=== PATIENT | female | born 1965 | race Caucasian/White ===

== ENCOUNTER → 2018-07-17 09:07 | Outpatient (CLI) | payer OTHER, MEDICAID, SELFPAY | PROVIDERS: Visit Provider Family Medicine | DX: K21.9 Gastro-esophageal reflux disease without esophagitis (principal) | CPT/HCPCS: 86677 ==

== ENCOUNTER 2018-09-15 13:58 | Emergency (ER) | payer OTHER, MEDICAID, SELFPAY ==
[2018-09-15 14:03] VITALS: BP 122/76; PULSE 95; RESP 22; TEMP 36.1; O2SAT 99; BMI 43.2
--- NOTE | 2018-09-15 16:04 | ED.URI ---
HPI - URI/Sore Throat <PAULA Pulido - Last Filed: 09/15/18 22:16> General Chief Complaint: Upper Respiratory Symptoms Stated Complaint: thinks she has the flu and sore in her mouth Time Seen by Provider: 09/15/18 15:13 Source: patient Mode of arrival: ambulatory History of Present Illness HPI Narrative: 53-year-old female with history of hypertension and is a former smoker here for complaint of having cough fever generalized malaise over the past 3-4 days. She has been tolerating p.o. intake well with no nausea or vomiting in the last 24 hr. She does state that a couple of days ago she had 1 episode of vomiting. She also states she has had a fever she is using Tylenol as needed for the fever and discomfort . She also reports having nasal congestion and sore throat as well. She denies any contacts with similar symptoms. No other concerns or complaints. MD Complaint: fever, cough, sore throat, rhinorrhea and nasal congestion Related Data Home Medications Medication Instructions Recorded Confirmed bupropion HCl 200 mg PO BID 09/15/18 esomeprazole magnesium 20 mg PO DAILY 09/15/18 09/15/18 lisinopril 10 mg PO DAILY 09/15/18 09/15/18 metformin 1,000 mg PO BID 09/15/18 09/15/18 oxycodone-acetaminophen 1 tab PO Q6H PRN MDD 8 tabs 09/15/18 09/15/18 Allergies Allergy/AdvReac Type Severity Reaction Status Date / Time Penicillins Allergy Verified 09/15/18 14:02 TEGADERM Allergy Uncoded 09/15/18 14:02 Review of Systems <PAULA Pulido - Last Filed: 09/15/18 22:16> Constitutional Reports chills, Reports fever(s), Denies lethargy, Reports malaise and Denies weakness Eyes Denies change in vision, Denies eye discharge, Denies irritation and Denies loss of vision ENT Ears, Nose, Mouth, and Throat: Reports nasal discharge and Reports sore throat Cardiovascular Denies chest pain, Denies irregular heart rhythm, Denies lightheadedness, Denies palpitations, Denies dyspnea, Denies dyspnea on exertion and Denies orthopnea Respiratory Reports cough, Denies dyspnea, Denies dyspnea on exertion and Denies wheezing Gastrointestinal Gastrointestinal: Denies abdominal pain, Denies change in bowel habits, Denies diarrhea, Denies nausea and Denies vomiting Musculoskeletal Denies back pain, Denies muscle weakness, Denies numbness and Denies tingling Integumentary/Breasts Denies pruritus, Denies erythema, Denies rash and Denies wounds Neurologic Denies confusion, Denies loss of vision, Denies numbness, Denies tingling and Denies weakness Psychiatric Denies anxiety, Denies confusion, Denies depression, Denies homicidal ideation and Denies suicidal ideation Endocrine Denies palpitations Allergic/Immunologic Denies wheezing PFSH <PAULA Pulido - Last Filed: 09/15/18 22:16> Social History Smoking Status: Former smoker Social History Smoking Status: Former smoker Exam <PAULA Pulido - Last Filed: 09/15/18 22:16> Initial Vital Signs Initial Vital Signs: Vital Signs Temperature 96.9 F L 09/15/18 14:03 Pulse Rate 95 H 09/15/18 14:03 Respiratory Rate 22 09/15/18 14:03 Blood Pressure 122/76 09/15/18 14:03 Pulse Oximetry 99 09/15/18 14:03 Const General: cooperative and well developed Nutritional Appearance: well nourished Orientation: alert, awake, oriented x3 and not confused [facility] Mouth: oral mucosae normal and moist mucous membranes Eyes Conjunctivae: conjunctivae normal Sclera: sclerae normal Pupils: PERRL EOM: EOM intact bilaterally Resp Effort & Inspection: normal respiratory effort, able to speak in complete sentences, no respiratory distress and no use of accessory muscles Auscultation: no rales, no rhonchi and wheezes Cardio Rate: regular rate Rhythm: regular rhythm Heart Sounds: no click, no gallops, no murmurs and no rubs Pulses: normal peripheral pulses GI Inspection: non-distended Palpation: soft, no hepatosplenomegaly, No guarding, No pulsatile mass and No tender Auscultation: normal bowel sounds Neuro General: alert, oriented x3, gait normal and no focal motor deficits Speech: speech normal <Clifford Jovel MD - Last Filed: 09/17/18 02:42> Initial Vital Signs Initial Vital Signs: Vital Signs Temperature 96.9 F L 09/15/18 14:03 Pulse Rate 95 H 09/15/18 14:03 Respiratory Rate 22 09/15/18 14:03 Blood Pressure 122/76 09/15/18 14:03 Pulse Oximetry 99 09/15/18 14:03 Course <PAULA Pulido - Last Filed: 09/15/18 22:16> Orders Ordered: Discontinued Medications Albuterol (Ventolin) 2.5 mg INH NOW PRN PRN Reason: Shortness Of Breath Or Wheezing Last Admin: 09/15/18 17:13 Dose: 2.5 mg Admin: 09/15/18 17:08 Dose: 2.5 mg Admin: 09/15/18 16:35 Dose: 2.5 mg Admin: 09/15/18 16:34 Dose: 2.5 mg Albuterol/Ipratropium (Duoneb) 3 ml INH NOW ONE Stop: 09/15/18 16:14 Last Admin: 09/15/18 16:23 Dose: 3 ml Vital Signs - 8 hr 09/15/18 16:23 09/15/18 16:35 09/15/18 17:15 Pulse Rate 90 90 90 Respiratory Rate 18 18 20 Blood Pressure [Left Arm] 120/62 Pulse Oximetry 97 97 98 09/15/18 17:16 Pulse Rate 84 Respiratory Rate 16 Blood Pressure [Left Arm] Pulse Oximetry 99 <Clifford Jovel MD - Last Filed: 09/17/18 02:42> Orders Ordered: Discontinued Medications Albuterol (Ventolin) 2.5 mg INH NOW PRN PRN Reason: Shortness Of Breath Or Wheezing Last Admin: 09/15/18 17:13 Dose: 2.5 mg Admin: 09/15/18 17:08 Dose: 2.5 mg Admin: 09/15/18 16:35 Dose: 2.5 mg Admin: 09/15/18 16:34 Dose: 2.5 mg Albuterol/Ipratropium (Duoneb) 3 ml INH NOW ONE Stop: 09/15/18 16:14 Last Admin: 09/15/18 16:23 Dose: 3 ml Vital Signs - 8 hr 09/15/18 16:23 09/15/18 16:35 09/15/18 17:15 Pulse Rate 90 90 90 Respiratory Rate 18 18 20 Blood Pressure [Left Arm] 120/62 Pulse Oximetry 97 97 98 09/15/18 17:16 Pulse Rate 84 Respiratory Rate 16 Blood Pressure [Left Arm] Pulse Oximetry 99 [facility] - URI/Sore Throat <PAULA Pulido - Last Filed: 09/15/18 22:16> Lab Data Lab Results 09/15/18 Range/Units 14:07 Influenza A & B (PCR) Positive, type a A (Negative) Imaging Data Chest x-ray: Radiologist's impression: [address] [address] XRay Report Signed Patient: Isabel Gutierrez RMR#: [id number] : 1965Acct:[id number] Age/Sex: 53 / FDate of Service: 09/15/18 Loc: ED Accession Number: [id number] Procedure: XR chest 1V Ordering Provider: Monster Leavitt PROCEDURE: XR CHEST 1V INDICATIONS: Cough and wheeze TECHNIQUE: One view of the chest was acquired. COMPARISON: [facility], , XR CHEST 1 VIEW, 05/15/2018, 15:16. FINDINGS: Surgical changes and devices: Cervical spine fixation hardware Lungs and pleura: Lungs are clear. No pleural effusions or pneumothorax. Mediastinum: Mediastinal contours appear normal. Heart size is normal. Bones and chest wall: No suspicious bony lesions. Overlying soft tissues appear unremarkable. IMPRESSION: No acute cardiopulmonary disease process. Dictated by: Mary Michelle MD, PhD on 09/15/2018 at 16:30 Approved by: Mary Michelle MD, PhD on 09/15/2018 at 16:31 [facility] Narrative Medical decision making narrative: Chest x-ray was obtained was negative for any acute findings. Patient was given DuoNeb treatment and albuterol neb treatment in the emergency room which help with her wheezing. She states she feels better. She was given a spacer and instructed to use a spacer a with her albuterol inhaler. Influenza swab was obtained was a positive. She is instructed to use saline irrigation and hot showers to help with any nasal congestion. Plenty of fluids and rest. [id number] Tylenol or Motrin as needed for discomfort and fever. Follow up with primary care provider next week. For any worsening symptoms return to the emergency room. <Clifford Jovel MD - Last Filed: 09/17/18 02:42> Lab Data Lab Results 09/15/18 Range/Units 14:07 Influenza A & B (PCR) Positive, type a A (Negative) Discharge Plan Departure Patient Disposition: Home Clinical Impression: Influenza Discharge Date/Time: 09/15/18 18:06 Interventions: ED Discharge Assessment Last Done: 09/15/18 18:05 Instructions: DI for Influenza -- Adult Activity Restrictions/Additional Instructions: Influenza swab was obtained was positive for influenza A. Signs and symptoms are secondary to the influenza. Use [id number] Tylenol or Motrin as needed for any discomfort or fever. Plenty of fluids and rest. Saline irrigation and nasal passages and hot showers to help with any nasal congestion. Follow up with your primary care provider. Cover cough and good handwashing to prevent spread for any worsening symptoms return emergency room. Prescriptions: No Action oxycodone-acetaminophen 5-325 mg tablet 1 tab PO Q6H MDD 8 tabs PRN (Reason: Pain, Moderate) RF: 0 metformin 1,000 mg tablet 1,000 mg PO BID RF: 0 lisinopril 10 mg tablet 10 mg PO DAILY RF: 0 esomeprazole magnesium 20 mg capsule,delayed release(DR/EC) 20 mg PO DAILY RF: 0 bupropion HCl 200 mg tablet sustained-release 12 hr 200 mg PO BID RF: 0 Referrals: [facility] [Provider Group]
--- NOTE | 2018-09-15 16:13 | DI.RAD.S_ITS ---
PROCEDURE: XR CHEST 1V INDICATIONS: Cough and wheeze TECHNIQUE: One view of the chest was acquired. COMPARISON: [facility], CR, XR CHEST 1 VIEW, 05/15/2018, 15:16. FINDINGS: Surgical changes and devices: Cervical spine fixation hardware Lungs and pleura: Lungs are clear. No pleural effusions or pneumothorax. Mediastinum: Mediastinal contours appear normal. Heart size is normal. Bones and chest wall: No suspicious bony lesions. Overlying soft tissues appear unremarkable. IMPRESSION: No acute cardiopulmonary disease process. Dictated by: Mary Michelle MD, PhD on 09/15/2018 at 16:30 Approved by: Mary Michelle MD, PhD on 09/15/2018 at 16:31
[2018-09-15 16:23] VITALS: PULSE 90; RESP 18; O2SAT 97
[2018-09-15] MEDS: ALBUTEROL/IPRATROPIUM 3 ML AMPUL INH (16:23)
[2018-09-15] MEDS: ALBUTEROL 2.5 MG/3 ML NEB (ADULT) INH ×4 (16:34→17:13)
[2018-09-15 16:35] VITALS: PULSE 90; RESP 18; O2SAT 97
[2018-09-15 17:15] VITALS: BP 120/62; PULSE 90; RESP 20; O2SAT 98
[2018-09-15 17:16] VITALS: PULSE 84; RESP 16; O2SAT 99
--- NOTE | 2018-09-15 17:53 | ED_ITS ---
HPI - URI/Sore Throat <PAULA Pulido - Last Filed: 09/15/18 22:16> General Chief Complaint: Upper Respiratory Symptoms Stated Complaint: thinks she has the flu and sore in her mouth Time Seen by Provider: 09/15/18 15:13 Source: patient Mode of arrival: ambulatory History of Present Illness HPI Narrative: 53-year-old female with history of hypertension and is a former smoker here for complaint of having cough fever generalized malaise over the past 3-4 days. She has been tolerating p.o. intake well with no nausea or vomiting in the last 24 hr. She does state that a couple of days ago she had 1 episode of vomiting. She also states she has had a fever she is using Tylenol as needed for the fever and discomfort . She also reports having nasal congestion and sore throat as well. She denies any contacts with similar symptoms. No other concerns or complaints. MD Complaint: fever, cough, sore throat, rhinorrhea and nasal congestion Related Data Home Medications Medication Instructions Recorded Confirmed bupropion HCl 200 mg PO BID 09/15/18 esomeprazole magnesium 20 mg PO DAILY 09/15/18 09/15/18 lisinopril 10 mg PO DAILY 09/15/18 09/15/18 metformin 1,000 mg PO BID 09/15/18 09/15/18 oxycodone-acetaminophen 1 tab PO Q6H PRN MDD 8 tabs 09/15/18 09/15/18 Allergies Allergy/AdvReac Type Severity Reaction Status Date / Time Penicillins Allergy Verified 09/15/18 14:02 TEGADERM Allergy Uncoded 09/15/18 14:02 Review of Systems <PAULA Pulido - Last Filed: 09/15/18 22:16> Constitutional Reports chills, Reports fever(s), Denies lethargy, Reports malaise and Denies weakness Eyes Denies change in vision, Denies eye discharge, Denies irritation and Denies loss of vision ENT Ears, Nose, Mouth, and Throat: Reports nasal discharge and Reports sore throat Cardiovascular Denies chest pain, Denies irregular heart rhythm, Denies lightheadedness, Denies palpitations, Denies dyspnea, Denies dyspnea on exertion and Denies orthopnea Respiratory Reports cough, Denies dyspnea, Denies dyspnea on exertion and Denies wheezing Gastrointestinal Gastrointestinal: Denies abdominal pain, Denies change in bowel habits, Denies diarrhea, Denies nausea and Denies vomiting Musculoskeletal Denies back pain, Denies muscle weakness, Denies numbness and Denies tingling Integumentary/Breasts Denies pruritus, Denies erythema, Denies rash and Denies wounds Neurologic Denies confusion, Denies loss of vision, Denies numbness, Denies tingling and Denies weakness Psychiatric Denies anxiety, Denies confusion, Denies depression, Denies homicidal ideation and Denies suicidal ideation Endocrine Denies palpitations Allergic/Immunologic Denies wheezing PFSH <PAULA Pulido - Last Filed: 09/15/18 22:16> Social History Smoking Status: Former smoker Social History Smoking Status: Former smoker Exam <PAULA Pulido - Last Filed: 09/15/18 22:16> Initial Vital Signs Initial Vital Signs: Vital Signs Temperature 96.9 F L 09/15/18 14:03 Pulse Rate 95 H 09/15/18 14:03 Respiratory Rate 22 09/15/18 14:03 Blood Pressure 122/76 09/15/18 14:03 Pulse Oximetry 99 09/15/18 14:03 Const General: cooperative and well developed Nutritional Appearance: well nourished Orientation: alert, awake, oriented x3 and not confused [facility] Mouth: oral mucosae normal and moist mucous membranes Eyes Conjunctivae: conjunctivae normal Sclera: sclerae normal Pupils: PERRL EOM: EOM intact bilaterally Resp Effort & Inspection: normal respiratory effort, able to speak in complete sentences, no respiratory distress and no use of accessory muscles Auscultation: no rales, no rhonchi and wheezes Cardio Rate: regular rate Rhythm: regular rhythm Heart Sounds: no click, no gallops, no murmurs and no rubs Pulses: normal peripheral pulses GI Inspection: non-distended Palpation: soft, no hepatosplenomegaly, No guarding, No pulsatile mass and No tender Auscultation: normal bowel sounds Neuro General: alert, oriented x3, gait normal and no focal motor deficits Speech: speech normal <Clifford Jovel MD - Last Filed: 09/17/18 02:42> Initial Vital Signs Initial Vital Signs: Vital Signs Temperature 96.9 F L 09/15/18 14:03 Pulse Rate 95 H 09/15/18 14:03 Respiratory Rate 22 09/15/18 14:03 Blood Pressure 122/76 09/15/18 14:03 Pulse Oximetry 99 09/15/18 14:03 Course <PAULA Pulido - Last Filed: 09/15/18 22:16> Orders Ordered: Discontinued Medications Albuterol (Ventolin) 2.5 mg INH NOW PRN PRN Reason: Shortness Of Breath Or Wheezing Last Admin: 09/15/18 17:13 Dose: 2.5 mg Admin: 09/15/18 17:08 Dose: 2.5 mg Admin: 09/15/18 16:35 Dose: 2.5 mg Admin: 09/15/18 16:34 Dose: 2.5 mg Albuterol/Ipratropium (Duoneb) 3 ml INH NOW ONE Stop: 09/15/18 16:14 Last Admin: 09/15/18 16:23 Dose: 3 ml Vital Signs - 8 hr 09/15/18 16:23 09/15/18 16:35 09/15/18 17:15 Pulse Rate 90 90 90 Respiratory Rate 18 18 20 Blood Pressure [Left Arm] 120/62 Pulse Oximetry 97 97 98 09/15/18 17:16 Pulse Rate 84 Respiratory Rate 16 Blood Pressure [Left Arm] Pulse Oximetry 99 <Clifford Jovel MD - Last Filed: 09/17/18 02:42> Orders Ordered: Discontinued Medications Albuterol (Ventolin) 2.5 mg INH NOW PRN PRN Reason: Shortness Of Breath Or Wheezing Last Admin: 09/15/18 17:13 Dose: 2.5 mg Admin: 09/15/18 17:08 Dose: 2.5 mg Admin: 09/15/18 16:35 Dose: 2.5 mg Admin: 09/15/18 16:34 Dose: 2.5 mg Albuterol/Ipratropium (Duoneb) 3 ml INH NOW ONE Stop: 09/15/18 16:14 Last Admin: 09/15/18 16:23 Dose: 3 ml Vital Signs - 8 hr 09/15/18 16:23 09/15/18 16:35 09/15/18 17:15 Pulse Rate 90 90 90 Respiratory Rate 18 18 20 Blood Pressure [Left Arm] 120/62 Pulse Oximetry 97 97 98 09/15/18 17:16 Pulse Rate 84 Respiratory Rate 16 Blood Pressure [Left Arm] Pulse Oximetry 99 [facility] - URI/Sore Throat <PAULA Pulido - Last Filed: 09/15/18 22:16> Lab Data Lab Results 09/15/18 Range/Units 14:07 Influenza A & B (PCR) Positive, type a A (Negative) Imaging Data Chest x-ray: Radiologist's impression: [address] [address] XRay Report Signed Patient: Isabel Gutierrez RMR#: [id number] : 1965Acct:[id number] Age/Sex: 53 / FDate of Service: 09/15/18 Loc: ED Accession Number: [id number] Procedure: XR chest 1V Ordering Provider: Monster Leavitt PROCEDURE: XR CHEST 1V INDICATIONS: Cough and wheeze TECHNIQUE: One view of the chest was acquired. COMPARISON: , , XR CHEST 1 VIEW, 05/15/2018, 15:16. FINDINGS: Surgical changes and devices: Cervical spine fixation hardware Lungs and pleura: Lungs are clear. No pleural effusions or pneumothorax. Mediastinum: Mediastinal contours appear normal. Heart size is normal. Bones and chest wall: No suspicious bony lesions. Overlying soft tissues appear unremarkable. IMPRESSION: No acute cardiopulmonary disease process. Dictated by: Mary Michelle MD, PhD on 09/15/2018 at 16:30 Approved by: Mary Michelle MD, PhD on 09/15/2018 at 16:31 [facility] Narrative Medical decision making narrative: Chest x-ray was obtained was negative for any acute findings. Patient was given DuoNeb treatment and albuterol neb treatment in the emergency room which help with her wheezing. She states she feels better. She was given a spacer and instructed to use a spacer a with her albuterol inhaler. Influenza swab was obtained was a positive. She is instructed to use saline irrigation and hot showers to help with any nasal congestion. Plenty of fluids and rest. [id number]-nriibjk Tylenol or Motrin as needed for discomfort and fever. Follow up with primary care provider next week. For any worsening symptoms return to the emergency room. <Clifford Jovel MD - Last Filed: 09/17/18 02:42> Lab Data Lab Results 09/15/18 Range/Units 14:07 Influenza A & B (PCR) Positive, type a A (Negative) Discharge Plan Departure Patient Disposition: Home Clinical Impression: Influenza Discharge Date/Time: 09/15/18 18:06 Interventions: ED Discharge Assessment Last Done: 09/15/18 18:05 Instructions: DI for Influenza -- Adult Activity Restrictions/Additional Instructions: Influenza swab was obtained was positive for influenza A. Signs and symptoms are secondary to the influenza. Use [id number] Tylenol or Motrin as needed for any discomfort or fever. Plenty of fluids and rest. Saline irrigation and nasal passages and hot showers to help with any nasal congestion. Follow up with your primary care provider. Cover cough and good handwashing to prevent spread for any worsening symptoms return emergency room. Prescriptions: No Action oxycodone-acetaminophen 5-325 mg tablet 1 tab PO Q6H MDD 8 tabs PRN (Reason: Pain, Moderate) RF: 0 metformin 1,000 mg tablet 1,000 mg PO BID RF: 0 lisinopril 10 mg tablet 10 mg PO DAILY RF: 0 esomeprazole magnesium 20 mg capsule,delayed release(DR/EC) 20 mg PO DAILY RF: 0 bupropion HCl 200 mg tablet sustained-release 12 hr 200 mg PO BID RF: 0 Referrals: [facility] [Provider Group]
== END 2018-09-15 18:06 | disposition home or self-care (01) ==
PROVIDERS: Emergency Medicine; Emergency Provider Nurse Practitioner Family
DX: J11.1 Influenza due to unidentified influenza virus with other respiratory manifestations (principal)
CPT/HCPCS: 71045; 87400; 94640; 99282; 99284; J7613

== ENCOUNTER → 2018-10-27 08:46 | Outpatient (CLI) | payer OTHER, MEDICAID, SELFPAY ==
[2018-10-27 09:33] LABS: Add Manual Diff / Slide Review NO; Basophils Absolute Auto 0 /uL (0-100); Basophils Percent Auto 0.5 % (0-2); Eosinophils Absolute Auto 100 /uL (0-450); Eosinophils Percent Auto 0.6 % (2-4); Hematocrit 37.7 % (36-46); Hemoglobin 12.3 g/dL (12.0-16.0); Lymphocytes Absolute Auto 2500 /uL (1100-4500); Lymphocytes Percent Auto 25.4 % (25-40); Mean Corpuscular HGB Conc 32.6 % (30-36); Mean Corpuscular Hemoglobin 28.1 PG (26-34); Mean Corpuscular Volume 86.2 fL (80-100); Monocytes Absolute Auto 600 /uL (0-900); Monocytes Percent Auto 5.8 % (3-14); Neutrophils Absolute Auto 6600 /uL (1500-7000); Neutrophils Percent Auto 67.7 % (50-75); Platelet Count 259 X10^3/uL (150-400); Red Blood Cell Count 4.37 X10^6/uL (4.0-5.2); Red Cell Distribution Width 15.2 % (11.6-14.8); White Blood Cell Count 9.8 X10^3/uL (4.5-11.0)
[2018-10-27 09:46] LABS: Alanine Aminotransferase 30 IU/L (9-52); Albumin 4.6 g/dL (3.5-5.0); Albumin Globulin Ratio 1.4 (1.0-2.8); Alkaline Phosphatase 69 U/L (38-126); Aspartate Aminotransferase 24 IU/L (14-36); Bilirubin Total 0.2 mg/dL (0.2-1.3); Blood Urea Nitrogen 23 mg/dL (7-17); Calcium 10.2 mg/dL (8.4-10.2); Carbon Dioxide 32 mmol/L (22-32); Chloride 98 mmol/L (98-107); Cholesterol 224 mg/dL (140-199); Estimated Glomerular Filt Rate 57.8 mL/min (>60); Globulin 3.3 g/dL (1.7-4.1); Glucose 124 mg/dL (70-100); HDL Cholesterol 46 mg/dL (40-60); HEMOLYSIS < 15 (0-50); LDL Cholesterol Calculated 147 mg/dL (<100); Potassium 4.6 mmol/L (3.4-5.1); Sodium 140 mmol/L (137-145); Total Protein 7.9 g/dL (6.3-8.2); Triglycerides 153 mg/dL (35-150)
[2018-10-27 10:09] LABS: Hemoglobin A1C% w Est Avg Glu 6.3 % (4.0-6.0)
[2018-10-27 10:37] LABS: Thyroid Stimulating Hormone 2.75 uIU/mL (0.47-4.68)
== END ==
PROVIDERS: PCP Family Medicine; Visit Provider Family Medicine
DX: E11.9 Type 2 diabetes mellitus without complications (principal); F32.9 Major depressive disorder, single episode, unspecified; F43.10 Post-traumatic stress disorder, unspecified; I10 Essential (primary) hypertension
CPT/HCPCS: 36415; 80053; 80061; 83036; 84443; 85025

== ENCOUNTER 2018-11-12 11:27 | Emergency (ER) | payer OTHER, MEDICAID, SELFPAY ==
[2018-11-12] VITALS (10 sets, daily range): BP systolic 86–155; BP diastolic 47–82; PULSE 74–92; RESP 14–25; TEMP 36.7; O2SAT 92–95
--- NOTE | 2018-11-12 11:38 | PC.NURSE ---
To back. seems that movement causes dizziness and dizziness causes n/v. But pt states nausea and vomiting started first and on saturday
[2018-11-12] MEDS: SODIUM CHLORIDE 0.9% 1,000 ML 1000 ML IV ×2 (12:05→13:22)
[2018-11-12] MEDS: ONDANSETRON 4 MG/2 ML INJ IV ×3 (12:05→17:39)
[2018-11-12 12:17] LABS: Add Manual Diff / Slide Review NO; Basophils Absolute Auto 0 /uL (0-100); Basophils Percent Auto 0.6 % (0-2); Eosinophils Absolute Auto 0 /uL (0-450); Eosinophils Percent Auto 0.5 % (2-4); Hematocrit 34.3 % (36-46); Hemoglobin 11.4 g/dL (12.0-16.0); Lymphocytes Absolute Auto 1700 /uL (1100-4500); Mean Corpuscular HGB Conc 33.1 % (30-36); Mean Corpuscular Hemoglobin 28.4 PG (26-34); Mean Corpuscular Volume 85.8 fL (80-100); Monocytes Absolute Auto 600 /uL (0-900); Monocytes Percent Auto 6.3 % (3-14); Neutrophils Absolute Auto 6400 /uL (1500-7000); Neutrophils Percent Auto 72.6 % (50-75); Platelet Count 250 X10^3/uL (150-400); Red Cell Distribution Width 15.1 % (11.6-14.8); White Blood Cell Count 8.8 X10^3/uL (4.5-11.0)
--- NOTE | 2018-11-12 12:17 | ED.NAVMDI ---
HPI - Nausea/Vomiting/Diarrhea <Beata Forman, ELECTRICAL MECH[employer]IC-BC - Last Filed: 11/12/18 21:37> General Chief complaint: Nausea/Vomiting/Diarrhea Stated complaint: vomiting for 3 days, dizzy Time Seen by Provider: 11/12/18 11:50 Source: patient Mode of arrival: ambulatory Limitations: no limitations History of Present Illness HPI Narrative: The patient is a 53-year-old female former smoker who presents to the ER from her PCPs office she presented with a chief complaint of nausea and vomiting. She has had consistent nausea and vomiting since Saturday. She states at times she cannot keep liquids or water down. She denies any fevers diarrhea constipation or abdominal pain. Last bowel movement was this morning. She has not taken anything for nausea. She denies any chest pain shortness of breath or cough or congestion. She states that after she started vomiting several times a day, she has since been dizzy worsening with movement and getting up. She presents asking for water to drink. Related Data Home Medications Medication Instructions Recorded Confirmed benzonatate 200 mg capsule 200 mg PO BEDTIME PRN cap 09/24/18 11/12/18 omega-3 fatty acids 1,000 mg 1,000 mg PO QPM 09/24/18 11/12/18 capsule albuterol sulfate [ProAir HFA] 1 puff INHALATION PRN PRN 11/12/18 11/12/18 buprenorphine-naloxone [Suboxone] 1 dose SUBLINGUAL TID 11/12/18 11/12/18 Previous Rx's Medication Instructions Recorded bupropion HCl SR 200 mg tablet,12 200 mg PO BID #60 each 09/24/18 hr sustained-release chlorthalidone 25 mg tablet 25 mg PO DAILY #30 tab 09/24/18 lisinopril 10 mg tablet 10 mg PO DAILY #30 tab 09/24/18 metformin 1,000 mg tablet 1,000 mg PO BID #60 tab 09/24/18 tizanidine 4 mg tablet 4 mg PO Q6H PRN #30 tab 10/07/18 esomeprazole magnesium 20 mg 20 mg PO DAILY #90 cap 11/10/18 capsule,delayed release meclizine 12.5 mg PO BID-QID PRN #20 tab 11/12/18 ondansetron HCl 4 mg PO TID PRN 5 Days #20 tab 11/12/18 Allergies Allergy/AdvReac Type Severity Reaction Status Date / Time bee venom protein (honey bee) Allergy Intermediate severe Verified 11/12/18 11:32 edema Penicillins Allergy Verified 11/12/18 11:32 TEGADERM Allergy Uncoded 09/15/18 14:02 Review of Systems <JENNIFER Martinez - Last Filed: 11/12/18 21:37> Review of Systems GENERAL: Denies chills, fatigue, malaise, fever, sweats. HEENT: Denies sinus pain, ear pain, sore throat, difficulty swallowing, dizziness. RESPIRATORY: Denies dyspnea, cough, wheezing, hemoptysis, sputum. CARDIOVASCULAR: Denies chest pain, palpitations, orthopnea, edema, GASTROINTESTINAL: See HPI : Denies dysuria, frequency, incontinence, hematuria, urinary retention. MUSCULOSKELETAL: denies weakness, joint pain, or bony pain SKIN: Denies rash, skin lesions, or other NEUROLOGIC: Denies weakness, headache, numbness, change in speech, confusion, seizures, incoordination. PSYCHIATRIC: No concerning psychosocial issues. 12 point review of systems is negative except for those stated above PFSH <JENNIFER Martinez - Last Filed: 11/12/18 21:37> Medical History Anxiety (Chronic) Asthma (Chronic) Cataracts, bilateral (Chronic) Chronic back pain (Chronic) Deep vein thrombosis (Chronic) Depression (Chronic) Gastroparesis (Chronic) Hypertension (Chronic) Knee pain (Chronic) Post traumatic stress disorder (PTSD) (Chronic) Prediabetes (Chronic) Scoliosis (Chronic) Vision disorder (Chronic) Surgical History Anesthesia (Resolved) History of bladder surgery (Resolved) History of cholecystectomy (Resolved) History of neck surgery (Resolved) Plantar fasciitis (Resolved) Previous back surgery (Resolved) Previous section (Resolved) Family History (Updated 10/26/18 @ 20:53 by Pennie Fischer) Mother Diabetes mellitus Heart disease Hypertension Social History Smoking Status: Former smoker Tobacco: How many years used: 40 alcohol intake: current (rare) Family History Mother Diabetes mellitus Heart disease Hypertension Social History Smoking Status: Former smoker Tobacco: How many years used: 40 alcohol intake: current (rare) Exam <JENNIFER Martinez - Last Filed: 11/12/18 21:37> Narrative Exam Narrative: GENERAL: This is a well-nourished, well-developed patient, actively vomiting HEAD: Atraumatic. Normocephalic. No temporal or scalp tenderness. EYES: Pupils equal round and reactive. Extraocular motions intact. No scleral icterus. No injection or drainage. ENT: Nose without bleeding, purulent drainage or septal hematoma. Throat without erythema, tonsillar hypertrophy or exudate. Uvula midline. Airway patent. NECK: Trachea midline. No JVD or lymphadenopathy. Supple, nontender, no meningeal signs. CARDIOVASCULAR: Regular rate and rhythm without murmurs, gallops, or rubs. RESPIRATORY: Clear to auscultation. Breath sounds equal bilaterally. No wheezes, rales, or rhonchi. No cough. No increased respiratory effort. GASTROINTESTINAL: Abdomen soft, non-tender, nondistended. No hepato-splenomegaly, or palpable masses. No guarding. active bowel sounds. EXTREMITIES: No clubbing, cyanosis, or edema. No joint tenderness, effusion, or edema noted. BACK: Nontender without deformity or crepitance. No flank tenderness. NEURO: AOx3. SKIN: No rash or erythema. Initial Vital Signs Initial Vital Signs: Vital Signs Temperature 98.0 F 11/12/18 11:30 Pulse Rate 77 11/12/18 11:30 Respiratory Rate 14 11/12/18 11:30 Blood Pressure 120/72 11/12/18 11:30 Pulse Oximetry 95 11/12/18 11:30 <Elyse Mauro MD - Last Filed: 11/13/18 12:05> Initial Vital Signs Initial Vital Signs: Vital Signs Temperature 98.0 F 11/12/18 11:30 Pulse Rate 77 11/12/18 11:30 Respiratory Rate 14 11/12/18 11:30 Blood Pressure 120/72 11/12/18 11:30 Pulse Oximetry 95 11/12/18 11:30 Course <Beata Forman, ELECTRICAL MECH[employer]IC-BC - Last Filed: 11/12/18 21:37> Orders Ordered: Discontinued Medications Sodium Chloride (Normal Saline 0.9%) 1,000 mls @ 1,000 mls/hr IV BOLUS ONE Stop: 11/12/18 13:02 Last Infusion: 11/12/18 13:21 Dose: 0 mls/hr Admin: 11/12/18 12:05 Dose: 1,000 mls/hr Sodium Chloride (Normal Saline 0.9%) 1,000 mls @ 1,000 mls/hr IV BOLUS ONE Stop: 11/12/18 13:48 Last Infusion: 11/12/18 14:29 Dose: 0 mls/hr Admin: 11/12/18 13:22 Dose: 1,000 mls/hr Meclizine HCl (Antivert) 50 mg PO NOW ONE Stop: 11/12/18 17:24 Last Admin: 11/12/18 17:39 Dose: 50 mg Ondansetron HCl (Zofran) 4 mg IV NOW ONE Stop: 11/12/18 12:01 Last Admin: 11/12/18 12:05 Dose: 4 mg Ondansetron HCl (Zofran) 4 mg IV NOW ONE Stop: 11/12/18 14:37 Last Admin: 11/12/18 14:37 Dose: 4 mg Ondansetron HCl (Zofran) 4 mg IV NOW ONE Stop: 11/12/18 17:26 Last Admin: 11/12/18 17:39 Dose: 4 mg Potassium Chloride (Potassium Chloride) 40 meq PO NOW ONE Stop: 11/12/18 16:28 Last Admin: 11/12/18 16:44 Dose: 40 meq Vital Signs - 8 hr 11/12/18 14:07 11/12/18 14:53 11/12/18 15:30 Pulse Rate 92 H 87 Pulse Rate [Orthostatic Lying] 86 Pulse Rate [Orthostatic Sitting] 84 Pulse Rate [Orthostatic Standing] 82 Respiratory Rate 18 15 Blood Pressure [Orthostatic Lying] 137/70 Blood Pressure [Orthostatic Sitting] 155/71 H Blood Pressure [Orthostatic Standing] 155/73 H Blood Pressure [Right Arm] 124/74 137/82 Pulse Oximetry 94 11/12/18 16:00 11/12/18 18:00 11/12/18 19:00 Pulse Rate 81 79 Pulse Rate [Orthostatic Lying] Pulse Rate [Orthostatic Sitting] Pulse Rate [Orthostatic Standing] Respiratory Rate 18 18 Blood Pressure [Orthostatic Lying] Blood Pressure [Orthostatic Sitting] Blood Pressure [Orthostatic Standing] Blood Pressure [Right Arm] 127/47 L 105/54 L 114/67 Pulse Oximetry 94 <Elyse Mauro MD - Last Filed: 11/13/18 12:05> Orders Ordered: Discontinued Medications Sodium Chloride (Normal Saline 0.9%) 1,000 mls @ 1,000 mls/hr IV BOLUS ONE Stop: 11/12/18 13:02 Last Infusion: 11/12/18 13:21 Dose: 0 mls/hr Admin: 11/12/18 12:05 Dose: 1,000 mls/hr Sodium Chloride (Normal Saline 0.9%) 1,000 mls @ 1,000 mls/hr IV BOLUS ONE Stop: 11/12/18 13:48 Last Infusion: 11/12/18 14:29 Dose: 0 mls/hr Admin: 11/12/18 13:22 Dose: 1,000 mls/hr Meclizine HCl (Antivert) 50 mg PO NOW ONE Stop: 11/12/18 17:24 Last Admin: 11/12/18 17:39 Dose: 50 mg Ondansetron HCl (Zofran) 4 mg IV NOW ONE Stop: 11/12/18 12:01 Last Admin: 11/12/18 12:05 Dose: 4 mg Ondansetron HCl (Zofran) 4 mg IV NOW ONE Stop: 11/12/18 14:37 Last Admin: 11/12/18 14:37 Dose: 4 mg Ondansetron HCl (Zofran) 4 mg IV NOW ONE Stop: 11/12/18 17:26 Last Admin: 11/12/18 17:39 Dose: 4 mg Potassium Chloride (Potassium Chloride) 40 meq PO NOW ONE Stop: 11/12/18 16:28 Last Admin: 11/12/18 16:44 Dose: 40 meq Vital Signs - 8 hr 11/12/18 14:07 11/12/18 14:53 11/12/18 15:30 Pulse Rate 92 H 87 Pulse Rate [Orthostatic Lying] 86 Pulse Rate [Orthostatic Sitting] 84 Pulse Rate [Orthostatic Standing] 82 Respiratory Rate 18 15 Blood Pressure [Orthostatic Lying] 137/70 Blood Pressure [Orthostatic Sitting] 155/71 H Blood Pressure [Orthostatic Standing] 155/73 H Blood Pressure [Right Arm] 124/74 137/82 Pulse Oximetry 94 11/12/18 16:00 11/12/18 18:00 11/12/18 19:00 Pulse Rate 81 79 Pulse Rate [Orthostatic Lying] Pulse Rate [Orthostatic Sitting] Pulse Rate [Orthostatic Standing] Respiratory Rate 18 18 Blood Pressure [Orthostatic Lying] Blood Pressure [Orthostatic Sitting] Blood Pressure [Orthostatic Standing] Blood Pressure [Right Arm] 127/47 L 105/54 L 114/67 Pulse Oximetry 94 MDM - Nausea/Vomiting/Diarrhea <PRANAV Martinez- - Last Filed: 11/12/18 21:37> Lab Data Result diagrams: 11/12/18 12:00 11/12/18 15:42 Lab Results 11/12/18 11/12/18 11/12/18 Range/Units 12:00 12:00 12:00 WBC 8.8 (4.5-11.0) X10^3/uL RBC 4.00 (4.0-5.2) X10^6/uL Hgb 11.4 L (12.0-16.0) g/dL Hct 34.3 L (36-46) % MCV 85.8 (80-100) fL MCH 28.4 (26-34) PG MCHC 33.1 (30-36) % RDW 15.1 H (11.6-14.8) % Plt Count 250 (150-400) X10^3/uL Neut % (Auto) 72.6 (50-75) % Lymph % (Auto) 20.0 L (25-40) % [place] % (Auto) 6.3 (3-14) % Eos % (Auto) 0.5 L (2-4) % Baso % (Auto) 0.6 (0-2) % Neut # (Auto) 6400 (1328-3024) /uL Lymph # (Auto) 1700 (3085-5674) /uL [place] # (Auto) 600 (0-900) /uL Eos # (Auto) 0 (0-450) /uL Baso # (Auto) 0 (0-100) /uL PT 11.5 (10.1-12.7) SECONDS INR 1.0 (0.9-1.3) APTT 33 (26.4-36.2) SECONDS Sodium 135 L (137-145) mmol/L Potassium 3.4 (3.4-5.1) mmol/L Chloride 88 L (98-107) mmol/L Carbon Dioxide 35 H (22-32) mmol/L BUN 19 H (7-17) mg/dL Creatinine 1.00 (0.52-1.04) mg/dL Estimated GFR 57.8 L (>60) mL/min BUN/Creatinine Ratio 19.0 (6-22) Glucose 108 H (70-100) mg/dL Calcium 9.7 (8.4-10.2) mg/dL Magnesium (1.6-2.3) mg/dL Total Bilirubin 0.4 (0.2-1.3) mg/dL AST 46 H (14-36) IU/L ALT 46 (9-52) IU/L Alkaline Phosphatase 68 (38-126) U/L Total Creatine Kinase (30-135) U/L CK-MB (CK-2) (<2.37) ng/mL CK-MB (CK-2) Rel Index (1.5-5.0) % Troponin I (0.01-0.034) ng/mL Total Protein 7.8 (6.3-8.2) g/dL Albumin 4.5 (3.5-5.0) g/dL Globulin 3.3 (1.7-4.1) g/dL Albumin/Globulin Ratio 1.4 (1.0-2.8) Amylase (30-110) U/L Lipase 212 (23-300) U/L Influenza A & B (PCR) (Negative) 11/12/18 11/12/18 11/12/18 Range/Units 12:16 12:16 12:16 WBC (4.5-11.0) X10^3/uL RBC (4.0-5.2) X10^6/uL Hgb (12.0-16.0) g/dL Hct (36-46) % MCV (80-100) fL MCH (26-34) PG MCHC (30-36) % RDW (11.6-14.8) % Plt Count (150-400) X10^3/uL Neut % (Auto) (50-75) % Lymph % (Auto) (25-40) % [place] % (Auto) (3-14) % Eos % (Auto) (2-4) % Baso % (Auto) (0-2) % Neut # (Auto) (6663-9281) /uL Lymph # (Auto) (5630-1892) /uL [place] # (Auto) (0-900) /uL Eos # (Auto) (0-450) /uL Baso # (Auto) (0-100) /uL PT (10.1-12.7) SECONDS INR (0.9-1.3) APTT (26.4-36.2) SECONDS Sodium (137-145) mmol/L Potassium (3.4-5.1) mmol/L Chloride (98-107) mmol/L Carbon Dioxide (22-32) mmol/L BUN (7-17) mg/dL Creatinine (0.52-1.04) mg/dL Estimated GFR (>60) mL/min BUN/Creatinine Ratio (6-22) Glucose (70-100) mg/dL Calcium (8.4-10.2) mg/dL Magnesium (1.6-2.3) mg/dL Total Bilirubin (0.2-1.3) mg/dL AST (14-36) IU/L ALT (9-52) IU/L Alkaline Phosphatase (38-126) U/L Total Creatine Kinase 711 H (30-135) U/L CK-MB (CK-2) 3.74 H (<2.37) ng/mL CK-MB (CK-2) Rel Index 0.5 L (1.5-5.0) % Troponin I < 0.012 (0.01-0.034) ng/mL Total Protein (6.3-8.2) g/dL Albumin (3.5-5.0) g/dL Globulin (1.7-4.1) g/dL Albumin/Globulin Ratio (1.0-2.8) Amylase 67 (30-110) U/L Lipase (23-300) U/L Influenza A & B (PCR) Negative (Negative) 11/12/18 11/12/18 Range/Units 12:19 15:42 WBC (4.5-11.0) X10^3/uL RBC (4.0-5.2) X10^6/uL Hgb (12.0-16.0) g/dL Hct (36-46) % MCV (80-100) fL MCH (26-34) PG MCHC (30-36) % RDW (11.6-14.8) % Plt Count (150-400) X10^3/uL Neut % (Auto) (50-75) % Lymph % (Auto) (25-40) % [place] % (Auto) (3-14) % Eos % (Auto) (2-4) % Baso % (Auto) (0-2) % Neut # (Auto) (3531-0638) /uL Lymph # (Auto) (9495-7891) /uL [place] # (Auto) (0-900) /uL Eos # (Auto) (0-450) /uL Baso # (Auto) (0-100) /uL PT (10.1-12.7) SECONDS INR (0.9-1.3) APTT (26.4-36.2) SECONDS Sodium 136 L (137-145) mmol/L Potassium 3.2 L (3.4-5.1) mmol/L Chloride 93 L (98-107) mmol/L Carbon Dioxide 34 H (22-32) mmol/L BUN 16 (7-17) mg/dL Creatinine 1.00 (0.52-1.04) mg/dL Estimated GFR 57.8 L (>60) mL/min BUN/Creatinine Ratio 16.0 (6-22) Glucose 76 (70-100) mg/dL Calcium 8.7 (8.4-10.2) mg/dL Magnesium 1.7 (1.6-2.3) mg/dL Total Bilirubin 0.3 (0.2-1.3) mg/dL AST 42 H (14-36) IU/L ALT 42 (9-52) IU/L Alkaline Phosphatase 55 (38-126) U/L Total Creatine Kinase 700 H (30-135) U/L CK-MB (CK-2) 4.06 H (<2.37) ng/mL CK-MB (CK-2) Rel Index 0.6 L (1.5-5.0) % Troponin I < 0.012 (0.01-0.034) ng/mL Total Protein 6.9 (6.3-8.2) g/dL Albumin 4.1 (3.5-5.0) g/dL Globulin 2.8 (1.7-4.1) g/dL Albumin/Globulin Ratio 1.5 (1.0-2.8) Amylase (30-110) U/L Lipase (23-300) U/L Influenza A & B (PCR) (Negative) Urine Dip Bedside Urine Glucose Negative Bedside Urine Bilirubin - Negative Bedside Urine Ketone - Negative Urine Specific [place] 1.020 Bedside Urine Occult Blood - Negative Bedside Urine pH 6 Bedside Urine Protein - Negative Bedside Urine Urobilinogen - Negative Bedside Urine Nitrite - Negative Bedside Urine Leukocytes - Negative Esterase Imaging Data CT scan - head: Radiologist's impression: [place] [address] CT Scan Report Signed Patient: Isabel Gutierrez RMR#: [id number] : 1965Acct:[id number] Age/Sex: 53 / FDate of Service: 11/12/18 Loc: ED Accession Number: [id number] Procedure: CT head/brain wo con Ordering Provider: Beata Forman PROCEDURE: CT HEAD/BRAIN WO CON INDICATIONS: dizzy TECHNIQUE: Noncontrast 4.5 mm thick angled axial sections acquired from the foramen magnum to the vertex, with coronal and sagittal reformats. For radiation dose reduction, the following was used: automated exposure control, adjustment of mA and/or kV according to patient size. COMPARISON: [facility], CT, BRAIN W/O CONTRAST, 02/26/2009, 11:32. FINDINGS: Image quality: Diagnostic. CSF spaces: Basal cisterns are patent. No extra-axial fluid collections. Ventricles are normal in size and shape. Brain: No midline shift. No intracranial masses or hemorrhage. Vidal-white matter interface is normal. Skull and face: Calvarium and visualized facial bones are intact, without suspicious lesions. Sinuses: Mucosal thickening of the inferior right maxillary sinus is present. IMPRESSION: 1. Unremarkable head CT. No acute intracranial hemorrhage. 2. Mild right maxillary sinus disease. Dictated by: Aries Landis M.D. on 11/12/2018 at 13:52 Approved by: Aries Landis M.D. on 11/12/2018 at 13:54 ECG Data Attestation: I personally reviewed and interpreted this ECG as follows: Interpretation: Sinus rhythm. Ventricular rate 80. No ST elevation or depression. No ectopy noted. Viewed by Dr. Mauro MDM Narrative Medical decision making narrative: The patient is a 53-year-old female presents with a chief complaint nausea and vomiting followed by dizziness. She was given IV fluids, several doses of Zofran as well as a dose of meclizine. Given her age, risk factors, and the persistence of dizziness and vomiting in the absence of abdominal pain, I did obtain a head CT to rule out stroke. She had a normal head CT. She felt much improved after the meclizine. She was able to tolerate sandwich, oral potassium as well as multiple fluids. I did discuss at length keeping her as an inpatient for further workup as an inpatient, but the patient declined. She had 2-troponins, but had persistently high CK. I reviewed this at length with Dr Mauro, who stated that the patient would be stable to go home as it is not rising and her index is low. The patient also expresses that she does not want to stay and patient, but agrees to close follow-up. I encouraged her to follow up with primary care provider tomorrow and try to be seen earlier than her appointment next week. However the patient was much improved upon discharge, able to ambulate steadily and keep down food or fluid. Discussed strict return precautions. Patient has no questions or concerns upon discharge <Elyse Mauro MD - Last Filed: 11/13/18 12:05> Lab Data Lab Results 11/12/18 11/12/18 11/12/18 Range/Units 12:00 12:00 12:00 WBC 8.8 (4.5-11.0) X10^3/uL RBC 4.00 (4.0-5.2) X10^6/uL Hgb 11.4 L (12.0-16.0) g/dL Hct 34.3 L (36-46) % MCV 85.8 (80-100) fL MCH 28.4 (26-34) PG MCHC 33.1 (30-36) % RDW 15.1 H (11.6-14.8) % Plt Count 250 (150-400) X10^3/uL Neut % (Auto) 72.6 (50-75) % Lymph % (Auto) 20.0 L (25-40) % [place] % (Auto) 6.3 (3-14) % Eos % (Auto) 0.5 L (2-4) % Baso % (Auto) 0.6 (0-2) % Neut # (Auto) 6400 (9089-2865) /uL Lymph # (Auto) 1700 (7270-6688) /uL [place] # (Auto) 600 (0-900) /uL Eos # (Auto) 0 (0-450) /uL Baso # (Auto) 0 (0-100) /uL PT 11.5 (10.1-12.7) SECONDS INR 1.0 (0.9-1.3) APTT 33 (26.4-36.2) SECONDS Sodium 135 L (137-145) mmol/L Potassium 3.4 (3.4-5.1) mmol/L Chloride 88 L (98-107) mmol/L Carbon Dioxide 35 H (22-32) mmol/L BUN 19 H (7-17) mg/dL Creatinine 1.00 (0.52-1.04) mg/dL Estimated GFR 57.8 L (>60) mL/min BUN/Creatinine Ratio 19.0 (6-22) Glucose 108 H (70-100) mg/dL Calcium 9.7 (8.4-10.2) mg/dL Magnesium (1.6-2.3) mg/dL Total Bilirubin 0.4 (0.2-1.3) mg/dL AST 46 H (14-36) IU/L ALT 46 (9-52) IU/L Alkaline Phosphatase 68 (38-126) U/L Total Creatine Kinase (30-135) U/L CK-MB (CK-2) (<2.37) ng/mL CK-MB (CK-2) Rel Index (1.5-5.0) % Troponin I (0.01-0.034) ng/mL Total Protein 7.8 (6.3-8.2) g/dL Albumin 4.5 (3.5-5.0) g/dL Globulin 3.3 (1.7-4.1) g/dL Albumin/Globulin Ratio 1.4 (1.0-2.8) Amylase (30-110) U/L Lipase 212 (23-300) U/L Influenza A & B (PCR) (Negative) 11/12/18 11/12/18 11/12/18 Range/Units 12:16 12:16 12:16 WBC (4.5-11.0) X10^3/uL RBC (4.0-5.2) X10^6/uL Hgb (12.0-16.0) g/dL Hct (36-46) % MCV (80-100) fL MCH (26-34) PG MCHC (30-36) % RDW (11.6-14.8) % Plt Count (150-400) X10^3/uL Neut % (Auto) (50-75) % Lymph % (Auto) (25-40) % [place] % (Auto) (3-14) % Eos % (Auto) (2-4) % Baso % (Auto) (0-2) % Neut # (Auto) (5658-6388) /uL Lymph # (Auto) (0389-2446) /uL [place] # (Auto) (0-900) /uL Eos # (Auto) (0-450) /uL Baso # (Auto) (0-100) /uL PT (10.1-12.7) SECONDS INR (0.9-1.3) APTT (26.4-36.2) SECONDS Sodium (137-145) mmol/L Potassium (3.4-5.1) mmol/L Chloride (98-107) mmol/L Carbon Dioxide (22-32) mmol/L BUN (7-17) mg/dL Creatinine (0.52-1.04) mg/dL Estimated GFR (>60) mL/min BUN/Creatinine Ratio (6-22) Glucose (70-100) mg/dL Calcium (8.4-10.2) mg/dL Magnesium (1.6-2.3) mg/dL Total Bilirubin (0.2-1.3) mg/dL AST (14-36) IU/L ALT (9-52) IU/L Alkaline Phosphatase (38-126) U/L Total Creatine Kinase 711 H (30-135) U/L CK-MB (CK-2) 3.74 H (<2.37) ng/mL CK-MB (CK-2) Rel Index 0.5 L (1.5-5.0) % Troponin I < 0.012 (0.01-0.034) ng/mL Total Protein (6.3-8.2) g/dL Albumin (3.5-5.0) g/dL Globulin (1.7-4.1) g/dL Albumin/Globulin Ratio (1.0-2.8) Amylase 67 (30-110) U/L Lipase (23-300) U/L Influenza A & B (PCR) Negative (Negative) 11/12/18 11/12/18 Range/Units 12:19 15:42 WBC (4.5-11.0) X10^3/uL RBC (4.0-5.2) X10^6/uL Hgb (12.0-16.0) g/dL Hct (36-46) % MCV (80-100) fL MCH (26-34) PG MCHC (30-36) % RDW (11.6-14.8) % Plt Count (150-400) X10^3/uL Neut % (Auto) (50-75) % Lymph % (Auto) (25-40) % [place] % (Auto) (3-14) % Eos % (Auto) (2-4) % Baso % (Auto) (0-2) % Neut # (Auto) (6235-9153) /uL Lymph # (Auto) (2497-9287) /uL [place] # (Auto) (0-900) /uL Eos # (Auto) (0-450) /uL Baso # (Auto) (0-100) /uL PT (10.1-12.7) SECONDS INR (0.9-1.3) APTT (26.4-36.2) SECONDS Sodium 136 L (137-145) mmol/L Potassium 3.2 L (3.4-5.1) mmol/L Chloride 93 L (98-107) mmol/L Carbon Dioxide 34 H (22-32) mmol/L BUN 16 (7-17) mg/dL Creatinine 1.00 (0.52-1.04) mg/dL Estimated GFR 57.8 L (>60) mL/min BUN/Creatinine Ratio 16.0 (6-22) Glucose 76 (70-100) mg/dL Calcium 8.7 (8.4-10.2) mg/dL Magnesium 1.7 (1.6-2.3) mg/dL Total Bilirubin 0.3 (0.2-1.3) mg/dL AST 42 H (14-36) IU/L ALT 42 (9-52) IU/L Alkaline Phosphatase 55 (38-126) U/L Total Creatine Kinase 700 H (30-135) U/L CK-MB (CK-2) 4.06 H (<2.37) ng/mL CK-MB (CK-2) Rel Index 0.6 L (1.5-5.0) % Troponin I < 0.012 (0.01-0.034) ng/mL Total Protein 6.9 (6.3-8.2) g/dL Albumin 4.1 (3.5-5.0) g/dL Globulin 2.8 (1.7-4.1) g/dL Albumin/Globulin Ratio 1.5 (1.0-2.8) Amylase (30-110) U/L Lipase (23-300) U/L Influenza A & B (PCR) (Negative) Urine Dip Bedside Urine Glucose Negative Bedside Urine Bilirubin - Negative Bedside Urine Ketone - Negative Urine Specific [place] 1.020 Bedside Urine Occult Blood - Negative Bedside Urine pH 6 Bedside Urine Protein - Negative Bedside Urine Urobilinogen - Negative Bedside Urine Nitrite - Negative Bedside Urine Leukocytes - Negative Esterase Discharge Plan Departure Patient Disposition: Home Clinical Impression: Dizziness Discharge Date/Time: 11/12/18 19:50 Interventions: ED Discharge Assessment Last Done: 11/12/18 19:58 Instructions: DI for Dehydration -- Adult, DI for Nausea -- Adult, DI for Vomiting -- Adult, DI for Dizziness-Nonvertigo Activity Restrictions/Additional Instructions: Please follow up with primary care provider soon as possible. Please come back to the emergency department for any acute concerns such as concern of heart attack or stroke. Please rest and push fluids. Please follow up with primary care provider soon as possible. Prescriptions: New ondansetron HCl 4 mg tablet 4 mg PO TID PRN (Reason: nausea and vomiting) 5 Days Qty: 20 RF: 0 meclizine 12.5 mg tablet 12.5 mg PO BID-QID PRN (Reason: dizziness) Qty: 20 RF: 0 No Action omega-3 fatty acids [Fish Oil Concentrate] 1,000 mg capsule 1,000 mg PO QPM RF: 0 benzonatate 200 mg capsule 200 mg PO BEDTIME PRN (Reason: Cough) RF: 0 bupropion HCl 200 mg tablet sustained-release 12 hr 200 mg PO BID Qty: 60 RF: 2 metformin 1,000 mg tablet 1,000 mg PO BID Qty: 60 RF: 2 lisinopril 10 mg tablet 10 mg PO DAILY Qty: 30 RF: 2 chlorthalidone 25 mg tablet 25 mg PO DAILY Qty: 30 RF: 2 tizanidine 4 mg tablet 4 mg PO Q6H PRN (Reason: muscle spasticity) Qty: 30 RF: 0 esomeprazole magnesium 20 mg capsule,delayed release(DR/EC) 20 mg PO DAILY Qty: 90 RF: 0 albuterol sulfate [ProAir HFA] 90 mcg/actuation HFA aerosol inhaler 1 puff Inhalation PRN PRN (Reason: Shortness Of Breath) RF: 0 buprenorphine-naloxone [Suboxone] 8-2 mg film 1 dose Sublingual TID RF: 0 Referrals: Radhika Clemens DO [Primary Care Provider] -
[2018-11-12 12:22] LABS: Prothrombin Time 11.5 SECONDS (10.1-12.7)
--- NOTE | 2018-11-12 12:22 | ED_ITS ---
HPI - Nausea/Vomiting/Diarrhea <Beata Forman, [employer]AR[employer] OPERATOR-BC - Last Filed: 11/12/18 21:37> General Chief complaint: Nausea/Vomiting/Diarrhea Stated complaint: vomiting for 3 days, dizzy Time Seen by Provider: 11/12/18 11:50 Source: patient Mode of arrival: ambulatory Limitations: no limitations History of Present Illness HPI Narrative: The patient is a 53-year-old female former smoker who presents to the ER from her PCPs office she presented with a chief complaint of nausea and vomiting. She has had consistent nausea and vomiting since Saturday. She states at times she cannot keep liquids or water down. She denies any fevers diarrhea constipation or abdominal pain. Last bowel movement was this morning. She has not taken anything for nausea. She denies any chest pain shortness of breath or cough or congestion. She states that after she started vomiting several times a day, she has since been dizzy worsening with movement and getting up. She presents asking for water to drink. Related Data Home Medications Medication Instructions Recorded Confirmed benzonatate 200 mg capsule 200 mg PO BEDTIME PRN cap 09/24/18 11/12/18 omega-3 fatty acids 1,000 mg 1,000 mg PO QPM 09/24/18 11/12/18 capsule albuterol sulfate [ProAir HFA] 1 puff INHALATION PRN PRN 11/12/18 11/12/18 buprenorphine-naloxone [Suboxone] 1 dose SUBLINGUAL TID 11/12/18 11/12/18 Previous Rx's Medication Instructions Recorded bupropion HCl SR 200 mg tablet,12 200 mg PO BID #60 each 09/24/18 hr sustained-release chlorthalidone 25 mg tablet 25 mg PO DAILY #30 tab 09/24/18 lisinopril 10 mg tablet 10 mg PO DAILY #30 tab 09/24/18 metformin 1,000 mg tablet 1,000 mg PO BID #60 tab 09/24/18 tizanidine 4 mg tablet 4 mg PO Q6H PRN #30 tab 10/07/18 esomeprazole magnesium 20 mg 20 mg PO DAILY #90 cap 11/10/18 capsule,delayed release meclizine 12.5 mg PO BID-QID PRN #20 tab 11/12/18 ondansetron HCl 4 mg PO TID PRN 5 Days #20 tab 11/12/18 Allergies Allergy/AdvReac Type Severity Reaction Status Date / Time bee venom protein (honey bee) Allergy Intermediate severe Verified 11/12/18 11:32 edema Penicillins Allergy Verified 11/12/18 11:32 TEGADERM Allergy Uncoded 09/15/18 14:02 Review of Systems <JENNIFER Martinez - Last Filed: 11/12/18 21:37> Review of Systems GENERAL: Denies chills, fatigue, malaise, fever, sweats. HEENT: Denies sinus pain, ear pain, sore throat, difficulty swallowing, dizziness. RESPIRATORY: Denies dyspnea, cough, wheezing, hemoptysis, sputum. CARDIOVASCULAR: Denies chest pain, palpitations, orthopnea, edema, GASTROINTESTINAL: See HPI : Denies dysuria, frequency, incontinence, hematuria, urinary retention. MUSCULOSKELETAL: denies weakness, joint pain, or bony pain SKIN: Denies rash, skin lesions, or other NEUROLOGIC: Denies weakness, headache, numbness, change in speech, confusion, seizures, incoordination. PSYCHIATRIC: No concerning psychosocial issues. 12 point review of systems is negative except for those stated above PFSH <JENNIFER Martinez - Last Filed: 11/12/18 21:37> Medical History Anxiety (Chronic) Asthma (Chronic) Cataracts, bilateral (Chronic) Chronic back pain (Chronic) Deep vein thrombosis (Chronic) Depression (Chronic) Gastroparesis (Chronic) Hypertension (Chronic) Knee pain (Chronic) Post traumatic stress disorder (PTSD) (Chronic) Prediabetes (Chronic) Scoliosis (Chronic) Vision disorder (Chronic) Surgical History Anesthesia (Resolved) History of bladder surgery (Resolved) History of cholecystectomy (Resolved) History of neck surgery (Resolved) Plantar fasciitis (Resolved) Previous back surgery (Resolved) Previous section (Resolved) Family History (Updated 10/26/18 @ 20:53 by Pennie Fischer) Mother Diabetes mellitus Heart disease Hypertension Social History Smoking Status: Former smoker Tobacco: How many years used: 40 alcohol intake: current (rare) Family History Mother Diabetes mellitus Heart disease Hypertension Social History Smoking Status: Former smoker Tobacco: How many years used: 40 alcohol intake: current (rare) Exam <JENNIFER Martinez - Last Filed: 11/12/18 21:37> Narrative Exam Narrative: GENERAL: This is a well-nourished, well-developed patient, actively vomiting HEAD: Atraumatic. Normocephalic. No temporal or scalp tenderness. EYES: Pupils equal round and reactive. Extraocular motions intact. No scleral icterus. No injection or drainage. ENT: Nose without bleeding, purulent drainage or septal hematoma. Throat without erythema, tonsillar hypertrophy or exudate. Uvula midline. Airway patent. NECK: Trachea midline. No JVD or lymphadenopathy. Supple, nontender, no meningeal signs. CARDIOVASCULAR: Regular rate and rhythm without murmurs, gallops, or rubs. RESPIRATORY: Clear to auscultation. Breath sounds equal bilaterally. No wheezes, rales, or rhonchi. No cough. No increased respiratory effort. GASTROINTESTINAL: Abdomen soft, non-tender, nondistended. No hepato- splenomegaly, or palpable masses. No guarding. active bowel sounds. EXTREMITIES: No clubbing, cyanosis, or edema. No joint tenderness, effusion, or edema noted. BACK: Nontender without deformity or crepitance. No flank tenderness. NEURO: AOx3. SKIN: No rash or erythema. Initial Vital Signs Initial Vital Signs: Vital Signs Temperature 98.0 F 11/12/18 11:30 Pulse Rate 77 11/12/18 11:30 Respiratory Rate 14 11/12/18 11:30 Blood Pressure 120/72 11/12/18 11:30 Pulse Oximetry 95 11/12/18 11:30 <Elyse Mauro MD - Last Filed: 11/13/18 12:05> Initial Vital Signs Initial Vital Signs: Vital Signs Temperature 98.0 F 11/12/18 11:30 Pulse Rate 77 11/12/18 11:30 Respiratory Rate 14 11/12/18 11:30 Blood Pressure 120/72 11/12/18 11:30 Pulse Oximetry 95 11/12/18 11:30 Course <Beata Forman, [employer] OPERATOR-BC - Last Filed: 11/12/18 21:37> Orders Ordered: Discontinued Medications Sodium Chloride (Normal Saline 0.9%) 1,000 mls @ 1,000 mls/hr IV BOLUS ONE Stop: 11/12/18 13:02 Last Infusion: 11/12/18 13:21 Dose: 0 mls/hr Admin: 11/12/18 12:05 Dose: 1,000 mls/hr Sodium Chloride (Normal Saline 0.9%) 1,000 mls @ 1,000 mls/hr IV BOLUS ONE Stop: 11/12/18 13:48 Last Infusion: 11/12/18 14:29 Dose: 0 mls/hr Admin: 11/12/18 13:22 Dose: 1,000 mls/hr Meclizine HCl (Antivert) 50 mg PO NOW ONE Stop: 11/12/18 17:24 Last Admin: 11/12/18 17:39 Dose: 50 mg Ondansetron HCl (Zofran) 4 mg IV NOW ONE Stop: 11/12/18 12:01 Last Admin: 11/12/18 12:05 Dose: 4 mg Ondansetron HCl (Zofran) 4 mg IV NOW ONE Stop: 11/12/18 14:37 Last Admin: 11/12/18 14:37 Dose: 4 mg Ondansetron HCl (Zofran) 4 mg IV NOW ONE Stop: 11/12/18 17:26 Last Admin: 11/12/18 17:39 Dose: 4 mg Potassium Chloride (Potassium Chloride) 40 meq PO NOW ONE Stop: 11/12/18 16:28 Last Admin: 11/12/18 16:44 Dose: 40 meq Vital Signs - 8 hr 11/12/18 14:07 11/12/18 14:53 11/12/18 15:30 Pulse Rate 92 H 87 Pulse Rate [Orthostatic Lying] 86 Pulse Rate [Orthostatic Sitting] 84 Pulse Rate [Orthostatic Standing] 82 Respiratory Rate 18 15 Blood Pressure [Orthostatic Lying] 137/70 Blood Pressure [Orthostatic Sitting] 155/71 H Blood Pressure [Orthostatic Standing] 155/73 H Blood Pressure [Right Arm] 124/74 137/82 Pulse Oximetry 94 11/12/18 16:00 11/12/18 18:00 11/12/18 19:00 Pulse Rate 81 79 Pulse Rate [Orthostatic Lying] Pulse Rate [Orthostatic Sitting] Pulse Rate [Orthostatic Standing] Respiratory Rate 18 18 Blood Pressure [Orthostatic Lying] Blood Pressure [Orthostatic Sitting] Blood Pressure [Orthostatic Standing] Blood Pressure [Right Arm] 127/47 L 105/54 L 114/67 Pulse Oximetry 94 <Elyse Mauro MD - Last Filed: 11/13/18 12:05> Orders Ordered: Discontinued Medications Sodium Chloride (Normal Saline 0.9%) 1,000 mls @ 1,000 mls/hr IV BOLUS ONE Stop: 11/12/18 13:02 Last Infusion: 11/12/18 13:21 Dose: 0 mls/hr Admin: 11/12/18 12:05 Dose: 1,000 mls/hr Sodium Chloride (Normal Saline 0.9%) 1,000 mls @ 1,000 mls/hr IV BOLUS ONE Stop: 11/12/18 13:48 Last Infusion: 11/12/18 14:29 Dose: 0 mls/hr Admin: 11/12/18 13:22 Dose: 1,000 mls/hr Meclizine HCl (Antivert) 50 mg PO NOW ONE Stop: 11/12/18 17:24 Last Admin: 11/12/18 17:39 Dose: 50 mg Ondansetron HCl (Zofran) 4 mg IV NOW ONE Stop: 11/12/18 12:01 Last Admin: 11/12/18 12:05 Dose: 4 mg Ondansetron HCl (Zofran) 4 mg IV NOW ONE Stop: 11/12/18 14:37 Last Admin: 11/12/18 14:37 Dose: 4 mg Ondansetron HCl (Zofran) 4 mg IV NOW ONE Stop: 11/12/18 17:26 Last Admin: 11/12/18 17:39 Dose: 4 mg Potassium Chloride (Potassium Chloride) 40 meq PO NOW ONE Stop: 11/12/18 16:28 Last Admin: 11/12/18 16:44 Dose: 40 meq Vital Signs - 8 hr 11/12/18 14:07 11/12/18 14:53 11/12/18 15:30 Pulse Rate 92 H 87 Pulse Rate [Orthostatic Lying] 86 Pulse Rate [Orthostatic Sitting] 84 Pulse Rate [Orthostatic Standing] 82 Respiratory Rate 18 15 Blood Pressure [Orthostatic Lying] 137/70 Blood Pressure [Orthostatic Sitting] 155/71 H Blood Pressure [Orthostatic Standing] 155/73 H Blood Pressure [Right Arm] 124/74 137/82 Pulse Oximetry 94 11/12/18 16:00 11/12/18 18:00 11/12/18 19:00 Pulse Rate 81 79 Pulse Rate [Orthostatic Lying] Pulse Rate [Orthostatic Sitting] Pulse Rate [Orthostatic Standing] Respiratory Rate 18 18 Blood Pressure [Orthostatic Lying] Blood Pressure [Orthostatic Sitting] Blood Pressure [Orthostatic Standing] Blood Pressure [Right Arm] 127/47 L 105/54 L 114/67 Pulse Oximetry 94 MDM - Nausea/Vomiting/Diarrhea <PRANAV Martinez- - Last Filed: 11/12/18 21:37> Lab Data Result diagrams: 11/12/18 12:00 11/12/18 15:42 Lab Results 11/12/18 11/12/18 11/12/18 Range/Units 12:00 12:00 12:00 WBC 8.8 (4.5-11.0) X10^3/uL RBC 4.00 (4.0-5.2) X10^6/uL Hgb 11.4 L (12.0-16.0) g/dL Hct 34.3 L (36-46) % MCV 85.8 (80-100) fL MCH 28.4 (26-34) PG MCHC 33.1 (30-36) % RDW 15.1 H (11.6-14.8) % Plt Count 250 (150-400) X10^3/uL Neut % (Auto) 72.6 (50-75) % Lymph % (Auto) 20.0 L (25-40) % Swain % (Auto) 6.3 (3-14) % Eos % (Auto) 0.5 L (2-4) % Baso % (Auto) 0.6 (0-2) % Neut # (Auto) 6400 (0506-9428) /uL Lymph # (Auto) 1700 (1092-5170) /uL Swain # (Auto) 600 (0-900) /uL Eos # (Auto) 0 (0-450) /uL Baso # (Auto) 0 (0-100) /uL PT 11.5 (10.1-12.7) SECONDS INR 1.0 (0.9-1.3) APTT 33 (26.4-36.2) SECONDS Sodium 135 L (137-145) mmol/L Potassium 3.4 (3.4-5.1) mmol/L Chloride 88 L (98-107) mmol/L Carbon Dioxide 35 H (22-32) mmol/L BUN 19 H (7-17) mg/dL Creatinine 1.00 (0.52-1.04) mg/dL Estimated GFR 57.8 L (>60) mL/min BUN/Creatinine Ratio 19.0 (6-22) Glucose 108 H (70-100) mg/dL Calcium 9.7 (8.4-10.2) mg/dL Magnesium (1.6-2.3) mg/dL Total Bilirubin 0.4 (0.2-1.3) mg/dL AST 46 H (14-36) IU/L ALT 46 (9-52) IU/L Alkaline Phosphatase 68 (38-126) U/L Total Creatine Kinase (30-135) U/L CK-MB (CK-2) (<2.37) ng/mL CK-MB (CK-2) Rel Index (1.5-5.0) % Troponin I (0.01-0.034) ng/mL Total Protein 7.8 (6.3-8.2) g/dL Albumin 4.5 (3.5-5.0) g/dL Globulin 3.3 (1.7-4.1) g/dL Albumin/Globulin Ratio 1.4 (1.0-2.8) Amylase (30-110) U/L Lipase 212 (23-300) U/L Influenza A & B (PCR) (Negative) 11/12/18 11/12/18 11/12/18 Range/Units 12:16 12:16 12:16 WBC (4.5-11.0) X10^3/uL RBC (4.0-5.2) X10^6/uL Hgb (12.0-16.0) g/dL Hct (36-46) % MCV (80-100) fL MCH (26-34) PG MCHC (30-36) % RDW (11.6-14.8) % Plt Count (150-400) X10^3/uL Neut % (Auto) (50-75) % Lymph % (Auto) (25-40) % Swain % (Auto) (3-14) % Eos % (Auto) (2-4) % Baso % (Auto) (0-2) % Neut # (Auto) (5681-3990) /uL Lymph # (Auto) (7734-8798) /uL Swain # (Auto) (0-900) /uL Eos # (Auto) (0-450) /uL Baso # (Auto) (0-100) /uL PT (10.1-12.7) SECONDS INR (0.9-1.3) APTT (26.4-36.2) SECONDS Sodium (137-145) mmol/L Potassium (3.4-5.1) mmol/L Chloride (98-107) mmol/L Carbon Dioxide (22-32) mmol/L BUN (7-17) mg/dL Creatinine (0.52-1.04) mg/dL Estimated GFR (>60) mL/min BUN/Creatinine Ratio (6-22) Glucose (70-100) mg/dL Calcium (8.4-10.2) mg/dL Magnesium (1.6-2.3) mg/dL Total Bilirubin (0.2-1.3) mg/dL AST (14-36) IU/L ALT (9-52) IU/L Alkaline Phosphatase (38-126) U/L Total Creatine Kinase 711 H (30-135) U/L CK-MB (CK-2) 3.74 H (<2.37) ng/mL CK-MB (CK-2) Rel Index 0.5 L (1.5-5.0) % Troponin I < 0.012 (0.01-0.034) ng/mL Total Protein (6.3-8.2) g/dL Albumin (3.5-5.0) g/dL Globulin (1.7-4.1) g/dL Albumin/Globulin Ratio (1.0-2.8) Amylase 67 (30-110) U/L Lipase (23-300) U/L Influenza A & B (PCR) Negative (Negative) 11/12/18 11/12/18 Range/Units 12:19 15:42 WBC (4.5-11.0) X10^3/uL RBC (4.0-5.2) X10^6/uL Hgb (12.0-16.0) g/dL Hct (36-46) % MCV (80-100) fL MCH (26-34) PG MCHC (30-36) % RDW (11.6-14.8) % Plt Count (150-400) X10^3/uL Neut % (Auto) (50-75) % Lymph % (Auto) (25-40) % Swain % (Auto) (3-14) % Eos % (Auto) (2-4) % Baso % (Auto) (0-2) % Neut # (Auto) (4547-6647) /uL Lymph # (Auto) (5212-9544) /uL Swain # (Auto) (0-900) /uL Eos # (Auto) (0-450) /uL Baso # (Auto) (0-100) /uL PT (10.1-12.7) SECONDS INR (0.9-1.3) APTT (26.4-36.2) SECONDS Sodium 136 L (137-145) mmol/L Potassium 3.2 L (3.4-5.1) mmol/L Chloride 93 L (98-107) mmol/L Carbon Dioxide 34 H (22-32) mmol/L BUN 16 (7-17) mg/dL Creatinine 1.00 (0.52-1.04) mg/dL Estimated GFR 57.8 L (>60) mL/min BUN/Creatinine Ratio 16.0 (6-22) Glucose 76 (70-100) mg/dL Calcium 8.7 (8.4-10.2) mg/dL Magnesium 1.7 (1.6-2.3) mg/dL Total Bilirubin 0.3 (0.2-1.3) mg/dL AST 42 H (14-36) IU/L ALT 42 (9-52) IU/L Alkaline Phosphatase 55 (38-126) U/L Total Creatine Kinase 700 H (30-135) U/L CK-MB (CK-2) 4.06 H (<2.37) ng/mL CK-MB (CK-2) Rel Index 0.6 L (1.5-5.0) % Troponin I < 0.012 (0.01-0.034) ng/mL Total Protein 6.9 (6.3-8.2) g/dL Albumin 4.1 (3.5-5.0) g/dL Globulin 2.8 (1.7-4.1) g/dL Albumin/Globulin Ratio 1.5 (1.0-2.8) Amylase (30-110) U/L Lipase (23-300) U/L Influenza A & B (PCR) (Negative) Urine Dip Bedside Urine Glucose Negative Bedside Urine Bilirubin - Negative Bedside Urine Ketone - Negative Urine Specific [place] 1.020 Bedside Urine Occult Blood - Negative Bedside Urine pH 6 Bedside Urine Protein - Negative Bedside Urine Urobilinogen - Negative Bedside Urine Nitrite - Negative Bedside Urine Leukocytes - Negative Esterase Imaging Data CT scan - head: Radiologist's impression: [place] [address] CT Scan Report Signed Patient: Isabel Gutierrez RMR#: [id number] : 1965Acct:[id number] Age/Sex: 53 / FDate of Service: 11/12/18 Loc: ED Accession Number: [id number] Procedure: CT head/brain wo con Ordering Provider: Beata Forman PROCEDURE: CT HEAD/BRAIN WO CON INDICATIONS: dizzy TECHNIQUE: Noncontrast 4.5 mm thick angled axial sections acquired from the foramen magnum to the vertex, with coronal and sagittal reformats. For radiation dose reduction, the following was used: automated exposure control, adjustment of mA and/or kV according to patient size. COMPARISON: [facility], CT, BRAIN W/O CONTRAST, 02/26/2009, 11:32. FINDINGS: Image quality: Diagnostic. CSF spaces: Basal cisterns are patent. No extra-axial fluid collections. Ventricles are normal in size and shape. Brain: No midline shift. No intracranial masses or hemorrhage. Vidal-white matter interface is normal. Skull and face: Calvarium and visualized facial bones are intact, without suspicious lesions. Sinuses: Mucosal thickening of the inferior right maxillary sinus is present. IMPRESSION: 1. Unremarkable head CT. No acute intracranial hemorrhage. 2. Mild right maxillary sinus disease. Dictated by: Aries Landis M.D. on 11/12/2018 at 13:52 Approved by: Aries Landis M.D. on 11/12/2018 at 13:54 ECG Data Attestation: I personally reviewed and interpreted this ECG as follows: Interpretation: Sinus rhythm. Ventricular rate 80. No ST elevation or depression. No ectopy noted. Viewed by Dr. Mauro MDM Narrative Medical decision making narrative: The patient is a 53-year-old female presents with a chief complaint nausea and vomiting followed by dizziness. She was given IV fluids, several doses of Zofran as well as a dose of meclizine. Given her age, risk factors, and the persistence of dizziness and vomiting in the absence of abdominal pain, I did obtain a head CT to rule out stroke. She had a normal head CT. She felt much improved after the meclizine. She was able to tolerate sandwich, oral potassium as well as multiple fluids. I did discuss at length keeping her as an inpatient for further workup as an inpatient, but the patient declined. She had 2-troponins, but had persistently high CK. I reviewed this at length with Dr Mauro, who stated that the patient would be stable to go home as it is not rising and her index is low. The patient also expresses that she does not want to stay and patient, but agrees to close follow-up. I encouraged her to follow up with primary care provider tomorrow and try to be seen earlier than her appointment next week. However the patient was much improved upon discharge, able to ambulate steadily and keep down food or fluid. Discussed strict return precautions. Patient has no questions or concerns upon discharge <Elyse Mauro MD - Last Filed: 11/13/18 12:05> Lab Data Lab Results 11/12/18 11/12/18 11/12/18 Range/Units 12:00 12:00 12:00 WBC 8.8 (4.5-11.0) X10^3/uL RBC 4.00 (4.0-5.2) X10^6/uL Hgb 11.4 L (12.0-16.0) g/dL Hct 34.3 L (36-46) % MCV 85.8 (80-100) fL MCH 28.4 (26-34) PG MCHC 33.1 (30-36) % RDW 15.1 H (11.6-14.8) % Plt Count 250 (150-400) X10^3/uL Neut % (Auto) 72.6 (50-75) % Lymph % (Auto) 20.0 L (25-40) % Swain % (Auto) 6.3 (3-14) % Eos % (Auto) 0.5 L (2-4) % Baso % (Auto) 0.6 (0-2) % Neut # (Auto) 6400 (4690-6111) /uL Lymph # (Auto) 1700 (3018-5661) /uL Swain # (Auto) 600 (0-900) /uL Eos # (Auto) 0 (0-450) /uL Baso # (Auto) 0 (0-100) /uL PT 11.5 (10.1-12.7) SECONDS INR 1.0 (0.9-1.3) APTT 33 (26.4-36.2) SECONDS Sodium 135 L (137-145) mmol/L Potassium 3.4 (3.4-5.1) mmol/L Chloride 88 L (98-107) mmol/L Carbon Dioxide 35 H (22-32) mmol/L BUN 19 H (7-17) mg/dL Creatinine 1.00 (0.52-1.04) mg/dL Estimated GFR 57.8 L (>60) mL/min BUN/Creatinine Ratio 19.0 (6-22) Glucose 108 H (70-100) mg/dL Calcium 9.7 (8.4-10.2) mg/dL Magnesium (1.6-2.3) mg/dL Total Bilirubin 0.4 (0.2-1.3) mg/dL AST 46 H (14-36) IU/L ALT 46 (9-52) IU/L Alkaline Phosphatase 68 (38-126) U/L Total Creatine Kinase (30-135) U/L CK-MB (CK-2) (<2.37) ng/mL CK-MB (CK-2) Rel Index (1.5-5.0) % Troponin I (0.01-0.034) ng/mL Total Protein 7.8 (6.3-8.2) g/dL Albumin 4.5 (3.5-5.0) g/dL Globulin 3.3 (1.7-4.1) g/dL Albumin/Globulin Ratio 1.4 (1.0-2.8) Amylase (30-110) U/L Lipase 212 (23-300) U/L Influenza A & B (PCR) (Negative) 11/12/18 11/12/18 11/12/18 Range/Units 12:16 12:16 12:16 WBC (4.5-11.0) X10^3/uL RBC (4.0-5.2) X10^6/uL Hgb (12.0-16.0) g/dL Hct (36-46) % MCV (80-100) fL MCH (26-34) PG MCHC (30-36) % RDW (11.6-14.8) % Plt Count (150-400) X10^3/uL Neut % (Auto) (50-75) % Lymph % (Auto) (25-40) % Swain % (Auto) (3-14) % Eos % (Auto) (2-4) % Baso % (Auto) (0-2) % Neut # (Auto) (8710-6023) /uL Lymph # (Auto) (5235-0842) /uL Swain # (Auto) (0-900) /uL Eos # (Auto) (0-450) /uL Baso # (Auto) (0-100) /uL PT (10.1-12.7) SECONDS INR (0.9-1.3) APTT (26.4-36.2) SECONDS Sodium (137-145) mmol/L Potassium (3.4-5.1) mmol/L Chloride (98-107) mmol/L Carbon Dioxide (22-32) mmol/L BUN (7-17) mg/dL Creatinine (0.52-1.04) mg/dL Estimated GFR (>60) mL/min BUN/Creatinine Ratio (6-22) Glucose (70-100) mg/dL Calcium (8.4-10.2) mg/dL Magnesium (1.6-2.3) mg/dL Total Bilirubin (0.2-1.3) mg/dL AST (14-36) IU/L ALT (9-52) IU/L Alkaline Phosphatase (38-126) U/L Total Creatine Kinase 711 H (30-135) U/L CK-MB (CK-2) 3.74 H (<2.37) ng/mL CK-MB (CK-2) Rel Index 0.5 L (1.5-5.0) % Troponin I < 0.012 (0.01-0.034) ng/mL Total Protein (6.3-8.2) g/dL Albumin (3.5-5.0) g/dL Globulin (1.7-4.1) g/dL Albumin/Globulin Ratio (1.0-2.8) Amylase 67 (30-110) U/L Lipase (23-300) U/L Influenza A & B (PCR) Negative (Negative) 11/12/18 11/12/18 Range/Units 12:19 15:42 WBC (4.5-11.0) X10^3/uL RBC (4.0-5.2) X10^6/uL Hgb (12.0-16.0) g/dL Hct (36-46) % MCV (80-100) fL MCH (26-34) PG MCHC (30-36) % RDW (11.6-14.8) % Plt Count (150-400) X10^3/uL Neut % (Auto) (50-75) % Lymph % (Auto) (25-40) % Swain % (Auto) (3-14) % Eos % (Auto) (2-4) % Baso % (Auto) (0-2) % Neut # (Auto) (8697-8054) /uL Lymph # (Auto) (2084-3377) /uL Swain # (Auto) (0-900) /uL Eos # (Auto) (0-450) /uL Baso # (Auto) (0-100) /uL PT (10.1-12.7) SECONDS INR (0.9-1.3) APTT (26.4-36.2) SECONDS Sodium 136 L (137-145) mmol/L Potassium 3.2 L (3.4-5.1) mmol/L Chloride 93 L (98-107) mmol/L Carbon Dioxide 34 H (22-32) mmol/L BUN 16 (7-17) mg/dL Creatinine 1.00 (0.52-1.04) mg/dL Estimated GFR 57.8 L (>60) mL/min BUN/Creatinine Ratio 16.0 (6-22) Glucose 76 (70-100) mg/dL Calcium 8.7 (8.4-10.2) mg/dL Magnesium 1.7 (1.6-2.3) mg/dL Total Bilirubin 0.3 (0.2-1.3) mg/dL AST 42 H (14-36) IU/L ALT 42 (9-52) IU/L Alkaline Phosphatase 55 (38-126) U/L Total Creatine Kinase 700 H (30-135) U/L CK-MB (CK-2) 4.06 H (<2.37) ng/mL CK-MB (CK-2) Rel Index 0.6 L (1.5-5.0) % Troponin I < 0.012 (0.01-0.034) ng/mL Total Protein 6.9 (6.3-8.2) g/dL Albumin 4.1 (3.5-5.0) g/dL Globulin 2.8 (1.7-4.1) g/dL Albumin/Globulin Ratio 1.5 (1.0-2.8) Amylase (30-110) U/L Lipase (23-300) U/L Influenza A & B (PCR) (Negative) Urine Dip Bedside Urine Glucose Negative Bedside Urine Bilirubin - Negative Bedside Urine Ketone - Negative Urine Specific [place] 1.020 Bedside Urine Occult Blood - Negative Bedside Urine pH 6 Bedside Urine Protein - Negative Bedside Urine Urobilinogen - Negative Bedside Urine Nitrite - Negative Bedside Urine Leukocytes - Negative Esterase Discharge Plan Departure Patient Disposition: Home Clinical Impression: Dizziness Discharge Date/Time: 11/12/18 19:50 Interventions: ED Discharge Assessment Last Done: 11/12/18 19:58 Instructions: DI for Dehydration -- Adult, DI for Nausea -- Adult, DI for Vomiting -- Adult, DI for Dizziness-Nonvertigo Activity Restrictions/Additional Instructions: Please follow up with primary care provider soon as possible. Please come back to the emergency department for any acute concerns such as concern of heart attack or stroke. Please rest and push fluids. Please follow up with primary care provider soon as possible. Prescriptions: New ondansetron HCl 4 mg tablet 4 mg PO TID PRN (Reason: nausea and vomiting) 5 Days Qty: 20 RF: 0 meclizine 12.5 mg tablet 12.5 mg PO BID-QID PRN (Reason: dizziness) Qty: 20 RF: 0 No Action omega-3 fatty acids [Fish Oil Concentrate] 1,000 mg capsule 1,000 mg PO QPM RF: 0 benzonatate 200 mg capsule 200 mg PO BEDTIME PRN (Reason: Cough) RF: 0 bupropion HCl 200 mg tablet sustained-release 12 hr 200 mg PO BID Qty: 60 RF: 2 metformin 1,000 mg tablet 1,000 mg PO BID Qty: 60 RF: 2 lisinopril 10 mg tablet 10 mg PO DAILY Qty: 30 RF: 2 chlorthalidone 25 mg tablet 25 mg PO DAILY Qty: 30 RF: 2 tizanidine 4 mg tablet 4 mg PO Q6H PRN (Reason: muscle spasticity) Qty: 30 RF: 0 esomeprazole magnesium 20 mg capsule,delayed release(DR/EC) 20 mg PO DAILY Qty: 90 RF: 0 albuterol sulfate [ProAir HFA] 90 mcg/actuation HFA aerosol inhaler 1 puff Inhalation PRN PRN (Reason: Shortness Of Breath) RF: 0 buprenorphine-naloxone [Suboxone] 8-2 mg film 1 dose Sublingual TID RF: 0 Referrals: Radhika Clemens DO [Primary Care Provider] -
[2018-11-12 12:24] LABS: PTT Partial Thromboplastin Tim 33 SECONDS (26.4-36.2)
[2018-11-12 12:28] LABS: Alanine Aminotransferase 46 IU/L (9-52); Albumin 4.5 g/dL (3.5-5.0); Albumin Globulin Ratio 1.4 (1.0-2.8); Alkaline Phosphatase 68 U/L (38-126); Aspartate Aminotransferase 46 IU/L (14-36); Bilirubin Total 0.4 mg/dL (0.2-1.3); Blood Urea Nitrogen 19 mg/dL (7-17); Calcium 9.7 mg/dL (8.4-10.2); Carbon Dioxide 35 mmol/L (22-32); Chloride 88 mmol/L (98-107); Estimated Glomerular Filt Rate 57.8 mL/min (>60); Globulin 3.3 g/dL (1.7-4.1); Glucose 108 mg/dL (70-100); HEMOLYSIS < 15 (0-50); Lipase 212 U/L (23-300); Potassium 3.4 mmol/L (3.4-5.1); Sodium 135 mmol/L (137-145); Total Protein 7.8 g/dL (6.3-8.2)
[2018-11-12 12:28] LABS: Creatine Kinase 711 U/L (30-135)
[2018-11-12 12:29] LABS: Amylase 67 U/L (30-110)
[2018-11-12 12:40] LABS: Troponin I < 0.012 ng/mL (0.01-0.034)
[2018-11-12 12:41] LABS: Influenza A and B by PCR Rapid Negative (Negative)
[2018-11-12 12:44] LABS: CKMB % Relative Index 0.5 % (1.5-5.0); Creatine Kinase MB 3.74 ng/mL (<2.37)
[2018-11-12 12:53] LABS: Magnesium 1.7 mg/dL (1.6-2.3)
--- NOTE | 2018-11-12 14:31 | DI.CT.S_ITS ---
PROCEDURE: CT HEAD/BRAIN WO CON INDICATIONS: dizzy TECHNIQUE: Noncontrast 4.5 mm thick angled axial sections acquired from the foramen magnum to the vertex, with coronal and sagittal reformats. For radiation dose reduction, the following was used: automated exposure control, adjustment of mA and/or kV according to patient size. COMPARISON: [facility], CT, BRAIN W/O CONTRAST, 02/26/2009, 11:32. FINDINGS: Image quality: Diagnostic. CSF spaces: Basal cisterns are patent. No extra-axial fluid collections. Ventricles are normal in size and shape. Brain: No midline shift. No intracranial masses or hemorrhage. Vidal-white matter interface is normal. Skull and face: Calvarium and visualized facial bones are intact, without suspicious lesions. Sinuses: Mucosal thickening of the inferior right maxillary sinus is present. IMPRESSION: 1. Unremarkable head CT. No acute intracranial hemorrhage. 2. Mild right maxillary sinus disease. Dictated by: Aries Landis M.D. on 11/12/2018 at 13:52 Approved by: Aries Landis M.D. on 11/12/2018 at 13:54
[2018-11-12 16:14] LABS: Alanine Aminotransferase 42 IU/L (9-52); Albumin 4.1 g/dL (3.5-5.0); Albumin Globulin Ratio 1.5 (1.0-2.8); Alkaline Phosphatase 55 U/L (38-126); Aspartate Aminotransferase 42 IU/L (14-36); Bilirubin Total 0.3 mg/dL (0.2-1.3); Blood Urea Nitrogen 16 mg/dL (7-17); Calcium 8.7 mg/dL (8.4-10.2); Carbon Dioxide 34 mmol/L (22-32); Chloride 93 mmol/L (98-107); Creatine Kinase 700 U/L (30-135); Estimated Glomerular Filt Rate 57.8 mL/min (>60); Globulin 2.8 g/dL (1.7-4.1); Glucose 76 mg/dL (70-100); HEMOLYSIS < 15 (0-50); Potassium 3.2 mmol/L (3.4-5.1); Sodium 136 mmol/L (137-145); Total Protein 6.9 g/dL (6.3-8.2)
[2018-11-12 16:26] LABS: Troponin I < 0.012 ng/mL (0.01-0.034)
[2018-11-12 16:30] LABS: CKMB % Relative Index 0.6 % (1.5-5.0); Creatine Kinase MB 4.06 ng/mL (<2.37)
[2018-11-12] MEDS: POTASSIUM CHLORIDE 20 MEQ/15 ML UDC 40 MEQ PO (16:44)
[2018-11-12] MEDS: MECLIZINE HCL 12.5 MG TABLET 50 MG PO (17:39)
== END 2018-11-12 19:50 | disposition home or self-care (01) ==
PROVIDERS: Emergency Provider Nurse Practitioner Family; PCP Family Medicine
DX: R42 Dizziness and giddiness (principal); R11.2 Nausea with vomiting, unspecified
CPT/HCPCS: 36415; 36591; 70450; 80053; 81003; 82150; 82550; 82553; 83690; 83735; 84484; 85025; 85610; 85730; 87400; 93005; 96361; 96374; 96376; 99285; J2405

== ENCOUNTER 2018-12-21 15:37 | Emergency (ER) | payer OTHER, MEDICAID, SELFPAY ==
[2018-12-21 15:47] VITALS: BP 185/97; PULSE 90; RESP 16; TEMP 36.7; O2SAT 97; BMI 42.2
--- NOTE | 2018-12-21 15:56 | ED.GIBLEED ---
HPI - GI Bleed General Chief complaint: GI Bleed Stated complaint: cramps and rectal bleeding Time Seen by Provider: 12/21/18 15:40 Source: patient Mode of arrival: ambulatory Limitations: no limitations History of Present Illness HPI Narrative: 53-year-old female with history GERD and asthma presents to the emergency department with a chief complaint of some vague abdominal cramping and passage of some dark clots by her rectum earlier today. She denies any dark and tarry stool. She denies any hematemesis or coffee-ground emesis. She takes no blood thinners and denies any frequent NSAID use or history of diverticulitis or ulcers. She has never had this before. She states she had her last colonoscopy about 5 years ago and it showed no significant abnormalities. She is not dizzy nor weak or lightheaded. Related Data Home Medications Medication Instructions Recorded Confirmed benzonatate 200 mg capsule 200 mg PO BEDTIME PRN cap 09/24/18 11/17/18 omega-3 fatty acids 1,000 mg 1,000 mg PO QPM 09/24/18 11/17/18 capsule albuterol sulfate [ProAir HFA] 1 puff INHALATION PRN PRN 11/12/18 11/17/18 buprenorphine-naloxone [Suboxone] 1 dose SUBLINGUAL TID 11/12/18 11/17/18 Previous Rx's Medication Instructions Recorded bupropion HCl SR 200 mg tablet,12 200 mg PO BID #60 each 09/24/18 hr sustained-release chlorthalidone 25 mg tablet 25 mg PO DAILY #30 tab 09/24/18 lisinopril 10 mg tablet 10 mg PO DAILY #30 tab 09/24/18 metformin 1,000 mg tablet 1,000 mg PO BID #60 tab 09/24/18 tizanidine 4 mg tablet 4 mg PO Q6H PRN #30 tab 10/07/18 esomeprazole magnesium 20 mg 20 mg PO DAILY #90 cap 11/10/18 capsule,delayed release meclizine 12.5 mg PO BID-QID PRN #20 tab 11/12/18 Allergies Allergy/AdvReac Type Severity Reaction Status Date / Time bee venom protein (honey bee) Allergy Intermediate severe Verified 12/21/18 15:46 edema Penicillins Allergy Verified 12/21/18 15:46 TEGADERM Allergy Uncoded 06/09/19 15:46 Review of Systems Constitutional Denies chills, Denies fever(s), Denies lethargy and Denies weakness Eyes Denies change in vision, Denies eye discharge, Denies irritation and Denies loss of vision ENT Ears, Nose, Mouth, and Throat: Denies change in voice, Denies neck pain and Denies sore throat Cardiovascular Denies chest pain, Denies irregular heart rhythm, Denies lightheadedness, Denies palpitations, Denies dyspnea, Denies dyspnea on exertion and Denies orthopnea Respiratory Denies cough, Denies dyspnea, Denies dyspnea on exertion and Denies wheezing Gastrointestinal Gastrointestinal: Denies abdominal pain, Reports hematochezia, Denies change in bowel habits, Denies diarrhea, Denies nausea and Denies vomiting Genitourinary Denies hematuria, Denies flank pain, Denies urinary incontinence and Denies urinary urgency Musculoskeletal Denies neck pain Integumentary/Breasts Denies pruritus, Denies erythema, Denies rash and Denies wounds Neurologic Denies confusion, Denies loss of vision and Denies weakness Psychiatric Denies anxiety, Denies confusion, Denies depression, Denies homicidal ideation and Denies suicidal ideation Endocrine Denies palpitations Hematologic/Lymphatic Denies easy bruising Allergic/Immunologic Denies wheezing [facility] Medical History Anxiety (Chronic) Asthma (Chronic) Cataracts, bilateral (Chronic) Chronic back pain (Chronic) Deep vein thrombosis (Chronic) Depression (Chronic) Gastroparesis (Chronic) Hypertension (Chronic) Knee pain (Chronic) Post traumatic stress disorder (PTSD) (Chronic) Prediabetes (Chronic) Scoliosis (Chronic) Vision disorder (Chronic) Surgical History Anesthesia (Resolved) History of bladder surgery (Resolved) History of cholecystectomy (Resolved) History of neck surgery (Resolved) Plantar fasciitis (Resolved) Previous back surgery (Resolved) Previous section (Resolved) Family History Mother Diabetes mellitus Heart disease Hypertension Social History Smoking Status: Former smoker Tobacco: How many years used: 40 alcohol intake: current (rare) Family History Mother Diabetes mellitus Heart disease Hypertension Social History Smoking Status: Former smoker Tobacco: How many years used: 40 alcohol intake: current (rare) Exam Narrative Exam Narrative: GENERAL: 53-year-old female appears stated age, in mild distress, very talkative HEAD: Atraumatic. Normocephalic. No temporal or scalp tenderness. EYES: Pupils equal round and reactive. Extraocular motions intact. No scleral icterus. No injection or drainage. ENT: Nose without bleeding, purulent drainage or septal hematoma. Throat without erythema, tonsillar hypertrophy or exudate. Uvula midline. Airway patent. NECK: Trachea midline. No JVD or lymphadenopathy. Supple, nontender, no meningeal signs. CARDIOVASCULAR: Regular rate and rhythm without murmurs, gallops, or rubs. RESPIRATORY: Clear to auscultation. Breath sounds equal bilaterally. No wheezes, rales, or rhonchi. GASTROINTESTINAL: Abdomen soft, non-tender, protuberant. No hepato-splenomegaly, or palpable masses. No guarding. RECTAL: scant bright red blood. No obvious hemorrhoid, fissure or other mass EXTREMITIES: No clubbing, cyanosis, or edema. No joint tenderness, effusion, or edema noted. BACK: Nontender without deformity or crepitance. No flank tenderness. NEURO: AOx3. SKIN: No rash or erythema. Initial Vital Signs Initial Vital Signs: Vital Signs Temperature 98.1 F 12/21/18 15:47 Pulse Rate 90 12/21/18 15:47 Respiratory Rate 16 12/21/18 15:47 Blood Pressure 185/97 H 12/21/18 15:47 Pulse Oximetry 97 12/21/18 15:47 Course Orders Ordered: ED Orders 12/21/18 15:45 Complete Blood Count AUTO DIFF Stat Comprehensive Metabolic Panel Stat Partial Thromboplastin Time Stat Prothrombin Time INR Stat Type and Screen Stat 12/21/18 17:03 US abdomen limited Stat Discontinued Medications Sodium Chloride (Normal Saline 0.9%) 1,000 mls @ 150 mls/hr IV CONT DRAKE Last Infusion: 12/21/18 18:11 Dose: 0 mls/hr Admin: 12/21/18 16:13 Dose: 150 mls/hr Ondansetron HCl (Zofran) 4 mg IV NOW ONE Stop: 12/21/18 15:48 Last Admin: 12/21/18 16:13 Dose: 4 mg Pantoprazole Sodium (Protonix) 40 mg IV NOW ONE Stop: 12/21/18 15:48 Last Admin: 12/21/18 16:13 Dose: 40 mg Vital Signs - 8 hr 12/21/18 15:47 12/21/18 17:30 12/21/18 18:11 Temperature 98.1 F Pulse Rate 90 79 77 Respiratory Rate 16 13 19 Blood Pressure 185/97 H 135/94 H Blood Pressure [Left Arm] 119/62 Pulse Oximetry 97 97 96 MDM - GI Bleed Lab Data Result diagrams: 12/21/18 15:45 12/21/18 15:45 Lab Results 12/21/18 12/21/18 12/21/18 Range/Units 15:45 15:45 15:45 WBC 9.8 (4.5-11.0) X10^3/uL RBC 4.24 (4.0-5.2) X10^6/uL Hgb 12.3 (12.0-16.0) g/dL Hct 36.7 (36-46) % MCV 86.6 (80-100) fL MCH 28.9 (26-34) PG MCHC 33.4 (30-36) % RDW 15.6 H (11.6-14.8) % Plt Count 244 (150-400) X10^3/uL Neut % (Auto) 69.0 (50-75) % Lymph % (Auto) 24.0 L (25-40) % [place] % (Auto) 5.5 (3-14) % Eos % (Auto) 0.6 L (2-4) % Baso % (Auto) 0.9 (0-2) % Neut # (Auto) 6800 (1764-2824) /uL Lymph # (Auto) 2400 (3406-2253) /uL [place] # (Auto) 500 (0-900) /uL Eos # (Auto) 100 (0-450) /uL Baso # (Auto) 100 (0-100) /uL PT 10.5 (10.1-12.7) SECONDS INR 0.9 (0.9-1.3) APTT 34 (26.4-36.2) SECONDS Sodium 137 (137-145) mmol/L Potassium 4.0 (3.4-5.1) mmol/L Chloride 96 L (98-107) mmol/L Carbon Dioxide 32 (22-32) mmol/L BUN 15 (7-17) mg/dL Creatinine 0.90 (0.52-1.04) mg/dL Estimated GFR > 60.0 (>60) mL/min BUN/Creatinine Ratio 16.7 (6-22) Glucose 148 H (70-100) mg/dL Calcium 9.3 (8.4-10.2) mg/dL Total Bilirubin 0.3 (0.2-1.3) mg/dL AST 28 (14-36) IU/L ALT 30 (9-52) IU/L Alkaline Phosphatase 85 (38-126) U/L Total Protein 7.8 (6.3-8.2) g/dL Albumin 4.5 (3.5-5.0) g/dL Globulin 3.3 (1.7-4.1) g/dL Albumin/Globulin Ratio 1.4 (1.0-2.8) Blood Type Antibody Screen 12/21/18 Range/Units 15:45 WBC (4.5-11.0) X10^3/uL RBC (4.0-5.2) X10^6/uL Hgb (12.0-16.0) g/dL Hct (36-46) % MCV (80-100) fL MCH (26-34) PG MCHC (30-36) % RDW (11.6-14.8) % Plt Count (150-400) X10^3/uL Neut % (Auto) (50-75) % Lymph % (Auto) (25-40) % [place] % (Auto) (3-14) % Eos % (Auto) (2-4) % Baso % (Auto) (0-2) % Neut # (Auto) (2554-3660) /uL Lymph # (Auto) (6694-7792) /uL [place] # (Auto) (0-900) /uL Eos # (Auto) (0-450) /uL Baso # (Auto) (0-100) /uL PT (10.1-12.7) SECONDS INR (0.9-1.3) APTT (26.4-36.2) SECONDS Sodium (137-145) mmol/L Potassium (3.4-5.1) mmol/L Chloride (98-107) mmol/L Carbon Dioxide (22-32) mmol/L BUN (7-17) mg/dL Creatinine (0.52-1.04) mg/dL Estimated GFR (>60) mL/min BUN/Creatinine Ratio (6-22) Glucose (70-100) mg/dL Calcium (8.4-10.2) mg/dL Total Bilirubin (0.2-1.3) mg/dL AST (14-36) IU/L ALT (9-52) IU/L Alkaline Phosphatase (38-126) U/L Total Protein (6.3-8.2) g/dL Albumin (3.5-5.0) g/dL Globulin (1.7-4.1) g/dL Albumin/Globulin Ratio (1.0-2.8) Blood Type O Positive Antibody Screen Negative Point of Care Testing Stool Occult Blood Positive Imaging Data US - abdomen: Radiologist's impression: [place] [address] Ultrasound Report Signed Patient: Isabel Gutierrez RMR#: [id number] : 1965Acct:[id number] Age/Sex: 53 / FDate of Service: 12/21/18 Loc: ED Accession Number: [id number] Procedure: US abdomen limited Ordering Provider: Evaristo Montemayor D.O. PROCEDURE: US ABDOMEN LIMITED INDICATIONS: POSSIBLE ASCITIES TECHNIQUE: Real-time focused scanning was performed of the abdomen, with image documentation. COMPARISON: None. FINDINGS: No ascites can be seen involving all 4 quadrants of the abdomen. IMPRESSION: Negative for ascites. Dictated by: Dustin Garcia M.D. on 12/21/2018 at 17:00 Approved by: Dustin Garcia M.D. on 12/21/2018 at 17:01 Discharge Plan Departure Patient Disposition: Home Clinical Impression: Bright red rectal bleeding Discharge Date/Time: 12/21/18 18:13 Interventions: ED Discharge Assessment Last Done: 12/21/18 18:11 Instructions: Gastrointestinal Bleeding Activity Restrictions/Additional Instructions: *You have been diagnosed with [rectal bleeding] *What to do: *Take medications as directed *Follow up with your primary care provider in 2-3 days, call for an appointment. Let them know you were seen in the Emergency Department and that we ask that you be seen in follow up *Return to ER if you should have any new, worsening or concerning symptoms, such as [increased pain, increased bleeding, dizziness, weakness, lightheadedness or other bothersome symptoms] Prescriptions: No Action omega-3 fatty acids [Fish Oil Concentrate] 1,000 mg capsule 1,000 mg PO QPM RF: 0 benzonatate 200 mg capsule 200 mg PO BEDTIME PRN (Reason: Cough) RF: 0 bupropion HCl 200 mg tablet sustained-release 12 hr 200 mg PO BID Qty: 60 RF: 2 metformin 1,000 mg tablet 1,000 mg PO BID Qty: 60 RF: 2 lisinopril 10 mg tablet 10 mg PO DAILY Qty: 30 RF: 2 chlorthalidone 25 mg tablet 25 mg PO DAILY Qty: 30 RF: 2 tizanidine 4 mg tablet 4 mg PO Q6H PRN (Reason: muscle spasticity) Qty: 30 RF: 0 esomeprazole magnesium 20 mg capsule,delayed release(DR/EC) 20 mg PO DAILY Qty: 90 RF: 0 albuterol sulfate [ProAir HFA] 90 mcg/actuation HFA aerosol inhaler 1 puff Inhalation PRN PRN (Reason: Shortness Of Breath) RF: 0 buprenorphine-naloxone [Suboxone] 8-2 mg film 1 dose Sublingual TID RF: 0 meclizine 12.5 mg tablet 12.5 mg PO BID-QID PRN (Reason: dizziness) Qty: 20 RF: 0 Referrals: Radhika Clemens, [Primary Care Provider] -
[2018-12-21 15:59] LABS: Add Manual Diff / Slide Review NO; Basophils Absolute Auto 100 /uL (0-100); Basophils Percent Auto 0.9 % (0-2); Eosinophils Absolute Auto 100 /uL (0-450); Eosinophils Percent Auto 0.6 % (2-4); Hematocrit 36.7 % (36-46); Hemoglobin 12.3 g/dL (12.0-16.0); Lymphocytes Absolute Auto 2400 /uL (1100-4500); Mean Corpuscular HGB Conc 33.4 % (30-36); Mean Corpuscular Hemoglobin 28.9 PG (26-34); Mean Corpuscular Volume 86.6 fL (80-100); Monocytes Absolute Auto 500 /uL (0-900); Monocytes Percent Auto 5.5 % (3-14); Neutrophils Absolute Auto 6800 /uL (1500-7000); Platelet Count 244 X10^3/uL (150-400); Red Blood Cell Count 4.24 X10^6/uL (4.0-5.2); Red Cell Distribution Width 15.6 % (11.6-14.8); White Blood Cell Count 9.8 X10^3/uL (4.5-11.0)
[2018-12-21 16:05] LABS: INR 0.9 (0.9-1.3); Prothrombin Time 10.5 SECONDS (10.1-12.7)
[2018-12-21 16:08] LABS: PTT Partial Thromboplastin Tim 34 SECONDS (26.4-36.2)
[2018-12-21 16:10] LABS: Alanine Aminotransferase 30 IU/L (9-52); Albumin 4.5 g/dL (3.5-5.0); Albumin Globulin Ratio 1.4 (1.0-2.8); Alkaline Phosphatase 85 U/L (38-126); Aspartate Aminotransferase 28 IU/L (14-36); BUN Creatinine Ratio 16.7 (6-22); Bilirubin Total 0.3 mg/dL (0.2-1.3); Blood Urea Nitrogen 15 mg/dL (7-17); Calcium 9.3 mg/dL (8.4-10.2); Carbon Dioxide 32 mmol/L (22-32); Chloride 96 mmol/L (98-107); Estimated Glomerular Filt Rate > 60.0 mL/min (>60); Globulin 3.3 g/dL (1.7-4.1); Glucose 148 mg/dL (70-100); HEMOLYSIS < 15 (0-50); Sodium 137 mmol/L (137-145); Total Protein 7.8 g/dL (6.3-8.2)
[2018-12-21] MEDS: SODIUM CHLORIDE 0.9% 1,000 ML 150 ML IV (16:13)
[2018-12-21] MEDS: PANTOPRAZOLE 40 MG VIAL IV (16:13)
[2018-12-21] MEDS: ONDANSETRON 4 MG/2 ML INJ IV (16:13)
--- NOTE | 2018-12-21 17:01 | PC.NURSE ---
assisted with rectal exam, per dr brown positive for blood.
--- NOTE | 2018-12-21 17:03 | DI.US.S_ITS ---
PROCEDURE: US ABDOMEN LIMITED INDICATIONS: POSSIBLE ASCITIES TECHNIQUE: Real-time focused scanning was performed of the abdomen, with image documentation. COMPARISON: None. FINDINGS: No ascites can be seen involving all 4 quadrants of the abdomen. IMPRESSION: Negative for ascites. Dictated by: Dustin Garcia M.D. on 12/21/2018 at 17:00 Approved by: Dustin Garcia M.D. on 12/21/2018 at 17:01
[2018-12-21 17:30] VITALS: BP 119/62; PULSE 79; RESP 13; O2SAT 97
[2018-12-21 18:11] VITALS: BP 135/94; PULSE 77; RESP 19; O2SAT 96
== END 2018-12-21 18:13 | disposition home or self-care (01) ==
PROVIDERS: Emergency Provider Emergency Medicine; PCP Family Medicine
DX: K62.5 Hemorrhage of anus and rectum (principal); I10 Essential (primary) hypertension
CPT/HCPCS: 36591; 76705; 80053; 82272; 85025; 85610; 85730; 86850; 86900; 86901; 96361; 96374; 96375; 99283; 99285; C9113; J2405

== ENCOUNTER → 2019-01-30 10:21 | Outpatient (CLI) | payer OTHER, MEDICAID, SELFPAY ==
[2019-01-30 10:28] LABS: Bacteria Urine None Seen; RBC Urine None Seen (0-5/HPF); WBC Urine None Seen (0-5/HPF)
[2019-01-30 11:06] LABS: Add Manual Diff / Slide Review NO; Basophils Absolute Auto 100 /uL (0-100); Basophils Percent Auto 0.6 % (0-2); Eosinophils Absolute Auto 100 /uL (0-450); Eosinophils Percent Auto 0.7 % (2-4); Hematocrit 36.5 % (36-46); Lymphocytes Absolute Auto 1900 /uL (1100-4500); Mean Corpuscular HGB Conc 32.8 % (30-36); Mean Corpuscular Hemoglobin 28.4 PG (26-34); Mean Corpuscular Volume 86.7 fL (80-100); Monocytes Absolute Auto 500 /uL (0-900); Monocytes Percent Auto 5.5 % (3-14); Neutrophils Absolute Auto 5900 /uL (1500-7000); Neutrophils Percent Auto 70.2 % (50-75); Platelet Count 277 X10^3/uL (150-400); Red Blood Cell Count 4.21 X10^6/uL (4.0-5.2); Red Cell Distribution Width 15.2 % (11.6-14.8); White Blood Cell Count 8.4 X10^3/uL (4.5-11.0)
[2019-01-30 11:13] LABS: Hemoglobin A1C% w Est Avg Glu 6.3 % (4.0-6.0)
[2019-01-30 11:40] LABS: Alanine Aminotransferase 41 IU/L (9-52); Albumin 4.5 g/dL (3.5-5.0); Albumin Globulin Ratio 1.4 (1.0-2.8); Alkaline Phosphatase 77 U/L (38-126); Aspartate Aminotransferase 35 IU/L (14-36); BUN Creatinine Ratio 21.3 (6-22); Bilirubin Total 0.4 mg/dL (0.2-1.3); Blood Urea Nitrogen 17 mg/dL (7-17); Calcium 9.7 mg/dL (8.4-10.2); Carbon Dioxide 36 mmol/L (22-32); Chloride 93 mmol/L (98-107); Cholesterol 201 mg/dL (140-199); Estimated Glomerular Filt Rate > 60.0 mL/min (>60); Globulin 3.3 g/dL (1.7-4.1); Glucose 113 mg/dL (70-100); HDL Cholesterol 42 mg/dL (40-60); HEMOLYSIS < 15 (0-50); LDL Cholesterol Calculated 129 mg/dL (<100); Potassium 3.7 mmol/L (3.4-5.1); Sodium 138 mmol/L (137-145); Total Protein 7.8 g/dL (6.3-8.2); Triglycerides 148 mg/dL (35-150); Uric Acid 7.8 mg/dL (2.5-6.2)
[2019-01-30 11:54] LABS: Rheumatoid Factor < 8.6 IU/mL (<12.0)
[2019-01-30 12:20] LABS: Erythrocyte Sedimentation Rate 45 MM/HR (0-20)
[2019-01-30 12:29] LABS: Creatinine Urine Random 141.1 mg/dL
[2019-01-30 12:33] LABS: Microalbumi Creatinin Ratio Ur 20.5 ug/mg CR (<30); Microalbumin Urine Random 2.9 mg/dL (0-1.6)
[2019-01-30 17:23] LABS: Appearance Urine UA CLEAR; Bilirubin Urine UA NEGATIVE (NEGATIVE); Color Urine UA YELLOW; Glucose Urine UA NEGATIVE (Negative); Ketones Urine UA TRACE (NEGATIVE); Leukocyte Esterase Urine UA NEGATIVE (NEGATIVE); Nitrite Urine UA NEGATIVE (Negative); Occult Blood Urine UA NEGATIVE (Negative); Protein Urine UA NEGATIVE (Negative); Urobilinogen Urine UA 0.2 E.U./dL (0.2); pH Urine UA 6.5 (4.5-8.0)
[2019-01-30 17:29] LABS: Squamous Epithelial Cell Urine 0-1 /HPF (0-5/HPF)
[2019-01-30 17:30] LABS: Culture Indicated Urine Cult Not Indicated
== END ==
PROVIDERS: PCP Family Medicine; Visit Provider Family Medicine
DX: E11.9 Type 2 diabetes mellitus without complications (principal); F32.9 Major depressive disorder, single episode, unspecified; F43.10 Post-traumatic stress disorder, unspecified; Z13.29 Encounter for screening for other suspected endocrine disorder; Z51.81 Encounter for therapeutic drug level monitoring; Z13.220 Encounter for screening for lipoid disorders; I10 Essential (primary) hypertension; R10.13 Epigastric pain
CPT/HCPCS: 36415; 80053; 80061; 81001; 82043; 82570; 83036; 84550; 85025; 85651; 86430

== ENCOUNTER → 2019-02-26 15:52 | Outpatient (CLI) | payer OTHER, MEDICAID, SELFPAY ==
--- NOTE | 2019-02-26 | DI.RAD.S_ITS ---
PROCEDURE: XR ABDOMEN MIN 2V INDICATIONS: GENERALIZED ABDOMINAL PAIN TECHNIQUE: 2 views of the abdomen were acquired. COMPARISON: None. FINDINGS: Surgical changes and devices: Right upper quadrant surgical clips and spinal fixation hardware Bowel: No pneumoperitoneum. The bowel gas pattern is normal. Soft tissues: No masses; visualized solid organ contours appear normal in size. No suspicious abdominal calcifications. Bones: No suspicious bony abnormalities. Spondylosis and lateral curvature of the spine IMPRESSION: No bowel obstruction identified. Large amount of stool. Dictated by: Darshan Lucero M.D. on 02/26/2019 at 17:13 Approved by: Darshan Lucero M.D. on 02/26/2019 at 17:15
== END ==
PROVIDERS: Family Provider Family Medicine; PCP Family Medicine; Visit Provider Physician Assistant
DX: R10.84 Generalized abdominal pain (principal)
CPT/HCPCS: 74019

== ENCOUNTER 2019-04-01 13:00 | Outpatient (RCR) | payer OTHER, MEDICAID, SELFPAY ==
--- NOTE | 2019-02-06 18:00 | PT.OPPOC ---
Current Diagnoses Other intervertebral disc degeneration, thoracic region (02/06/19) Provider Visit Care Team Role Provider Type Radhika Clemens DO Attending Provider Physician Primary Care Provider Specialty: [facility] Address: [address] [place] [address], [id number] Email: [email or web address] Plan Of Care PT-OP-T Assessment and Plan Start: 02/05/19 19:30 Freq: Status: Active Protocol: Document 02/06/19 12:47 LRN (Rec: 02/06/19 13:46 LRN [id number]) Physical Therapy Assessment Rehab Potential Rehabilitation Potential Fair Evaluation Complexity Number of Personal Factors/Comorbidities 3 or More Number of Body Systems Impaired 4 or More Clinical Presentation at Evaluation Evolving Impairments Impairments Functional Activities Gait Pain Posture ROM Strength Transfers Other Impairments Not able to put dishes away 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 Goals Three Impairment Back pain rated 4-8/10 limiting functional ability. Short Term Goal (STG) With use of a farm demonstrator the pt will be able to pick light objects off the floor with tolerable pain. 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 LTG Duration 04/03/19 Two Impairment Neck pain rated 6-7/10, limiting functional ability to put dishes away. Short Term Goal (STG) Decrease neck pain to 2-4/10 generally. STG Duration 03/06/19 Keeper Helper Goal (LTG) Pt will be able to put light dishes away with pain no greater than 4/10. LTG Duration 04/03/19 One Impairment Lacks appropriate self care HEP Nursing Home Goal (LTG) Pt will be independent with a self care HEP. LTG Duration 04/03/19 Assessment Summary Assessment Pt presents with limited mobility in general due to back and neck pain. She appears to have difficulty with mobility due to her endomorphic body type and general decrease in mobility of the spine (neck and back). The pt has fairly good LE and UE strength; therefore her poor core and spinal mobility are limiting her general function due to pain. The pt will benefit from skilled physical therapy to improve overall mobility, improve gait and decrease pain to improve function. Physical Therapy Plan Frequency and Duration Frequency of Treatment 2x/Week Plan of Care Start Date 02/06/19 Plan of Care End Date 04/03/19 Therapeutic Interventions Therapeutic Interventions Balance Training Gait Training Home Exercise Program Manual Therapy Neuromuscular Re-education Patient/Caregiver Education Self-Care/Home Management Soft Tissue Mobilization Therapeutic Activities Therapeutic Exercises Modalities Cold Pack/Ice Massage Electric Stimulation Hot Packs Iontophoresis Ultrasound Other Therapeutic Interventions E-Stim Premod, not interferential Iontophoresis with 4mg/mL Dexamethasone with Sodium Phosphate. Next Visit Focus/Plan Next Note Type Treatment Note Next Visit Plan Transfer training sit<>stand with hip hinge, and sit<> supine with log roll method. Initiate HEP of gentle lumbar ROM and neutral spine awareness education and core strengthening (starting isometric and progressing to resisted ex). HEP for gentle cervical ROM and isometric strengthening. Might try ending with E-Stim Pre-mod of L & R side (not IFES)/cold pack or MH. Plan of Care Dates Plan of Care Start Date 02/06/19 Plan of Care End Date 04/03/19 Please Sign and Return: I have reviewed this Plan of Care and certify that the skilled therapy services above are required to meet the patient?s needs. Physician Signature Date Printed Name and Credentials Clinical Instructor Signature Printed Name and Credentials
--- NOTE | 2019-02-06 18:00 | PT.OIE ---
Current Diagnoses Other intervertebral disc degeneration, thoracic region (02/06/19) Past Medical History (Last Reviewed 12/26/18 @ 15:13 by Radhika Clemens DO) Anxiety (Chronic) Asthma (Chronic) Cataracts, bilateral (Chronic) Chronic back pain (Chronic) Deep vein thrombosis (Chronic) Depression (Chronic) Gastroparesis (Chronic) Hypertension (Chronic) Knee pain (Chronic) Post traumatic stress disorder (PTSD) (Chronic) Prediabetes (Chronic) Scoliosis (Chronic) Vision disorder (Chronic) Past Surgical History (Last Reviewed 12/26/18 @ 15:13 by Radhika Clemens DO) Anesthesia (Resolved) History of bladder surgery (Resolved) History of cholecystectomy (Resolved) History of neck surgery (Resolved) Plantar fasciitis (Resolved) Previous back surgery (Resolved) Previous section (Resolved) Provider Visit Care Team Role Provider Type Radhika Clemens DO Attending Provider Physician Primary Care Provider Specialty: Family Practice Address: [address] [place] [address] Email: [email or web address] Physical Therapy Initial Evaluation PT-OP-A Visit Information Start: 02/05/19 19:30 Freq: Status: Active Protocol: Document 02/06/19 12:47 LRN (Rec: 02/06/19 13:46 LRN [id number]) Out-Patient Physical Therapy Visit Information Visit Information Visit Type Initial Evaluation Visit Start Time 12:52 Visit Stop Time 13:43 Total Visit Minutes 51 Visit Number 1 Evaluation Information Evaluation Date 02/06/19 Precautions Precautions Fused Neck and Back. Tape Allergy Diabetes Depression PT-OP-B Current Condition Start: 02/05/19 19:30 Freq: Status: Active Protocol: Document 02/06/19 12:47 LRN (Rec: 02/06/19 13:46 LRN [id number]) Current Condition History of Current Condition Onset Date 13 yrs ago. Off/on since. Current Complaints Neck and back pain History of Current Condition Pt reports she has had physical therapy on the neck & back x 2 with the most recent ~3yrs ago. (Neck @ [facility] & Back at [facility] (?08). 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 Does water ex 's at the [facility] two times so far. Uses mass transit to get to pool. Quit pain med Fentinal 1 yr ago so the pain has increased drastically and she has gained 50#; therefore doesn't want to go back on it. She is currently taking Oxycodone & Tizanidine for pain. Prior Treatments and Tests Neck Fusion: 3 yrs ago. Back Fusion: 2005 Future Testing and Treatments Planned None Developmental History Developmental History 3-4 lumbar discs removed with fusion (thinks L2-L5 in 2005) with 1 disc bulge above and 2 cervical discs removed with fusion (date unknown) Pt moved to [place] from [place] in 2007. Treatment Goals Patient/Caregiver Goals Pt's goal is to be more mobile to: 1) sheepskin pickler things off the floor, 2) put dishes away and 3) clean up without back causing shooting pain. Pt's goal is also to: 1) go swimming, 2) take long walks and a little hike, and 3) keep up with apartment w/o help. Prior Functional Status Baseline Function- ADL's Independent Baseline Function- Mobility Independent Baseline Function- Gait Gait without cane 2 yrs ago. Able to walk 1 mile. Baseline Function- Work/School Last job was 1 yr before back surgery (2005). Baseline Function- Other Able to drive. Current Functional Impairments (Reported) Functional Limitations- ADL's Caregiver puts dishes away, does laundry in a different building, Needs help going to places. Occasionally needs help dressing. Functional Limitations- Mobility/Gait Ambulates with SPC on the right and Trendelenberg lean to the left. Sometimes not able to get out of bed. Sometimes not able to tolerate shopping. Able to walk 3 blocks, < 1/4 mile. Functional Limitations- Work/School Non employed. Functional Limitations- Other Not able to put dishes away, or sheepskin pickler objects off the floor. Does not have a glue spreader. Drives in town Personal Factors Other Personal Factors That May Effect Lives by self Therapy/Recovery PT-OP-C Subjective Start: 02/05/19 19:30 Freq: Status: Active Protocol: Document 02/06/19 12:47 LRN (Rec: 02/06/19 13:46 LRN [id number]) Patient Questionnaires Oswestry Low Back Index Oswestry Score 24 Oswestry Impairment 20 to 39% Impaired (Score 20- 39) OP-PT Pain Assessment Pain Assessment Grid Paper Pain Assessment Grid Completed Yes Location Back Pain Location Details Across the back and shoots down the middle of the legs Intensity 8 Description Aching Dull Sharp Shooting Spasm Stabbing Tingling Frequency Constant Pain Aggravating Factors Position Changing Position Activity Exercise Standing Sitting Walking Stair Climbing Other Pain Aggravating Factors Oxycodone (percocet), Ms relaxor Tizanidine Pain Alleviating Factors Medication Patient Stated Pain Goal No pain for some periods of time or at least a 2/10. Neck Pain Location Details Back of neck and shoots into head & upper shoulders Intensity 7 Scale Used Numeric (1 - 10) Description Dull Pinching Radiating Sharp Shooting Spasm Stabbing Tingling With Movement Description- Other Cant turn head due to pain Frequency Constant Variations/Patterns Pain ranges 6-9 Pain Aggravating Factors Position Other Pain Aggravating Factors Oxycodone, Tizanidine Patient Stated Pain Goal No pain for some periods of time or at least a 2/10. Home Pain Medication Use Pain Medications Used Yes Pain Behaviors Pain Behaviors Crying Facial Grimacing PT-OP-G Mobility & Gait Start: 02/05/19 19:30 Freq: Status: Active Protocol: Document 02/06/19 12:51 LRN (Rec: 02/06/19 18:02 LRN [id number]) OP Mobility Evaluation Transfers Sit to Stand Independent with use of hands. Bed to Chair Transfers Sit <> Supine is with difficulty and pain. OP Gait Assessment Gait Gait Assistance Required: Independent Able to Maintain Weight Bearing Status Yes During Gait Assistive Devices Assistive Device Straight Cane Gait Deviations General Gait Pattern Lateral Trunk Lean Wide Based Gait Factors Limiting Gait Function Factors Limiting Gait Function Decreased Activity Tolerance Limited Range of Motion Pain PT-OP-H Neuro Start: 02/05/19 19:30 Freq: Status: Active Protocol: Document 02/06/19 12:51 LRN (Rec: 02/06/19 18:02 LRN [id number]) Sensation Evaluation Gross Sensation Gross Sensation WNL Deep Tendon Reflex & Clonus Assessment Deep Tendon Reflex Bilateral Achilles Deep Tendon Reflex 2+ Normal Bilateral Patellar Deep Tendon Reflex 2+ Normal Bilateral Tricep Deep Tendon Reflex 2+ Normal Bilateral Bicep Deep Tendon Reflex 2+ Normal PT-OP-J Posture/Palpation/Skin Start: 02/05/19 19:30 Freq: Status: Active Protocol: Document 02/06/19 12:51 LRN (Rec: 02/06/19 18:02 LRN [id number]) Posture Evaluation Position Standing Evaluation View All positions Head/C-Spine Posture Side Bent Right T-Spine Posture Flattened L-Spine Posture Increased Lordosis Shifted Left Shoulder Posture (L) Elevated Scapula Posture (L) Elevated Pelvis Posture Anteriorly Tilted Weight Distribution Balanced Comments Posture Comments Endomorphic Body Type PT-OP-K Range of Motion Start: 02/05/19 19:30 Freq: Status: Active Protocol: Document 02/06/19 12:51 LRN (Rec: 02/06/19 18:02 LRN [id number]) Cervical Spine Range of Motion Cervical Spine Active Degrees Testing Position Sitting Flexion 38 Extension 18 Rotation Left 22 Rotation Right 32 Lateral Flexion Left 27 Lateral Flexion Right 35 ROM Limitations Soft Tissue Tightness Pain Lumbar Spine Range of Motion Lumbar Spine Active Degrees Testing Position Standing Flexion 25 Extension 0 Rotation Left 30 Rotation Right 20 Lateral Flexion Left 10 Lateral Flexion Right 15 ROM Limitations Soft Tissue Tightness Pain Comments With sidebending pain is on contralateral side. PT-OP-M Strength Start: 02/05/19 19:30 Freq: Status: Active Protocol: Document 02/06/19 12:51 LRN (Rec: 02/06/19 18:02 LRN [id number]) Cervical Spine Strength Cervical Spine Manual Muscle Testing Testing Position Sitting Flexion (C1-2) 3+ Fair+ Reason Not Measured WFL Comments Generally WNL except as indicated above. Trunk Strength Trunk Manual Muscle Testing Comments Deferred Knee Strength Knee Manual Muscle Testing Right Flexion (S2) 4 Good Extension (L3) 5 Normal Left Flexion (S2) 5 Normal Extension (L3) 4 Good Ankle/Foot Strength Ankle and Foot Manual Muscle Testing Right Reason Not Measured WFL Left Reason Not Measured WFL PT-OP-Q Treatments Start: 02/05/19 19:30 Freq: Status: Active Protocol: Document 02/06/19 12:52 LRN (Rec: 02/06/19 17:52 LRN [id number]) Self-Care/Home Management Treatment Education Patient Education Pain Management Activities Self-Care/Home Management Activities Discussed with patient use of modalities (cold pack and heat pack) for pain relief. Recommended use of cold pack after exercises. Pt is to bring any ex handouts she is currently doing at home for review. PT-OP-T Assessment and Plan Start: 02/05/19 19:30 Freq: Status: Active Protocol: Document 02/06/19 12:47 LRN (Rec: 02/06/19 13:46 LRN [id number]) Physical Therapy Assessment Rehab Potential Rehabilitation Potential Fair Evaluation Complexity Number of Personal Factors/Comorbidities 3 or More Number of Body Systems Impaired 4 or More Clinical Presentation at Evaluation Evolving Impairments Impairments Functional Activities Gait Pain Posture ROM Strength Transfers Other Impairments Not able to put dishes away Not able to sheepskin pickler objects off the floor. Goals Three Impairment Back pain rated 4-8/10 limiting functional ability. Short Term Goal (STG) With use of a glue spreader the pt will be able to pick light objects off the floor with tolerable pain. STG Duration 03/06/19 Gynecology Teacher Goal (LTG) Pt will be able to sheepskin pickler light objects off the floor with tolerable pain. LTG Duration 04/03/19 Two Impairment Neck pain rated 6-7/10, limiting functional ability to put dishes away. Short Term Goal (STG) Decrease neck pain to 2-4/10 generally. STG Duration 03/06/19 Jail Goal (LTG) Pt will be able to put light dishes away with pain no greater than 4/10. LTG Duration 04/03/19 One Impairment Lacks appropriate self care HEP Gynecology Teacher Goal (LTG) Pt will be independent with a self care HEP. LTG Duration 04/03/19 Assessment Summary Assessment Pt presents with limited mobility in general due to back and neck pain. She appears to have difficulty with mobility due to her endomorphic body type and general decrease in mobility of the spine (neck and back). The pt has fairly good LE and UE strength; therefore her poor core and spinal mobility are limiting her general function due to pain. The pt will benefit from skilled physical therapy to improve overall mobility, improve gait and decrease pain to improve function. Physical Therapy Plan Frequency and Duration Frequency of Treatment 2x/Week Plan of Care Start Date 02/06/19 Plan of Care End Date 04/03/19 Therapeutic Interventions Therapeutic Interventions Balance Training Gait Training Home Exercise Program Manual Therapy Neuromuscular Re-education Patient/Caregiver Education Self-Care/Home Management Soft Tissue Mobilization Therapeutic Activities Therapeutic Exercises Modalities Cold Pack/Ice Massage Electric Stimulation Hot Packs Iontophoresis Ultrasound Other Therapeutic Interventions E-Stim Premod, not interferential Iontophoresis with 4mg/mL Dexamethasone with Sodium Phosphate. Next Visit Focus/Plan Next Note Type Treatment Note Next Visit Plan Transfer training sit<>stand with hip hinge, and sit<> supine with log roll method. Initiate HEP of gentle lumbar ROM and neutral spine awareness education and core strengthening (starting isometric and progressing to resisted ex). HEP for gentle cervical ROM and isometric strengthening. Might try ending with E-Stim Pre-mod of L & R side (not IFES)/cold pack or MH.
--- NOTE | 2019-02-09 16:13 | PT.OTN ---
Current Diagnoses Other intervertebral disc degeneration, thoracic region (02/09/19) Physical Therapy Treatment Note PT-OP-A Visit Information Start: 02/05/19 19:30 Freq: Status: Active Protocol: Document 02/09/19 12:48 LRN (Rec: 02/09/19 13:16 LRN [id number]) Out-Patient Physical Therapy Visit Information Visit Information Visit Type Treatment Note Visit Start Time 12:48 Visit Stop Time 13:26 Total Visit Minutes 38 Visit Number 2 Number of TRANSITION RN Visits 0 Evaluation Information Evaluation Date 02/06/19 Precautions Precautions Fused Neck and Back. Tape Allergy Diabetes Depression PT-OP-B Current Condition Start: 02/05/19 19:30 Freq: Status: Active Protocol: Document 02/06/19 12:47 LRN (Rec: 02/06/19 13:46 LRN [id number]) Current Condition History of Current Condition Onset Date 13 yrs ago. Off/on since. Current Complaints Neck and back pain History of Current Condition Pt reports she has had physical therapy on the neck & back x 2 with the most recent ~3yrs ago. (Neck @ [facility] & Back at [facility] (?08). 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 Does water ex 's at the [facility] two times so far. Uses mass transit to get to pool. Quit pain med Fentinal 1 yr ago so the pain has increased drastically and she has gained 50#; therefore doesn't want to go back on it. She is currently taking Oxycodone & Tizanidine for pain. Prior Treatments and Tests Neck Fusion: 3 yrs ago. Back Fusion: 2005 Future Testing and Treatments Planned None Developmental History Developmental History 3-4 lumbar discs removed with fusion (thinks L2-L5 in 2005) with 1 disc bulge above and 2 cervical discs removed with fusion (date unknown) Pt moved to [place] from [place] in 2007. Treatment Goals Patient/Caregiver Goals Pt's goal is to be more mobile to: 1) orange picker machine operator things off the floor, 2) put dishes away and 3) clean up without back causing shooting pain. Pt's goal is also to: 1) go swimming, 2) take long walks and a little hike, and 3) keep up with apartment w/o help. Prior Functional Status Baseline Function- ADL's Independent Baseline Function- Mobility Independent Baseline Function- Gait Gait without cane 2 yrs ago. Able to walk 1 mile. Baseline Function- Work/School Last job was 1 yr before back surgery (2005). Baseline Function- Other Able to drive. Current Functional Impairments (Reported) Functional Limitations- ADL's Caregiver puts dishes away, does laundry in a different building, Needs help going to places. Occasionally needs help dressing. Functional Limitations- Mobility/Gait Ambulates with SPC on the right and Trendelenberg lean to the left. Sometimes not able to get out of bed. Sometimes not able to tolerate shopping. Able to walk 3 blocks, < 1/4 mile. Functional Limitations- Work/School Non employed. Functional Limitations- Other Not able to put dishes away, or orange picker machine operator objects off the floor. Does not have a mine expert. Drives in town Personal Factors Other Personal Factors That May Effect Lives by self Therapy/Recovery PT-OP-C Subjective Start: 02/05/19 19:30 Freq: Status: Active Protocol: Document 02/09/19 12:48 LRN (Rec: 02/09/19 13:16 LRN [id number]) OP-PT Subjective Patient Comments Patient Comments Had a family reunion yesterday and over did it. PT-OP-G Mobility & Gait Start: 02/05/19 19:30 Freq: Status: Active Protocol: Document 02/06/19 12:51 LRN (Rec: 02/06/19 18:02 LRN [id number]) OP Mobility Evaluation Transfers Sit to Stand Independent with use of hands. Bed to Chair Transfers Sit <> Supine is with difficulty and pain. OP Gait Assessment Gait Gait Assistance Required: Independent Able to Maintain Weight Bearing Status Yes During Gait Assistive Devices Assistive Device Straight Cane Gait Deviations General Gait Pattern Lateral Trunk Lean Wide Based Gait Factors Limiting Gait Function Factors Limiting Gait Function Decreased Activity Tolerance Limited Range of Motion Pain PT-OP-H Neuro Start: 02/05/19 19:30 Freq: Status: Active Protocol: Document 02/06/19 12:51 LRN (Rec: 02/06/19 18:02 LRN [id number]) Sensation Evaluation Gross Sensation Gross Sensation WNL Deep Tendon Reflex & Clonus Assessment Deep Tendon Reflex Bilateral Achilles Deep Tendon Reflex 2+ Normal Bilateral Patellar Deep Tendon Reflex 2+ Normal Bilateral Tricep Deep Tendon Reflex 2+ Normal Bilateral Bicep Deep Tendon Reflex 2+ Normal PT-OP-J Posture/Palpation/Skin Start: 02/05/19 19:30 Freq: Status: Active Protocol: Document 02/06/19 12:51 LRN (Rec: 02/06/19 18:02 LRN [id number]) Posture Evaluation Position Standing Evaluation View All positions Head/C-Spine Posture Side Bent Right T-Spine Posture Flattened L-Spine Posture Increased Lordosis Shifted Left Shoulder Posture (L) Elevated Scapula Posture (L) Elevated Pelvis Posture Anteriorly Tilted Weight Distribution Balanced Comments Posture Comments Endomorphic Body Type PT-OP-K Range of Motion Start: 02/05/19 19:30 Freq: Status: Active Protocol: Document 02/06/19 12:51 LRN (Rec: 02/06/19 18:02 LRN [id number]) Cervical Spine Range of Motion Cervical Spine Active Degrees Testing Position Sitting Flexion 38 Extension 18 Rotation Left 22 Rotation Right 32 Lateral Flexion Left 27 Lateral Flexion Right 35 ROM Limitations Soft Tissue Tightness Pain Lumbar Spine Range of Motion Lumbar Spine Active Degrees Testing Position Standing Flexion 25 Extension 0 Rotation Left 30 Rotation Right 20 Lateral Flexion Left 10 Lateral Flexion Right 15 ROM Limitations Soft Tissue Tightness Pain Comments With sidebending pain is on contralateral side. PT-OP-M Strength Start: 02/05/19 19:30 Freq: Status: Active Protocol: Document 02/06/19 12:51 LRN (Rec: 02/06/19 18:02 LRN [id number]) Cervical Spine Strength Cervical Spine Manual Muscle Testing Testing Position Sitting Flexion (C1-2) 3+ Fair+ Reason Not Measured WFL Comments Generally WNL except as indicated above. Trunk Strength Trunk Manual Muscle Testing Comments Deferred Knee Strength Knee Manual Muscle Testing Right Flexion (S2) 4 Good Extension (L3) 5 Normal Left Flexion (S2) 5 Normal Extension (L3) 4 Good Ankle/Foot Strength Ankle and Foot Manual Muscle Testing Right Reason Not Measured WFL Left Reason Not Measured WFL PT-OP-Q Treatments Start: 02/05/19 19:30 Freq: Status: Active Protocol: Document 02/09/19 12:48 LRN (Rec: 02/09/19 13:16 LRN [id number]) Therapeutic Exercises Supine Exercises SKTC stretch Supine Exercise Name SKTC (limit R side due to old R BETTINA) Side bilateral Reps/Minutes 6 x 10 sec holds Comments Poor tolerance, poor mobility Cervical AROM stretching Supine Exercise Name Active C. Rotation & Sidebend Side bilateral Reps/Minutes 10 x each, 5 sec holds Comments Pt moves very slowly. TA strengthening Supine Exercise Name Tightening/Bracing with exhalation, hold 5 sec's Reps/Minutes 10x Comments Extra time taken for training. Therapeutic Activity Therapeutic Activity Sit <-> Supine Name Sit <-> Supine Reps/Minutes 5' Comments Pt needed assist with legs and verbal directions through transfer. Pt transfers out on right side of bed at home. Pt moves very slowly Sit to stand Name Sit to Stand training Reps/Minutes 3' Comments Training pt to position symmetrical during transfer and use hands to assist with raising and lowering body. Pt moves slowly. Manual Therapy Treatment Soft Tissue Mobilization UT Body Location Bilateral UT Mobilization Type Myofascial Release Trigger Point Release Intensity/Depth Superficial Body Position Supine Self-Care/Home Management Treatment Education Patient Education Home Exercise Program Activities Self-Care/Home Management Activities Issued: SKTC stretch, active cervical rot & sidebend stretch PT-OP-T Assessment and Plan Start: 02/05/19 19:30 Freq: Status: Active Protocol: Document 02/09/19 12:48 LRN (Rec: 02/09/19 13:16 LRN [id number]) Physical Therapy Assessment Assessment Summary Assessment Pt shows pain behaviour of grimacing and twitching with transfers. General decrease in mobility of the spine (neck and back). The pt has fairly good LE and UE strength but poor core and spinal mobility, limiting her general function due to pain. Physical Therapy Plan Frequency and Duration Frequency of Treatment 2x/Week Plan of Care Start Date 02/06/19 Plan of Care End Date 04/03/19 Next Visit Focus/Plan Next Note Type Treatment Note Next Visit Plan Review transfer sit<>stand with hip hinge, and sit<> supine with log roll method, and HEP. Progress HEP of gentle lumbar ROM and neutral spine awareness education and core strengthening (starting isometric and progressing to resisted ex). HEP for gentle cervical isometric strengthening. Might try ending with E-Stim Pre-mod of L & R side (not IFES)/cold pack or MH.
--- NOTE | 2019-02-11 17:02 | PT.OTN ---
Current Diagnoses Other intervertebral disc degeneration, thoracic region (02/11/19) Physical Therapy Treatment Note PT-OP-A Visit Information Start: 02/05/19 19:30 Freq: Status: Active Protocol: Document 02/11/19 13:00 HH (Rec: 02/11/19 17:02 HH [email or web address]) Out-Patient Physical Therapy Visit Information Visit Information Visit Type Treatment Note Visit Start Time 13:00 Visit Stop Time 13:40 Total Visit Minutes 40 Visit Number 3 Number of PIPE ORGAN INSTALLER Visits 0 PT-OP-B Current Condition Start: 02/05/19 19:30 Freq: Status: Active Protocol: Document 02/06/19 12:47 LRN (Rec: 02/06/19 13:46 LRN [id number]) Current Condition History of Current Condition Onset Date 13 yrs ago. Off/on since. Current Complaints Neck and back pain History of Current Condition Pt reports she has had physical therapy on the neck & back x 2 with the most recent ~3yrs ago. (Neck @ [facility] & Back at [facility] (?08). Lives by self and has a machining department supervisor caregiver. Does water ex 's at the [facility] two times so far. Uses mass transit to get to pool. Quit pain med Fentinal 1 yr ago so the pain has increased drastically and she has gained 50#; therefore doesn't want to go back on it. She is currently taking Oxycodone & Tizanidine for pain. Prior Treatments and Tests Neck Fusion: 3 yrs ago. Back Fusion: 2005 Future Testing and Treatments Planned None Developmental History Developmental History 3-4 lumbar discs removed with fusion (thinks L2-L5 in 2005) with 1 disc bulge above and 2 cervical discs removed with fusion (date unknown) Pt moved to [place] from [place] in 2007. Treatment Goals Patient/Caregiver Goals Pt's goal is to be more mobile to: 1) filler picker things off the floor, 2) put dishes away and 3) clean up without back causing shooting pain. Pt's goal is also to: 1) go swimming, 2) take long walks and a little hike, and 3) keep up with apartment w/o help. Prior Functional Status Baseline Function- ADL's Independent Baseline Function- Mobility Independent Baseline Function- Gait Gait without cane 2 yrs ago. Able to walk 1 mile. Baseline Function- Work/School Last job was 1 yr before back surgery (2005). Baseline Function- Other Able to drive. Current Functional Impairments (Reported) Functional Limitations- ADL's Caregiver puts dishes away, does laundry in a different building, Needs help going to places. Occasionally needs help dressing. Functional Limitations- Mobility/Gait Ambulates with SPC on the right and Trendelenberg lean to the left. Sometimes not able to get out of bed. Sometimes not able to tolerate shopping. Able to walk 3 blocks, < 1/4 mile. Functional Limitations- Work/School Non employed. Functional Limitations- Other Not able to put dishes away, or filler picker objects off the floor. Does not have a biosecurity officer. Drives in town Personal Factors Other Personal Factors That May Effect Lives by self Therapy/Recovery PT-OP-C Subjective Start: 02/05/19 19:30 Freq: Status: Active Protocol: Document 02/11/19 13:00 HH (Rec: 02/11/19 17:02 HH [email or web address]) OP-PT Subjective Patient Comments Patient Comments i am a bit sore the day after last visit. PT-OP-G Mobility & Gait Start: 02/05/19 19:30 Freq: Status: Active Protocol: Document 02/06/19 12:51 LRN (Rec: 02/06/19 18:02 LRN [id number]) OP Mobility Evaluation Transfers Sit to Stand Independent with use of hands. Bed to Chair Transfers Sit <> Supine is with difficulty and pain. OP Gait Assessment Gait Gait Assistance Required: Independent Able to Maintain Weight Bearing Status Yes During Gait Assistive Devices Assistive Device Straight Cane Gait Deviations General Gait Pattern Lateral Trunk Lean Wide Based Gait Factors Limiting Gait Function Factors Limiting Gait Function Decreased Activity Tolerance Limited Range of Motion Pain PT-OP-H Neuro Start: 02/05/19 19:30 Freq: Status: Active Protocol: Document 02/06/19 12:51 LRN (Rec: 02/06/19 18:02 LRN [id number]) Sensation Evaluation Gross Sensation Gross Sensation WNL Deep Tendon Reflex & Clonus Assessment Deep Tendon Reflex Bilateral Achilles Deep Tendon Reflex 2+ Normal Bilateral Patellar Deep Tendon Reflex 2+ Normal Bilateral Tricep Deep Tendon Reflex 2+ Normal Bilateral Bicep Deep Tendon Reflex 2+ Normal PT-OP-J Posture/Palpation/Skin Start: 02/05/19 19:30 Freq: Status: Active Protocol: Document 02/06/19 12:51 LRN (Rec: 02/06/19 18:02 LRN [id number]) Posture Evaluation Position Standing Evaluation View All positions Head/C-Spine Posture Side Bent Right T-Spine Posture Flattened L-Spine Posture Increased Lordosis Shifted Left Shoulder Posture (L) Elevated Scapula Posture (L) Elevated Pelvis Posture Anteriorly Tilted Weight Distribution Balanced Comments Posture Comments Endomorphic Body Type PT-OP-K Range of Motion Start: 02/05/19 19:30 Freq: Status: Active Protocol: Document 02/06/19 12:51 LRN (Rec: 02/06/19 18:02 LRN [id number]) Cervical Spine Range of Motion Cervical Spine Active Degrees Testing Position Sitting Flexion 38 Extension 18 Rotation Left 22 Rotation Right 32 Lateral Flexion Left 27 Lateral Flexion Right 35 ROM Limitations Soft Tissue Tightness Pain Lumbar Spine Range of Motion Lumbar Spine Active Degrees Testing Position Standing Flexion 25 Extension 0 Rotation Left 30 Rotation Right 20 Lateral Flexion Left 10 Lateral Flexion Right 15 ROM Limitations Soft Tissue Tightness Pain Comments With sidebending pain is on contralateral side. PT-OP-M Strength Start: 02/05/19 19:30 Freq: Status: Active Protocol: Document 02/06/19 12:51 LRN (Rec: 02/06/19 18:02 LRN [id number]) Cervical Spine Strength Cervical Spine Manual Muscle Testing Testing Position Sitting Flexion (C1-2) 3+ Fair+ Reason Not Measured WFL Comments Generally WNL except as indicated above. Trunk Strength Trunk Manual Muscle Testing Comments Deferred Knee Strength Knee Manual Muscle Testing Right Flexion (S2) 4 Good Extension (L3) 5 Normal Left Flexion (S2) 5 Normal Extension (L3) 4 Good Ankle/Foot Strength Ankle and Foot Manual Muscle Testing Right Reason Not Measured WFL Left Reason Not Measured WFL PT-OP-Q Treatments Start: 02/05/19 19:30 Freq: Status: Active Protocol: Document 02/11/19 13:00 HH (Rec: 02/11/19 17:02 HH [email or web address]) Therapeutic Exercises Supine Exercises supine knee ext Supine Exercise Name hip supported at 60 degrees Side bilateral Reps/Minutes 8 x 2 Comments active and passive knee ext supine hip wiper Side bilateral Reps/Minutes 8 x 2 Comments as tolerated SKTC stretch Supine Exercise Name SKTC (limit R side due to old R BETTINA) Side bilateral Reps/Minutes 6 x 10 sec holds Comments Poor tolerance, poor mobility TA strengthening Supine Exercise Name Tightening/Bracing with exhalation, hold 5 sec's Reps/Minutes 10x Comments Extra time taken for training. Sitting Exercises nerve glide Sitting Exercise Name seated with B extended knees Side bilateral Reps/Minutes 10 x 2 Comments active cervical flexion and extension seated stretch Sitting Exercise Name flexion, rotation and diagonal Side bilateral Reps/Minutes 10-15 x 2 Comments knee touch Therapeutic Activity Therapeutic Activity Sit <-> Supine Name Sit <-> Supine Reps/Minutes 5' Comments Pt needed assist with legs and verbal directions through transfer. Sit to stand Name Sit to Stand training Reps/Minutes 5 PT-OP-T Assessment and Plan Start: 02/05/19 19:30 Freq: Status: Active Protocol: Document 02/11/19 13:00 (Rec: 02/11/19 17:02 [email or web address]) Physical Therapy Assessment Assessment Summary Assessment Pt cont shows pain behavior with grimacing and twitching with transfers and hip movements. Pt education on chronic pain and sensitivity. Introduced nerve glide and gentle trunk movements exercise in seated position today. Physical Therapy Plan Next Visit Focus/Plan Next Note Type Treatment Note Next Visit Plan Review transfer sit<>stand with hip hinge, and sit<> supine with log roll method, and HEP. Progress HEP of gentle lumbar ROM and neutral spine awareness education and core strengthening (starting isometric and progressing to resisted ex). HEP for gentle cervical isometric strengthening. Might try ending with E-Stim Pre-mod of L & R side (not IFES)/cold pack or MH.
--- NOTE | 2019-02-20 16:28 | PT.OTN ---
Current Diagnoses Other intervertebral disc degeneration, thoracic region (02/20/19) Physical Therapy Treatment Note PT-OP-A Visit Information Start: 02/05/19 19:30 Freq: Status: Active Protocol: Document 02/20/19 14:30 HH (Rec: 02/20/19 16:28 HH [email or web address]) Out-Patient Physical Therapy Visit Information Visit Information Visit Type Treatment Note Visit Start Time 14:30 Visit Stop Time 15:15 Total Visit Minutes 45 Visit Number 4 Number of MEDIA TECHNICIAN Visits 0 PT-OP-B Current Condition Start: 02/05/19 19:30 Freq: Status: Active Protocol: Document 02/06/19 12:47 LRN (Rec: 02/06/19 13:46 LRN [id number]) Current Condition History of Current Condition Onset Date 13 yrs ago. Off/on since. Current Complaints Neck and back pain History of Current Condition Pt reports she has had physical therapy on the neck & back x 2 with the most recent ~3yrs ago. (Neck @ [facility] & Back at [facility] (?08). Lives by self and has a partner manager caregiver. Does water ex 's at the [facility] two times so far. Uses mass transit to get to pool. Quit pain med Fentinal 1 yr ago so the pain has increased drastically and she has gained 50#; therefore doesn't want to go back on it. She is currently taking Oxycodone & Tizanidine for pain. Prior Treatments and Tests Neck Fusion: 3 yrs ago. Back Fusion: 2005 Future Testing and Treatments Planned None Developmental History Developmental History 3-4 lumbar discs removed with fusion (thinks L2-L5 in 2005) with 1 disc bulge above and 2 cervical discs removed with fusion (date unknown) Pt moved to [place] from [place] in 2007. Treatment Goals Patient/Caregiver Goals Pt's goal is to be more mobile to: 1) rock picker things off the floor, 2) put dishes away and 3) clean up without back causing shooting pain. Pt's goal is also to: 1) go swimming, 2) take long walks and a little hike, and 3) keep up with apartment w/o help. Prior Functional Status Baseline Function- ADL's Independent Baseline Function- Mobility Independent Baseline Function- Gait Gait without cane 2 yrs ago. Able to walk 1 mile. Baseline Function- Work/School Last job was 1 yr before back surgery (2005). Baseline Function- Other Able to drive. Current Functional Impairments (Reported) Functional Limitations- ADL's Caregiver puts dishes away, does laundry in a different building, Needs help going to places. Occasionally needs help dressing. Functional Limitations- Mobility/Gait Ambulates with SPC on the right and Trendelenberg lean to the left. Sometimes not able to get out of bed. Sometimes not able to tolerate shopping. Able to walk 3 blocks, < 1/4 mile. Functional Limitations- Work/School Non employed. Functional Limitations- Other Not able to put dishes away, or rock picker objects off the floor. Does not have a test pilot. Drives in town Personal Factors Other Personal Factors That May Effect Lives by self Therapy/Recovery PT-OP-C Subjective Start: 02/05/19 19:30 Freq: Status: Active Protocol: Document 02/20/19 14:30 HH (Rec: 02/20/19 16:28 HH [email or web address]) OP-PT Subjective Patient Comments Patient Comments I was sore for a day after last visit but able to recover . my back hasnt been to bad but it gets sore easily after a long walk. PT-OP-G Mobility & Gait Start: 02/05/19 19:30 Freq: Status: Active Protocol: Document 02/06/19 12:51 LRN (Rec: 02/06/19 18:02 LRN [id number]) OP Mobility Evaluation Transfers Sit to Stand Independent with use of hands. Bed to Chair Transfers Sit <> Supine is with difficulty and pain. OP Gait Assessment Gait Gait Assistance Required: Independent Able to Maintain Weight Bearing Status Yes During Gait Assistive Devices Assistive Device Straight Cane Gait Deviations General Gait Pattern Lateral Trunk Lean Wide Based Gait Factors Limiting Gait Function Factors Limiting Gait Function Decreased Activity Tolerance Limited Range of Motion Pain PT-OP-H Neuro Start: 02/05/19 19:30 Freq: Status: Active Protocol: Document 02/06/19 12:51 LRN (Rec: 02/06/19 18:02 LRN [id number]) Sensation Evaluation Gross Sensation Gross Sensation WNL Deep Tendon Reflex & Clonus Assessment Deep Tendon Reflex Bilateral Achilles Deep Tendon Reflex 2+ Normal Bilateral Patellar Deep Tendon Reflex 2+ Normal Bilateral Tricep Deep Tendon Reflex 2+ Normal Bilateral Bicep Deep Tendon Reflex 2+ Normal PT-OP-J Posture/Palpation/Skin Start: 02/05/19 19:30 Freq: Status: Active Protocol: Document 02/06/19 12:51 LRN (Rec: 02/06/19 18:02 LRN [id number]) Posture Evaluation Position Standing Evaluation View All positions Head/C-Spine Posture Side Bent Right T-Spine Posture Flattened L-Spine Posture Increased Lordosis Shifted Left Shoulder Posture (L) Elevated Scapula Posture (L) Elevated Pelvis Posture Anteriorly Tilted Weight Distribution Balanced Comments Posture Comments Endomorphic Body Type PT-OP-K Range of Motion Start: 02/05/19 19:30 Freq: Status: Active Protocol: Document 02/06/19 12:51 LRN (Rec: 02/06/19 18:02 LRN [id number]) Cervical Spine Range of Motion Cervical Spine Active Degrees Testing Position Sitting Flexion 38 Extension 18 Rotation Left 22 Rotation Right 32 Lateral Flexion Left 27 Lateral Flexion Right 35 ROM Limitations Soft Tissue Tightness Pain Lumbar Spine Range of Motion Lumbar Spine Active Degrees Testing Position Standing Flexion 25 Extension 0 Rotation Left 30 Rotation Right 20 Lateral Flexion Left 10 Lateral Flexion Right 15 ROM Limitations Soft Tissue Tightness Pain Comments With sidebending pain is on contralateral side. PT-OP-M Strength Start: 02/05/19 19:30 Freq: Status: Active Protocol: Document 02/06/19 12:51 LRN (Rec: 02/06/19 18:02 LRN [id number]) Cervical Spine Strength Cervical Spine Manual Muscle Testing Testing Position Sitting Flexion (C1-2) 3+ Fair+ Reason Not Measured WFL Comments Generally WNL except as indicated above. Trunk Strength Trunk Manual Muscle Testing Comments Deferred Knee Strength Knee Manual Muscle Testing Right Flexion (S2) 4 Good Extension (L3) 5 Normal Left Flexion (S2) 5 Normal Extension (L3) 4 Good Ankle/Foot Strength Ankle and Foot Manual Muscle Testing Right Reason Not Measured WFL Left Reason Not Measured WFL PT-OP-Q Treatments Start: 02/05/19 19:30 Freq: Status: Active Protocol: Document 02/20/19 14:30 HH (Rec: 02/20/19 16:28 HH [email or web address]) Therapeutic Exercises Supine Exercises isometric hip rot Side bilateral Equipment Used manual resistance Reps/Minutes 5 secs hold x 10 supine knee ext Supine Exercise Name hip supported at 60 degrees Side bilateral Reps/Minutes 8 x 2 Comments active and passive knee ext supine hip wiper Side bilateral Reps/Minutes 8 x 2 Comments as tolerated TA strengthening Supine Exercise Name Tightening/Bracing with exhalation, hold 5 sec's Reps/Minutes 10x Comments Extra time taken for training. Sitting Exercises squat Side bilateral Reps/Minutes 6 x 3 Comments with grab bar trunk AROM Side bilateral Equipment Used with mediaBunker therapy ball Reps/Minutes 8 x 5 isometric trunk flex/ext Side bilateral Resistance manual resistance Reps/Minutes 5 secs x 10 Manual Therapy Treatment Soft Tissue Mobilization lumbar paraspinals Mobilization Type Cross-Friction Myofascial Release Sustained Pressure Trigger Point Release Intensity/Depth Superficial Body Position Sitting PT-OP-T Assessment and Plan Start: 02/05/19 19:30 Freq: Status: Active Protocol: Document 02/20/19 14:30 HH (Rec: 02/20/19 16:28 HH [email or web address]) Physical Therapy Assessment Assessment Summary Assessment Pt padmini tx well with reduced muscle guarding during trunk AROM. Added isometric trunk strengthening ex and squat today. Physical Therapy Plan Next Visit Focus/Plan Next Note Type Treatment Note Next Visit Plan sit<>supine with log roll method, and HEP. Progress HEP of gentle lumbar ROM and neutral spine awareness education and core strengthening (starting isometric and progressing to resisted ex). HEP for gentle cervical isometric strengthening. Might try ending with E-Stim Pre-mod of L & R side (not IFES)/cold pack or MH.
--- NOTE | 2019-03-04 18:32 | PT.OTN ---
Current Diagnoses Other intervertebral disc degeneration, thoracic region (03/04/19) Physical Therapy Treatment Note PT-OP-A Visit Information Start: 02/05/19 19:30 Freq: Status: Active Protocol: Document 03/04/19 16:03 HH (Rec: 03/04/19 18:32 HH [email or web address]) Out-Patient Physical Therapy Visit Information Visit Information Visit Type Treatment Note Visit Note Pt cancelled last week's appt due to family emergency. Visit Start Time 16:03 Visit Stop Time 16:48 Total Visit Minutes 45 Visit Number 5 Number of ARCHITECTURAL TECHNOLOGIST Visits 0 PT-OP-B Current Condition Start: 02/05/19 19:30 Freq: Status: Active Protocol: Document 02/06/19 12:47 LRN (Rec: 02/06/19 13:46 LRN [id number]) Current Condition History of Current Condition Onset Date 13 yrs ago. Off/on since. Current Complaints Neck and back pain History of Current Condition Pt reports she has had physical therapy on the neck & back x 2 with the most recent ~3yrs ago. (Neck @ [facility] & Back at [facility] (?08). Lives by self and has a department secretary caregiver. Does water ex 's at the [facility] two times so far. Uses mass transit to get to pool. Quit pain med Fentinal 1 yr ago so the pain has increased drastically and she has gained 50#; therefore doesn't want to go back on it. She is currently taking Oxycodone & Tizanidine for pain. Prior Treatments and Tests Neck Fusion: 3 yrs ago. Back Fusion: 2005 Future Testing and Treatments Planned None Developmental History Developmental History 3-4 lumbar discs removed with fusion (thinks L2-L5 in 2005) with 1 disc bulge above and 2 cervical discs removed with fusion (date unknown) Pt moved to [place] from [place] in 2007. Treatment Goals Patient/Caregiver Goals Pt's goal is to be more mobile to: 1) fern picker things off the floor, 2) put dishes away and 3) clean up without back causing shooting pain. Pt's goal is also to: 1) go swimming, 2) take long walks and a little hike, and 3) keep up with apartment w/o help. Prior Functional Status Baseline Function- ADL's Independent Baseline Function- Mobility Independent Baseline Function- Gait Gait without cane 2 yrs ago. Able to walk 1 mile. Baseline Function- Work/School Last job was 1 yr before back surgery (2005). Baseline Function- Other Able to drive. Current Functional Impairments (Reported) Functional Limitations- ADL's Caregiver puts dishes away, does laundry in a different building, Needs help going to places. Occasionally needs help dressing. Functional Limitations- Mobility/Gait Ambulates with SPC on the right and Trendelenberg lean to the left. Sometimes not able to get out of bed. Sometimes not able to tolerate shopping. Able to walk 3 blocks, < 1/4 mile. Functional Limitations- Work/School Non employed. Functional Limitations- Other Not able to put dishes away, or fern picker objects off the floor. Does not have a facility manager. Drives in town Personal Factors Other Personal Factors That May Effect Lives by self Therapy/Recovery PT-OP-C Subjective Start: 02/05/19 19:30 Freq: Status: Active Protocol: Document 03/04/19 16:03 HH (Rec: 03/04/19 18:32 HH [email or web address]) OP-PT Subjective Patient Comments Patient Comments Today is one of the worst days probably because of this rainy weather. I was doing pretty good after last visit. PT-OP-G Mobility & Gait Start: 02/05/19 19:30 Freq: Status: Active Protocol: Document 02/06/19 12:51 LRN (Rec: 02/06/19 18:02 LRN [id number]) OP Mobility Evaluation Transfers Sit to Stand Independent with use of hands. Bed to Chair Transfers Sit <> Supine is with difficulty and pain. OP Gait Assessment Gait Gait Assistance Required: Independent Able to Maintain Weight Bearing Status Yes During Gait Assistive Devices Assistive Device Straight Cane Gait Deviations General Gait Pattern Lateral Trunk Lean Wide Based Gait Factors Limiting Gait Function Factors Limiting Gait Function Decreased Activity Tolerance Limited Range of Motion Pain PT-OP-H Neuro Start: 02/05/19 19:30 Freq: Status: Active Protocol: Document 02/06/19 12:51 LRN (Rec: 02/06/19 18:02 LRN [id number]) Sensation Evaluation Gross Sensation Gross Sensation WNL Deep Tendon Reflex & Clonus Assessment Deep Tendon Reflex Bilateral Achilles Deep Tendon Reflex 2+ Normal Bilateral Patellar Deep Tendon Reflex 2+ Normal Bilateral Tricep Deep Tendon Reflex 2+ Normal Bilateral Bicep Deep Tendon Reflex 2+ Normal PT-OP-J Posture/Palpation/Skin Start: 02/05/19 19:30 Freq: Status: Active Protocol: Document 02/06/19 12:51 LRN (Rec: 02/06/19 18:02 LRN [id number]) Posture Evaluation Position Standing Evaluation View All positions Head/C-Spine Posture Side Bent Right T-Spine Posture Flattened L-Spine Posture Increased Lordosis Shifted Left Shoulder Posture (L) Elevated Scapula Posture (L) Elevated Pelvis Posture Anteriorly Tilted Weight Distribution Balanced Comments Posture Comments Endomorphic Body Type PT-OP-K Range of Motion Start: 02/05/19 19:30 Freq: Status: Active Protocol: Document 02/06/19 12:51 LRN (Rec: 02/06/19 18:02 LRN [id number]) Cervical Spine Range of Motion Cervical Spine Active Degrees Testing Position Sitting Flexion 38 Extension 18 Rotation Left 22 Rotation Right 32 Lateral Flexion Left 27 Lateral Flexion Right 35 ROM Limitations Soft Tissue Tightness Pain Lumbar Spine Range of Motion Lumbar Spine Active Degrees Testing Position Standing Flexion 25 Extension 0 Rotation Left 30 Rotation Right 20 Lateral Flexion Left 10 Lateral Flexion Right 15 ROM Limitations Soft Tissue Tightness Pain Comments With sidebending pain is on contralateral side. PT-OP-M Strength Start: 02/05/19 19:30 Freq: Status: Active Protocol: Document 02/06/19 12:51 LRN (Rec: 02/06/19 18:02 LRN [id number]) Cervical Spine Strength Cervical Spine Manual Muscle Testing Testing Position Sitting Flexion (C1-2) 3+ Fair+ Reason Not Measured WFL Comments Generally WNL except as indicated above. Trunk Strength Trunk Manual Muscle Testing Comments Deferred Knee Strength Knee Manual Muscle Testing Right Flexion (S2) 4 Good Extension (L3) 5 Normal Left Flexion (S2) 5 Normal Extension (L3) 4 Good Ankle/Foot Strength Ankle and Foot Manual Muscle Testing Right Reason Not Measured WFL Left Reason Not Measured WFL PT-OP-Q Treatments Start: 02/05/19 19:30 Freq: Status: Active Protocol: Document 03/04/19 16:03 HH (Rec: 03/04/19 18:32 HH [email or web address]) Therapeutic Exercises Supine Exercises isometric hip rot Side bilateral Equipment Used manual resistance Reps/Minutes 5 secs hold x 10 supine knee ext Supine Exercise Name hip supported at 60 degrees Side bilateral Reps/Minutes 8 x 2 Comments active and passive knee ext Cervical AROM stretching Supine Exercise Name Active C. Rotation & Sidebend Side bilateral Reps/Minutes 10 x each, 5 sec holds Comments Pt moves very slowly. TA strengthening Supine Exercise Name Tightening/Bracing with exhalation, hold 5 sec's Reps/Minutes 10x Comments Extra time taken for training. Sitting Exercises squat Side bilateral Reps/Minutes 6 x 3 Comments with grab bar, and hip hinge trunk AROM Side bilateral Reps/Minutes 8 x 5 Comments hands reach knee. isometric trunk flex/ext Side bilateral Resistance manual resistance Reps/Minutes 5 secs x 10 Standing Exercises bend over Standing Exercise Name back against wall Side bilateral Reps/Minutes 5 x3 Comments cues on hip hinge and neutral spine Manual Therapy Treatment Soft Tissue Mobilization lumbar paraspinals Mobilization Type Cross-Friction Myofascial Release Sustained Pressure Trigger Point Release Intensity/Depth Superficial Body Position Sitting UT Body Location Bilateral UT Mobilization Type Myofascial Release Trigger Point Release Intensity/Depth Superficial Body Position Supine PT-OP-T Assessment and Plan Start: 02/05/19 19:30 Freq: Status: Active Protocol: Document 03/04/19 16:03 (Rec: 03/04/19 18:32 [email or web address]) Physical Therapy Assessment Assessment Summary Assessment Pt demonstrates very low activity tolerance today. Her pain is very signficant today that limits her overall movements. Physical Therapy Plan Next Visit Focus/Plan Next Note Type Treatment Note Next Visit Plan Progress HEP of gentle lumbar ROM and neutral spine awareness education and core strengthening (starting isometric and progressing to resisted ex). HEP for gentle cervical isometric strengthening. Might try ending with E-Stim Pre-mod of L & R side (not IFES)/cold pack or MH.
--- NOTE | 2019-03-09 15:04 | PT.OTN ---
Current Diagnoses Other intervertebral disc degeneration, thoracic region (03/09/19) Physical Therapy Treatment Note PT-OP-A Visit Information Start: 02/05/19 19:30 Freq: Status: Active Protocol: Document 03/09/19 12:45 LRN (Rec: 03/09/19 13:32 LRN [id number]) Out-Patient Physical Therapy Visit Information Visit Information Visit Type Treatment Note Visit Start Time 12:45 Visit Stop Time 13:35 Total Visit Minutes 50 Visit Number 6 Number of DYNAMITE PACKING MACHINE FEEDER Visits 0 Evaluation Information Evaluation Date 02/06/19 Precautions Precautions Fused Neck and Back. Tape Allergy Diabetes Depression PT-OP-B Current Condition Start: 02/05/19 19:30 Freq: Status: Active Protocol: Document 02/06/19 12:47 LRN (Rec: 02/06/19 13:46 LRN [id number]) Current Condition History of Current Condition Onset Date 13 yrs ago. Off/on since. Current Complaints Neck and back pain History of Current Condition Pt reports she has had physical therapy on the neck & back x 2 with the most recent ~3yrs ago. (Neck @ [facility] & Back at [facility] (?08). Lives by self and has a end finder forming department caregiver. Does water ex 's at the [facility] two times so far. Uses mass transit to get to pool. Quit pain med Fentinal 1 yr ago so the pain has increased drastically and she has gained 50#; therefore doesn't want to go back on it. She is currently taking Oxycodone & Tizanidine for pain. Prior Treatments and Tests Neck Fusion: 3 yrs ago. Back Fusion: 2005 Future Testing and Treatments Planned None Developmental History Developmental History 3-4 lumbar discs removed with fusion (thinks L2-L5 in 2005) with 1 disc bulge above and 2 cervical discs removed with fusion (date unknown) Pt moved to [place] from [place] in 2007. Treatment Goals Patient/Caregiver Goals Pt's goal is to be more mobile to: 1) pick pulling machine operator things off the floor, 2) put dishes away and 3) clean up without back causing shooting pain. Pt's goal is also to: 1) go swimming, 2) take long walks and a little hike, and 3) keep up with apartment w/o help. Prior Functional Status Baseline Function- ADL's Independent Baseline Function- Mobility Independent Baseline Function- Gait Gait without cane 2 yrs ago. Able to walk 1 mile. Baseline Function- Work/School Last job was 1 yr before back surgery (2005). Baseline Function- Other Able to drive. Current Functional Impairments (Reported) Functional Limitations- ADL's Caregiver puts dishes away, does laundry in a different building, Needs help going to places. Occasionally needs help dressing. Functional Limitations- Mobility/Gait Ambulates with SPC on the right and Trendelenberg lean to the left. Sometimes not able to get out of bed. Sometimes not able to tolerate shopping. Able to walk 3 blocks, < 1/4 mile. Functional Limitations- Work/School Non employed. Functional Limitations- Other Not able to put dishes away, or pick pulling machine operator objects off the floor. Does not have a employment trainer. Drives in town Personal Factors Other Personal Factors That May Effect Lives by self Therapy/Recovery PT-OP-C Subjective Start: 02/05/19 19:30 Freq: Status: Active Protocol: Document 03/09/19 12:45 LRN (Rec: 03/09/19 13:32 LRN [id number]) OP-PT Subjective Patient Comments Patient Comments No change. Overall a little better. stretching out and limbering up PT-OP-G Mobility & Gait Start: 02/05/19 19:30 Freq: Status: Active Protocol: Document 02/06/19 12:51 LRN (Rec: 02/06/19 18:02 LRN [id number]) OP Mobility Evaluation Transfers Sit to Stand Independent with use of hands. Bed to Chair Transfers Sit <> Supine is with difficulty and pain. OP Gait Assessment Gait Gait Assistance Required: Independent Able to Maintain Weight Bearing Status Yes During Gait Assistive Devices Assistive Device Straight Cane Gait Deviations General Gait Pattern Lateral Trunk Lean Wide Based Gait Factors Limiting Gait Function Factors Limiting Gait Function Decreased Activity Tolerance Limited Range of Motion Pain PT-OP-H Neuro Start: 02/05/19 19:30 Freq: Status: Active Protocol: Document 02/06/19 12:51 LRN (Rec: 02/06/19 18:02 LRN [id number]) Sensation Evaluation Gross Sensation Gross Sensation WNL Deep Tendon Reflex & Clonus Assessment Deep Tendon Reflex Bilateral Achilles Deep Tendon Reflex 2+ Normal Bilateral Patellar Deep Tendon Reflex 2+ Normal Bilateral Tricep Deep Tendon Reflex 2+ Normal Bilateral Bicep Deep Tendon Reflex 2+ Normal PT-OP-J Posture/Palpation/Skin Start: 02/05/19 19:30 Freq: Status: Active Protocol: Document 02/06/19 12:51 LRN (Rec: 02/06/19 18:02 LRN [id number]) Posture Evaluation Position Standing Evaluation View All positions Head/C-Spine Posture Side Bent Right T-Spine Posture Flattened L-Spine Posture Increased Lordosis Shifted Left Shoulder Posture (L) Elevated Scapula Posture (L) Elevated Pelvis Posture Anteriorly Tilted Weight Distribution Balanced Comments Posture Comments Endomorphic Body Type PT-OP-K Range of Motion Start: 02/05/19 19:30 Freq: Status: Active Protocol: Document 02/06/19 12:51 LRN (Rec: 02/06/19 18:02 LRN [id number]) Cervical Spine Range of Motion Cervical Spine Active Degrees Testing Position Sitting Flexion 38 Extension 18 Rotation Left 22 Rotation Right 32 Lateral Flexion Left 27 Lateral Flexion Right 35 ROM Limitations Soft Tissue Tightness Pain Lumbar Spine Range of Motion Lumbar Spine Active Degrees Testing Position Standing Flexion 25 Extension 0 Rotation Left 30 Rotation Right 20 Lateral Flexion Left 10 Lateral Flexion Right 15 ROM Limitations Soft Tissue Tightness Pain Comments With sidebending pain is on contralateral side. PT-OP-M Strength Start: 02/05/19 19:30 Freq: Status: Active Protocol: Document 02/06/19 12:51 LRN (Rec: 02/06/19 18:02 LRN [id number]) Cervical Spine Strength Cervical Spine Manual Muscle Testing Testing Position Sitting Flexion (C1-2) 3+ Fair+ Reason Not Measured WFL Comments Generally WNL except as indicated above. Trunk Strength Trunk Manual Muscle Testing Comments Deferred Knee Strength Knee Manual Muscle Testing Right Flexion (S2) 4 Good Extension (L3) 5 Normal Left Flexion (S2) 5 Normal Extension (L3) 4 Good Ankle/Foot Strength Ankle and Foot Manual Muscle Testing Right Reason Not Measured WFL Left Reason Not Measured WFL PT-OP-Q Treatments Start: 02/05/19 19:30 Freq: Status: Active Protocol: Document 03/09/19 12:45 LRN (Rec: 03/09/19 13:32 LRN [id number]) Therapeutic Exercises Sitting Exercises Hip hinging Sitting Exercise Name Hip hinge training Reps/Minutes 4' Comments Small range for painfree hip hinge Seated sit backs Sitting Exercise Name Toes against wall and lean back in chair Resistance Toes against wall Equipment Used wall Reps/Minutes 5 sec holds x isometric trunk flex/ext Side bilateral Resistance manual resistance Reps/Minutes 5 secs x 10 nerve glide Sitting Exercise Name seated with B extended knees Side bilateral Reps/Minutes 10 x 3 seated stretch Sitting Exercise Name flexion, rotation and diagonal Side bilateral Reps/Minutes 10-15 x 6 Comments knee touch Standing Exercises bend over Standing Exercise Name back against wall Side bilateral Reps/Minutes 2 x Comments cues on hip hinge and neutral spine Self-Care/Home Management Treatment Education Patient Education Home Exercise Program Activities Self-Care/Home Management Activities Issued & reviewed HEP: LE neural stretch with I/S to do in sitting, Juan David Abdominal strengthening (toe on wall sit backs), and hip hinging in a chair. PT-OP-R Modalities Start: 02/05/19 19:30 Freq: Status: Active Protocol: Document 03/09/19 12:45 LRN (Rec: 03/09/19 13:32 LRN [id number]) Electric Stimulation Electric Stimulation Pre-Modulated Body Location Lower T/S Paraspinal > upper Gluteal on L & R. Duration (Minutes) 10 Intensity 8 Patient Position Hooklying Combined With Heat/Cold Hot Pack PT-OP-T Assessment and Plan Start: 02/05/19 19:30 Freq: Status: Active Protocol: Document 03/09/19 12:45 LRN (Rec: 03/09/19 13:32 LRN [id number]) Physical Therapy Assessment Assessment Summary Assessment Pt limited with hip hinging due to LBP probably from soft tissue and fascial tightness. Pt had + response to EStim and could probably tolerate longer time and increased intensity. Pt purse very heavy and was advised to decrease weight. Pt left therapy feeling a little better, but still ambulating slow and cautious due to LBP. Physical Therapy Plan Frequency and Duration Frequency of Treatment 2x/Week Plan of Care Start Date 02/06/19 Plan of Care End Date 04/03/19 Next Visit Focus/Plan Next Note Type Treatment Note Next Visit Plan Review recent HEP issued. Progress HEP of gentle lumbar ROM and neutral spine awareness education and core strengthening (progressing from isometric to resisted ex when tolerated). HEP for gentle cervical isometric strengthening. Ending with E- Stim Pre-mod of L & R side ( not IFES)/MH with increased time and possibly intensity.
--- NOTE | 2019-03-11 18:20 | PT.OTN ---
Current Diagnoses Other intervertebral disc degeneration, thoracic region (03/11/19) Physical Therapy Treatment Note PT-OP-A Visit Information Start: 02/05/19 19:30 Freq: Status: Active Protocol: Document 03/11/19 13:05 HH (Rec: 03/11/19 18:20 HH [email or web address]) Out-Patient Physical Therapy Visit Information Visit Information Visit Type Treatment Note Visit Start Time 13:05 Visit Stop Time 13:49 Total Visit Minutes 44 Visit Number 7 Number of PULLER OUT Visits 0 PT-OP-B Current Condition Start: 02/05/19 19:30 Freq: Status: Active Protocol: Document 02/06/19 12:47 LRN (Rec: 02/06/19 13:46 LRN [id number]) Current Condition History of Current Condition Onset Date 13 yrs ago. Off/on since. Current Complaints Neck and back pain History of Current Condition Pt reports she has had physical therapy on the neck & back x 2 with the most recent ~3yrs ago. (Neck @ [facility] & Back at [facility] (?08). Lives by self and has a caser shoe parts caregiver. Does water ex 's at the [facility] two times so far. Uses mass transit to get to pool. Quit pain med Fentinal 1 yr ago so the pain has increased drastically and she has gained 50#; therefore doesn't want to go back on it. She is currently taking Oxycodone & Tizanidine for pain. Prior Treatments and Tests Neck Fusion: 3 yrs ago. Back Fusion: 2005 Future Testing and Treatments Planned None Developmental History Developmental History 3-4 lumbar discs removed with fusion (thinks L2-L5 in 2005) with 1 disc bulge above and 2 cervical discs removed with fusion (date unknown) Pt moved to [place] from [place] in 2007. Treatment Goals Patient/Caregiver Goals Pt's goal is to be more mobile to: 1) meat pickler things off the floor, 2) put dishes away and 3) clean up without back causing shooting pain. Pt's goal is also to: 1) go swimming, 2) take long walks and a little hike, and 3) keep up with apartment w/o help. Prior Functional Status Baseline Function- ADL's Independent Baseline Function- Mobility Independent Baseline Function- Gait Gait without cane 2 yrs ago. Able to walk 1 mile. Baseline Function- Work/School Last job was 1 yr before back surgery (2005). Baseline Function- Other Able to drive. Current Functional Impairments (Reported) Functional Limitations- ADL's Caregiver puts dishes away, does laundry in a different building, Needs help going to places. Occasionally needs help dressing. Functional Limitations- Mobility/Gait Ambulates with SPC on the right and Trendelenberg lean to the left. Sometimes not able to get out of bed. Sometimes not able to tolerate shopping. Able to walk 3 blocks, < 1/4 mile. Functional Limitations- Work/School Non employed. Functional Limitations- Other Not able to put dishes away, or meat pickler objects off the floor. Does not have a community organization aide. Drives in town Personal Factors Other Personal Factors That May Effect Lives by self Therapy/Recovery PT-OP-C Subjective Start: 02/05/19 19:30 Freq: Status: Active Protocol: Document 03/11/19 13:05 HH (Rec: 03/11/19 18:20 [email or web address]) OP-PT Subjective Patient Comments Patient Comments I had one of the worst days today with pain all the way down to my L ankle. However, I think PT has been helping me since i could do more and more . I was able to stay in pool yesterday for 2 hours and that might cause my increased back pain. PT-OP-G Mobility & Gait Start: 02/05/19 19:30 Freq: Status: Active Protocol: Document 02/06/19 12:51 LRN (Rec: 02/06/19 18:02 LRN [id number]) OP Mobility Evaluation Transfers Sit to Stand Independent with use of hands. Bed to Chair Transfers Sit <> Supine is with difficulty and pain. OP Gait Assessment Gait Gait Assistance Required: Independent Able to Maintain Weight Bearing Status Yes During Gait Assistive Devices Assistive Device Straight Cane Gait Deviations General Gait Pattern Lateral Trunk Lean,Wide Based Gait Factors Limiting Gait Function Factors Limiting Gait Function Decreased Activity Tolerance, Limited Range of Motion,Pain PT-OP-H Neuro Start: 02/05/19 19:30 Freq: Status: Active Protocol: Document 02/06/19 12:51 LRN (Rec: 02/06/19 18:02 LRN [id number]) Sensation Evaluation Gross Sensation Gross Sensation WNL Deep Tendon Reflex & Clonus Assessment Deep Tendon Reflex Bilateral Achilles Deep Tendon Reflex 2+ Normal Bilateral Patellar Deep Tendon Reflex 2+ Normal Bilateral Tricep Deep Tendon Reflex 2+ Normal Bilateral Bicep Deep Tendon Reflex 2+ Normal PT-OP-J Posture/Palpation/Skin Start: 02/05/19 19:30 Freq: Status: Active Protocol: Document 02/06/19 12:51 LRN (Rec: 02/06/19 18:02 LRN [id number]) Posture Evaluation Position Standing Evaluation View All positions Head/C-Spine Posture Side Bent Right T-Spine Posture Flattened L-Spine Posture Increased Lordosis,Shifted Left Shoulder Posture (L) Elevated Scapula Posture (L) Elevated Pelvis Posture Anteriorly Tilted Weight Distribution Balanced Comments Posture Comments Endomorphic Body Type PT-OP-K Range of Motion Start: 02/05/19 19:30 Freq: Status: Active Protocol: Document 02/06/19 12:51 LRN (Rec: 02/06/19 18:02 LRN [id number]) Cervical Spine Range of Motion Cervical Spine Active Degrees Testing Position Sitting Flexion 38 Extension 18 Rotation Left 22 Rotation Right 32 Lateral Flexion Left 27 Lateral Flexion Right 35 ROM Limitations Soft Tissue Tightness,Pain Lumbar Spine Range of Motion Lumbar Spine Active Degrees Testing Position Standing Flexion 25 Extension 0 Rotation Left 30 Rotation Right 20 Lateral Flexion Left 10 Lateral Flexion Right 15 ROM Limitations Soft Tissue Tightness,Pain Comments With sidebending pain is on contralateral side. PT-OP-M Strength Start: 02/05/19 19:30 Freq: Status: Active Protocol: Document 02/06/19 12:51 LRN (Rec: 02/06/19 18:02 LRN [id number]) Cervical Spine Strength Cervical Spine Manual Muscle Testing Testing Position Sitting Flexion (C1-2) 3+ Fair+ Reason Not Measured WFL Comments Generally WNL except as indicated above. Trunk Strength Trunk Manual Muscle Testing Comments Deferred Knee Strength Knee Manual Muscle Testing Right Flexion (S2) 4 Good Extension (L3) 5 Normal Left Flexion (S2) 5 Normal Extension (L3) 4 Good Ankle/Foot Strength Ankle and Foot Manual Muscle Testing Right Reason Not Measured WFL Left Reason Not Measured WFL PT-OP-Q Treatments Start: 02/05/19 19:30 Freq: Status: Active Protocol: Document 03/11/19 13:05 HH (Rec: 03/11/19 18:20 HH [email or web address]) Therapeutic Exercises Supine Exercises supine marches Supine Exercise Name alternate Side bilateral Reps/Minutes 8 x2 Comments cues on TA engagement supine knee ext Supine Exercise Name hip supported at 70 degrees Side bilateral Reps/Minutes 8 x 2 Comments active and passive knee ext Sidelying Exercises clamshell Side left Reps/Minutes 8 x2 Comments cues on neutral spine Sitting Exercises nerve glide Sitting Exercise Name seated with B extended knees Side bilateral Reps/Minutes 10 x 3 Manual Therapy Treatment Soft Tissue Mobilization L gluteal muscles Body Location use of rolling pin Mobilization Type Instrument Assisted Intensity/Depth Superficial Body Position Sidelying Manual Traction lumbar traction Details belt behind pt's knees Body Position Hooklying Reps/Duration 30secs hold x5 PT-OP-R Modalities Start: 02/05/19 19:30 Freq: Status: Active Protocol: Document 03/11/19 13:05 (Rec: 03/11/19 18:20 [email or web address]) Electric Stimulation Electric Stimulation Pre-Modulated Body Location Lower T/S Paraspinal > upper Gluteal on L & R. Duration (Minutes) 10 Intensity 8 Patient Position Hooklying Combined With Heat/Cold Hot Pack PT-OP-T Assessment and Plan Start: 02/05/19 19:30 Freq: Status: Active Protocol: Document 03/11/19 13:05 (Rec: 03/11/19 18:20 [email or web address]) Physical Therapy Assessment Assessment Summary Assessment Pt has increased pain today possibly due to her increased activity at the pool from last night. Focused gentle ROM/ manual therapy today. Pt dose show improved tolerance for nerve glide (able to reach 70- 80 degrees of SLR) and hip/ trunk ROM without calling out for pain. Physical Therapy Plan Next Visit Focus/Plan Next Note Type Treatment Note Next Visit Plan Review recent HEP issued. Progress HEP of gentle lumbar ROM and neutral spine awareness education and core strengthening (progressing from isometric to resisted ex when tolerated). HEP for gentle cervical isometric strengthening. Ending with E- Stim Pre-mod of L & R side ( not IFES)/MH with increased time and possibly intensity.
--- NOTE | 2019-03-18 13:47 | PT.OTN ---
Current Diagnoses Other intervertebral disc degeneration, thoracic region (03/18/19) Physical Therapy Treatment Note PT-OP-A Visit Information Start: 02/05/19 19:30 Freq: Status: Active Protocol: Document 03/18/19 12:55 HH (Rec: 03/18/19 13:47 HH [email or web address]) Out-Patient Physical Therapy Visit Information Visit Information Visit Type Treatment Note Visit Start Time 12:55 Visit Stop Time 13:45 Total Visit Minutes 50 Visit Number 8 Number of DISTRICT ADVISER Visits 0 PT-OP-B Current Condition Start: 02/05/19 19:30 Freq: Status: Active Protocol: Document 02/06/19 12:47 LRN (Rec: 02/06/19 13:46 LRN [id number]) Current Condition History of Current Condition Onset Date 13 yrs ago. Off/on since. Current Complaints Neck and back pain History of Current Condition Pt reports she has had physical therapy on the neck & back x 2 with the most recent ~3yrs ago. (Neck @ [facility] & Back at [facility] (?08). Lives by self and has a roving department end finder caregiver. Does water ex 's at the [facility] two times so far. Uses mass transit to get to pool. Quit pain med Fentinal 1 yr ago so the pain has increased drastically and she has gained 50#; therefore doesn't want to go back on it. She is currently taking Oxycodone & Tizanidine for pain. Prior Treatments and Tests Neck Fusion: 3 yrs ago. Back Fusion: 2005 Future Testing and Treatments Planned None Developmental History Developmental History 3-4 lumbar discs removed with fusion (thinks L2-L5 in 2005) with 1 disc bulge above and 2 cervical discs removed with fusion (date unknown) Pt moved to [place] from [place] in 2007. Treatment Goals Patient/Caregiver Goals Pt's goal is to be more mobile to: 1) hand picker things off the floor, 2) put dishes away and 3) clean up without back causing shooting pain. Pt's goal is also to: 1) go swimming, 2) take long walks and a little hike, and 3) keep up with apartment w/o help. Prior Functional Status Baseline Function- ADL's Independent Baseline Function- Mobility Independent Baseline Function- Gait Gait without cane 2 yrs ago. Able to walk 1 mile. Baseline Function- Work/School Last job was 1 yr before back surgery (2005). Baseline Function- Other Able to drive. Current Functional Impairments (Reported) Functional Limitations- ADL's Caregiver puts dishes away, does laundry in a different building, Needs help going to places. Occasionally needs help dressing. Functional Limitations- Mobility/Gait Ambulates with SPC on the right and Trendelenberg lean to the left. Sometimes not able to get out of bed. Sometimes not able to tolerate shopping. Able to walk 3 blocks, < 1/4 mile. Functional Limitations- Work/School Non employed. Functional Limitations- Other Not able to put dishes away, or hand picker objects off the floor. Does not have a crimper assembler. Drives in town Personal Factors Other Personal Factors That May Effect Lives by self Therapy/Recovery PT-OP-C Subjective Start: 02/05/19 19:30 Freq: Status: Active Protocol: Document 03/18/19 12:55 HH (Rec: 03/18/19 13:47 HH [email or web address]) OP-PT Subjective Patient Comments Patient Comments I feel pretty good today and able to walk better. Im taking less pain meds recently. My prescription last 2-3 more weeks now. I also went to the pool couple days ago. Patient Reported Progress Improving PT-OP-G Mobility & Gait Start: 02/05/19 19:30 Freq: Status: Active Protocol: Document 02/06/19 12:51 LRN (Rec: 02/06/19 18:02 LRN [id number]) OP Mobility Evaluation Transfers Sit to Stand Independent with use of hands. Bed to Chair Transfers Sit <> Supine is with difficulty and pain. OP Gait Assessment Gait Gait Assistance Required: Independent Able to Maintain Weight Bearing Status Yes During Gait Assistive Devices Assistive Device Straight Cane Gait Deviations General Gait Pattern Lateral Trunk Lean,Wide Based Gait Factors Limiting Gait Function Factors Limiting Gait Function Decreased Activity Tolerance, Limited Range of Motion,Pain PT-OP-H Neuro Start: 02/05/19 19:30 Freq: Status: Active Protocol: Document 02/06/19 12:51 LRN (Rec: 02/06/19 18:02 LRN [id number]) Sensation Evaluation Gross Sensation Gross Sensation WNL Deep Tendon Reflex & Clonus Assessment Deep Tendon Reflex Bilateral Achilles Deep Tendon Reflex 2+ Normal Bilateral Patellar Deep Tendon Reflex 2+ Normal Bilateral Tricep Deep Tendon Reflex 2+ Normal Bilateral Bicep Deep Tendon Reflex 2+ Normal PT-OP-J Posture/Palpation/Skin Start: 02/05/19 19:30 Freq: Status: Active Protocol: Document 02/06/19 12:51 LRN (Rec: 02/06/19 18:02 LRN [id number]) Posture Evaluation Position Standing Evaluation View All positions Head/C-Spine Posture Side Bent Right T-Spine Posture Flattened L-Spine Posture Increased Lordosis,Shifted Left Shoulder Posture (L) Elevated Scapula Posture (L) Elevated Pelvis Posture Anteriorly Tilted Weight Distribution Balanced Comments Posture Comments Endomorphic Body Type PT-OP-K Range of Motion Start: 02/05/19 19:30 Freq: Status: Active Protocol: Document 02/06/19 12:51 LRN (Rec: 02/06/19 18:02 LRN [id number]) Cervical Spine Range of Motion Cervical Spine Active Degrees Testing Position Sitting Flexion 38 Extension 18 Rotation Left 22 Rotation Right 32 Lateral Flexion Left 27 Lateral Flexion Right 35 ROM Limitations Soft Tissue Tightness,Pain Lumbar Spine Range of Motion Lumbar Spine Active Degrees Testing Position Standing Flexion 25 Extension 0 Rotation Left 30 Rotation Right 20 Lateral Flexion Left 10 Lateral Flexion Right 15 ROM Limitations Soft Tissue Tightness,Pain Comments With sidebending pain is on contralateral side. PT-OP-M Strength Start: 02/05/19 19:30 Freq: Status: Active Protocol: Document 02/06/19 12:51 LRN (Rec: 02/06/19 18:02 LRN [id number]) Cervical Spine Strength Cervical Spine Manual Muscle Testing Testing Position Sitting Flexion (C1-2) 3+ Fair+ Reason Not Measured WFL Comments Generally WNL except as indicated above. Trunk Strength Trunk Manual Muscle Testing Comments Deferred Knee Strength Knee Manual Muscle Testing Right Flexion (S2) 4 Good Extension (L3) 5 Normal Left Flexion (S2) 5 Normal Extension (L3) 4 Good Ankle/Foot Strength Ankle and Foot Manual Muscle Testing Right Reason Not Measured WFL Left Reason Not Measured WFL PT-OP-Q Treatments Start: 02/05/19 19:30 Freq: Status: Active Protocol: Document 03/18/19 12:55 HH (Rec: 03/18/19 13:47 HH [email or web address]) Therapeutic Exercises Supine Exercises supine marches Supine Exercise Name alternate Side bilateral Reps/Minutes 8 x2 Comments cues on TA engagement supine hip wiper Supine Exercise Name lower trunk rotation Side bilateral Reps/Minutes 6 x2 Sitting Exercises squat Sitting Exercise Name sit to stand Side bilateral Equipment Used grab bar Reps/Minutes 8 x 3 trunk AROM Sitting Exercise Name use of overhead dee dee Side bilateral Reps/Minutes 4 mins Comments trunk lateral flexion seated stretch Sitting Exercise Name flexion, rotation and diagonal Side bilateral Reps/Minutes 10-15 x 6 Comments knee touch Manual Therapy Treatment Soft Tissue Mobilization L gluteal muscles Body Location use of rolling pin Mobilization Type Instrument Assisted Intensity/Depth Superficial Body Position Sidelying Neuro Re-Education Treatment Balance Activities high knee walk Surface ground level Reps/Duration 4 rounds on //bar Comments to avoid using //bar, cues on avoiding lateral shift PT-OP-R Modalities Start: 02/05/19 19:30 Freq: Status: Active Protocol: Document 03/18/19 12:55 HH (Rec: 03/18/19 13:47 [email or web address]) Electric Stimulation Electric Stimulation Pre-Modulated Body Location Lower T/S Paraspinal > upper Gluteal on L & R. Duration (Minutes) 8 Intensity 8 Patient Position Hooklying Combined With Heat/Cold Hot Pack PT-OP-T Assessment and Plan Start: 02/05/19 19:30 Freq: Status: Active Protocol: Document 03/18/19 12:55 HH (Rec: 03/18/19 13:47 [email or web address]) Physical Therapy Assessment Assessment Summary Assessment pt showed improved activity tolerance today with less pain . Started gait training to reduce lateral weight shift. Added Sts x 30/day to her HEP. Physical Therapy Plan Next Visit Focus/Plan Next Note Type Treatment Note Next Visit Plan Review recent HEP issued and STS. Progress HEP of gentle lumbar ROM and neutral spine awareness education and core strengthening (progressing from isometric to resisted ex when tolerated). HEP for gentle cervical isometric strengthening. Ending with E- Stim Pre-mod of L & R side ( not IFES)/MH with increased time and possibly intensity.
--- NOTE | 2019-03-25 13:45 | PT.OTN ---
Current Diagnoses Other intervertebral disc degeneration, thoracic region (03/25/19) Physical Therapy Treatment Note PT-OP-A Visit Information Start: 02/05/19 19:30 Freq: Status: Active Protocol: Document 03/25/19 13:03 HH (Rec: 03/25/19 13:45 HH [email or web address]) Out-Patient Physical Therapy Visit Information Visit Information Visit Type Treatment Note Visit Start Time 13:03 Visit Stop Time 13:45 Total Visit Minutes 42 Visit Number 9 Number of VENTILATING ENGINEER Visits 0 PT-OP-B Current Condition Start: 02/05/19 19:30 Freq: Status: Active Protocol: Document 02/06/19 12:47 LRN (Rec: 02/06/19 13:46 LRN [id number]) Current Condition History of Current Condition Onset Date 13 yrs ago. Off/on since. Current Complaints Neck and back pain History of Current Condition Pt reports she has had physical therapy on the neck & back x 2 with the most recent ~3yrs ago. (Neck @ [facility] & Back at [facility] (?08). Lives by self and has a partition assembler caregiver. Does water ex 's at the [facility] two times so far. Uses mass transit to get to pool. Quit pain med Fentinal 1 yr ago so the pain has increased drastically and she has gained 50#; therefore doesn't want to go back on it. She is currently taking Oxycodone & Tizanidine for pain. Prior Treatments and Tests Neck Fusion: 3 yrs ago. Back Fusion: 2005 Future Testing and Treatments Planned None Developmental History Developmental History 3-4 lumbar discs removed with fusion (thinks L2-L5 in 2005) with 1 disc bulge above and 2 cervical discs removed with fusion (date unknown) Pt moved to [place] from [place] in 2007. Treatment Goals Patient/Caregiver Goals Pt's goal is to be more mobile to: 1) greens picker things off the floor, 2) put dishes away and 3) clean up without back causing shooting pain. Pt's goal is also to: 1) go swimming, 2) take long walks and a little hike, and 3) keep up with apartment w/o help. Prior Functional Status Baseline Function- ADL's Independent Baseline Function- Mobility Independent Baseline Function- Gait Gait without cane 2 yrs ago. Able to walk 1 mile. Baseline Function- Work/School Last job was 1 yr before back surgery (2005). Baseline Function- Other Able to drive. Current Functional Impairments (Reported) Functional Limitations- ADL's Caregiver puts dishes away, does laundry in a different building, Needs help going to places. Occasionally needs help dressing. Functional Limitations- Mobility/Gait Ambulates with SPC on the right and Trendelenberg lean to the left. Sometimes not able to get out of bed. Sometimes not able to tolerate shopping. Able to walk 3 blocks, < 1/4 mile. Functional Limitations- Work/School Non employed. Functional Limitations- Other Not able to put dishes away, or greens picker objects off the floor. Does not have a campus coordinator. Drives in town Personal Factors Other Personal Factors That May Effect Lives by self Therapy/Recovery PT-OP-C Subjective Start: 02/05/19 19:30 Freq: Status: Active Protocol: Document 03/25/19 13:03 HH (Rec: 03/25/19 13:45 HH [email or web address]) OP-PT Subjective Patient Comments Patient Comments i hike today for the first time in many years. I expect my back and neck gonna hurt a lot today. I am tired of doing exercise now. And i havent gone to the pool for a week. PT-OP-G Mobility & Gait Start: 02/05/19 19:30 Freq: Status: Active Protocol: Document 02/06/19 12:51 LRN (Rec: 02/06/19 18:02 LRN [id number]) OP Mobility Evaluation Transfers Sit to Stand Independent with use of hands. Bed to Chair Transfers Sit <> Supine is with difficulty and pain. OP Gait Assessment Gait Gait Assistance Required: Independent Able to Maintain Weight Bearing Status Yes During Gait Assistive Devices Assistive Device Straight Cane Gait Deviations General Gait Pattern Lateral Trunk Lean,Wide Based Gait Factors Limiting Gait Function Factors Limiting Gait Function Decreased Activity Tolerance, Limited Range of Motion,Pain PT-OP-H Neuro Start: 02/05/19 19:30 Freq: Status: Active Protocol: Document 02/06/19 12:51 LRN (Rec: 02/06/19 18:02 LRN [id number]) Sensation Evaluation Gross Sensation Gross Sensation WNL Deep Tendon Reflex & Clonus Assessment Deep Tendon Reflex Bilateral Achilles Deep Tendon Reflex 2+ Normal Bilateral Patellar Deep Tendon Reflex 2+ Normal Bilateral Tricep Deep Tendon Reflex 2+ Normal Bilateral Bicep Deep Tendon Reflex 2+ Normal PT-OP-J Posture/Palpation/Skin Start: 02/05/19 19:30 Freq: Status: Active Protocol: Document 02/06/19 12:51 LRN (Rec: 02/06/19 18:02 LRN [id number]) Posture Evaluation Position Standing Evaluation View All positions Head/C-Spine Posture Side Bent Right T-Spine Posture Flattened L-Spine Posture Increased Lordosis,Shifted Left Shoulder Posture (L) Elevated Scapula Posture (L) Elevated Pelvis Posture Anteriorly Tilted Weight Distribution Balanced Comments Posture Comments Endomorphic Body Type PT-OP-K Range of Motion Start: 02/05/19 19:30 Freq: Status: Active Protocol: Document 02/06/19 12:51 LRN (Rec: 02/06/19 18:02 LRN [id number]) Cervical Spine Range of Motion Cervical Spine Active Degrees Testing Position Sitting Flexion 38 Extension 18 Rotation Left 22 Rotation Right 32 Lateral Flexion Left 27 Lateral Flexion Right 35 ROM Limitations Soft Tissue Tightness,Pain Lumbar Spine Range of Motion Lumbar Spine Active Degrees Testing Position Standing Flexion 25 Extension 0 Rotation Left 30 Rotation Right 20 Lateral Flexion Left 10 Lateral Flexion Right 15 ROM Limitations Soft Tissue Tightness,Pain Comments With sidebending pain is on contralateral side. PT-OP-M Strength Start: 02/05/19 19:30 Freq: Status: Active Protocol: Document 02/06/19 12:51 LRN (Rec: 02/06/19 18:02 LRN [id number]) Cervical Spine Strength Cervical Spine Manual Muscle Testing Testing Position Sitting Flexion (C1-2) 3+ Fair+ Reason Not Measured WFL Comments Generally WNL except as indicated above. Trunk Strength Trunk Manual Muscle Testing Comments Deferred Knee Strength Knee Manual Muscle Testing Right Flexion (S2) 4 Good Extension (L3) 5 Normal Left Flexion (S2) 5 Normal Extension (L3) 4 Good Ankle/Foot Strength Ankle and Foot Manual Muscle Testing Right Reason Not Measured WFL Left Reason Not Measured WFL PT-OP-Q Treatments Start: 02/05/19 19:30 Freq: Status: Active Protocol: Document 03/25/19 13:03 HH (Rec: 03/25/19 13:45 HH [email or web address]) Cardio Equipment Recumbent Bicycle Duration (Minutes) 4 Resistance 1 Seat Position 3 Therapeutic Exercises Sitting Exercises standing hip extension Side bilateral Equipment Used with grab bar Reps/Minutes 6 x 2 Comments cues on neutral spine, gluteal engagement standing hip flexion Side bilateral Equipment Used with /without support Reps/Minutes 8 x 2 Comments cues on isolated hip flexion Manual Therapy Treatment Soft Tissue Mobilization L UT, levator scap, suboccipital, paraspinals Mobilization Type Cross-Friction,Strumming, Sustained Pressure,Trigger Point Release Intensity/Depth Superficial Body Position Sitting L gluteal muscles Body Location use of rolling pin Mobilization Type Instrument Assisted Intensity/Depth Superficial Body Position Sidelying PT-OP-R Modalities Start: 02/05/19 19:30 Freq: Status: Active Protocol: Document 03/25/19 13:03 (Rec: 03/25/19 13:45 [email or web address]) Electric Stimulation Electric Stimulation Pre-Modulated Body Location Lower T/S Paraspinal > upper Gluteal on L & R. Duration (Minutes) 10 Intensity 8 Patient Position Hooklying Combined With Heat/Cold Hot Pack PT-OP-T Assessment and Plan Start: 02/05/19 19:30 Freq: Status: Active Protocol: Document 03/25/19 13:03 (Rec: 03/25/19 13:45 [email or web address]) Physical Therapy Assessment Assessment Summary Assessment Pt has very low activity tolerance today after her hike . Tx focused on manual therapy . Relief in neck pain noted at the end of session. Educated pt to walk to PT appts for every visit. Physical Therapy Plan Next Visit Focus/Plan Next Note Type Treatment Note Next Visit Plan pt has 3 more visits. Supine or sidelying ex if pt has low tolerance. Progress HEP of gentle lumbar ROM and neutral spine awareness education and core strengthening (progressing from isometric to resisted ex when tolerated). HEP for gentle cervical isometric strengthening. Ending with E- Stim Pre-mod of L & R side ( not IFES)/MH with increased time and possibly intensity. [ End ]
--- NOTE | 2019-04-01 13:38 | PT.OTN ---
Current Diagnoses Other intervertebral disc degeneration, thoracic region (04/01/19) Physical Therapy Treatment Note PT-OP-A Visit Information Start: 02/05/19 19:30 Freq: Status: Active Protocol: Document 04/01/19 12:55 HH (Rec: 04/01/19 13:37 HH [email or web address]) Out-Patient Physical Therapy Visit Information Visit Information Visit Type Treatment Note Visit Start Time 12:55 Visit Stop Time 13:10 Total Visit Minutes 15 Visit Number 10 Number of SOFTWARE INTEGRATOR Visits 0 PT-OP-B Current Condition Start: 02/05/19 19:30 Freq: Status: Active Protocol: Document 02/06/19 12:47 LRN (Rec: 02/06/19 13:46 LRN [id number]) Current Condition History of Current Condition Onset Date 13 yrs ago. Off/on since. Current Complaints Neck and back pain History of Current Condition Pt reports she has had physical therapy on the neck & back x 2 with the most recent ~3yrs ago. (Neck @ [facility] & Back at [facility] (?08). Lives by self and has a partner caregiver. Does water ex 's at the [facility] two times so far. Uses mass transit to get to pool. Quit pain med Fentinal 1 yr ago so the pain has increased drastically and she has gained 50#; therefore doesn't want to go back on it. She is currently taking Oxycodone & Tizanidine for pain. Prior Treatments and Tests Neck Fusion: 3 yrs ago. Back Fusion: 2005 Future Testing and Treatments Planned None Developmental History Developmental History 3-4 lumbar discs removed with fusion (thinks L2-L5 in 2005) with 1 disc bulge above and 2 cervical discs removed with fusion (date unknown) Pt moved to [place] from [place] in 2007. Treatment Goals Patient/Caregiver Goals Pt's goal is to be more mobile to: 1) picking crew supervisor things off the floor, 2) put dishes away and 3) clean up without back causing shooting pain. Pt's goal is also to: 1) go swimming, 2) take long walks and a little hike, and 3) keep up with apartment w/o help. Prior Functional Status Baseline Function- ADL's Independent Baseline Function- Mobility Independent Baseline Function- Gait Gait without cane 2 yrs ago. Able to walk 1 mile. Baseline Function- Work/School Last job was 1 yr before back surgery (2005). Baseline Function- Other Able to drive. Current Functional Impairments (Reported) Functional Limitations- ADL's Caregiver puts dishes away, does laundry in a different building, Needs help going to places. Occasionally needs help dressing. Functional Limitations- Mobility/Gait Ambulates with SPC on the right and Trendelenberg lean to the left. Sometimes not able to get out of bed. Sometimes not able to tolerate shopping. Able to walk 3 blocks, < 1/4 mile. Functional Limitations- Work/School Non employed. Functional Limitations- Other Not able to put dishes away, or picking crew supervisor objects off the floor. Does not have a noc analyst. Drives in town Personal Factors Other Personal Factors That May Effect Lives by self Therapy/Recovery PT-OP-C Subjective Start: 02/05/19 19:30 Freq: Status: Active Protocol: Document 04/01/19 12:55 HH (Rec: 04/01/19 13:37 HH [email or web address]) OP-PT Subjective Patient Comments Patient Comments I only got sore on my back and legs from the 2 mile hike (last week) for a day. I've been walking better without using the cane as much. Patient Reported Progress Improving PT-OP-G Mobility & Gait Start: 02/05/19 19:30 Freq: Status: Active Protocol: Document 02/06/19 12:51 LRN (Rec: 02/06/19 18:02 LRN [id number]) OP Mobility Evaluation Transfers Sit to Stand Independent with use of hands. Bed to Chair Transfers Sit <> Supine is with difficulty and pain. OP Gait Assessment Gait Gait Assistance Required: Independent Able to Maintain Weight Bearing Status Yes During Gait Assistive Devices Assistive Device Straight Cane Gait Deviations General Gait Pattern Lateral Trunk Lean,Wide Based Gait Factors Limiting Gait Function Factors Limiting Gait Function Decreased Activity Tolerance, Limited Range of Motion,Pain PT-OP-H Neuro Start: 02/05/19 19:30 Freq: Status: Active Protocol: Document 02/06/19 12:51 LRN (Rec: 02/06/19 18:02 LRN [id number]) Sensation Evaluation Gross Sensation Gross Sensation WNL Deep Tendon Reflex & Clonus Assessment Deep Tendon Reflex Bilateral Achilles Deep Tendon Reflex 2+ Normal Bilateral Patellar Deep Tendon Reflex 2+ Normal Bilateral Tricep Deep Tendon Reflex 2+ Normal Bilateral Bicep Deep Tendon Reflex 2+ Normal PT-OP-J Posture/Palpation/Skin Start: 02/05/19 19:30 Freq: Status: Active Protocol: Document 02/06/19 12:51 LRN (Rec: 02/06/19 18:02 LRN [id number]) Posture Evaluation Position Standing Evaluation View All positions Head/C-Spine Posture Side Bent Right T-Spine Posture Flattened L-Spine Posture Increased Lordosis,Shifted Left Shoulder Posture (L) Elevated Scapula Posture (L) Elevated Pelvis Posture Anteriorly Tilted Weight Distribution Balanced Comments Posture Comments Endomorphic Body Type PT-OP-K Range of Motion Start: 02/05/19 19:30 Freq: Status: Active Protocol: Document 02/06/19 12:51 LRN (Rec: 02/06/19 18:02 LRN [id number]) Cervical Spine Range of Motion Cervical Spine Active Degrees Testing Position Sitting Flexion 38 Extension 18 Rotation Left 22 Rotation Right 32 Lateral Flexion Left 27 Lateral Flexion Right 35 ROM Limitations Soft Tissue Tightness,Pain Lumbar Spine Range of Motion Lumbar Spine Active Degrees Testing Position Standing Flexion 25 Extension 0 Rotation Left 30 Rotation Right 20 Lateral Flexion Left 10 Lateral Flexion Right 15 ROM Limitations Soft Tissue Tightness,Pain Comments With sidebending pain is on contralateral side. PT-OP-M Strength Start: 02/05/19 19:30 Freq: Status: Active Protocol: Document 02/06/19 12:51 LRN (Rec: 02/06/19 18:02 LRN [id number]) Cervical Spine Strength Cervical Spine Manual Muscle Testing Testing Position Sitting Flexion (C1-2) 3+ Fair+ Reason Not Measured WFL Comments Generally WNL except as indicated above. Trunk Strength Trunk Manual Muscle Testing Comments Deferred Knee Strength Knee Manual Muscle Testing Right Flexion (S2) 4 Good Extension (L3) 5 Normal Left Flexion (S2) 5 Normal Extension (L3) 4 Good Ankle/Foot Strength Ankle and Foot Manual Muscle Testing Right Reason Not Measured WFL Left Reason Not Measured WFL PT-OP-Q Treatments Start: 02/05/19 19:30 Freq: Status: Active Protocol: Document 04/01/19 12:55 HH (Rec: 04/01/19 13:37 HH [email or web address]) Cardio Equipment Treadmill Duration (Minutes) 8 Speed 1.7 Incline 0 Self-Care/Home Management Treatment Education Patient Education Safety Other Education monitoring BP daily x 2 PT-OP-R Modalities Start: 02/05/19 19:30 Freq: Status: Active Protocol: Document 03/25/19 13:03 HH (Rec: 03/25/19 13:45 HH [email or web address]) Electric Stimulation Electric Stimulation Pre-Modulated Body Location Lower T/S Paraspinal > upper Gluteal on L & R. Duration (Minutes) 10 Intensity 8 Patient Position Hooklying Combined With Heat/Cold Hot Pack PT-OP-T Assessment and Plan Start: 02/05/19 19:30 Freq: Status: Active Protocol: Document 04/01/19 12:55 HH (Rec: 04/01/19 13:37 HH [email or web address]) Physical Therapy Assessment Assessment Summary Assessment Pt reports her BP has been quite high recently which got up to 190s/100s. BP post amb on treadmill = 195/110, 192/ 108 at 2 mins, 192/112 at 4 mins; supine at 2mins =190/108 , 4mins= 192/110. Pt overall is asymptomatic during mobility/ ex, but recommended pt to consult with her PCP immediately due to safety. Will proceed pt until doctor's clearance. Physical Therapy Plan Other Referrals/Consults Referrals/Consults Recommended BP post amb on treadmill = 195 /110, 192/108 at 2 mins, 192/ 112 at 4 mins; supine at 2mins =190/108, 4mins= 192/110. Recommended pt to consult with her PCP immediately due to safety. Will proceed pt until doctor's clearance. Next Visit Focus/Plan Next Note Type Treatment Note Next Visit Plan monitor BP, Supine or sidelying ex if pt has low tolerance. Progress HEP of gentle lumbar ROM and neutral spine awareness education and core strengthening (progressing from isometric to resisted ex when tolerated). HEP for gentle cervical isometric strengthening. Ending with E- Stim Pre-mod of L & R side ( not IFES)/MH with increased time and possibly intensity. [ End ] [ End ]
--- NOTE | 2019-04-01 13:38 | PT-OP ANOTE ---
Spoke to pt's PCP Dr. Clemens regarding pt's elevated BP. She will go to see pt today or tomorrow and she recommended to cont therapy as pt padmini, along with close monitoring her VSS and SOB symptoms.
--- NOTE | 2019-04-03 13:31 | PT-IP ANOTE ---
Called pt via phone. Pt went to ED after last visit who felt increased press in chest region. Pt did not have a heart attack but [facility] [place] [facility] and she will consult with her PCP Dr. Clemens on 04/14 for HTN medication management. Will on hold for PT at this point until further notice.
--- NOTE | 2019-07-14 10:04 | PT.OPDS ---
Current Diagnoses Other intervertebral disc degeneration, thoracic region (04/01/19) Visit Care Team Role Provider Type Radhika Clemens DO Attending Provider Physician Primary Care Provider Specialty: [facility] Address: [address] [place] [address], [address], [place], [address] Email: [email or web address] Visit Number Visit Number 10 Discharge Summary PT-OP-B Current Condition Start: 02/05/19 19:30 Freq: Status: Active Protocol: Document 02/06/19 12:47 LRN (Rec: 02/06/19 13:46 LRN [id number]) Current Condition History of Current Condition Onset Date 13 yrs ago. Off/on since. Current Complaints Neck and back pain History of Current Condition Pt reports she has had physical therapy on the neck & back x 2 with the most recent ~3yrs ago. (Neck @ [facility] & Back at [facility] (?08). 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 Does water ex 's at the [facility] two times so far. Uses mass transit to get to pool. Quit pain med Fentinal 1 yr ago so the pain has increased drastically and she has gained 50#; therefore doesn't want to go back on it. She is currently taking Oxycodone & Tizanidine for pain. Prior Treatments and Tests Neck Fusion: 3 yrs ago. Back Fusion: 2005 Future Testing and Treatments Planned None Developmental History Developmental History 3-4 lumbar discs removed with fusion (thinks L2-L5 in 2005) with 1 disc bulge above and 2 cervical discs removed with fusion (date unknown) Pt moved to [place] from [place] in 2007. Treatment Goals Patient/Caregiver Goals Pt's goal is to be more mobile to: 1) brass pickler things off the floor, 2) put dishes away and 3) clean up without back causing shooting pain. Pt's goal is also to: 1) go swimming, 2) take long walks and a little hike, and 3) keep up with apartment w/o help. Prior Functional Status Baseline Function- ADL's Independent Baseline Function- Mobility Independent Baseline Function- Gait Gait without cane 2 yrs ago. Able to walk 1 mile. Baseline Function- Work/School Last job was 1 yr before back surgery (2005). Baseline Function- Other Able to drive. Current Functional Impairments (Reported) Functional Limitations- ADL's Caregiver puts dishes away, does laundry in a different building, Needs help going to places. Occasionally needs help dressing. Functional Limitations- Mobility/Gait Ambulates with SPC on the right and Trendelenberg lean to the left. Sometimes not able to get out of bed. Sometimes not able to tolerate shopping. Able to walk 3 blocks, < 1/4 mile. Functional Limitations- Work/School Non employed. Functional Limitations- Other Not able to put dishes away, or brass pickler objects off the floor. Does not have a bundle tier. Drives in town Personal Factors Other Personal Factors That May Effect Lives by self Therapy/Recovery PT-OP-C Subjective Start: 02/05/19 19:30 Freq: Status: Active Protocol: Document 04/01/19 12:55 HH (Rec: 04/01/19 13:37 HH [id number]) OP-PT Subjective Patient Comments Patient Comments I only got sore on my back and legs from the 2 mile hike (last week) for a day. I've been walking better without using the cane as much. Patient Reported Progress Improving PT-OP-G Mobility & Gait Start: 02/05/19 19:30 Freq: Status: Active Protocol: Document 02/06/19 12:51 LRN (Rec: 02/06/19 18:02 LRN [id number]) OP Mobility Evaluation Transfers Sit to Stand Independent with use of hands. Bed to Chair Transfers Sit <> Supine is with difficulty and pain. OP Gait Assessment Gait Gait Assistance Required: Independent Able to Maintain Weight Bearing Status Yes During Gait Assistive Devices Assistive Device Straight Cane Gait Deviations General Gait Pattern Lateral Trunk Lean,Wide Based Gait Factors Limiting Gait Function Factors Limiting Gait Function Decreased Activity Tolerance, Limited Range of Motion,Pain PT-OP-H Neuro Start: 02/05/19 19:30 Freq: Status: Active Protocol: Document 02/06/19 12:51 LRN (Rec: 02/06/19 18:02 LRN [id number]) Sensation Evaluation Gross Sensation Gross Sensation WNL Deep Tendon Reflex & Clonus Assessment Deep Tendon Reflex Bilateral Achilles Deep Tendon Reflex 2+ Normal Bilateral Patellar Deep Tendon Reflex 2+ Normal Bilateral Tricep Deep Tendon Reflex 2+ Normal Bilateral Bicep Deep Tendon Reflex 2+ Normal PT-OP-J Posture/Palpation/Skin Start: 02/05/19 19:30 Freq: Status: Active Protocol: Document 02/06/19 12:51 LRN (Rec: 02/06/19 18:02 LRN [id number]) Posture Evaluation Position Standing Evaluation View All positions Head/C-Spine Posture Side Bent Right T-Spine Posture Flattened L-Spine Posture Increased Lordosis,Shifted Left Shoulder Posture (L) Elevated Scapula Posture (L) Elevated Pelvis Posture Anteriorly Tilted Weight Distribution Balanced Comments Posture Comments Endomorphic Body Type PT-OP-K Range of Motion Start: 02/05/19 19:30 Freq: Status: Active Protocol: Document 02/06/19 12:51 LRN (Rec: 02/06/19 18:02 LRN [id number]) Cervical Spine Range of Motion Cervical Spine Active Degrees Testing Position Sitting Flexion 38 Extension 18 Rotation Left 22 Rotation Right 32 Lateral Flexion Left 27 Lateral Flexion Right 35 ROM Limitations Soft Tissue Tightness,Pain Lumbar Spine Range of Motion Lumbar Spine Active Degrees Testing Position Standing Flexion 25 Extension 0 Rotation Left 30 Rotation Right 20 Lateral Flexion Left 10 Lateral Flexion Right 15 ROM Limitations Soft Tissue Tightness,Pain Comments With sidebending pain is on contralateral side. PT-OP-M Strength Start: 02/05/19 19:30 Freq: Status: Active Protocol: Document 02/06/19 12:51 LRN (Rec: 02/06/19 18:02 LRN [id number]) Cervical Spine Strength Cervical Spine Manual Muscle Testing Testing Position Sitting Flexion (C1-2) 3+ Fair+ Reason Not Measured WFL Comments Generally WNL except as indicated above. Trunk Strength Trunk Manual Muscle Testing Comments Deferred Knee Strength Knee Manual Muscle Testing Right Flexion (S2) 4 Good Extension (L3) 5 Normal Left Flexion (S2) 5 Normal Extension (L3) 4 Good Ankle/Foot Strength Ankle and Foot Manual Muscle Testing Right Reason Not Measured WFL Left Reason Not Measured WFL PT-OP-T Assessment and Plan Start: 02/05/19 19:30 Freq: Status: Active Protocol: Document 07/14/19 10:03 HH (Rec: 07/14/19 10:04 HH [email or web address]) Physical Therapy Plan Discharge Physical Therapy Discharge Reasons No Longer Attending PT Discharge Comments Pt has not been back for PT due to ongoing HTN. D/C from PT today.
== END 2019-04-02 12:40 ==
LOC: PHYS 13:00
PROVIDERS: PCP Family Medicine; Visit Provider Family Medicine
DX: M51.34 Other intervertebral disc degeneration, thoracic region (principal)
CPT/HCPCS: 97014; 97110; 97112; 97140; 97162; 97530; 97535; G0283

== ENCOUNTER 2019-04-01 13:29 | Emergency (ER) | payer OTHER, MEDICAID, SELFPAY ==
[2019-04-01] VITALS (8 sets, daily range): BP systolic 124–168; BP diastolic 56–98; PULSE 70–100; RESP 15–22; TEMP 36.6; O2SAT 98–100
--- NOTE | 2019-04-01 13:45 | DI.RAD.S_ITS ---
PROCEDURE: XR CHEST 1V INDICATIONS: chest pain TECHNIQUE: One view of the chest was acquired. COMPARISON: [facility], CR, XR CHEST 1V, 09/15/2018, 16:18. FINDINGS: Surgical changes and devices: Post surgical changes are present at the base of the cervical spine, which are not adequately characterized. Lungs and pleura: Lungs are clear. No pleural effusions or pneumothorax. Mediastinum: Mediastinal contours appear normal. Heart size is normal. Bones and chest wall: No suspicious bony lesions. Degenerative changes of the spine and shoulders are not well evaluated. There homogeneous calcifications overlying the greater tuberosity of the left humeral head, which are more prominent on the current study and may represent calcific tendinitis, in the correct clinical setting. Overlying soft tissues appear unremarkable. IMPRESSION: No acute cardiopulmonary process is evident. Dictated by: Aries Landis M.D. on 04/01/2019 at 13:06 Approved by: Aries Landis M.D. on 04/01/2019 at 13:10
--- NOTE | 2019-04-01 13:58 | ED.CHESTPAIN ---
HPI - Chest Pain General Chief Complaint: Chest Pain Stated Complaint: Chest pressure, high blood pressure Time Seen by Provider: 04/01/19 13:45 Source: patient Mode of arrival: ambulatory Limitations: no limitations History of Present Illness HPI narrative: 54F former smoker with HTN presents with retrosternal chest pressure that started nearly immediately after exerting herself on a treadmill with PT. She denies any known cardiac history. She has never had a heart attack or a heart catheterization but has had a stress test many years ago. She denies associated symptoms such as dizziness or weakness but she is a bit fatigued and nauseated. At maximum her pressure was 6/10 and persisted until her arrival. She denies any recent injury, travel, history of clot or cancer. Related Data Home Medications Medication Instructions Recorded Confirmed benzonatate 200 mg capsule 200 mg PO BEDTIME PRN cap 09/24/18 12/26/18 omega-3 fatty acids 1,000 mg 1,000 mg PO QPM 09/24/18 12/26/18 capsule albuterol sulfate [ProAir HFA] 1 puff INHALATION PRN PRN 11/12/18 12/26/18 cholecalciferol (vitamin D3) 1,000 1,000 unit PO DAILY 12/26/18 12/26/18 unit capsule multivitamin 1 cap PO DAILY 12/26/18 12/26/18 Previous Rx's Medication Instructions Recorded metformin 1,000 mg tablet 1,000 mg PO BID #60 tab 09/24/18 bupropion HCl 200 mg tablet,12 hr 200 mg PO BID #60 each 01/06/19 sustained-release chlorthalidone 25 mg tablet 25 mg PO DAILY #30 tab 01/06/19 colchicine 0.6 mg tablet 0.6 mg PO BID #20 tab 01/30/19 esomeprazole magnesium 20 mg 20 mg PO DAILY #90 cap 02/05/19 capsule,delayed release losartan 100 mg tablet 100 mg PO DAILY #30 tab 03/09/19 tizanidine 4 mg tablet 4 mg PO Q6H PRN #30 tab 03/10/19 oxycodone-acetaminophen 10 mg-325 1 tab PO TID PRN #90 tab 03/17/19 mg tablet Allergies Allergy/AdvReac Type Severity Reaction Status Date / Time bee venom protein (honey bee) Allergy Intermediate severe Verified 01/30/19 09:36 edema Penicillins Allergy Verified 01/30/19 09:36 TEGADERM Allergy Uncoded 12/21/18 15:46 Review of Systems Constitutional Constitutional: Denies chills, Denies fatigue, Denies fever(s), Denies frequent falls, Denies lethargy and Denies weakness Eyes Eyes: Denies change in vision, Denies eye discharge, Denies irritation and Denies loss of vision ENT Ears, Nose, Mouth, and Throat: Denies change in voice, Denies dizziness, Denies neck pain, Denies sore throat and Denies throat swelling Cardiovascular Cardiovascular: Reports chest pain, Denies irregular heart rhythm, Denies lightheadedness, Denies palpitations, Denies dyspnea, Denies dyspnea on exertion and Denies orthopnea Respiratory Respiratory: Denies cough, Denies dyspnea, Denies dyspnea on exertion and Denies wheezing Gastrointestinal Gastrointestinal: Denies abdominal pain, Denies change in bowel habits, Denies diarrhea, Denies nausea and Denies vomiting Genitourinary Genitourinary: Denies hematuria, Denies flank pain, Denies urinary incontinence and Denies urinary urgency Musculoskeletal Musculoskeletal: Denies back pain, Denies muscle weakness, Denies neck pain, Denies numbness and Denies tingling Integumentary/Breasts Skin/Breast: Denies pruritus, Denies erythema, Denies rash and Denies wounds Neurologic Neurologic: Denies behavioral changes, Denies confusion, Denies dizziness, Denies frequent falls, Denies loss of vision, Denies numbness, Denies tingling and Denies weakness Psychiatric Psychiatric: Denies anxiety, Denies behavioral changes, Denies confusion, Denies depression, Denies homicidal ideation and Denies suicidal ideation Endocrine Endocrine: Denies fatigue, Denies flushing and Denies palpitations Hematologic/Lymphatic Hematologic/Lymphatic: Denies easy bruising Allergic/Immunologic Allergic/Immunologic: Denies urticaria, Denies throat swelling and Denies wheezing [facility] Medical History Anxiety (Chronic) Asthma (Chronic) Cataracts, bilateral (Chronic) Chronic back pain (Chronic) Deep vein thrombosis (Chronic) Depression (Chronic) Gastroparesis (Chronic) Hypertension (Chronic) Knee pain (Chronic) Post traumatic stress disorder (PTSD) (Chronic) Prediabetes (Chronic) Scoliosis (Chronic) Vision disorder (Chronic) Surgical History Anesthesia (Resolved) History of bladder surgery (Resolved) History of cholecystectomy (Resolved) History of neck surgery (Resolved) Plantar fasciitis (Resolved) Previous back surgery (Resolved) Previous section (Resolved) Family History Mother Diabetes mellitus Heart disease Hypertension Social History Smoking Status: Former smoker Tobacco: How many years used: 40 alcohol intake: current (rare) Family History Mother Diabetes mellitus Heart disease Hypertension Social History Smoking Status: Former smoker Tobacco: How many years used: 40 alcohol intake: current (rare) Exam Narrative Exam Narrative: GENERAL: [54] year old patient appears stated age. Well-nourished, well-developed patient, in mild distress. HEAD: Atraumatic. Normocephalic. EYES: Pupils equal round and reactive. Extraocular motions intact. No scleral icterus. No injection or drainage. ENT: Nose without bleeding, purulent drainage. Throat without erythema, tonsillar hypertrophy or exudate. Airway patent. NECK: Trachea midline. Non tender CARDIOVASCULAR: Regular rate and rhythm without murmurs, gallops, or rubs. RESPIRATORY: Clear to auscultation. Breath sounds equal bilaterally. No wheezes, rales, or rhonchi. GASTROINTESTINAL: Abdomen soft, tender in epigastrium (not the pain which brought her in), nondistended. EXTREMITIES: No edema or joint tenderness. BACK: Nontender without deformity or crepitance. No flank tenderness. NEURO: AOx3. SKIN: No rash or erythema of visible areas Initial Vital Signs Initial Vital Signs: Vital Signs Temperature 97.9 F 04/01/19 13:33 Pulse Rate 96 H 04/01/19 13:33 Respiratory Rate 22 04/01/19 13:33 Blood Pressure 151/97 H 04/01/19 13:33 Pulse Oximetry 100 04/01/19 13:33 Course Orders Ordered: ED Orders 04/01/19 13:45 XR chest 1V Stat EKG-12 Lead Stat 04/01/19 14:32 Complete Blood Count AUTO DIFF Stat Comprehensive Metabolic Panel Stat Lipase Stat Troponin & CK Cardiac Panel Stat 04/01/19 14:45 D Dimer Stat Partial Thromboplastin Time Stat Prothrombin Time INR Stat 04/01/19 17:35 Partial Thromboplastin Time Stat 04/01/19 17:45 PTT [Partial Thromboplastin Time] Q6H 04/01/19 18:10 Trop I [Troponin I] Stat 04/01/19 23:45 PTT [Partial Thromboplastin Time] Q6H 04/02/19 05:00 Hemoglobin and Hematocrit DAILY 04/02/19 05:45 PTT [Partial Thromboplastin Time] Q6H 04/02/19 11:45 PTT [Partial Thromboplastin Time] Q6H Sodium Chloride (Normal Saline 0.9%) 1,000 mls @ 150 mls/hr IV CONT DRAKE Last Admin: 04/01/19 14:35 Dose: 150 mls/hr Documented by: ANASTASIA Heparin Sodium/Dextrose (Heparin Drip) 25,000 unit in 500 mls @ 27.216 mls/hr IV CONT DRAKE; Protocol Last Admin: 04/01/19 18:07 Dose: 12 units/kg/hr, 27.216 mls/hr Documented by: ANASTASIA Nitroglycerin (Nitrostat) 0.4 mg SL [id number] PRN PRN Reason: Chest Pain Last Admin: 04/01/19 15:19 Dose: 0.4 mg Documented by: Admin: 04/01/19 14:36 Dose: 0.4 mg Documented by: ANASTASIA Discontinued Medications Aspirin (Aspirin Chew) 324 mg PO NOW ONE Stop: 04/01/19 13:46 Last Admin: 04/01/19 14:13 Dose: 324 mg Documented by: ANASTASIA Al Hydrox/Mg Hydrox/Simethicone 20 ml/ Lidocaine HCl 15 ml 0 ml PO NOW ONE Stop: 04/01/19 15:47 Last Admin: 04/01/19 16:22 Dose: 35 ml Documented by: ANASTASIA Heparin Sodium (Porcine) (Heparin) 5,000 unit IV NOW ONE Stop: 04/01/19 17:35 Last Admin: 04/01/19 18:05 Dose: 5,000 unit Documented by: ANASTASIA Reevaluation(s) Reevaluation #1: pain down to 3/10 Reevaluation #2: no change after GI cocktail will call cardio Dr. De Leon suggests transfer, recommends heparin bolus/drip. When we call back for discussion with hospitalist Lacy is now full Patient would prefer [facility] as our next call. Dr. Garza (hospitalist) is happy to accept patient. Time: 16:33 Vital Signs Vital signs: Vital Signs - 8 hr 04/01/19 13:33 04/01/19 14:36 04/01/19 14:46 Temperature 97.9 F Pulse Rate 96 H 87 90 Respiratory Rate 22 15 Blood Pressure 151/97 H 142/74 H Blood Pressure [Left Arm] 124/68 Pulse Oximetry 100 98 04/01/19 15:19 04/01/19 16:25 04/01/19 17:30 Temperature Pulse Rate 70 100 H 83 Respiratory Rate 18 18 Blood Pressure 136/56 L Blood Pressure [Left Arm] 158/81 H 161/86 H Pulse Oximetry 99 99 04/01/19 18:00 04/01/19 18:30 Temperature Pulse Rate 87 90 Respiratory Rate 18 17 Blood Pressure Blood Pressure [Left Arm] 153/98 H 168/72 H Pulse Oximetry 99 100 MDM - Chest Pain Lab Data Result diagrams: 04/01/19 14:32 04/01/19 14:32 Labs: Lab Results 04/01/19 04/01/19 04/01/19 Range/Units 14:32 14:32 14:45 WBC 8.2 (4.5-11.0) X10^3/uL RBC 4.21 (4.0-5.2) X10^6/uL Hgb 11.9 L (12.0-16.0) g/dL Hct 35.7 L (36-46) % MCV 84.7 (80-100) fL MCH 28.2 (26-34) PG MCHC 33.3 (30-36) % RDW 15.5 H (11.6-14.8) % Plt Count 274 (150-400) X10^3/uL Neut % (Auto) 61.2 (50-75) % Lymph % (Auto) 30.9 (25-40) % Burke % (Auto) 6.8 (3-14) % Eos % (Auto) 0.9 L (2-4) % Baso % (Auto) 0.2 (0-2) % Neut # (Auto) 5000 (7656-0406) /uL Lymph # (Auto) 2500 (4102-6097) /uL Burke # (Auto) 600 (0-900) /uL Eos # (Auto) 100 (0-450) /uL Baso # (Auto) 0 (0-100) /uL PT 10.3 (10.1-12.7) SECONDS INR 0.9 (0.9-1.3) APTT 34 (26.4-36.2) SECONDS D-Dimer < 200 (<230) ng/mL Sodium 139 (137-145) mmol/L Potassium 3.6 (3.4-5.1) mmol/L Chloride 95 L (98-107) mmol/L Carbon Dioxide 33 H (22-32) mmol/L BUN 15 (7-17) mg/dL Creatinine 0.80 (0.52-1.04) mg/dL Estimated GFR > 60.0 (>60) mL/min BUN/Creatinine Ratio 18.8 (6-22) Glucose 90 (70-100) mg/dL Calcium 9.7 (8.4-10.2) mg/dL Total Bilirubin 0.3 (0.2-1.3) mg/dL AST 39 H (14-36) IU/L ALT 47 (9-52) IU/L Alkaline Phosphatase 79 (38-126) U/L Total Creatine Kinase 351 H (30-135) U/L CK-MB (CK-2) 2.37 (<2.37) ng/mL CK-MB (CK-2) Rel Index 0.7 L (1.5-5.0) % Troponin I < 0.012 (0.01-0.034) ng/mL Total Protein 7.6 (6.3-8.2) g/dL Albumin 4.5 (3.5-5.0) g/dL Globulin 3.1 (1.7-4.1) g/dL Albumin/Globulin Ratio 1.5 (1.0-2.8) Lipase 85 (23-300) U/L Urine Dip Bedside Urine Glucose Negative Bedside Urine Bilirubin - Negative Bedside Urine Ketone - Negative Urine Specific [place] 1.015 Bedside Urine Occult Blood - Negative Bedside Urine pH 6 Bedside Urine Protein - Negative Bedside Urine Urobilinogen - Negative Bedside Urine Nitrite - Negative Bedside Urine Leukocytes - Negative Esterase ECG Data Attestation: I personally reviewed and interpreted this ECG as follows: Prior ECG tracings: not available for review Interpretation: EKG 1: NSR, no ectopy. Very mild ST depressions in lateral leads EKG 2: Improvement of depressions EKG 3: Improvement of depressions MDM Narrative Medical decision making narrative: 54F former smoker with multiple cardiac risk factors presents with chest pressure after working on a treadmill. She was briefly dizzy and felt weak and vaguely nauseated. Her pain change little with nitro but seemed to improve over the visit. A GI cocktail made no impact. Initial EKG showed very subtle ST depressions in lateral leads which normalized by the 3rd EKG. Initial troponin negative. Patient not appropriate for this facility given concerning history and symptoms. Patient requires transfer to a facility with Cardiology for full evaluation. Patient understands her diagnosis and the need for transfer. She has had her questions answered to her apparent satisfaction Critical Care Time Critical Care Time Critical Care Time: Yes Total Critical Care Time: 30 Attestation: The high probability of a clinically significant, sudden or life threatening deterioration of the [cardiovascular] system(s) required my full and direct attention, intervention and personal management. The aggregate critical care time was [30] minutes. This time is in addition to time spent performing reported procedures but includes the following: [x] Data Review and interpretation [x] Patient assessment and monitoring of vital signs [x] Documentation [x] Medication orders and management Discharge Plan Departure Patient Disposition: [facility] Clinical Impression: ACS (acute coronary syndrome) Prescriptions: No Action omega-3 fatty acids [Fish Oil Concentrate] 1,000 mg capsule 1,000 mg PO QPM RF: 0 benzonatate 200 mg capsule 200 mg PO BEDTIME PRN (Reason: Cough) RF: 0 metformin 1,000 mg tablet 1,000 mg PO BID Qty: 60 RF: 2 bupropion HCl 200 mg tablet sustained-release 12 hr 200 mg PO BID Qty: 60 RF: 11 chlorthalidone 25 mg tablet 25 mg PO DAILY Qty: 30 RF: 11 colchicine 0.6 mg tablet 0.6 mg PO BID Qty: 20 RF: 0 esomeprazole magnesium 20 mg capsule,delayed release(DR/EC) 20 mg PO DAILY Qty: 90 RF: 0 losartan 100 mg tablet 100 mg PO DAILY Qty: 30 RF: 0 tizanidine 4 mg tablet 4 mg PO Q6H PRN (Reason: muscle spasticity) Qty: 30 RF: 0 oxycodone-acetaminophen [Percocet] 10-325 mg tablet 1 tab PO TID PRN (Reason: pain) Qty: 90 RF: 0 multivitamin capsule 1 cap PO DAILY RF: 0 cholecalciferol (vitamin D3) 1,000 unit capsule 1,000 unit PO DAILY RF: 0 albuterol sulfate [ProAir HFA] 90 mcg/actuation HFA aerosol inhaler 1 puff Inhalation PRN PRN (Reason: Shortness Of Breath) RF: 0 Referrals: Radhika Clemens DO [Primary Care Provider] -
[2019-04-01] MEDS: ASPIRIN 81 MG CHEW TAB 324 MG PO (14:13)
[2019-04-01] MEDS: SODIUM CHLORIDE 0.9% 1,000 ML 150 ML IV (14:35)
[2019-04-01] MEDS: NITROGLYCERIN 0.4 MG SL TAB SL ×2 (14:36→15:19)
[2019-04-01 14:41] LABS: Add Manual Diff / Slide Review NO; Basophils Absolute Auto 0 /uL (0-100); Basophils Percent Auto 0.2 % (0-2); Eosinophils Absolute Auto 100 /uL (0-450); Eosinophils Percent Auto 0.9 % (2-4); Hematocrit 35.7 % (36-46); Hemoglobin 11.9 g/dL (12.0-16.0); Lymphocytes Absolute Auto 2500 /uL (1100-4500); Lymphocytes Percent Auto 30.9 % (25-40); Mean Corpuscular HGB Conc 33.3 % (30-36); Mean Corpuscular Hemoglobin 28.2 PG (26-34); Mean Corpuscular Volume 84.7 fL (80-100); Monocytes Absolute Auto 600 /uL (0-900); Monocytes Percent Auto 6.8 % (3-14); Neutrophils Absolute Auto 5000 /uL (1500-7000); Neutrophils Percent Auto 61.2 % (50-75); Platelet Count 274 X10^3/uL (150-400); Red Blood Cell Count 4.21 X10^6/uL (4.0-5.2); Red Cell Distribution Width 15.5 % (11.6-14.8); White Blood Cell Count 8.2 X10^3/uL (4.5-11.0)
[2019-04-01 14:56] LABS: Alanine Aminotransferase 47 IU/L (9-52); Albumin 4.5 g/dL (3.5-5.0); Albumin Globulin Ratio 1.5 (1.0-2.8); Alkaline Phosphatase 79 U/L (38-126); Aspartate Aminotransferase 39 IU/L (14-36); BUN Creatinine Ratio 18.8 (6-22); Bilirubin Total 0.3 mg/dL (0.2-1.3); Blood Urea Nitrogen 15 mg/dL (7-17); Calcium 9.7 mg/dL (8.4-10.2); Carbon Dioxide 33 mmol/L (22-32); Chloride 95 mmol/L (98-107); Creatine Kinase 351 U/L (30-135); Estimated Glomerular Filt Rate > 60.0 mL/min (>60); Globulin 3.1 g/dL (1.7-4.1); Glucose 90 mg/dL (70-100); HEMOLYSIS < 15 (0-50); Lipase 85 U/L (23-300); Potassium 3.6 mmol/L (3.4-5.1); Sodium 139 mmol/L (137-145); Total Protein 7.6 g/dL (6.3-8.2)
[2019-04-01 15:02] LABS: INR 0.9 (0.9-1.3); Prothrombin Time 10.3 SECONDS (10.1-12.7)
[2019-04-01 15:05] LABS: D Dimer < 200 ng/mL (<230); PTT Partial Thromboplastin Tim 34 SECONDS (26.4-36.2)
[2019-04-01 15:08] LABS: Troponin I < 0.012 ng/mL (0.01-0.034)
[2019-04-01 15:12] LABS: CKMB % Relative Index 0.7 % (1.5-5.0); Creatine Kinase MB 2.37 ng/mL (<2.37)
[2019-04-01] MEDS: MAG HYDROX/ALUMINUM/SIMETH SUS 20 ML, LIDOCAINE VISCOUS 2% 15 ML PO (16:22)
[2019-04-01] MEDS: HEPARIN 5,000 UNIT/ML VIAL 5000 UNIT IV (18:05)
[2019-04-01] MEDS: HEPARIN DRIP 25,000 UNIT/500 ML IV.SOLN 27.216 UNIT IV (18:07)
--- NOTE | 2019-04-01 19:13 | PC.NURSE ---
pt left with her Heparin gtt infusing on NWA pump and her IVF hanging to gravity with NWA
[2019-04-01 19:35] LABS: Troponin I < 0.012 ng/mL (0.01-0.034)
== END 2019-04-01 19:17 | disposition short-term general hospital (02) ==
PROVIDERS: Emergency Provider Emergency Medicine; Family Provider Family Medicine; PCP Family Medicine
DX: I24.9 Acute ischemic heart disease, unspecified (principal); I10 Essential (primary) hypertension
CPT/HCPCS: 36591; 71045; 80053; 81003; 82550; 82553; 83690; 84484; 85025; 85379; 85610; 85730; 93005; 96361; 96365; 96375; 99283; 99285; J1644

== ENCOUNTER → 2019-08-17 07:06 | Outpatient (CLI) | payer OTHER, MEDICAID, SELFPAY ==
--- NOTE | 2019-08-17 07:09 | DI.RAD.S_ITS ---
PROCEDURE: XR LUMBAR SPINE 2-3V INDICATIONS: Back pain TECHNIQUE: 3 views of the lumbar spine were acquired. COMPARISON: CT, CT LUMBAR SPINE WO CON, 04/04/2017, 13:04. [facility], MR, MR LUMBAR SPINE WITH/WITHOUT CONTRAST, 10/16/2017, 19:33. FINDINGS: Bones: 5 [id number] vertebrae are present. Anterior fixation hardware at L5-S1. Pedicle screw fixation at left L4-L5 and right L5-S1. No periscrew lucency. Hardware appears stable. Minimal scoliosis. Minimal height loss at L2, unchanged since 2017. No suspicious bony lesions. Soft tissues: Overlying bowel gas pattern is normal. No suspicious soft tissue calcifications. Cholecystectomy clips. IMPRESSION: Stable appearance of the lower lumbar spine fixation. No acute compression fracture. Dictated by: Mekhi Masters M.D. on 08/17/2019 at 8:24 Approved by: Mekhi Masters M.D. on 08/17/2019 at 8:28
[2019-08-17 07:57] LABS: Add Manual Diff / Slide Review NO; Basophils Absolute Auto 0 /uL (0-100); Basophils Percent Auto 0.5 % (0-2); Eosinophils Absolute Auto 100 /uL (0-450); Eosinophils Percent Auto 0.8 % (2-4); Hematocrit 36.4 % (36-46); Hemoglobin 11.8 g/dL (12.0-16.0); Lymphocytes Absolute Auto 2000 /uL (1100-4500); Lymphocytes Percent Auto 20.8 % (25-40); Mean Corpuscular HGB Conc 32.5 % (30-36); Mean Corpuscular Hemoglobin 27.3 PG (26-34); Mean Corpuscular Volume 84.1 fL (80-100); Monocytes Absolute Auto 500 /uL (0-900); Monocytes Percent Auto 5.3 % (3-14); Neutrophils Absolute Auto 7000 /uL (1500-7000); Neutrophils Percent Auto 72.6 % (50-75); Platelet Count 284 X10^3/uL (150-400); Red Blood Cell Count 4.33 X10^6/uL (4.0-5.2); Red Cell Distribution Width 16.4 % (11.6-14.8); White Blood Cell Count 9.6 X10^3/uL (4.5-11.0)
[2019-08-17 08:08] LABS: Hemoglobin A1C% w Est Avg Glu 6.8 % (4.0-6.0)
[2019-08-17 08:10] LABS: Alanine Aminotransferase 32 IU/L (<35); Albumin 4.7 g/dL (3.5-5.0); Albumin Globulin Ratio 1.4 (1.0-2.8); Alkaline Phosphatase 75 U/L (38-126); Aspartate Aminotransferase 38 IU/L (14-36); BUN Creatinine Ratio 26.3 (6-22); Bilirubin Total 0.3 mg/dL (0.2-1.3); Blood Urea Nitrogen 21 mg/dL (7-17); Calcium 9.4 mg/dL (8.4-10.2); Carbon Dioxide 34 mmol/L (22-32); Chloride 96 mmol/L (98-107); Cholesterol 188 mg/dL (140-199); Estimated Glomerular Filt Rate > 60.0 mL/min (>60); Globulin 3.4 g/dL (1.7-4.1); Glucose 127 mg/dL (70-100); HDL Cholesterol 36 mg/dL (40-60); HEMOLYSIS 26 (0-50); LDL Cholesterol Calculated 122 mg/dL (<100); Potassium 4.2 mmol/L (3.4-5.1); Sodium 141 mmol/L (137-145); Total Protein 8.1 g/dL (6.3-8.2); Triglycerides 152 mg/dL (35-150)
[2019-08-17 09:59] LABS: Creatinine Urine Random 128.7 mg/dL
[2019-08-17 10:03] LABS: Microalbumi Creatinin Ratio Ur 22.5 ug/mg CR (<30); Microalbumin Urine Random 2.9 mg/dL (0-1.6)
== END ==
PROVIDERS: Family Provider Family Medicine; PCP Family Medicine; Referring Provider Family Medicine; Visit Provider Family Medicine
DX: G89.29 Other chronic pain (principal); M54.9 Dorsalgia, unspecified; E11.9 Type 2 diabetes mellitus without complications; E78.5 Hyperlipidemia, unspecified; I10 Essential (primary) hypertension; Z76.89 Persons encountering health services in other specified circumstances
CPT/HCPCS: 36415; 72100; 80053; 80061; 82043; 82570; 83036; 85025

== ENCOUNTER → 2019-09-14 06:22 | Outpatient (CLI) | payer OTHER, MEDICAID, SELFPAY ==
--- NOTE | 2019-09-14 | DI.ECHO.S_ITS ---
[facility] +---------+ : : [address] : : : : [id number] : : : : Phone: [phone]---------+ Echocardiogram Report + + :Name: SARAY HARLEY Study Date: 09/14/2019 Height: 64 in : :[facility] Weight: 255 lb : : Gender: Female BSA: 2.2 m2 : :: 1965 Age: 54 yrs BP: 144/90 mmHg: :Reason For Study: Chest pain : :Ordering Physician: Brooke : :Ang[place] Christina Performed By: Raven Acosta : :Referring: SURJIT ZHENG N : + + Interpretation Summary The left ventricle is normal in size. The ejection fraction is estimated to be 55-60%. The right ventricle is normal in size and function. No significant valvular pathology seen. Procedure: A two-dimensional transthoracic echocardiogram with color flow and Doppler was performed. The study quality was technically adequate. There is no prior echocardiogram noted for this patient. The patient was in normal sinus rhythm during the exam. Left Ventricle: The left ventricle is normal in size. Left ventricular wall thickness is mildly increased. There is no thrombus. The ejection fraction is estimated to be 55-60%. There appears to be small diverticulum of basal posterior wall. Contractility is preserved. There are no obvious focal wall motion abnormalities noted but poor endocardial definition reduces the sensitivity for the detection of such. MV E/A: 1.1 Med Peak E' Jhonathan: 8.5 cm/sec E/E' med: 12.8. Right Ventricle: The right ventricle is normal in size and function. Atria: Both atria are normal in size. There is no Doppler evidence for an interatrial shunt. Mitral Valve: The mitral valve is normal in structure and function. There is trace mitral regurgitation. Aortic Valve: The aortic valve is not well visualized. The aortic valve opens well. There is no aortic valve stenosis. No aortic regurgitation is present. Tricuspid Valve: The tricuspid valve is normal in structure and function. Pulmonary artery pressures cannot be estimated because of the lack of a measurable TR jet velocity. There is trace tricuspid regurgitation. Pulmonic Valve: The pulmonic valve is not well visualized. There is no pulmonic valvular regurgitation. Great Vessels: The aortic root is normal size. The dimensions of the ascending aorta are normal. The inferior vena cava was not visualized. Pericardium/ Pleura There is an anterior echo-free space consistent with a fat pad. There is no pericardial effusion. There is no pleural effusion. MMode/2D Measurements & Calculations LVIDd: 5.3 cm LVOT diam: 2.2 cm LVIDs: 3.7 cm Ao root diam: 3.3 cm FS: 30.5 % asc Aorta Diam: 2.9 cm IVSd: 1.2 cm Ao Arch Diam (Prox Trans): 2.7 cm LVPWd: 1.2 cm LV kern. diameter/BSA (cm/m^2): 2.4 LV sys. diameter/BSA (cm/m^2): 1.7 LA A2 area: 16.4 cm2 RA long axis: 4.0 cm LA A4 area: 16.4 cm2 RA area: 11.3 cm2 LA length (vol): 4.9 cm RA vol: 26.9 ml LA vol: 46.2 ml RA : 12.4 ml/m2 LA vol index: 21.3 ml/m2 RVD1 (basal): 3.2 cm TAPSE: 2.3 cm Doppler Measurements & Calculations Ao V2 max: 114.8 cm/sec LVOT Max Jhonathan: 105.8 cm/sec Ao V2 mean: 77.5 cm/sec LV V1 max P.5 mmHg Ao max P.3 mmHg LV V1 VTI: 22.8 cm Ao mean P.8 mmHg KAYLEE(I,D): 3.5 cm2 Ao V2 VTI: 24.1 cm KAYLEE(V,D): 3.5 cm2 sev ratio: 0.94 KAYLEE indexed to BSA (cm^2/m^2): 1.6 MV E max jhonathan: 109.1 cm/sec PA V2 max: 93.7 cm/sec MV A max jhonathan: 102.7 cm/sec PA V2 mean: 61.3 cm/sec MV E/A: 1.1 PA mean P.8 mmHg Med Peak E' Jhonathan: 8.5 cm/sec PA Accel Time: 0.11 sec E/E' med: 12.8 Lat Peak E' Jhonathan: 9.6 cm/sec E/E' lat: 11.4 E/e' average: 12.1 MV dec time: 0.20 sec MV P1/2t: 60.5 msec MV P1/2t max jhonathan: 108.9 cm/sec SV(LVOT): 85.2 ml MVA(P1/): 3.6 cm2 Reading Physician:02:19 PM
== END ==
PROVIDERS: Family Provider Family Medicine; PCP Family Medicine; Referring Provider Nurse Practitioner; Visit Provider Nurse Practitioner
DX: R07.89 Other chest pain (principal)
CPT/HCPCS: 93306

== ENCOUNTER → 2020-01-25 07:53 | Outpatient (CLI) | payer OTHER, MEDICAID, SELFPAY ==
[2020-01-25 09:40] LABS: Add Manual Diff / Slide Review NO; Basophils Absolute Auto 100 /uL (0-100); Basophils Percent Auto 0.9 % (0-2); Eosinophils Absolute Auto 100 /uL (0-450); Eosinophils Percent Auto 0.8 % (2-4); Hematocrit 39.2 % (36-46); Hemoglobin 12.8 g/dL (12.0-16.0); Lymphocytes Absolute Auto 2400 /uL (1100-4500); Lymphocytes Percent Auto 27.1 % (25-40); Mean Corpuscular HGB Conc 32.5 % (30-36); Mean Corpuscular Hemoglobin 26.8 PG (26-34); Mean Corpuscular Volume 82.2 fL (80-100); Monocytes Absolute Auto 600 /uL (0-900); Monocytes Percent Auto 6.6 % (3-14); Neutrophils Absolute Auto 5800 /uL (1500-7000); Neutrophils Percent Auto 64.6 % (50-75); Platelet Count 311 X10^3/uL (150-400); Red Blood Cell Count 4.77 X10^6/uL (4.0-5.2); Red Cell Distribution Width 17.3 % (11.6-14.8)
[2020-01-25 10:06] LABS: Alanine Aminotransferase 39 IU/L (<35); Albumin 4.9 g/dL (3.5-5.0); Albumin Globulin Ratio 1.8 (1.0-2.8); Alkaline Phosphatase 92 U/L (38-126); Aspartate Aminotransferase 40 IU/L (14-36); BUN Creatinine Ratio 19.8 (6-22); Bilirubin Total 0.4 mg/dL (0.2-1.3); Blood Urea Nitrogen 21 mg/dL (7-17); Calcium 10.1 mg/dL (8.4-10.2); Carbon Dioxide 35 mmol/L (22-32); Chloride 91 mmol/L (98-107); Cholesterol 189 mg/dL (140-199); Estimated Glomerular Filt Rate 53.6 mL/min (>60); Globulin 2.8 g/dL (1.7-4.1); Glucose 135 mg/dL (70-100); HDL Cholesterol 46 mg/dL (40-60); HEMOLYSIS < 15 (0-50); LDL Cholesterol Calculated 113 mg/dL (<100); Potassium 4.2 mmol/L (3.4-5.1); Sodium 138 mmol/L (137-145); Total Protein 7.7 g/dL (6.3-8.2); Triglycerides 150 mg/dL (35-150)
[2020-01-25 10:30] LABS: TSH w/ Reflex to FT4 2.31 uIU/mL (0.47-4.68)
== END ==
PROVIDERS: Family Provider Family Medicine; PCP Family Medicine; Referring Provider Family Medicine; Visit Provider Family Medicine
DX: E11.9 Type 2 diabetes mellitus without complications (principal); E78.5 Hyperlipidemia, unspecified; I10 Essential (primary) hypertension
CPT/HCPCS: 36415; 80053; 80061; 84443; 85025

== ENCOUNTER → 2020-01-27 09:55 | Outpatient (CLI) | payer OTHER, MEDICAID, SELFPAY | PROVIDERS: Family Provider Family Medicine; PCP Family Medicine; Visit Provider Obstetrics & Gynecology | DX: N75.0 Cyst of Bartholin's gland (principal); N76.4 Abscess of vulva | CPT/HCPCS: 87070; 87205 ==

== ENCOUNTER → 2020-02-17 09:03 | Outpatient (CLI) | payer OTHER, MEDICAID, SELFPAY ==
[2020-02-17 10:00] LABS: Hemoglobin A1C% w Est Avg Glu 6.9 % (4.0-6.0)
[2020-02-17 10:43] LABS: Alanine Aminotransferase 32 IU/L (<35); Albumin 4.7 g/dL (3.5-5.0); Albumin Globulin Ratio 1.7 (1.0-2.8); Alkaline Phosphatase 84 U/L (38-126); Aspartate Aminotransferase 37 IU/L (14-36); BUN Creatinine Ratio 23.5 (6-22); Bilirubin Total 0.5 mg/dL (0.2-1.3); Blood Urea Nitrogen 23 mg/dL (7-17); Calcium 9.9 mg/dL (8.4-10.2); Carbon Dioxide 32 mmol/L (22-32); Chloride 92 mmol/L (98-107); Estimated Glomerular Filt Rate 58.7 mL/min (>60); Globulin 2.7 g/dL (1.7-4.1); Glucose 134 mg/dL (70-100); HEMOLYSIS < 15 (0-50); Potassium 3.9 mmol/L (3.4-5.1); Sodium 137 mmol/L (137-145); Total Protein 7.4 g/dL (6.3-8.2)
== END ==
PROVIDERS: Family Provider Family Medicine; PCP Family Medicine; Referring Provider Family Medicine; Visit Provider Family Medicine
DX: E11.9 Type 2 diabetes mellitus without complications (principal); E78.5 Hyperlipidemia, unspecified; I10 Essential (primary) hypertension
CPT/HCPCS: 36415; 80053; 83036

== ENCOUNTER → 2020-04-29 12:03 | Outpatient (CLI) | payer OTHER, MEDICAID, SELFPAY | PROVIDERS: Family Provider Family Medicine; PCP Family Medicine; Visit Provider Family Medicine | DX: R30.0 Dysuria (principal) | CPT/HCPCS: 87077; 87086; 87186 ==

== ENCOUNTER → 2020-11-08 07:10 | Outpatient (CLI) | payer OTHER, MEDICAID, SELFPAY ==
[2020-11-08 08:17] LABS: Hemoglobin A1C% w Est Avg Glu 5.5 % (4.0-6.0)
[2020-11-08 08:19] LABS: Alanine Aminotransferase 22 IU/L (<35); Albumin 4.7 g/dL (3.5-5.0); Albumin Globulin Ratio 1.5 (1.0-2.8); Alkaline Phosphatase 76 U/L (38-126); Aspartate Aminotransferase 35 IU/L (14-36); Bilirubin Total 0.4 mg/dL (0.2-1.3); Blood Urea Nitrogen 15 mg/dL (7-17); Calcium 10.1 mg/dL (8.4-10.2); Carbon Dioxide 33 mmol/L (22-32); Chloride 97 mmol/L (98-107); Estimated Glomerular Filt Rate 57.4 mL/min (>60); Globulin 3.2 g/dL (1.7-4.1); Glucose 106 mg/dL (70-100); HEMOLYSIS < 15 (0-50); Sodium 141 mmol/L (137-145); Total Protein 7.9 g/dL (6.3-8.2)
[2020-11-08 09:30] LABS: TSH w/ Reflex to FT4 1.66 uIU/mL (0.47-4.68)
== END ==
PROVIDERS: Family Provider Family Medicine; PCP Family Medicine; Referring Provider Family Medicine; Visit Provider Family Medicine
DX: E11.22 Type 2 diabetes mellitus with diabetic chronic kidney disease (principal); E78.00 Pure hypercholesterolemia, unspecified; I10 Essential (primary) hypertension; N18.2 Chronic kidney disease, stage 2 (mild); Z13.29 Encounter for screening for other suspected endocrine disorder
CPT/HCPCS: 36415; 80053; 83036; 84443

== ENCOUNTER → 2020-12-19 09:13 | Outpatient (CLI) | payer OTHER, MEDICAID, SELFPAY ==
[2020-12-19 10:20] LABS: COVID19 -Nasal RAPID Negative (Negative)
== END ==
PROVIDERS: Family Provider Family Medicine; PCP Family Medicine; Visit Provider Family Medicine Sleep Medicine
DX: Z20.822 Contact with and (suspected) exposure to COVID-19 (principal); G47.33 Obstructive sleep apnea (adult) (pediatric)
CPT/HCPCS: 87635; 95811

== ENCOUNTER 2021-03-07 08:43 | Emergency (ER) | payer OTHER, MEDICAID, SELFPAY ==
[2021-03-07 09:10] VITALS: BP 176/104; PULSE 90; RESP 15; TEMP 36.9; O2SAT 99; BMI 37.5
--- NOTE | 2021-03-07 09:14 | ED.GENADULT ---
HPI - General Adult General Stated complaint: NECK/SHOULDER PAIN Time Seen by Provider: 03/07/21 09:04 Source: patient Mode of arrival: Ambulatory History of Present Illness HPI narrative: Patient is a 56-year-old female who is here for evaluation of upper back discomfort. She states that has been going on for the past couple weeks. She does have pain medication at home and also muscle relaxers at home and has also been taking indomethacin. This was left over from an issue that she has had in the past with gout. She attempted to contact her primary doctor but they could not get in to see her for the next couple weeks. She is having problems sleeping at night. Is having tingling in her hands. There has been no specific trauma. She does have known degenerative disc disease in her cervical spine. She has had an MRI in the past but this was several years ago. She is not currently under the care of physical therapy. Related Data Home Medications Medication Instructions Recorded Confirmed cholecalciferol (vitamin D3) 25 1,000 unit PO DAILY 12/26/18 02/01/21 mcg (1,000 unit) capsule multivitamin 1 cap PO DAILY 12/26/18 02/01/21 Previous Rx's Medication Instructions Recorded lancets 33 gauge (BD Ultra Fine #100 each 05/04/20 Lancets) blood sugar diagnostic #100 each 05/24/20 indomethacin 25 mg capsule See Rx Instructions .ROUTE 05/30/20 .COMPLEX #270 cap BD Ultra Fine Pen Tips 31G x 8mm #1 ea 06/20/20 chlorthalidone 25 mg tablet 25 mg PO DAILY #90 tab 07/11/20 allopurinol 300 mg tablet 300 mg PO DAILY #90 tab 07/22/20 ondansetron HCl 4 mg tablet 4 mg PO Q8H PRN #14 tab 08/03/20 (Zofran) prochlorperazine maleate 10 mg 10 mg PO Q8H PRN #20 tab 08/03/20 tablet (Compazine) sumatriptan succinate 100 mg See Rx Instructions PO .COMPLEX 08/03/20 tablet (Imitrex) #14 tab amlodipine 2.5 mg tablet 2.5 mg PO DAILY #90 tab 11/08/20 losartan 50 mg tablet 50 mg PO DAILY #90 tab 11/08/20 metformin 500 mg tablet 500 mg PO BID #180 tab 04/27/21 albuterol sulfate 90 mcg/actuation 2 puff INHALATION Q6H PRN #18 gram 11/15/20 aerosol inhaler bupropion HCl 200 mg tablet,12 hr 200 mg PO BID #180 ea 01/30/21 sustained-release liraglutide 0.6 mg/0.1 mL (18 mg/3 See Rx Instructions .ROUTE 02/15/21 mL) subcutaneous pen injector .COMPLEX #9 ml (Victoza 3-Sergio) oxycodone-acetaminophen 10 mg-325 See Rx Instructions .ROUTE 02/16/21 mg tablet .COMPLEX #90 tab tizanidine 4 mg tablet 4 mg PO Q6H PRN #30 tab 02/17/21 fluticasone propionate 50 See Rx Instructions .ROUTE 02/23/21 mcg/actuation nasal .COMPLEX #16 gram spray,suspension lidocaine 5 % topical patch 1 patch TOPICAL DAILY #15 ea 03/07/21 meloxicam 15 mg tablet (Mobic) 15 mg PO DAILY #30 tab 03/07/21 prednisone 20 mg tablet 20 mg PO DAILY 5 Days #5 tab 03/07/21 Allergies Allergy/AdvReac Type Severity Reaction Status Date / Time bee venom protein (honey bee) Allergy Intermediate severe Verified 02/01/21 08:14 edema Penicillins Allergy Verified 02/01/21 08:14 TEGADERM Allergy Uncoded 10/12/20 10:23 Review of Systems Constitutional Constitutional: Reports headache(s) ENT Ears, Nose, Mouth, and Throat: Reports headache(s) Cardiovascular Cardiovascular: Reports system reviewed and no additional complaints, except as documented Respiratory Respiratory: Reports system reviewed and no additional complaints, except as documented Musculoskeletal Musculoskeletal: Reports as per HPI Integumentary/Breasts Skin/Breast: Reports system reviewed and no additional complaints, except as documented Neurologic Neurologic: Reports as per HPI and Reports headache(s) Hematologic/Lymphatic On Anticoagulants: No Patient History Medical History Anxiety Asthma Cataracts, bilateral Chronic back pain Chronic seasonal allergic rhinitis Deep vein thrombosis Depression Gastroparesis Gout Hypertension Insomnia due to medical condition Knee pain Migraine aura without headache Nocturnal hypoxemia Obesity (BMI 30-39.9) Obstructive sleep apnea, adult Post traumatic stress disorder (PTSD) Prediabetes Preop general physical exam Renal insufficiency Scoliosis Urinary tract infection Vision disorder Vulvar abscess Surgical History Anesthesia History of bladder surgery History of cholecystectomy History of neck surgery Plantar fasciitis Previous back surgery Previous section Family History Mother Diabetes mellitus Heart disease Hypertension Social History Smoking Status: Former smoker Tobacco: How many years used: 40 alcohol intake: current (rarely) Smoking Status: Former smoker alcohol intake frequency: 0-2 drinks per day Substance Use Type: marijuana Exam Const General: cooperative and healthy appearing Resp Effort & Inspection: normal respiratory effort Auscultation: clear to auscultation bilaterally Back/Spine/Pelvis Cervical Spine: No cervical spinal tenderness and other (Cervical paraspinal muscle tenderness) Skin General: no rashes or lesions noted Neuro General: patient alert, patient awake, patient oriented x3 and moves all extremities Cognition: normal cognition Extrem General: normal to inspection and capillary refill normal Psych Appearance: grossly normal and well kempt Course Orders Ordered: Discontinued Medications Ketorolac Tromethamine (Ketorolac 30 Mg/Ml Vial) 30 mg IM NOW ONE Stop: 03/07/21 09:15 Last Admin: 03/07/21 09:29 Dose: 30 mg Documented by: JARRETT Medical Decision Making [facility] Medical decision making narrative: Patient has had 2 weeks of symptoms. She does have pain medication at home and also muscle relaxers. I will switch her from indomethacin to be mobile did take on a daily basis to try to help with her symptoms. She was given Toradol here in the ER. Unfortunately not much more can be provided under the emergency department. I do not feel that the patient needs any radiologic studies today. Will have her make an appointment with her primary doctor for follow-up. She was given return precautions. She expressed understanding and agreement. Discharge Plan Departure Patient Disposition: Home Clinical Impression: Neck pain Activity Restrictions/Additional Instructions: Unfortunately other than trying to control your symptoms there is not much more we can do for you out of the emergency department. I do recommend that you continue to take your pain medication and the muscle relaxers as needed. I recommend he stop taking the indomethacin and start taking the Mobic/meloxicam that you were given a prescription for today as directed. Do contact your primary doctor has any further workup will need to come from his/her office. Prescriptions: New meloxicam [Mobic] 15 mg tablet 15 mg PO DAILY Qty: 30 RF: 0 lidocaine 5 % adhesive patch,medicated 1 patch topical DAILY Qty: 15 RF: 0 prednisone 20 mg tablet 20 mg PO DAILY 5 Days Qty: 5 RF: 0 No Action (DME) lancets [BD Ultra Fine Lancets] 33 gauge misc See Rx Instructions .ROUTE .MEDSUPPLY Qty: 100 RF: 5 (DME) blood sugar diagnostic Strip See Rx Instructions .ROUTE .MEDSUPPLY Qty: 100 RF: 6 indomethacin 25 mg capsule See Rx Instructions .ROUTE .COMPLEX Qty: 270 RF: 4 (DME) BD Ultra Fine Pen Tips 31G x 8mm 100 package See Rx Instructions .ROUTE .MEDSUPPLY Qty: 1 RF: 2 chlorthalidone 25 mg tablet 25 mg PO DAILY Qty: 90 RF: 2 allopurinol 300 mg tablet 300 mg PO DAILY Qty: 90 RF: 3 albuterol sulfate 90 mcg/actuation HFA aerosol inhaler 2 puff Inhalation Q6H PRN (Reason: Shortness Of Breath) Qty: 18 RF: 5 bupropion HCl 200 mg tablet sustained-release 12 hr 200 mg PO BID Qty: 180 RF: 3 Victoza 3-Sergio 0.6 mg/0.1 mL (18 mg/3 mL) pen injector See Rx Instructions .ROUTE .COMPLEX Qty: 9 RF: 0 oxycodone-acetaminophen 10-325 mg tablet See Rx Instructions .ROUTE .COMPLEX Qty: 90 RF: 0 tizanidine 4 mg tablet 4 mg PO Q6H PRN (Reason: muscle spasticity) Qty: 30 RF: 1 fluticasone propionate 50 mcg/actuation spray,suspension See Rx Instructions .ROUTE .COMPLEX Qty: 16 RF: 2 sumatriptan succinate [Imitrex] 100 mg tablet See Rx Instructions PO .COMPLEX Qty: 14 RF: 2 prochlorperazine maleate [Compazine] 10 mg tablet 10 mg PO Q8H PRN (Reason: nausea and vomiting) Qty: 20 RF: 1 ondansetron HCl [Zofran] 4 mg tablet 4 mg PO Q8H PRN (Reason: nausea and vomiting) Qty: 14 RF: 1 amlodipine 2.5 mg tablet 2.5 mg PO DAILY Qty: 90 RF: 3 losartan 50 mg tablet 50 mg PO DAILY Qty: 90 RF: 3 metformin 500 mg tablet 500 mg PO BID Qty: 180 RF: 3 multivitamin capsule 1 cap PO DAILY RF: 0 cholecalciferol (vitamin D3) 1,000 unit capsule 1,000 unit PO DAILY RF: 0 Referrals: Arnoldo Ribeiro, [Primary Care Provider] -
[2021-03-07] MEDS: KETOROLAC 30 MG/ML VIAL IM (09:29)
== END 2021-03-07 09:55 | disposition home or self-care (01) ==
PROVIDERS: Emergency Provider Emergency Medicine; Family Provider Family Medicine; PCP Family Medicine
DX: M54.2 Cervicalgia (principal); R51.9 Headache, unspecified
CPT/HCPCS: 96372; 99283; J1885

== ENCOUNTER 2021-04-02 06:41 | Emergency (ER) | payer OTHER, MEDICAID, SELFPAY ==
[2021-04-02 06:40] VITALS: BP 133/62; PULSE 71; RESP 18; TEMP 36.1; O2SAT 94; BMI 37.8
--- NOTE | 2021-04-02 07:08 | ED.GENADULT ---
HPI - General Adult General Chief complaint: Dizziness Stated complaint: Dizziness Time Seen by Provider: 04/02/21 06:46 Source: patient and EMS Mode of arrival: EMS Limitations: no limitations History of Present Illness HPI narrative: Patient is a 56-year-old female. I evaluated her in the emergency department in the past for upper back/neck discomfort. She returns to the emergency department today because she states that she woke up this morning became very dizzy. She describes this as a lightheaded situation. She also states she is having an increasing discomfort in her upper back and neck. She is also getting ?painful numbness ?radiating down her left arm. No fevers. She states that the pain medication she is taking works somewhat while she is on it but then as the medicine wears off she has extreme pain in her neck. She states she cannot take prednisone because of her reaction to the medicine. She is scheduled to see her primary doctor in approximately 10 days from now for her symptoms. She does have muscle relaxers and pain medication and anti-inflammatories. While she is sitting in bed she is not having the dizziness. It is when she stands up. No chest pain. No shortness of breath. No headache. No vision changes. Did not fall. No specific trauma. Related Data Home Medications Medication Instructions Recorded Confirmed cholecalciferol (vitamin D3) 25 1,000 unit PO DAILY 12/26/18 03/08/21 mcg (1,000 unit) capsule multivitamin 1 cap PO DAILY 12/26/18 03/08/21 Previous Rx's Medication Instructions Recorded lancets 33 gauge (BD Ultra Fine #100 each 05/04/20 Lancets) blood sugar diagnostic #100 each 05/24/20 indomethacin 25 mg capsule See Rx Instructions .ROUTE 05/30/20 .COMPLEX #270 cap BD Ultra Fine Pen Tips 31G x 8mm #1 ea 06/20/20 allopurinol 300 mg tablet 300 mg PO DAILY #90 tab 07/22/20 ondansetron HCl 4 mg tablet 4 mg PO Q8H PRN #14 tab 08/03/20 (Zofran) prochlorperazine maleate 10 mg 10 mg PO Q8H PRN #20 tab 08/03/20 tablet (Compazine) sumatriptan succinate 100 mg See Rx Instructions PO .COMPLEX 08/03/20 tablet (Imitrex) #14 tab amlodipine 2.5 mg tablet 2.5 mg PO DAILY #90 tab 11/08/20 losartan 50 mg tablet 50 mg PO DAILY #90 tab 11/08/20 metformin 500 mg tablet 500 mg PO BID #180 tab 11/08/20 albuterol sulfate 90 mcg/actuation 2 puff INHALATION Q6H PRN #18 gram 11/15/20 aerosol inhaler bupropion HCl 200 mg tablet,12 hr 200 mg PO BID #180 ea 01/30/21 sustained-release liraglutide 0.6 mg/0.1 mL (18 mg/3 See Rx Instructions .ROUTE 02/15/21 mL) subcutaneous pen injector .COMPLEX #9 ml (Victoza 3-Sergio) tizanidine 4 mg tablet 4 mg PO Q6H PRN #30 tab 02/17/21 fluticasone propionate 50 See Rx Instructions .ROUTE 02/23/21 mcg/actuation nasal .COMPLEX #16 gram spray,suspension lidocaine 5 % topical patch 1 patch TOPICAL DAILY #15 ea 03/07/21 meloxicam 15 mg tablet (Mobic) 15 mg PO DAILY #30 tab 03/07/21 chlorthalidone 25 mg tablet 25 mg PO DAILY #90 tab 03/22/21 oxycodone-acetaminophen 10 mg-325 See Rx Instructions .ROUTE 03/22/21 mg tablet .COMPLEX #90 tab lidocaine 5 % topical patch 1 patch TOPICAL DAILY #15 ea 04/02/21 Allergies Allergy/AdvReac Type Severity Reaction Status Date / Time bee venom protein (honey bee) Allergy Intermediate severe Verified 03/08/21 08:31 edema silver Allergy Unknown Verified 04/02/21 06:51 [From Tegaderm AG Mesh] Penicillins Allergy Verified 03/08/21 08:31 prednisone AdvReac Mild Agitated Verified 04/02/21 06:57 Review of Systems Constitutional Constitutional: Denies fever(s) and Denies headache(s) Eyes Eyes: Denies change in vision ENT Ears, Nose, Mouth, and Throat: Denies vertigo, Reports dizziness and Denies headache(s) Cardiovascular Cardiovascular: Denies chest pain and Denies dyspnea Respiratory Respiratory: Denies dyspnea Gastrointestinal Gastrointestinal: Denies abdominal pain and Denies vomiting Genitourinary Genitourinary: Reports system reviewed and no additional complaints, except as documented Musculoskeletal Musculoskeletal: Reports as per HPI and Reports tingling Integumentary/Breasts Skin/Breast: Reports system reviewed and no additional complaints, except as documented Neurologic Neurologic: Denies vertigo, Reports dizziness, Denies headache(s) and Reports tingling Psychiatric Psychiatric: Reports system reviewed and no additional complaints, except as documented Endocrine Endocrine: Reports system reviewed and no additional complaints, except as documented Hematologic/Lymphatic Hematologic/Lymphatic: Reports system reviewed and no additional complaints, except as documented On Anticoagulants: No Allergic/Immunologic Allergic/Immunologic: Reports system reviewed and no additional complaints, except as documented Patient History Medical History Anxiety Asthma Cataracts, bilateral Chronic back pain Chronic seasonal allergic rhinitis Deep vein thrombosis Depression Gastroparesis Gout Hypertension Insomnia due to medical condition Knee pain Migraine aura without headache Nocturnal hypoxemia Obesity (BMI 30-39.9) Obstructive sleep apnea, adult Post traumatic stress disorder (PTSD) Prediabetes Preop general physical exam Renal insufficiency Scoliosis Urinary tract infection Vision disorder Vulvar abscess Surgical History Anesthesia History of bladder surgery History of cholecystectomy History of neck surgery Plantar fasciitis Previous back surgery Previous section Family History Mother Diabetes mellitus Heart disease Hypertension Social History Smoking Status: Former smoker Tobacco: How many years used: 40 alcohol intake: current (rarely) Smoking Status: Former smoker alcohol intake frequency: 0-2 drinks per day Substance Use Type: marijuana and painkillers Exam Initial Vital Signs Initial Vital Signs: Vital Signs Temperature 97 F L 04/02/21 06:40 Pulse Rate 71 04/02/21 06:40 Respiratory Rate 18 04/02/21 06:40 Blood Pressure 133/62 04/02/21 06:40 Pulse Oximetry 94 04/02/21 06:40 Const General: cooperative, well developed, well groomed and No ill appearing Nutritional Appearance: overweight [facility] Head: normal to inspection and normocephalic Eyes General: appearance normal, both eyes and all related structures Neck Neck: no meningeal signs Chest Chest: normal inspection of the chest Resp Effort & Inspection: normal respiratory effort, able to speak in complete sentences and no cough Auscultation: clear to auscultation bilaterally Cardio Rate: regular rate Rhythm: regular rhythm GI Inspection: normal to inspection Back/Spine/Pelvis Back: normal to inspection Cervical Spine: cervical muscular tenderness and No cervical spinal tenderness Thoracic/Lumbar Spine: No paraspinal tenderness, No thoracic spinal tenderness and No lumbar spinal tenderness Skin General: no rashes or lesions noted Neuro General: patient alert, patient awake and patient oriented x3 Cranial Nerves: CN's II-XI intact bilaterally Speech: speech normal Motor: muscle tone normal throughout Extrem General: normal to inspection and capillary refill normal Psych Appearance: grossly normal and well kempt Course Orders Ordered: ED Orders 04/02/21 06:50 EKG-12 Lead Stat 04/02/21 07:05 Complete Blood Count AUTO DIFF Stat Comprehensive Metabolic Panel Stat Troponin & CK Cardiac Panel Stat Discontinued Medications Hydromorphone HCl (Hydromorphone 1 Mg Inj) 1 mg IV NOW ONE Stop: 04/02/21 07:19 Last Admin: 04/02/21 07:36 Dose: 1 mg Documented by: KIET Sodium Chloride (Normal Saline 0.9%) 500 mls @ 1,000 mls/hr IV BOLUS ONE Stop: 04/02/21 07:15 Last Infusion: 04/02/21 07:43 Dose: 1,000 mls/hr Documented by: Admin: 04/02/21 07:10 Dose: 1,000 mls/hr Documented by: CHERI Ondansetron HCl (Ondansetron 4 Mg/2 Ml Inj) 4 mg IV NOW ONE Stop: 04/02/21 06:47 Last Admin: 04/02/21 07:10 Dose: 4 mg Documented by: CHERI Vital Signs Vital signs: Vital Signs - 8 hr 04/02/21 06:40 Temperature 97 F L Pulse Rate 71 Respiratory Rate 18 Blood Pressure 133/62 Pulse Oximetry 94 Medical Decision Making Medical Records Medical records reviewed: Yes I reviewed the patient's medical records. Lab Data Lab results reviewed: Yes I reviewed the patient's lab results. Result diagrams: 04/02/21 07:05 04/02/21 07:05 Labs: Lab Results 04/02/21 04/02/21 Range/Units 07:05 07:05 WBC 6.7 (4.5-11.0) X10^3/uL RBC 3.92 L (4.0-5.2) X10^6/uL Hgb 10.9 L (12.0-16.0) g/dL Hct 34.0 L (36-46) % MCV 86.8 (80-100) fL MCH 27.9 (26-34) PG MCHC 32.1 (30-36) % RDW 15.0 H (11.6-14.8) % Plt Count 227 (150-400) X10^3/uL Neut % (Auto) 58.3 (50-75) % Lymph % (Auto) 31.7 (25-40) % Anderson % (Auto) 7.5 (3-14) % Eos % (Auto) 1.6 L (2-4) % Baso % (Auto) 0.9 (0-2) % Neut # (Auto) 3900 (5543-8670) /uL Lymph # (Auto) 2100 (4307-0241) /uL Anderson # (Auto) 500 (0-900) /uL Eos # (Auto) 100 (0-450) /uL Baso # (Auto) 100 (0-100) /uL Sodium 137 (137-145) mmol/L Potassium 3.2 L (3.4-5.1) mmol/L Chloride 100 (98-107) mmol/L Carbon Dioxide 33 H (22-32) mmol/L BUN 23 H (7-17) mg/dL Creatinine 0.77 (0.52-1.04) mg/dL Estimated GFR > 60.0 (>60) mL/min BUN/Creatinine Ratio 29.9 H (6-22) Glucose 143 H (70-100) mg/dL Calcium 9.1 (8.4-10.2) mg/dL Total Bilirubin 0.2 (0.2-1.3) mg/dL AST 26 (14-36) IU/L ALT 19 (<35) IU/L Alkaline Phosphatase 82 (38-126) U/L Total Creatine Kinase 254 H (30-135) U/L CK-MB (CK-2) 1.27 (<2.37) ng/mL CK-MB (CK-2) Rel Index 0.5 L (1.5-5.0) % Troponin I < 0.012 (0.01-0.034) ng/mL Total Protein 7.1 (6.3-8.2) g/dL Albumin 4.2 (3.5-5.0) g/dL Globulin 2.9 (1.7-4.1) g/dL Albumin/Globulin Ratio 1.4 (1.0-2.8) Point of Care Testing Glucose POC 145 Point of care testing: Point of Care Testing Glucose POC 145 ECG Data Attestation: I personally reviewed and interpreted this ECG as follows: Prior ECG tracings: not available for review Interpretation: Sinus rhythm Ventricular rate of 69 Normal axis Normal QRS Normal QTC No ST T wave changes MDM Narrative Medical decision making narrative: Patient is well-appearing. I do not get the drug seeking behavior of IV from this individual. She has mentioned multiple times that she has been on medications like morphine and fentanyl in the past but she stated that they were not helping her symptoms the only made her tired. She is currently on any anti inflammatory and also Percocet and also muscle relaxer. She states that lidocaine patches have helped in the past. She has a follow-up with her primary doctor in approximately 10 days from now. She is afebrile. I have low suspicion for infection. Low suspicion for CVA/TIA. Unfortunately told her that there was not much more that we can do for her out of the emergency department. I do not feel that there is an emergent issue. I did tell her that she needed to keep her appointment with her primary doctor later this month to discuss further evaluation to include a potential MRI/physical therapy/pain management for potentially all of these modalities. She expressed understanding and agreement. Discharge Plan Departure Patient Disposition: Home Clinical Impression: Cervical radicular pain Instructions: DI for Neck Pain Activity Restrictions/Additional Instructions: I do recommend that you keep your scheduled appointment with your primary doctor later this month. I recommend that you stay as active as possible. Continue all of your medications as directed. Return to the emergency department for any new symptoms. Prescriptions: New lidocaine 5 % adhesive patch,medicated 1 patch topical DAILY Qty: 15 RF: 3 No Action (DME) lancets [BD Ultra Fine Lancets] 33 gauge misc See Rx Instructions .ROUTE .MEDSUPPLY Qty: 100 RF: 5 (DME) blood sugar diagnostic Strip See Rx Instructions .ROUTE .MEDSUPPLY Qty: 100 RF: 6 indomethacin 25 mg capsule See Rx Instructions .ROUTE .COMPLEX Qty: 270 RF: 4 (DME) BD Ultra Fine Pen Tips 31G x 8mm 100 package See Rx Instructions .ROUTE .MEDSUPPLY Qty: 1 RF: 2 allopurinol 300 mg tablet 300 mg PO DAILY Qty: 90 RF: 3 albuterol sulfate 90 mcg/actuation HFA aerosol inhaler 2 puff Inhalation Q6H PRN (Reason: Shortness Of Breath) Qty: 18 RF: 5 bupropion HCl 200 mg tablet sustained-release 12 hr 200 mg PO BID Qty: 180 RF: 3 Victoza 3-Sergio 0.6 mg/0.1 mL (18 mg/3 mL) pen injector See Rx Instructions .ROUTE .COMPLEX Qty: 9 RF: 0 tizanidine 4 mg tablet 4 mg PO Q6H PRN (Reason: muscle spasticity) Qty: 30 RF: 1 fluticasone propionate 50 mcg/actuation spray,suspension See Rx Instructions .ROUTE .COMPLEX Qty: 16 RF: 2 chlorthalidone 25 mg tablet 25 mg PO DAILY Qty: 90 RF: 2 oxycodone-acetaminophen 10-325 mg tablet See Rx Instructions .ROUTE .COMPLEX Qty: 90 RF: 0 sumatriptan succinate [Imitrex] 100 mg tablet See Rx Instructions PO .COMPLEX Qty: 14 RF: 2 prochlorperazine maleate [Compazine] 10 mg tablet 10 mg PO Q8H PRN (Reason: nausea and vomiting) Qty: 20 RF: 1 ondansetron HCl [Zofran] 4 mg tablet 4 mg PO Q8H PRN (Reason: nausea and vomiting) Qty: 14 RF: 1 amlodipine 2.5 mg tablet 2.5 mg PO DAILY Qty: 90 RF: 3 losartan 50 mg tablet 50 mg PO DAILY Qty: 90 RF: 3 metformin 500 mg tablet 500 mg PO BID Qty: 180 RF: 3 multivitamin capsule 1 cap PO DAILY RF: 0 cholecalciferol (vitamin D3) 1,000 unit capsule 1,000 unit PO DAILY RF: 0 meloxicam [Mobic] 15 mg tablet 15 mg PO DAILY Qty: 30 RF: 0 lidocaine 5 % adhesive patch,medicated 1 patch topical DAILY Qty: 15 RF: 0 Referrals: Arnoldo Ribeiro, [Primary Care Provider] -
[2021-04-02] MEDS: SODIUM CHLORIDE 0.9% 500 ML 1000 ML IV (07:10)
[2021-04-02] MEDS: ONDANSETRON 4 MG/2 ML INJ IV (07:10)
[2021-04-02 07:13] LABS: Add Manual Diff / Slide Review NO; Basophils Absolute Auto 100 /uL (0-100); Basophils Percent Auto 0.9 % (0-2); Eosinophils Absolute Auto 100 /uL (0-450); Eosinophils Percent Auto 1.6 % (2-4); Hemoglobin 10.9 g/dL (12.0-16.0); Lymphocytes Absolute Auto 2100 /uL (1100-4500); Lymphocytes Percent Auto 31.7 % (25-40); Mean Corpuscular HGB Conc 32.1 % (30-36); Mean Corpuscular Hemoglobin 27.9 PG (26-34); Mean Corpuscular Volume 86.8 fL (80-100); Monocytes Absolute Auto 500 /uL (0-900); Monocytes Percent Auto 7.5 % (3-14); Neutrophils Absolute Auto 3900 /uL (1500-7000); Neutrophils Percent Auto 58.3 % (50-75); Platelet Count 227 X10^3/uL (150-400); Red Blood Cell Count 3.92 X10^6/uL (4.0-5.2); White Blood Cell Count 6.7 X10^3/uL (4.5-11.0)
[2021-04-02 07:35] LABS: Alanine Aminotransferase 19 IU/L (<35); Albumin 4.2 g/dL (3.5-5.0); Albumin Globulin Ratio 1.4 (1.0-2.8); Alkaline Phosphatase 82 U/L (38-126); Aspartate Aminotransferase 26 IU/L (14-36); BUN Creatinine Ratio 29.9 (6-22); Bilirubin Total 0.2 mg/dL (0.2-1.3); Blood Urea Nitrogen 23 mg/dL (7-17); Calcium 9.1 mg/dL (8.4-10.2); Carbon Dioxide 33 mmol/L (22-32); Chloride 100 mmol/L (98-107); Creatine Kinase 254 U/L (30-135); Estimated Glomerular Filt Rate > 60.0 mL/min (>60); Globulin 2.9 g/dL (1.7-4.1); Glucose 143 mg/dL (70-100); HEMOLYSIS < 15 (0-50); Potassium 3.2 mmol/L (3.4-5.1); Sodium 137 mmol/L (137-145); Total Protein 7.1 g/dL (6.3-8.2)
[2021-04-02] MEDS: HYDROMORPHONE 1 MG INJ IV (07:36)
--- NOTE | 2021-04-02 07:42 | PC.NURSE ---
pt medicated for pain. pt states she continues to be dizzy and is tearful
[2021-04-02 07:47] LABS: Troponin I < 0.012 ng/mL (0.01-0.034)
[2021-04-02 07:50] LABS: CKMB % Relative Index 0.5 % (1.5-5.0); Creatine Kinase MB 1.27 ng/mL (<2.37)
[2021-04-02 08:22] VITALS: BP 132/62; PULSE 70; RESP 18; TEMP 36.6; O2SAT 96
== END 2021-04-02 08:23 | disposition home or self-care (01) ==
PROVIDERS: Emergency Medicine; Emergency Provider Emergency Medicine; Family Provider Family Medicine; PCP Family Medicine
DX: M54.12 Radiculopathy, cervical region (principal); R42 Dizziness and giddiness; R20.2 Paresthesia of skin
CPT/HCPCS: 36415; 80053; 82550; 82553; 82962; 84484; 85025; 93005; 93010; 96361; 96374; 96375; 99284; J1170; J2405

== ENCOUNTER → 2021-04-11 12:08 | Outpatient (CLI) | payer OTHER, MEDICAID, SELFPAY ==
--- NOTE | 2021-04-11 12:09 | DI.RAD.S_ITS ---
PROCEDURE: XR CERVICAL SPINE 2V OR 3V INDICATIONS: Acute neck pain with radiculopathy TECHNIQUE: 3 view(s) of the cervical spine were acquired. COMPARISON: [facility], MR, MR CERVICAL SPINE WITH/WITHOUT CONTRAST, 10/16/2017, 19:33. FINDINGS: Bones: No fractures or dislocations to the inferior endplate of C7 level. The lateral masses of C1 appear intact on the odontoid view. No suspicious bony lesions. No acute compression fractures. Multilevel cervical spondylosis. Stable appearance of anterior cervical fusion of C6-7. No evidence for hardware complication. Straightening of normal cervical lordosis which may be due to patient positioning and/or concurrent muscle spasms. Soft tissues: No prevertebral soft tissue swelling. IMPRESSION: 1. Cervical spine without acute radiographic abnormalities. 2. Status post anterior cervical fusion of C6-7 without evidence for hardware complication. 3. Moderate multilevel cervical spondylosis. 4. Mild straightening of normal cervical lordosis likely related to positioning and/or concurrent muscle spasms. Dictated by: Maurizio Newell M.D. on 04/11/2021 at 15:13 Approved by: Maurizio Newell M.D. on 04/11/2021 at 15:21
== END ==
PROVIDERS: Family Provider Family Medicine; PCP Family Medicine; Referring Provider Family Medicine; Visit Provider Family Medicine
DX: M47.22 Other spondylosis with radiculopathy, cervical region (principal); Z98.1 Arthrodesis status
CPT/HCPCS: 72040

== ENCOUNTER 2021-06-29 11:10 | Emergency (ER) | payer OTHER, MEDICAID, SELFPAY ==
[2021-06-29 11:16] VITALS: BP 198/138; PULSE 120; RESP 18; TEMP 36.6; O2SAT 99; BMI 37.0
[2021-06-29] MEDS: ONDANSETRON 4 MG ODT SL (12:00)
[2021-06-29] MEDS: HYDROMORPHONE 1 MG INJ 2 MG IM (12:01)
[2021-06-29 12:12] VITALS: BP 135/74; PULSE 96; RESP 18; O2SAT 97
[2021-06-29] MEDS: OXYCODONE/ACETAMINOPHEN 5/325 TABLET 3 TAB PO (16:05)
[2021-06-29] MEDS: diazePAM 5 MG TABLET PO (16:06)
[2021-06-29] MEDS: KETOROLAC 30 MG/ML VIAL IM (16:14)
[2021-06-29 17:00] VITALS: BP 122/74; PULSE 89; RESP 18; O2SAT 98
--- NOTE | 2021-06-29 17:50 | ED.NECK ---
HPI - Neck Pain/Injury General Chief Complaint: Neck Pain/Injury Stated Complaint: Neck pain Time Seen by Provider: 06/29/21 11:35 Mode of arrival: Ambulatory History of Present Illness HPI Narrative: 56-year-old woman with chronic neck and low back issues with prior surgeries and diskectomies has been to physical therapy this morning. The physical therapist was working on her neck and caused a significant exacerbation her chronic neck pain. She is having severe radicular pain down her left arm and has not been able to get the pain under control. She does have oxycodone 10 mg, Flexeril and tizanidine available to her at home and takes Mobic on a daily basis. She notes that she has been doing relatively well up until this physical therapy appointment this morning. She has had no recent fevers, cough, chills, chest pain, abdominal pain, vomiting, diarrhea. She notes that with this acute neck exacerbation she is also having some exacerbation of her chronic low back pain with an increase in her radicular symptoms down the back of her leg as well. She is not having any weakness or numbness in either extremity. Related Data Home Medications Medication Instructions Recorded Confirmed cholecalciferol (vitamin D3) 25 1,000 unit PO DAILY 12/26/18 06/20/21 mcg (1,000 unit) capsule multivitamin 1 cap PO DAILY 12/26/18 06/20/21 Previous Rx's Medication Instructions Recorded lancets 33 gauge (BD Ultra Fine #100 each 05/04/20 Lancets) blood sugar diagnostic #100 each 05/24/20 indomethacin 25 mg capsule See Rx Instructions .ROUTE 05/30/20 .COMPLEX #270 cap BD Ultra Fine Pen Tips 31G x 8mm #1 ea 06/20/20 allopurinol 300 mg tablet 300 mg PO DAILY #90 tab 07/22/20 ondansetron HCl 4 mg tablet 4 mg PO Q8H PRN #14 tab 08/03/20 (Zofran) prochlorperazine maleate 10 mg 10 mg PO Q8H PRN #20 tab 08/03/20 tablet (Compazine) sumatriptan succinate 100 mg See Rx Instructions PO .COMPLEX 08/03/20 tablet (Imitrex) #14 tab losartan 50 mg tablet 50 mg PO DAILY #90 tab 11/08/20 metformin 500 mg tablet 500 mg PO BID #180 tab 11/08/20 albuterol sulfate 90 mcg/actuation 2 puff INHALATION Q6H PRN #18 gram 11/15/20 aerosol inhaler bupropion HCl 200 mg tablet,12 hr 200 mg PO BID #180 ea 01/30/21 sustained-release fluticasone propionate 50 See Rx Instructions .ROUTE 02/23/21 mcg/actuation nasal .COMPLEX #16 gram spray,suspension lidocaine 5 % topical patch 1 patch TOPICAL DAILY #15 ea 03/07/21 chlorthalidone 25 mg tablet 25 mg PO DAILY #90 tab 03/22/21 cyclobenzaprine 10 mg tablet 10 mg PO BEDTIME PRN #30 tab 04/11/21 liraglutide 0.6 mg/0.1 mL (18 mg/3 See Rx Instructions .ROUTE 04/11/21 mL) subcutaneous pen injector .COMPLEX #9 ml (Victoza 3-Sergio) meloxicam 15 mg tablet (Mobic) 15 mg PO DAILY #90 tab 04/11/21 amlodipine 5 mg tablet See Rx Instructions .ROUTE 04/12/21 .COMPLEX #90 tab gabapentin 300 mg capsule 300 mg PO TID #90 cap 05/03/21 oxycodone-acetaminophen 10 mg-325 1 tab PO QID PRN #120 tab 06/20/21 mg tablet tizanidine 4 mg tablet 4 mg PO Q6H PRN #30 tab 06/20/21 Allergies Allergy/AdvReac Type Severity Reaction Status Date / Time bee venom protein (honey bee) Allergy Intermediate severe Verified 06/29/21 11:22 edema silver Allergy Unknown Verified 06/29/21 11:22 [From Tegaderm AG Mesh] Penicillins Allergy Verified 06/29/21 11:22 prednisone AdvReac Mild Agitated Verified 06/29/21 11:22 Review of Systems Review of Systems Narrative: Remainder of complete review of systems is otherwise unremarkable except for that included in the HPI. Patient History Medical History Anxiety Asthma Cataracts, bilateral Chronic back pain Chronic seasonal allergic rhinitis Deep vein thrombosis Depression Gastroparesis Gout Hypertension Insomnia due to medical condition Knee pain Migraine aura without headache Nocturnal hypoxemia Obesity (BMI 30-39.9) Obstructive sleep apnea, adult Post traumatic stress disorder (PTSD) Prediabetes Preop general physical exam Renal insufficiency Scoliosis Spondylolysis of cervical spine Urinary tract infection Vision disorder Vulvar abscess Surgical History Anesthesia History of bladder surgery History of cholecystectomy History of neck surgery Plantar fasciitis Previous back surgery Previous section Family History Mother Diabetes mellitus Heart disease Hypertension Social History Smoking Status: Former smoker Tobacco: How many years used: 40 alcohol intake: current (rarely) Smoking Status: Former smoker alcohol intake frequency: 0-2 drinks per day Substance Use Type: marijuana and painkillers Exam Narrative Exam Narrative: General: Alert in severe distress with radicular lancinating pain down the left arm Respiratory: Able to speak in full sentences, no obvious respiratory distress Skin: No obvious rashes, warm and dry Neurologic: Grossly intact no obvious asymmetries or abnormalities, no appreciated weakness in the left arm and no numbness. Psych: appropriate insight and affect, cooperative Initial Vital Signs Initial Vital Signs: Vital Signs Temperature 97.8 F 06/29/21 11:16 Pulse Rate 120 H 06/29/21 11:16 Respiratory Rate 18 06/29/21 11:16 Blood Pressure 198/138 H 06/29/21 11:16 Pulse Oximetry 99 06/29/21 11:16 Course Orders Ordered: Discontinued Medications Diazepam (Diazepam 5 Mg Tablet) 5 mg PO NOW ONE Stop: 06/29/21 15:46 Last Admin: 06/29/21 16:06 Dose: 5 mg Documented by: MACARIO Hydromorphone HCl (Hydromorphone 1 Mg Inj) 2 mg IM NOW ONE Stop: 06/29/21 11:50 Last Admin: 06/29/21 12:01 Dose: 2 mg Documented by: MACARIO Ketorolac Tromethamine (Ketorolac 30 Mg/Ml Vial) 30 mg IM NOW ONE Stop: 06/29/21 15:46 Last Admin: 06/29/21 16:14 Dose: 30 mg Documented by: MACARIO Ondansetron HCl (Ondansetron 4 Mg Odt) 4 mg SL NOW ONE Stop: 06/29/21 11:51 Last Admin: 06/29/21 12:00 Dose: 4 mg Documented by: MACARIO Oxycodone/Acetaminophen (Oxycodone/Acetaminophen 5/325 Tablet) 3 tab PO NOW ONE Stop: 06/29/21 15:46 Last Admin: 06/29/21 16:05 Dose: 3 tab Documented by: MACARIO Vital Signs Vital signs: Vital Signs - 8 hr 06/29/21 11:16 06/29/21 12:12 06/29/21 17:00 Temperature 97.8 F Pulse Rate 120 H 96 H 89 Respiratory Rate 18 18 18 Blood Pressure 198/138 H 135/74 122/74 Pulse Oximetry 99 97 98 MDM - Neck Pain/Injury MDM Narrative Medical decision making narrative: 56-year-old woman with chronic neck and back pains our physical therapist this morning with acute exacerbation of radicular neck pain.? Once pain was under better control she was able to be discharged home.? There is no evidence of acute numbness or weakness or other indications that an MRI would be required.? No evidence of infection or obvious trauma aside from gentle manipulation with physical therapy.? She has pain medication, anti-inflammatories and muscle relaxants available to her at home and is safe for home discharge Discharge Plan Departure Patient Disposition: Home Clinical Impression: Acute neck pain, Chronic neck pain Instructions: DI for Neck Pain Activity Restrictions/Additional Instructions: Thank you for coming in today I appreciate your patient is in being in the emergency department as long as your today Fortunately, your pain has got a bit better with appropriate pain control. I do not think that you did any acute damage to your neck, I think that the physical therapy just caused an acute exacerbation of your chronic pain. Using your Mobic, the oxycodone that you have at home and the muscle relaxers that you have at home along with ice and heat will be helpful. You may be more sore tomorrow, frequently that does happen after an acute injury. It is okay to use an extra pill or 2 of your oxycodone if this is case. I wish you the best in working through all of these neck issues with your outpatient providers. Prescriptions: No Action (DME) lancets [BD Ultra Fine Lancets] 33 gauge misc See Rx Instructions .ROUTE .MEDSUPPLY Qty: 100 5RF Rx Instructions: Use to test blood glucose twice daily (DME) blood sugar diagnostic Strip See Rx Instructions .ROUTE .MEDSUPPLY Qty: 100 6RF Rx Instructions: check blood sugar twice a day Matrix brand or same as meter kit indomethacin 25 mg capsule See Rx Instructions .ROUTE .COMPLEX Qty: 270 4RF Dose Instruction: TAKE 1 CAPSULE BY MOUTH 3 TIMES DAILY WITH FOOD OR MILK As needed for gout Rx Instructions: TAKE 1 CAPSULE BY MOUTH 3 TIMES DAILY WITH FOOD OR MILK As needed for gout (DME) BD Ultra Fine Pen Tips 31G x 8mm 100 package See Rx Instructions .ROUTE .MEDSUPPLY Qty: 1 2RF Rx Instructions: Use to administer Victoza. allopurinol 300 mg tablet 300 mg PO DAILY Qty: 90 3RF albuterol sulfate 90 mcg/actuation HFA aerosol inhaler 2 puff Inhalation Q6H PRN (Reason: Shortness Of Breath) Qty: 18 5RF bupropion HCl 200 mg tablet sustained-release 12 hr 200 mg PO BID Qty: 180 3RF fluticasone propionate 50 mcg/actuation spray,suspension See Rx Instructions .ROUTE .COMPLEX Qty: 16 2RF Dose Instruction: use 2 spray into each nostril once daily Rx Instructions: use 2 spray into each nostril once daily chlorthalidone 25 mg tablet 25 mg PO DAILY Qty: 90 2RF amlodipine 5 mg tablet See Rx Instructions .ROUTE .COMPLEX Qty: 90 0RF Dose Instruction: TAKE ONE TABLET BY MOUTH ONE TIME DAILY Rx Instructions: TAKE ONE TABLET BY MOUTH ONE TIME DAILY sumatriptan succinate [Imitrex] 100 mg tablet See Rx Instructions PO .COMPLEX Qty: 14 2RF Rx Instructions: take 1 tab at onset of headache; if no relief, may repeat 1 tab after at least 2 hrs; max = 2 tabs/24 hrs PO prochlorperazine maleate [Compazine] 10 mg tablet 10 mg PO Q8H PRN (Reason: nausea and vomiting) Qty: 20 1RF ondansetron HCl [Zofran] 4 mg tablet 4 mg PO Q8H PRN (Reason: nausea and vomiting) Qty: 14 1RF losartan 50 mg tablet 50 mg PO DAILY Qty: 90 3RF metformin 500 mg tablet 500 mg PO BID Qty: 180 3RF Victoza 3-Sergio 0.6 mg/0.1 mL (18 mg/3 mL) pen injector See Rx Instructions .ROUTE .COMPLEX Qty: 9 5RF Dose Instruction: inject 1.8 mg (0.3 mls) subcutaneously once daily Rx Instructions: inject 1.8 mg (0.3 mls) subcutaneously once daily meloxicam [Mobic] 15 mg tablet 15 mg PO DAILY Qty: 90 1RF cyclobenzaprine 10 mg tablet 10 mg PO BEDTIME PRN (Reason: muscle spasm) Qty: 30 2RF gabapentin 300 mg capsule 300 mg PO TID Qty: 90 5RF multivitamin capsule 1 cap PO DAILY 0RF cholecalciferol (vitamin D3) 1,000 unit capsule 1,000 unit PO DAILY 0RF oxycodone-acetaminophen 10-325 mg tablet 1 tab PO QID PRN (Reason: pain) Qty: 120 0RF tizanidine 4 mg tablet 4 mg PO Q6H PRN (Reason: muscle spasticity) Qty: 30 1RF Rx Instructions: Use during daytime for mm tension relief lidocaine 5 % adhesive patch,medicated 1 patch topical DAILY Qty: 15 0RF Rx Instructions: leave on most painful area for up to 12 hrs Referrals: Arnoldo Ribeiro DO [Primary Care Provider] -
== END 2021-06-29 17:58 | disposition home or self-care (01) ==
PROVIDERS: Emergency Provider Emergency Medicine; Family Provider Family Medicine; PCP Family Medicine
DX: M54.2 Cervicalgia (principal); G89.29 Other chronic pain; Z87.891 Personal history of nicotine dependence
CPT/HCPCS: 96372; 99283; J1170; J1885

== ENCOUNTER → 2021-08-03 15:37 | Outpatient (CLI) | payer OTHER, MEDICAID, SELFPAY ==
--- NOTE | 2021-08-03 15:37 | DI.MRI.S_ITS ---
PROCEDURE: MR LUMBAR SPINE WO CON INDICATIONS: chronic worsening back pain TECHNIQUE: Noncontrast sagittal T1 spin echo and T2 fast echo, sagittal STIR, axial T1 and T2 fast spin echo through the lumbar spine. In cases with scoliosis, additional coronal T2 fast spin echo may be performed. COMPARISON: [facility], CT, CT LUMBAR SPINE WO CON, 04/04/2017, 13:04. [facility], MR, MR LUMBAR SPINE WITH/WITHOUT CONTRAST, 10/16/2017, 19:33. [facility], CR, XR LUMBAR SPINE 2-3V, 08/17/2019, 7:38. FINDINGS: Image quality: This examination is limited by involuntary motion artifact. Alignment and Curvature: There is normal bony alignment. Bone Marrow: Marrow is of normal overall signal. No acute vertebral body compression fractures. Spinal Cord: Conus medullaris terminates at the L1 level. Visualized cord demonstrates normal signal and size. Paraspinous Soft Tissues: No paravertebral masses. Postoperative changes are seen, with left-sided pedicle screws at L4-5 and right-sided pedicle screws at L5-S1. Vertical fixation rods are present. Anterior fixation hardware can be seen at L5-S1. Disc spacers are seen at L4-L5 and L5-S1. T12-L1: Normal appearance. L1-L2: At least moderate loss of disc height and disc signal can be seen. There is a remote Schmorl's node seen at the superior endplate of L2, which is stable compared to 2018. Bridging endplate osteophytes are seen. Moderate disc bulge is seen, which is slightly eccentric to the right. Moderate facet joint hypertrophy is seen. There is moderate right-sided and mild left-sided neural foraminal narrowing. Moderate central canal narrowing is seen. These imaging findings have progressed compared to the prior study. L2-L3: The disc height is well-preserved. Loss of disc signal is seen at this level. Bridging endplate osteophytes are seen. Moderate disc bulge is seen, which is slightly eccentric to the left. Mild to moderate facet hypertrophy is seen. There is [id number] right-sided and moderate left-sided neural foraminal narrowing. Moderate central canal narrowing is seen. These imaging findings have progressed compared to the prior study. L3-L4: The disc height and disc signal are relatively well preserved. At least moderate disc bulge is seen, which is eccentric to the left. Moderate to prominent facet hypertrophy is seen. There is moderate to severe left-sided neural foraminal narrowing, with a degree of compression upon the exiting left L3 nerve root. Moderate right-sided neural foraminal narrowing is seen. Moderate to severe central canal narrowing is seen. These degenerative changes are worse than in 2018. L4-L5: There are postoperative changes seen at this level. Moderate generalized disc bulge is seen. Moderate facet joint hypertrophy is seen. There is moderate left-sided and mild right-sided neural foraminal narrowing. No significant central canal narrowing is seen. When comparison is made with the prior images, these findings are similar. L5-S1: Postoperative change can be seen at this level. Moderate generalized disc bulge is seen. Moderate facet joint hypertrophy is seen. No significant neural foraminal or central canal narrowing can be seen. When comparison is made with the prior images, no significant interval change can be seen. IMPRESSION: Lumbosacral fixation hardware, without complication seen. Multiple levels of degenerative change are seen, which have progressed at L1-L2, L2-L3 and L3-L4 compared to 2018. Dictated by: Dustin Garcia M.D. on 08/03/2021 at 15:31 Approved by: Dustin Garcia M.D. on 08/03/2021 at 15:39
== END ==
PROVIDERS: Family Provider Family Medicine; PCP Family Medicine; Referring Provider Family Medicine; Visit Provider Family Medicine
DX: M47.816 Spondylosis without myelopathy or radiculopathy, lumbar region (principal); M47.817 Spondylosis without myelopathy or radiculopathy, lumbosacral region; M43.06 Spondylolysis, lumbar region; M54.9 Dorsalgia, unspecified; M54.42 Lumbago with sciatica, left side; G89.29 Other chronic pain; Z98.1 Arthrodesis status
CPT/HCPCS: 72148

== ENCOUNTER → 2021-08-25 11:52 | Outpatient (CLI) | payer OTHER, MEDICAID, SELFPAY ==
--- NOTE | 2021-08-25 11:54 | DI.MRI.S_ITS ---
PROCEDURE: MR CERVICAL SPINE WO CON INDICATIONS: Progressive cervical spine pain now with radicular symptoms TECHNIQUE: Noncontrast sagittal T1 spin echo and T2 fast spin echo, sagittal STIR, foraminal oblique sagittal T2 fast spin echo, and axial gradient echo or T2 fast spin echo through the cervical spine. COMPARISON: None. FINDINGS: Image quality: Degraded by patient body habitus and motion artifact. Alignment and Curvature: There is normal bony alignment. Bones: Postsurgical changes compatible C6-C7 ACDF. Marrow demonstrates normal overall signal. Spinal Cord: Visualized spinal cord has normal size and signal. No cerebellar tonsillar herniation. Paraspinous Soft Tissues: No paravertebral masses. Prevertebral soft tissues are normal in thickness. C2-C3: Loss of disc signal. Mild, diffuse disc bulge. Mild bilateral facet hypertrophy. No central stenosis. Mild left neural foraminal narrowing. No neural compression. C3-C4: Loss of disc signal. Mild, diffuse disc bulge. Mild bilateral facet hypertrophy. Mild bilateral uncovertebral joint hypertrophy. Moderate bilateral neural foraminal narrowing. No neural compression. C4-C5: Loss of disc signal. Mild, diffuse disc bulge. Mild bilateral facet hypertrophy. Mild bilateral uncovertebral joint hypertrophy. No central stenosis. Moderate bilateral neural foraminal narrowing. No neural compression. C5-C6: Loss of disc signal. Mild to moderate diffuse disc bulge. Mild bilateral facet hypertrophy. Mild bilateral uncovertebral joint hypertrophy. Mild narrowing of the central canal. Moderate right and mild left neural foraminal narrowing. No neural compression. C6-C7: Status post ACDF. No central stenosis. No neural foraminal narrowing. No neural compression. C7-T1: Loss of disc signal. Mild, diffuse disc bulge. Mild bilateral facet hypertrophy. No central stenosis. Mild right and moderate left neural foraminal narrowing. No neural compression. IMPRESSION: 1. Image quality degraded by patient motion artifact. 2. Status post C6-C7 ACDF. 3. Multilevel degenerative disc disease. 4. Multilevel facet and uncovertebral arthropathy. 5. No severe central canal narrowing. 6. No severe neural foraminal narrowing. 7. No neural compression. Dictated by: Mary Michelle MD, PhD on 08/25/2021 at 13:29 Approved by: Mary Michelle MD, PhD on 08/25/2021 at 13:36
== END ==
PROVIDERS: Family Provider Family Medicine; PCP Family Medicine; Referring Provider Family Medicine; Visit Provider Family Medicine
DX: M47.22 Other spondylosis with radiculopathy, cervical region (principal); M50.11 Cervical disc disorder with radiculopathy, high cervical region; Z98.1 Arthrodesis status
CPT/HCPCS: 72141

== ENCOUNTER → 2021-10-30 09:26 | Outpatient (CLI) | payer OTHER, MEDICAID, SELFPAY ==
[2021-10-30 10:52] LABS: Add Manual Diff / Slide Review NO; Basophils Absolute Auto 100 /uL (0-100); Eosinophils Absolute Auto 0 /uL (0-450); Eosinophils Percent Auto 0.5 % (2-4); Hematocrit 39.4 % (36-46); Hemoglobin 13.1 g/dL (12.0-16.0); Lymphocytes Absolute Auto 1900 /uL (1100-4500); Lymphocytes Percent Auto 19.9 % (25-40); Mean Corpuscular HGB Conc 33.2 % (30-36); Mean Corpuscular Hemoglobin 27.8 PG (26-34); Mean Corpuscular Volume 83.6 fL (80-100); Monocytes Absolute Auto 500 /uL (0-900); Monocytes Percent Auto 5.3 % (3-14); Neutrophils Absolute Auto 7000 /uL (1500-7000); Neutrophils Percent Auto 73.3 % (50-75); Platelet Count 294 X10^3/uL (150-400); Red Blood Cell Count 4.71 X10^6/uL (4.0-5.2); Red Cell Distribution Width 14.9 % (11.6-14.8); White Blood Cell Count 9.5 X10^3/uL (4.5-11.0)
[2021-10-30 11:06] LABS: Alanine Aminotransferase 24 IU/L (<35); Albumin 4.8 g/dL (3.5-5.0); Albumin Globulin Ratio 1.3 (1.0-2.8); Alkaline Phosphatase 74 U/L (38-126); Aspartate Aminotransferase 35 IU/L (14-36); BUN Creatinine Ratio 17.2 (6-22); Bilirubin Total 0.4 mg/dL (0.2-1.3); Blood Urea Nitrogen 16 mg/dL (7-17); Calcium 9.8 mg/dL (8.4-10.2); Carbon Dioxide 35 mmol/L (22-32); Chloride 100 mmol/L (98-107); Estimated Glomerular Filt Rate > 60 mL/min (>60); Globulin 3.6 g/dL (1.7-4.1); Glucose 106 mg/dL (70-100); HEMOLYSIS < 15 (0-50); Potassium 3.8 mmol/L (3.4-5.1); Sodium 142 mmol/L (137-145); Total Protein 8.4 g/dL (6.3-8.2); Uric Acid 6.4 mg/dL (2.5-6.2)
== END ==
PROVIDERS: Family Provider Family Medicine; PCP Family Medicine; Referring Provider Family Medicine; Visit Provider Family Medicine
DX: E11.9 Type 2 diabetes mellitus without complications (principal); R80.9 Proteinuria, unspecified; I10 Essential (primary) hypertension; N28.9 Disorder of kidney and ureter, unspecified; E78.5 Hyperlipidemia, unspecified; M54.9 Dorsalgia, unspecified; G89.29 Other chronic pain; E78.00 Pure hypercholesterolemia, unspecified; M10.9 Gout, unspecified
CPT/HCPCS: 36415; 80053; 83036; 84550; 85025

== ENCOUNTER 2021-11-25 11:16 | Emergency (ER) | payer OTHER, MEDICAID, SELFPAY ==
[2021-11-25 11:22] VITALS: BP 176/94; PULSE 103; RESP 17; TEMP 37; O2SAT 98; BMI 37.8
[2021-11-25 11:50] LABS: COVID19 -Nasal RAPID Negative (Negative)
[2021-11-25 13:08] VITALS: O2SAT 94
[2021-11-25 13:09] VITALS: PULSE 104; O2SAT 97
[2021-11-25 13:10] VITALS: BP 171/82; PULSE 104; O2SAT 97
--- NOTE | 2021-11-25 13:17 | ED.GENADULT ---
HPI - General Adult General Chief complaint: Upper Respiratory Symptoms Stated complaint: sob head hurts congestion Time Seen by Provider: 11/25/21 13:12 Source: patient Mode of arrival: Ambulatory History of Present Illness HPI narrative: 56-year-old female here for evaluation of sinus congestion and headache and shortness of breath and cough. Symptoms been going on for 1 week. Does have a history of high blood pressure so she has not taken any antihistamines or decongestants she was worried this is been increase her blood pressure. Related Data Home Medications Medication Instructions Recorded Confirmed multivitamin 1 cap PO DAILY 12/26/18 11/06/21 losartan PO 11/06/21 Previous Rx's Medication Instructions Recorded lancets 33 gauge (BD Ultra Fine #100 each 05/04/20 Lancets) blood sugar diagnostic #100 each 05/24/20 prochlorperazine maleate 10 mg 10 mg PO Q8H PRN #20 tab 08/03/20 tablet (Compazine) sumatriptan succinate 100 mg See Rx Instructions PO .COMPLEX 08/03/20 tablet (Imitrex) #14 tab metformin 500 mg tablet 500 mg PO BID #180 tab 11/08/20 bupropion HCl 200 mg tablet,12 hr 200 mg PO BID #180 ea 01/30/21 sustained-release chlorthalidone 25 mg tablet 25 mg PO DAILY #90 tab 03/22/21 liraglutide 0.6 mg/0.1 mL (18 mg/3 See Rx Instructions .ROUTE 04/11/21 mL) subcutaneous pen injector .COMPLEX #9 ml (Victoza 3-Sergio) meloxicam 15 mg tablet (Mobic) 15 mg PO DAILY #90 tab 04/11/21 gabapentin 300 mg capsule 300 mg PO TID #90 cap 05/03/21 allopurinol 300 mg tablet 300 mg PO DAILY #90 tab 08/22/21 fluticasone propionate 50 See Rx Instructions .ROUTE 09/01/21 mcg/actuation nasal .COMPLEX #16 gram spray,suspension cyclobenzaprine 10 mg tablet See Rx Instructions .ROUTE 09/20/21 .COMPLEX #30 tab lidocaine 5 % topical patch 1 patch TOPICAL DAILY #30 ea 10/19/21 tizanidine 4 mg tablet 4 mg PO Q6H PRN #30 tab 10/26/21 amlodipine 5 mg tablet See Rx Instructions .ROUTE 10/27/21 .COMPLEX #90 tab oxycodone-acetaminophen 10 mg-325 1 tab PO TID PRN #90 tab 10/31/21 mg tablet pen needle, diabetic 31 gauge x #100 10/31/2107/18 (TRUEplus Pen Needle) Allergies Allergy/AdvReac Type Severity Reaction Status Date / Time bee venom protein (honey bee) Allergy Intermediate severe Verified 11/25/21 11:22 edema silver Allergy Unknown Verified 11/25/21 11:22 [From Tegaderm AG Mesh] Penicillins Allergy Verified 11/25/21 11:22 prednisone AdvReac Mild Agitated Verified 11/25/21 11:22 Review of Systems Constitutional Constitutional: Reports system reviewed and no additional complaints, except as documented Eyes Eyes: Reports system reviewed and no additional complaints, except as documented ENT Ears, Nose, Mouth, and Throat: Reports system reviewed and no additional complaints, except as documented Respiratory Respiratory: Reports system reviewed and no additional complaints, except as documented Gastrointestinal Gastrointestinal: Reports system reviewed and no additional complaints, except as documented Integumentary/Breasts Skin/Breast: Reports system reviewed and no additional complaints, except as documented Hematologic/Lymphatic On Anticoagulants: No Patient History Medical History Anxiety Asthma Cataracts, bilateral Chronic back pain Chronic seasonal allergic rhinitis Deep vein thrombosis Depression Gastroparesis Gout Hypertension Ingrown right greater toenail Insomnia due to medical condition Knee pain Migraine aura without headache Nocturnal hypoxemia Obesity (BMI 30-39.9) Obstructive sleep apnea, adult Post traumatic stress disorder (PTSD) Prediabetes Preop general physical exam Radicular pain in left arm Renal insufficiency Scoliosis Spondylolysis Spondylolysis of cervical spine Urinary tract infection Vision disorder Vulvar abscess Surgical History Anesthesia H/O cervical spine surgery (~2014) History of bladder surgery History of bladder suspension procedure (~1995) History of cholecystectomy History of neck surgery Plantar fasciitis Post-operative state Previous back surgery Previous section Family History Mother Diabetes mellitus Heart disease Hypertension Social History Smoking Status: Former smoker Tobacco: How many years used: 40 alcohol intake: current Smoking Status: Former smoker alcohol intake frequency: holidays/special occasions only Substance Use Type: marijuana Exam Initial Vital Signs Initial Vital Signs: Vital Signs Temperature 98.6 F 11/25/21 11:22 Pulse Rate 103 H 11/25/21 11:22 Respiratory Rate 17 11/25/21 11:22 Blood Pressure 176/94 H 11/25/21 11:22 Pulse Oximetry 98 11/25/21 11:22 Const General: cooperative HENMT Head: normal to inspection and normocephalic Ears: TM's normal bilaterally Mouth: oral mucosae normal Resp Effort & Inspection: normal respiratory effort Auscultation: clear to auscultation bilaterally Cardio Rate: regular rate Rhythm: regular rhythm GI Inspection: normal to inspection Skin General: no rashes or lesions noted Neuro General: patient alert, patient awake and moves all extremities Extrem General: normal to inspection and capillary refill normal Psych Appearance: grossly normal and well kempt Course Orders Ordered: ED Orders 11/25/21 11:28 COVID19 -Nasal RAPID/Pre-Proc Stat 11/25/21 13:35 Influenza A & B (PCR) Stat Discontinued Medications Acetaminophen (Acetaminophen 325 Mg Tablet) 975 mg PO NOW ONE Stop: 11/25/21 13:18 Last Admin: 11/25/21 13:31 Dose: 975 mg Documented by: ANTHONY Vital Signs Vital signs: Vital Signs - 8 hr 11/25/21 11:22 11/25/21 13:08 11/25/21 13:09 Temperature 98.6 F Pulse Rate 103 H 104 H Respiratory Rate 17 Blood Pressure 176/94 H Pulse Oximetry 98 94 97 11/25/21 13:10 11/25/21 14:55 11/25/21 14:56 Temperature Pulse Rate 104 H 86 Respiratory Rate 20 Blood Pressure 171/82 H 171/85 H Pulse Oximetry 97 97 97 Medical Decision Making Lab Data Labs: Lab Results 11/25/21 11/25/21 Range/Units 11:28 13:35 SARS-CoV-2 (PCR) Negative (Negative) Influenza A (RT-PCR) Flu a negative (NEGATIVE) Influenza B (RT-PCR) Flu b negative (NEGATIVE) MDM Narrative Medical decision making narrative: Patient does not have any meningeal signs. COVID negative. Flu negative. Lungs are clear. Nontoxic appearing. I do suspect that this is a upper respiratory infection and potentially sinus infection however no indication for antibiotics. We did discuss the use of decongestants and antihistamines she could use despite her high blood pressure. Patient is safe for discharge home. She was given return precautions. She expressed understanding Discharge Plan Departure Patient Disposition: Home Clinical Impression: Headache, Acute upper respiratory infection Instructions: DI for Viral Upper Respiratory Infection -- Adult Activity Restrictions/Additional Instructions: I do recommend that you continue with [id number] decongestants and antihistamines. Example these would be Claritin or Zyrtec. You can also use Flonase or Nasonex. Because of your elevated blood pressure you do need to stay away from medicines such as Sudafed. You can take Tylenol for headaches. Contact your primary doctor for follow-up. Return to the emergency department for any new or worsening symptoms. Prescriptions: No Action (DME) lancets [BD Ultra Fine Lancets] 33 gauge misc See Rx Instructions .ROUTE .MEDSUPPLY Qty: 100 5RF Rx Instructions: Use to test blood glucose twice daily (DME) blood sugar diagnostic Strip See Rx Instructions .ROUTE .MEDSUPPLY Qty: 100 6RF Rx Instructions: check blood sugar twice a day Matrix brand or same as meter kit bupropion HCl 200 mg tablet sustained-release 12 hr 200 mg PO BID Qty: 180 3RF chlorthalidone 25 mg tablet 25 mg PO DAILY Qty: 90 2RF allopurinol 300 mg tablet 300 mg PO DAILY Qty: 90 3RF fluticasone propionate 50 mcg/actuation spray,suspension See Rx Instructions .ROUTE .COMPLEX Qty: 16 2RF Dose Instruction: use 2 spray into each nostril once daily Rx Instructions: use 2 spray into each nostril once daily cyclobenzaprine 10 mg tablet See Rx Instructions .ROUTE .COMPLEX Qty: 30 0RF Dose Instruction: Take one tablet by mouth at bedtime as needed for muscle spasms. Rx Instructions: Take one tablet by mouth at bedtime as needed for muscle spasms. lidocaine 5 % adhesive patch,medicated 1 patch topical DAILY Qty: 30 1RF Rx Instructions: leave on most painful area for up to 12 hrs tizanidine 4 mg tablet 4 mg PO Q6H PRN (Reason: muscle spasticity) Qty: 30 1RF Rx Instructions: Use during daytime for mm tension relief amlodipine 5 mg tablet See Rx Instructions .ROUTE .COMPLEX Qty: 90 1RF Dose Instruction: TAKE ONE TABLET BY MOUTH ONE TIME DAILY Rx Instructions: TAKE ONE TABLET BY MOUTH ONE TIME DAILY (DME) pen needle, diabetic [TRUEplus Pen Needle] 31 gauge x 1/4 needle See Rx Instructions .ROUTE .COMPLEX Qty: 100 0RF Dose Instruction: USE TO INJECT VICTOZA DAILY Rx Instructions: USE TO INJECT VICTOZA DAILY oxycodone-acetaminophen 10-325 mg tablet 1 tab PO TID PRN (Reason: pain) Qty: 90 0RF sumatriptan succinate [Imitrex] 100 mg tablet See Rx Instructions PO .COMPLEX Qty: 14 2RF Rx Instructions: take 1 tab at onset of headache; if no relief, may repeat 1 tab after at least 2 hrs; max = 2 tabs/24 hrs PO prochlorperazine maleate [Compazine] 10 mg tablet 10 mg PO Q8H PRN (Reason: nausea and vomiting) Qty: 20 1RF metformin 500 mg tablet 500 mg PO BID Qty: 180 3RF Victoza 3-Sergio 0.6 mg/0.1 mL (18 mg/3 mL) pen injector See Rx Instructions .ROUTE .COMPLEX Qty: 9 5RF Dose Instruction: inject 1.8 mg (0.3 mls) subcutaneously once daily Rx Instructions: inject 1.8 mg (0.3 mls) subcutaneously once daily meloxicam [Mobic] 15 mg tablet 15 mg PO DAILY Qty: 90 1RF gabapentin 300 mg capsule 300 mg PO TID Qty: 90 5RF multivitamin capsule 1 cap PO DAILY 0RF losartan PO 0RF Referrals: Arnoldo Ribeiro, [Primary Care Provider] -
[2021-11-25] MEDS: ACETAMINOPHEN 325 MG TABLET 975 MG PO (13:31)
[2021-11-25 14:18] LABS: Influenza A - CEPHEID Flu A NEGATIVE (NEGATIVE); Influenza B - CEPHEID Flu B NEGATIVE (NEGATIVE)
[2021-11-25 14:55] VITALS: O2SAT 97
[2021-11-25 14:56] VITALS: BP 171/85; PULSE 86; RESP 20; O2SAT 97
== END 2021-11-25 15:03 | disposition home or self-care (01) ==
PROVIDERS: Emergency Provider Emergency Medicine; Family Provider Family Medicine; PCP Family Medicine
DX: J06.9 Acute upper respiratory infection, unspecified (principal); R51.9 Headache, unspecified; Z20.822 Contact with and (suspected) exposure to COVID-19
CPT/HCPCS: 87502; 87635; 99282; 99283; C9803

== ENCOUNTER → 2022-05-18 14:58 | Outpatient (CLI) | payer OTHER, MEDICAID, SELFPAY ==
--- NOTE | 2022-05-18 15:00 | DI.RAD.S_ITS ---
PROCEDURE: XR HAND RT MIN 3V INDICATIONS: PAIN IN RIGHT HAND TECHNIQUE: 3 views of the hand(s) acquired. COMPARISON: None. FINDINGS: Bones: No fractures or dislocations. Carpal bones are normally aligned. No suspicious bony lesions. Soft tissues: No suspicious soft tissue calcifications. IMPRESSION: No trauma found, source of paresthesias is not found. Dictated by: Jaya Bailey M.D. on 05/18/2022 at 15:37 Approved by: Jaya Bailey M.D. on 05/18/2022 at 15:38
== END ==
PROVIDERS: Family Provider Family Medicine; PCP Family Medicine; Referring Provider Physician Assistant; Visit Provider Physician Assistant
DX: M79.641 Pain in right hand (principal)
CPT/HCPCS: 73130

== ENCOUNTER → 2022-07-13 08:54 | Outpatient (CLI) | payer OTHER, MEDICAID, SELFPAY ==
--- NOTE | 2022-07-13 08:55 | DI.RAD.S_ITS ---
PROCEDURE: XR LUMBAR SPINE 2-3V INDICATIONS: low back pain, fell 1 wk ago TECHNIQUE: Three views of the lumbar spine were acquired. COMPARISON: , CR, XR LUMBAR SPINE 2-3V, 08/17/2019, 7:38. FINDINGS: Bones: 5 [id number] vertebrae are present. Postsurgical changes are again seen with left-sided fixation hardware at the L4-5 level and right sided and tear fixation at the L5-S1 level. Mild lucencies are seen surrounding the L5 pedicle screws bilaterally that may indicate loosening. Metallic hardware is intact. Overall alignment is unchanged. Mild levoconvex curvature of the lumbar spine again noted. There is grade 1 retrolisthesis of L1 on L2 and of L2 on L3. Disc space narrowing degenerative endplate changes and multilevel facet hypertrophy are again noted. No vertebral body compression fractures. No suspicious bony lesions. Soft tissues: Overlying bowel gas pattern is normal. No suspicious soft tissue calcifications. Surgical clips are seen in the right upper quadrant. IMPRESSION: 1. No acute osseous abnormality. If the symptoms persist, consider cross sectional imaging such as MRI or CT for further assessment. 2. Postsurgical changes again seen from L4 through S1 with unchanged alignment. Subtle lucency surrounding the L5 pedicle screws bilaterally could indicate loosening. 3. Multilevel spondylosis and degenerative spondylolisthesis. Approved by: Yoni Avilez M.D. on 07/13/2022 at 10:08
== END ==
PROVIDERS: Family Provider Family Medicine; PCP Family Medicine; Referring Provider Family Medicine; Visit Provider Family Medicine
DX: M47.816 Spondylosis without myelopathy or radiculopathy, lumbar region (principal); M54.50 Low back pain, unspecified; Z98.1 Arthrodesis status
CPT/HCPCS: 72100

== ENCOUNTER 2022-08-23 12:16 | Outpatient (CLI) | payer OTHER, MEDICAID, SELFPAY ==
--- NOTE | 2022-08-23 12:18 | DI.RAD.S_ITS ---
PROCEDURE: PAIN SI JOINT INJECTION WES INDICATIONS: JOINT DYSFUNCTION COMPARISON: [facility], CR, XR LUMBAR SPINE 2-3V, 07/13/2022, 8:59. FINDINGS: On these intraprocedural images, there is a spinal needle seen overlying the inferior aspect of both sacroiliac joints. Appropriate position of the tips of the needles was confirmed by injection of a small amount of iodinated contrast. IMPRESSION: Successful sacroiliac joint injection on both sides. Dictated by: Dustin Garcia M.D. on 08/23/2022 at 17:28 Approved by: Dustin Garcia M.D. on 08/23/2022 at 17:29
[2022-08-23 12:51] VITALS: BP 161/90; PULSE 79; RESP 20; TEMP 36.7; O2SAT 97
[2022-08-23 13:06] VITALS: BP 153/107; PULSE 77; RESP 20; O2SAT 99
[2022-08-23 13:11] VITALS: BP 205/93; PULSE 81; RESP 20; O2SAT 97
[2022-08-23] MEDS: IOPAMIDOL 15 ML VIAL 3 ML INJ (13:15)
[2022-08-23 13:16] VITALS: BP 185/95; PULSE 73; RESP 24; O2SAT 95
[2022-08-23] MEDS: methylPREDNISolone acetate 80 MG/ML VIAL INJ (13:16)
[2022-08-23] MEDS: BUPIVACAINE 0.5% (PF) 30 ML VIAL 5 ML INJ (13:16)
[2022-08-23 13:25] VITALS: BP 183/112; PULSE 72; RESP 18; O2SAT 97
[2022-08-23 13:28] VITALS: BP 177/103; PULSE 75; RESP 18; O2SAT 97
--- NOTE | 2022-08-23 16:49 | P.PCN_ITS ---
Date/Time/Diagnoses Date of procedure: 08/23/22 Time of procedure: 13:00 Procedure Notes Physician: Levar Barrios Total Fluoroscopy time (seconds): 22 Total sedation minutes: 0 Procedure in detail & Post-procedure care: Bilateral Sacroiliac Joint Injection Indications: Isabel is referred by Dr. Ribeiro for treatment of SI joint dysfunction with low back/buttock pain. Preoperative diagnosis: Bilateral SI joint dysfunction Postoperative diagnosis: Same Focused Examination: Ax3 Mood and affect are normal Vital Signs: VSS ASA: 2 Consent: Following review of allergies and potential side effects/complications, including, but not necessarily limited to, infection, allergic reaction, local tissue breakdown, stroke, temporary or permanent nerve injury, paralysis, and possible , the patient indicated that they understood and agreed to proceed.? An informed consent document was signed by the patient, witnessed by a nurse and placed in the patient's chart.? Additionally, other treatment options including medications and physical therapy were reviewed with the patient. All questions were answered. Site was then marked. Anesthesia: Local Position: Prone Monitoring: NIBP, Pulse oximetry, 3 lead EKG Needle used: 22 ga, 3.5 inch spinal Contrast: 2 mL Isovue M-300 Injectate: 40 mg Depomedrol with 2 mL 0.5% Bupivacaine per side Technique: The skin was prepped with chloraprep and then draped in a sterile fashion. Time out was performed as per protocol. Oxygen applied via NC. Skin and subcutaneous structures of the needle entry site was then infiltrated with 5 mL of lidocaine 1%. Under AP and lateral fluoroscopic control, the spinal needle was guided into the right sacroiliac joint. 1 mL contrast was injected and was consistent with intra-articular placement. There was no evidence for intravascular uptake. After negative aspiration, the above-mentioned injectate was then slowly administered and the needle withdrawn. The patient expressed no unusual discomfort or paresthesias during the injection. Skin and subcutaneous structures of the needle entry site was then infiltrated with 5 mL of lidocaine 1%. Under AP and lateral fluoroscopic control, the spinal needle was guided into the left sacroiliac joint. 1 mL contrast was injected and was consistent with intra-articular placement. There was no evidence for intravascular uptake. After negative aspiration, the above-mentioned injectate was then slowly administered and the needle withdrawn. The patient expressed no unusual discomfort or paresthesias during the injection. Band-Aids applied to injection sites. EBL: less than 1 ml Complications: None Post Procedure: Patient was taken to the recovery and monitored. The patient was provided a Pain Log to continue to record the patient's response to the target- specific procedure prior to the patient's follow-up visit with the referring physician. Patient was stable upon discharge. Detailed post procedure instructions were provided. Patient was asked to call in the event of worsening pain, fever, weakness, numbness or bladder or bowel incontinence.
== END 2022-08-23 13:34 | disposition home or self-care (01) ==
PROVIDERS: Family Provider Family Medicine; PCP Family Medicine; Referring Provider Anesthesiology; Visit Provider Anesthesiology
DX: M53.3 Sacrococcygeal disorders, not elsewhere classified (principal)
CPT/HCPCS: 27096; J1030; J1040

== ENCOUNTER → 2022-09-06 13:35 | Outpatient (CLI) | payer OTHER, MEDICAID, SELFPAY ==
--- NOTE | 2022-09-06 13:42 | DI.RAD.S_ITS ---
PROCEDURE: FL UPPER GI W AIR INDICATIONS: Pre-Op [facility] COMPARISON: None. FINDINGS: KUB: ACDF. Lumbar sacral spine hardware. Cholecystectomy clips. Preprocedural colors custodian film demonstrates a normal bowel gas pattern. No suspicious abdominal calcifications. Visualized solid organ contours appear normal. Bony structures appear unremarkable. Esophagus: Esophageal mucosa is normal on air-contrast views. There is a mild esophageal dysmotility demonstrated by diminished secondary and tertiary peristaltic stripping waves. No strictures, extrinsic mass effects, or diverticula. No hiatal hernia demonstrated. There is elicited gastroesophageal reflux to the level of the upper esophagus with leg lift. There is delayed transit of a calibrated barium tablet through the esophagus. Stomach: The stomach is normally distensible, with normal rugal fold thickness. No mucosal masses or ulcers. Pylorus and duodenal bulb appear normal in morphology. Duodenal folds are normal in thickness as well. Small distal duodenal diverticulum. IMPRESSION: Gastroesophageal reflux is elicited in the supine position. Mild esophageal dysmotility. Mild delay in transit of the barium tablet through the gastroesophageal junction. Dictated by: Mekhi Masters M.D. on 09/06/2022 at 15:40 Approved by: Mekhi Masters M.D. on 09/06/2022 at 15:44
[2022-09-06 15:20] LABS: Add Manual Diff / Slide Review NO; Basophils Absolute Auto 0 /uL (0-100); Basophils Percent Auto 0.5 % (0-2); Eosinophils Absolute Auto 100 /uL (0-450); Eosinophils Percent Auto 0.7 % (2-4); Hemoglobin 11.3 g/dL (12.0-16.0); Lymphocytes Absolute Auto 2100 /uL (1100-4500); Lymphocytes Percent Auto 25.9 % (25-40); Mean Corpuscular HGB Conc 32.3 % (30-36); Mean Corpuscular Hemoglobin 28.1 PG (26-34); Monocytes Absolute Auto 500 /uL (0-900); Monocytes Percent Auto 5.5 % (3-14); Neutrophils Absolute Auto 5600 /uL (1500-7000); Neutrophils Percent Auto 67.4 % (50-75); Platelet Count 244 X10^3/uL (150-400); Red Blood Cell Count 4.03 X10^6/uL (4.0-5.2); Red Cell Distribution Width 15.8 % (11.6-14.8); White Blood Cell Count 8.3 X10^3/uL (4.5-11.0)
[2022-09-06 15:44] LABS: Alanine Aminotransferase 20 IU/L (<35); Albumin 4.3 g/dL (3.5-5.0); Albumin Globulin Ratio 1.5 (1.0-2.8); Alkaline Phosphatase 74 U/L (38-126); Aspartate Aminotransferase 27 IU/L (14-36); BUN Creatinine Ratio 25.6 (6-22); Bilirubin Total 0.3 mg/dL (0.2-1.3); Blood Urea Nitrogen 22 mg/dL (7-17); Calcium 8.9 mg/dL (8.4-10.2); Carbon Dioxide 30 mmol/L (22-32); Chloride 100 mmol/L (98-107); Cholesterol 215 mg/dL (140-199); Estimated Glomerular Filt Rate > 60 mL/min (>60); Globulin 2.8 g/dL (1.7-4.1); Glucose 82 mg/dL (70-100); HDL Cholesterol 65 mg/dL (40-60); HEMOLYSIS < 15 (0-50); LDL Cholesterol Calculated 131 mg/dL (<100); Potassium 4.6 mmol/L (3.4-5.1); Sodium 137 mmol/L (137-145); Total Protein 7.1 g/dL (6.3-8.2); Triglycerides 95 mg/dL (35-150); Uric Acid 5.7 mg/dL (2.5-6.2)
[2022-09-06 15:57] LABS: Vitamin D 25 Hydroxy (D3) 32.6 ng/mL (30.0-100.0)
[2022-09-06 16:12] LABS: TSH w/ Reflex to FT4 0.89 uIU/mL (0.47-4.68)
[2022-09-06 16:32] LABS: Vitamin B12 510 pg/mL (239-931)
== END ==
PROVIDERS: Family Provider Family Medicine; PCP Family Medicine; Referring Provider Family Medicine; Visit Provider Family Medicine
DX: Z01.818 Encounter for other preprocedural examination (principal); K22.4 Dyskinesia of esophagus; K57.10 Diverticulosis of small intestine without perforation or abscess without bleeding; E11.9 Type 2 diabetes mellitus without complications; E66.9 Obesity, unspecified; E78.00 Pure hypercholesterolemia, unspecified; I10 Essential (primary) hypertension; K21.9 Gastro-esophageal reflux disease without esophagitis; K31.84 Gastroparesis; M1A.00X0 Idiopathic chronic gout, unspecified site, without tophus (tophi); Z98.84 Bariatric surgery status
CPT/HCPCS: 36415; 74246; 80053; 80061; 82306; 82607; 83036; 84425; 84443; 84550; 84590; 85025

== ENCOUNTER → 2022-09-10 12:07 | Outpatient (CLI) | payer OTHER, MEDICAID, SELFPAY | PROVIDERS: Family Provider Family Medicine; PCP Family Medicine; Referring Provider Family Medicine; Visit Provider Family Medicine | DX: Z01.818 Encounter for other preprocedural examination (principal) | CPT/HCPCS: 93005 ==

== ENCOUNTER → 2022-10-15 10:56 | Outpatient (CLI) | payer OTHER, MEDICAID, SELFPAY ==
--- NOTE | 2022-10-15 11:01 | DI.RAD.S_ITS ---
PROCEDURE: XR SHOULDER RT MIN 2V INDICATIONS: Right shoulder pain TECHNIQUE: 3 views of the shoulder were acquired. COMPARISON: None. FINDINGS: Bones: No fractures or dislocations. No suspicious bony lesions. Visualized ribs appear intact. Degenerative changes of the right acromioclavicular and glenohumeral joints. Soft tissue calcification adjacent to the superolateral margin of the humeral head compatible with sequela of chronic calcific rotator cuff tendinopathy. Coracoclavicular and acromioclavicular intervals are maintained. Soft tissues: No suspicious soft tissue calcifications. IMPRESSION: Right shoulder without acute fracture or dislocation. Degenerative changes of the right acromioclavicular and glenohumeral joints. Findings compatible with chronic calcific rotator cuff tendinopathy. Dictated by: Maurizio Newell M.D. on 10/15/2022 at 14:22 Approved by: Maurizio Newell M.D. on 10/15/2022 at 14:23
== END ==
PROVIDERS: Family Provider Family Medicine; PCP Family Medicine; Referring Provider Anesthesiology; Visit Provider Anesthesiology
DX: M25.511 Pain in right shoulder (principal); M53.3 Sacrococcygeal disorders, not elsewhere classified; M51.16 Intervertebral disc disorders with radiculopathy, lumbar region; M43.06 Spondylolysis, lumbar region; M43.02 Spondylolysis, cervical region; M79.2 Neuralgia and neuritis, unspecified; F11.90 Opioid use, unspecified, uncomplicated; G89.4 Chronic pain syndrome; Z98.890 Other specified postprocedural states
CPT/HCPCS: 73030; 99214

== ENCOUNTER 2022-10-25 15:45 | Emergency (ER) | payer OTHER, MEDICAID, SELFPAY ==
[2022-10-25 15:59] VITALS: PULSE 104; O2SAT 96
[2022-10-25 16:00] VITALS: BP 156/118; PULSE 109; O2SAT 96
[2022-10-25 16:03] VITALS: BP 156/118; PULSE 121; RESP 18; TEMP 36.9; O2SAT 95; BMI 37.8
--- NOTE | 2022-10-25 16:16 | ED.BACK ---
HPI - Back Pain/Injury <Consuelo Hwang, [facility] - Last Filed: 10/25/22 17:12> General Chief Complaint: Back Pain/Injury Stated Complaint: L hip pain Time Seen by Provider: 10/25/22 16:14 Source: patient History of Present Illness HPI Narrative: This is a 57-year-old female with history of chronic opioid use who is not on Suboxone at this time, states that her chronic pain medication is oxycodone 10-20 mg q.6 hours as needed for her pain, she also takes tizanidine, states that she had both of these medications this morning and has had a flare of her left hip sciatica symptoms. She denies any traumatic or inciting injury. Denies any recent fever chills. States that she took 20 mg of oxycodone in her tizanidine just prior to coming in and she is tearful about her pain. Reports that she used to take fentanyl. Denies any urinary frequency or urgency, denies fever chills, denies any recent twist her change her movements that cause for her injury. She states that she does not need imaging and wishes to find pain relief and go home so she came get through the weekend. She states that she is scheduled for bariatric surgery next week and she is having constipation because she is been taking her pain medication for her back pain. She denies any blood, denies any serious pain, just states that she feels full Related Data Home Medications Medication Instructions Recorded Confirmed multivitamin 1 cap PO DAILY 12/26/18 10/15/22 Previous Rx's Medication Instructions Recorded lancets 33 gauge (BD Ultra Fine #100 ea 05/04/20 Lancets) blood sugar diagnostic #100 ea 05/24/20 prochlorperazine maleate 10 mg 10 mg PO Q8H PRN nausea and 08/03/20 tablet (Compazine) vomiting #20 tabs allopurinol 300 mg tablet 300 mg PO DAILY #90 tabs 08/22/21 fluticasone propionate 50 See Rx Instructions .Route 09/01/21 mcg/actuation nasal .COMPLEX #16 grams spray,suspension lidocaine 5 % topical patch 1 patch topical DAILY #30 ea 10/19/21 valsartan 80 mg tablet 80 mg PO DAILY #90 tabs 01/09/22 chlorthalidone 25 mg tablet 25 mg PO DAILY #90 tabs 01/12/22 metformin 500 mg tablet See Rx Instructions .Route 01/21/22 .COMPLEX #180 tabs sumatriptan succinate 100 mg See Rx Instructions PO .COMPLEX 02/28/22 tablet (Imitrex) #14 tabs bupropion HCl 200 mg tablet,12 hr 200 mg PO BID #180 ea 04/02/22 sustained-release naproxen 500 mg tablet,delayed 500 mg PO BID #60 tabs 07/13/22 release paroxetine HCl 20 mg tablet See Rx Instructions .Route 08/10/22 .COMPLEX #90 tabs cyclobenzaprine 10 mg tablet See Rx Instructions .Route 08/14/22 .COMPLEX #30 tabs pen needle, diabetic 31 gauge x ##100 10/04/2207/18 (TRUEplus Pen Needle) liraglutide 0.6 mg/0.1 mL (18 mg/3 0.6 mg (0.1 mL) SUBCUT DAILY #9 mL 10/08/22 mL) subcutaneous pen injector (docTrackrza 3-Sergio) pregabalin 50 mg capsule (Lyrica) 50 mg PO TID #90 caps 10/15/22 amlodipine 5 mg tablet See Rx Instructions .Route 10/16/22 .COMPLEX #90 tabs diazepam 10 mg tablet 10 mg PO BEDTIME PRN sleep #14 tabs 10/25/22 methocarbamol 750 mg tablet 750 mg PO Q8H PRN muscle spasm #30 10/25/22 tabs oxycodone 10 mg tablet 10 mg PO Q8H PRN pain #14 tabs 10/25/22 oxycodone 10 mg tablet 10 mg PO TID PRN pain #90 tabs 10/25/22 polyethylene glycol 3350 17 17 g PO BID until your procedure 7 10/25/22 gram/dose oral powder (Miralax) days #238 grams prednisone 20 mg tablet 20 mg PO DAILY 4 days #4 tabs 10/25/22 tizanidine 4 mg tablet 4 mg PO Q6H PRN muscle spasticity 10/25/22 #30 tabs Allergies Allergy/AdvReac Type Severity Reaction Status Date / Time bee venom protein (honey bee) Allergy Intermediate severe Verified 10/15/22 10:00 edema silver Allergy Unknown Verified 10/15/22 10:00 [From Tegaderm AG Mesh] Penicillins Allergy Vomiting Verified 10/25/22 16:05 prednisone AdvReac Mild Agitated Verified 10/15/22 10:00 Review of Systems <PAULA Casillas - Last Filed: 10/25/22 17:12> Review of Systems ROS Unobtainable: All systems reviewed & are unremarkable except as noted in HPI and below Patient History <PAULA Casillas - Last Filed: 10/25/22 17:12> Medical History Anxiety Asthma Cataracts, bilateral Chronic back pain Chronic seasonal allergic rhinitis Deep vein thrombosis Depression Gastroparesis Gout Hypertension Ingrown right greater toenail Insomnia due to medical condition Knee pain Migraine aura without headache Nocturnal hypoxemia Obesity (BMI 30-39.9) Obstructive sleep apnea, adult Post traumatic stress disorder (PTSD) Prediabetes Preop general physical exam Radicular pain in left arm Radiculopathy, cervical region Radiculopathy, lumbosacral region Renal insufficiency Right shoulder pain Sacrococcygeal disorders, not elsewhere classified Scoliosis Spondylolysis Spondylolysis of cervical spine Urinary tract infection Vision disorder Vulvar abscess Surgical History Anesthesia Bariatric surgery status H/O cervical spine surgery (~2014) History of bladder surgery History of bladder suspension procedure (~1995) History of cholecystectomy History of neck surgery Plantar fasciitis Post-operative state Previous back surgery Previous section Family History Mother Diabetes mellitus Heart disease Hypertension Social History Smoking Status: Former smoker Tobacco: How many years used: 40 alcohol intake: current Smoking Status: Former smoker alcohol intake frequency: holidays/special occasions only Substance Use Type: marijuana Exam <PAULA Casillas - Last Filed: 10/25/22 17:12> Narrative Exam Narrative: Reviewed vitals signs and nursing notes. General: Pleasant, sitting upright, in no acute distress, well groomed, afebrile HEENT: symmetrical facial expressions, moist mucous membranes, neck is supple CV: regular rate and rhythm, warm extremities Respiratory: normal work of breathing, without tachypnea or hypoxia. GI: abdomen soft, nondistended, without CVA tenderness bilaterally. MSK: moves all extremities, no weakness, normal tone, ambulatory without deficit, patient is nontender over lumbar spine, this paraspinal musculature is tense primarily on the left of her lumbar spine, she endorses sciatica from her left lateral hip down to her knee, she has a palpable tight IT band in the left, states that she has osteoarthritis and it affects her knees. Skin: brisk capillary refill, without rash or wound Neuro: normal speech and cognition, A&O x3 Initial Vital Signs Initial Vital Signs: Vital Signs Pulse Rate 104 H 10/25/22 15:59 Pulse Oximetry 96 10/25/22 15:59 <Evaristo Montemayor DO - Last Filed: 10/25/22 19:49> Initial Vital Signs Initial Vital Signs: Vital Signs Pulse Rate 104 H 10/25/22 15:59 Pulse Oximetry 96 10/25/22 15:59 Course <PAULA Casillas - Last Filed: 10/25/22 17:12> Orders Ordered: Discontinued Medications Diazepam (Diazepam 5 Mg Tablet) 10 mg PO NOW ONE Stop: 10/25/22 16:19 Last Admin: 10/25/22 16:27 Dose: 10 mg Documented By: RB Hydromorphone HCl (Hydromorphone 2 Mg Tablet) 2 mg PO NOW ONE Stop: 10/25/22 16:19 Last Admin: 10/25/22 16:27 Dose: 2 mg Documented By: RB Ketorolac Tromethamine (Ketorolac 30 Mg/Ml Vial) 30 mg IM NOW ONE Stop: 10/25/22 16:19 Last Admin: 10/25/22 16:27 Dose: 30 mg Documented By: RB Lactulose (Lactulose 20 Gm/30 Ml Solution) 20 gm PO NOW ONE Stop: 10/25/22 16:51 Last Admin: 10/25/22 17:09 Dose: Not Given Documented By: RB Lidocaine (Lidocaine Patch 1 Each Adh..Patch) 1 each TOP NOW ONE Stop: 10/25/22 16:20 Last Admin: 10/25/22 16:28 Dose: 1 each Documented By: RB Prednisone (Prednisone 20 Mg Tablet) 20 mg PO NOW ONE Stop: 10/25/22 16:51 Last Admin: 10/25/22 17:09 Dose: Not Given Documented By: RB Vital Signs Vital signs: Vital Signs - 8 hr 10/25/22 16:03 10/25/22 15:59 10/25/22 16:00 Temperature 98.4 F Pulse Rate 121 H 104 H Respiratory Rate 18 Blood Pressure 156/118 H 156/118 H Pulse Oximetry 95 96 Oxygen Delivery Method Room Air 10/25/22 16:00 10/25/22 16:50 Temperature Pulse Rate 109 H 89 Respiratory Rate 15 Blood Pressure 142/96 H Pulse Oximetry 96 97 Oxygen Delivery Method Room Air <Evaristo Montemayor DO - Last Filed: 10/25/22 19:49> Orders Ordered: Discontinued Medications Diazepam (Diazepam 5 Mg Tablet) 10 mg PO NOW ONE Stop: 10/25/22 16:19 Last Admin: 10/25/22 16:27 Dose: 10 mg Documented By: RB Hydromorphone HCl (Hydromorphone 2 Mg Tablet) 2 mg PO NOW ONE Stop: 10/25/22 16:19 Last Admin: 10/25/22 16:27 Dose: 2 mg Documented By: RB Ketorolac Tromethamine (Ketorolac 30 Mg/Ml Vial) 30 mg IM NOW ONE Stop: 10/25/22 16:19 Last Admin: 10/25/22 16:27 Dose: 30 mg Documented By: RB Lactulose (Lactulose 20 Gm/30 Ml Solution) 20 gm PO NOW ONE Stop: 10/25/22 16:51 Last Admin: 10/25/22 17:09 Dose: Not Given Documented By: RB Lidocaine (Lidocaine Patch 1 Each Adh..Patch) 1 each TOP NOW ONE Stop: 10/25/22 16:20 Last Admin: 10/25/22 16:28 Dose: 1 each Documented By: RB Prednisone (Prednisone 20 Mg Tablet) 20 mg PO NOW ONE Stop: 10/25/22 16:51 Last Admin: 10/25/22 17:09 Dose: Not Given Documented By: RB Vital Signs Vital signs: Vital Signs - 8 hr 10/25/22 16:03 10/25/22 15:59 10/25/22 16:00 Temperature 98.4 F Pulse Rate 121 H 104 H Respiratory Rate 18 Blood Pressure 156/118 H 156/118 H Pulse Oximetry 95 96 Oxygen Delivery Method Room Air 10/25/22 16:00 10/25/22 16:50 Temperature Pulse Rate 109 H 89 Respiratory Rate 15 Blood Pressure 142/96 H Pulse Oximetry 96 97 Oxygen Delivery Method Room Air MDM - Back Pain/Injury <PAULA Casillas - Last Filed: 10/25/22 17:12> Lab Data Labs: Urine Dip Bedside Urine Glucose Negative Bedside Urine Bilirubin - Negative Bedside Urine Ketone - Negative Urine Specific [place] 1.010 Bedside Urine Occult Blood - Negative Bedside Urine pH 6.0 Bedside Urine Protein - Negative Bedside Urine Urobilinogen - Negative Bedside Urine Nitrite - Negative Bedside Urine Leukocytes - Negative Esterase MDM Narrative Medical decision making narrative: Chief Complaint: low back pain Multiple etiologies for patient's symptoms considered including, but not limited to: disc injury/herniation, radiculopathy, paraspinal or other muscular strain, chronic pain, acute fracture, urinary tract infection, osteoarthritis, degenerative disc disease, cauda equina, osteomyelitis, epidural abscess, spinal stenosis, ligamental injury. I have independently reviewed the patient's vital signs and nursing notes as well as prior records if available. Pertinent lab findings reviewed: Urine dip is negative for abnormalitiy, aseptic Pertinent Imaging reviewed: No imaging indicated today Patient declined needing imaging today, she denies any infectious symptoms her pain improved mildly with medications. She was given a short course of prednisone for exacerbation pain and a large container a MiraLax for which she will use twice a day until her bowel prep for surgery next week. She as recent history of constipation secondary to opioid use. She was having muscle spasms today, this had slightly improved, low suspicion for epidural abscess or cauda equina. She was ambulatory to the pharmacy to picker and sorter load and unload the medications for her before they closed and had an expedited departure and requested discharge by 17:00. Social considerations that may affect disposition: none Questions are addressed and there is agreement with the plan and for follow-up. Patient is appropriate for outpatient management. Their symptoms improved over the course. <Evaristo Montemayor DO - Last Filed: 10/25/22 19:49> Lab Data Labs: Urine Dip Bedside Urine Glucose Negative Bedside Urine Bilirubin - Negative Bedside Urine Ketone - Negative Urine Specific [place] 1.010 Bedside Urine Occult Blood - Negative Bedside Urine pH 6.0 Bedside Urine Protein - Negative Bedside Urine Urobilinogen - Negative Bedside Urine Nitrite - Negative Bedside Urine Leukocytes - Negative Esterase Discharge Plan Departure Patient Disposition: Home Clinical Impression: Acute exacerbation of chronic low back pain Instructions: DI for Back Pain With Sciatica Activity Restrictions/Additional Instructions: *You have been diagnosed with an exacerbation of your low back pain. I will call you if the urine shows infection. Please picker and sorter load and unload your medications from [facility] before they close. I have just sent them. I want you to take MiraLax and prednisone today as well as continue with ibuprofen and your other medications. You must take MiraLax twice a day until your surgery date. You have a large stool burden and taking these pain medications will only worsen that. I hope you start feeling better soon, come back to the emergency department if you need us. *What to do: *Please continue to take your regular medications as directed. [x ] New medication prescriptions sent to your pharmacy: [[facility] ] [ ] New medication written as a paper prescription [ ] No new medications given *Please follow up with your primary care provider in 2-3 days, call for an appointment. Let them know you were seen in the Emergency Department and that we asked that you be seen for follow-up. We will electronically transmit a record of today's note if your PCP is in our system *If you do not have a primary care provider please contact [phone] to establish care with one of the [facility] primary care providers. *Return to Emergency Department if you should have any new, worsening, or concerning symptoms, such as [fever greater than 101F, chills, worsening pain, persistent vomiting or other bothersome symptoms]. Prescriptions: New polyethylene glycol 3350 [Miralax] 17 gram/dose powder 17 g PO BID 7 Days Qty: 238 0RF methocarbamol 750 mg tablet 750 mg PO Q8H PRN (Reason: muscle spasm) Qty: 30 0RF prednisone 20 mg tablet 20 mg PO DAILY 4 Days Qty: 4 0RF oxycodone 10 mg tablet 10 mg PO Q8H PRN (Reason: pain) Qty: 14 0RF diazepam 10 mg tablet 10 mg PO BEDTIME PRN (Reason: sleep) Qty: 14 0RF No Action (DME) lancets [BD Ultra Fine Lancets] 33 gauge misc See Rx Instructions .ROUTE .MEDSUPPLY Qty: 100 5RF Rx Instructions: Use to test blood glucose twice daily (DME) blood sugar diagnostic Strip See Rx Instructions .ROUTE .MEDSUPPLY Qty: 100 6RF Rx Instructions: check blood sugar twice a day Matrix brand or same as meter kit allopurinol 300 mg tablet 300 mg PO DAILY Qty: 90 3RF fluticasone propionate 50 mcg/actuation spray,suspension See Rx Instructions .ROUTE .COMPLEX Qty: 16 2RF Dose Instruction: use 2 spray into each nostril once daily Rx Instructions: use 2 spray into each nostril once daily lidocaine 5 % adhesive patch,medicated 1 patch topical DAILY Qty: 30 1RF Rx Instructions: leave on most painful area for up to 12 hrs valsartan 80 mg tablet 80 mg PO DAILY Qty: 90 2RF chlorthalidone 25 mg tablet 25 mg PO DAILY Qty: 90 2RF metformin 500 mg tablet See Rx Instructions .ROUTE .COMPLEX Qty: 180 3RF Dose Instruction: TAKE ONE TABLET BY MOUTH TWICE DAILY Rx Instructions: TAKE ONE TABLET BY MOUTH TWICE DAILY sumatriptan succinate [Imitrex] 100 mg tablet See Rx Instructions PO .COMPLEX Qty: 14 2RF Rx Instructions: take 1 tab at onset of headache; if no relief, may repeat 1 tab after at least 2 hrs; max = 2 tabs/24 hrs PO bupropion HCl 200 mg tablet sustained-release 12 hr 200 mg PO BID Qty: 180 3RF paroxetine HCl 20 mg tablet See Rx Instructions .ROUTE .COMPLEX Qty: 90 1RF Dose Instruction: TAKE ONE TABLET BY MOUTH ONCE DAILY AT BEDTIME Rx Instructions: TAKE ONE TABLET BY MOUTH ONCE DAILY AT BEDTIME cyclobenzaprine 10 mg tablet See Rx Instructions .ROUTE .COMPLEX Qty: 30 1RF Dose Instruction: Take one tablet by mouth at bedtime as needed for muscle spasms. Rx Instructions: Take one tablet by mouth at bedtime as needed for muscle spasms. (DME) pen needle, diabetic [TRUEplus Pen Needle] 31 gauge x 1/4 needle See Rx Instructions .ROUTE .COMPLEX Qty: 100 3RF Dose Instruction: USE TO INJECT VICTOZA DAILY Rx Instructions: USE TO INJECT VICTOZA DAILY amlodipine 5 mg tablet See Rx Instructions .ROUTE .COMPLEX Qty: 90 1RF Dose Instruction: TAKE ONE TABLET BY MOUTH ONE TIME DAILY Rx Instructions: TAKE ONE TABLET BY MOUTH ONE TIME DAILY oxycodone 10 mg tablet 10 mg PO TID PRN (Reason: pain) Qty: 90 0RF tizanidine 4 mg tablet 4 mg PO Q6H PRN (Reason: muscle spasticity) Qty: 30 1RF Rx Instructions: Use during daytime for mm tension relief prochlorperazine maleate [Compazine] 10 mg tablet 10 mg PO Q8H PRN (Reason: nausea and vomiting) Qty: 20 1RF naproxen 500 mg tablet,delayed release (DR/EC) 500 mg PO BID Qty: 60 5RF Rx Instructions: with food multivitamin capsule 1 cap PO DAILY Victoza 3-Sergio 0.6 mg/0.1 mL (18 mg/3 mL) pen injector 0.6 mg SUBCUT DAILY Qty: 9 2RF Rx Instructions: 0.6 mg once daily pregabalin [Lyrica] 50 mg capsule 50 mg PO TID Qty: 90 2RF Referrals: Arnoldo Ribeiro DO [Primary Care Provider] - Stand Alone Forms: Patient Portal/API <Evaristo Montemayor DO - Last Filed: 10/25/22 19:49> Cosign ED Attending Fredyature Attestation: I was immediately available in the department for consultation. Documentation has been reviewed. I agree with assessment and plan.
[2022-10-25] MEDS: KETOROLAC 30 MG/ML VIAL IM (16:27)
[2022-10-25] MEDS: HYDROMORPHONE 2 MG TABLET PO (16:27)
[2022-10-25] MEDS: diazePAM 5 MG TABLET 10 MG PO (16:27)
[2022-10-25] MEDS: LIDOCAINE PATCH 1 EACH ADH..PATCH TOP (16:28)
[2022-10-25 16:50] VITALS: BP 142/96; PULSE 89; RESP 15; O2SAT 97
== END 2022-10-25 16:54 | disposition home or self-care (01) ==
PROVIDERS: Emergency Provider Nurse Practitioner Critical Care Medicine; Family Provider Family Medicine; PCP Family Medicine
DX: M54.50 Low back pain, unspecified (principal)
CPT/HCPCS: 81003; 96372; 99283; 99284; J1885

== ENCOUNTER 2022-12-25 13:39 | Emergency (ER) | payer OTHER, MEDICAID, SELFPAY ==
[2022-12-25 13:44] VITALS: BP 112/61; PULSE 77; RESP 16; TEMP 36.1; O2SAT 96; BMI 32.5
[2022-12-25 14:08] LABS: Hematocrit 36.9 % (36-46); Hemoglobin 12.1 g/dL (12.0-16.0); Red Blood Cell Count 4.26 X10^6/uL (4.0-5.2); White Blood Cell Count 8.4 X10^3/uL (4.5-11.0)
[2022-12-25 14:09] LABS: Add Manual Diff / Slide Review NO; Basophils Absolute Auto 100 /uL (0-100); Basophils Percent Auto 1.4 % (0-2); Eosinophils Absolute Auto 100 /uL (0-450); Eosinophils Percent Auto 1.4 % (2-4); Lymphocytes Absolute Auto 2600 /uL (1100-4500); Lymphocytes Percent Auto 30.6 % (25-40); Mean Corpuscular HGB Conc 32.9 % (30-36); Mean Corpuscular Hemoglobin 28.5 PG (26-34); Mean Corpuscular Volume 86.5 fL (80-100); Monocytes Absolute Auto 500 /uL (0-900); Monocytes Percent Auto 6.3 % (3-14); Neutrophils Absolute Auto 5000 /uL (1500-7000); Neutrophils Percent Auto 60.3 % (50-75); Platelet Count 211 X10^3/uL (150-400)
[2022-12-25 14:16] LABS: INR 1.1 (0.9-1.3); Prothrombin Time 12.2 SECONDS (10.1-12.7)
[2022-12-25 14:19] LABS: PTT Partial Thromboplastin Tim 38 SECONDS (26-36)
[2022-12-25 14:20] LABS: Alanine Aminotransferase 20 IU/L (<35); Albumin 4.3 g/dL (3.5-5.0); Albumin Globulin Ratio 1.4 (1.0-2.8); Alkaline Phosphatase 89 U/L (38-126); Aspartate Aminotransferase 27 IU/L (14-36); BUN Creatinine Ratio 15.1 (6-22); Bilirubin Total 0.3 mg/dL (0.2-1.3); Blood Urea Nitrogen 14 mg/dL (7-17); Calcium 9.2 mg/dL (8.4-10.2); Carbon Dioxide 33 mmol/L (22-32); Chloride 98 mmol/L (98-107); Estimated Glomerular Filt Rate > 60 mL/min (>60); Globulin 3.1 g/dL (1.7-4.1); Glucose 105 mg/dL (70-100); HEMOLYSIS < 15 (0-50); Potassium 3.8 mmol/L (3.4-5.1); Sodium 139 mmol/L (137-145); Total Protein 7.4 g/dL (6.3-8.2)
[2022-12-25 14:49] VITALS: BP 116/60; PULSE 62; RESP 16; O2SAT 96
[2022-12-25 15:46] VITALS: BP 141/60; BP 141/61; PULSE 59; O2SAT 96
--- NOTE | 2022-12-25 15:50 | ED.DIZZY ---
HPI - Dizziness General Chief Complaint: Dizziness Stated Complaint: PCP ref walk in clinic Hypo. 88/51 ck again 92/54 Time Seen by Provider: 12/25/22 15:21 Source: patient Mode of arrival: Ambulatory History of Present Illness HPI Narrative: Patient is a 57-year-old female presenting today with hypotension and dizziness. She went to sleep evaluation this morning they noted that her blood pressure was low in the 80s rechecked in the 90s thought she looked pale. She was able to drive herself home she did eat half a chocolate chip cookie on the way home. She was instructed to come and get evaluated. Blood pressures limits. She denies any nausea vomiting diarrhea she is no abdominal pain no chest pain or shortness of breath. She is overall feeling back to her normal self. She has some mild chronic pain for which she takes oxycodone for. She reports that she is not over taken it. She recently had gastric surgery in October he has been eating drinking normally. Related Data Home Medications Medication Instructions Recorded Confirmed naloxone 4 mg/actuation nasal spray 1 spray intranasal 11/06/22 12/03/22 ondansetron 8 mg disintegrating 8 mg PO PRN 11/06/22 12/03/22 tablet Previous Rx's Medication Instructions Recorded lancets 33 gauge (BD Ultra Fine #100 ea 05/04/20 Lancets) blood sugar diagnostic #100 ea 05/24/20 prochlorperazine maleate 10 mg 10 mg PO Q8H PRN nausea and 08/03/20 tablet (Compazine) vomiting #20 tabs allopurinol 300 mg tablet 300 mg PO DAILY #90 tabs 08/22/21 fluticasone propionate 50 See Rx Instructions .Route 09/01/21 mcg/actuation nasal .COMPLEX #16 grams spray,suspension lidocaine 5 % topical patch 1 patch topical DAILY #30 ea 10/19/21 chlorthalidone 25 mg tablet 25 mg PO DAILY #90 tabs 01/12/22 sumatriptan succinate 100 mg See Rx Instructions PO .COMPLEX 02/28/22 tablet (Imitrex) #14 tabs paroxetine HCl 20 mg tablet See Rx Instructions .Route 08/10/22 .COMPLEX #90 tabs pen needle, diabetic 31 gauge x ##100 10/04/2207/18 (TRUEplus Pen Needle) liraglutide 0.6 mg/0.1 mL (18 mg/3 0.6 mg (0.1 mL) SUBCUT DAILY #9 mL 10/08/22 mL) subcutaneous pen injector (Sparkbrowsertoza 3-Sergio) pregabalin 50 mg capsule (Lyrica) 50 mg PO TID #90 caps 10/15/22 diazepam 10 mg tablet 10 mg PO BEDTIME PRN sleep #14 tabs 10/25/22 valsartan 80 mg tablet 80 mg PO DAILY #90 tabs 10/30/22 bupropion HCl 100 mg tablet 100 mg PO QID #360 tabs 11/09/22 esomeprazole magnesium 40 mg 40 mg PO DAILY #90 caps 11/09/22 capsule,delayed release potassium chloride 20 mEq 20 meq PO DAILY #90 tabs 11/09/22 tablet,extended release(part/cryst) oxycodone 10 mg tablet 10 mg PO TID PRN pain #90 tabs 11/27/22 amlodipine 2.5 mg tablet 2.5 mg PO DAILY #90 tabs 12/25/22 Allergies Allergy/AdvReac Type Severity Reaction Status Date / Time bee venom protein (honey bee) Allergy Intermediate severe Verified 12/25/22 13:44 edema silver Allergy Unknown Verified 12/25/22 13:44 [From TegadeScan AG Mesh] Penicillins Allergy Vomiting Verified 12/25/22 13:44 prednisone AdvReac Mild Agitated Verified 12/25/22 13:44 Review of Systems Review of Systems ROS Unobtainable: All systems reviewed & are unremarkable except as noted in HPI and below Patient History Medical History Anxiety Asthma Cataracts, bilateral Chronic back pain Chronic seasonal allergic rhinitis Deep vein thrombosis Depression Gastroparesis Gout Hypertension Ingrown right greater toenail Insomnia due to medical condition Knee pain Migraine aura without headache Nocturnal hypoxemia Obesity (BMI 30-39.9) Obstructive sleep apnea, adult Post traumatic stress disorder (PTSD) Prediabetes Preop general physical exam Radicular pain in left arm Radiculopathy, cervical region Radiculopathy, lumbosacral region Renal insufficiency Right shoulder pain Sacrococcygeal disorders, not elsewhere classified Scoliosis Spondylolysis Spondylolysis of cervical spine Urinary tract infection Vision disorder Vulvar abscess Surgical History Anesthesia Bariatric surgery status H/O cervical spine surgery (~2014) History of bladder surgery History of bladder suspension procedure (~1995) History of cholecystectomy History of neck surgery Plantar fasciitis Post-operative state Previous back surgery Previous section Family History Mother Diabetes mellitus Heart disease Hypertension Social History Smoking Status: Former smoker Tobacco: How many years used: 40 alcohol intake: current Smoking Status: Former smoker alcohol intake frequency: holidays/special occasions only Substance Use Type: marijuana Exam Initial Vital Signs Initial Vital Signs: Vital Signs Temperature 97.0 F L 12/25/22 13:44 Pulse Rate 77 12/25/22 13:44 Respiratory Rate 16 12/25/22 13:44 Blood Pressure 112/61 12/25/22 13:44 Pulse Oximetry 96 12/25/22 13:44 Oxygen Delivery Method Room Air 12/25/22 13:44 GENERAL: Alert pleasant 57-year-old female and in no acute distress. HEENT: Head atraumatic,EOMI, pupils reactive, face symmetric, moist mucous membranes CARDIOVASCULAR: Regular rate and rhythm without murmurs, rubs or gallops. RESPIRATORY: Breath sounds equal bilaterally, no wheezes rales or rhonchi. ABDOMEN: Soft, nontender. Normoactive bowel sounds all 4 quadrants. No guarding or rebound. EXTREMITIES: Normal range of motion, no clubbing or edema. Neurovascularly intact NEUROLOGICAL: Alert and oriented x4 SKIN: Warm, dry, no laceration, no petechiae, no rashes or lesions. Course Orders Ordered: ED Orders 12/25/22 13:55 Complete Blood Count AUTO DIFF Stat Comprehensive Metabolic Panel Stat PTT Partial Thromboplastin Jean Pierre Stat Prothrombin Time INR Stat Type and Screen Stat 12/25/22 14:18 EKG-12 Lead Stat Vital Signs Vital signs: Vital Signs - 8 hr 12/25/22 13:44 12/25/22 14:49 12/25/22 15:46 Temperature 97.0 F L Pulse Rate 77 62 59 L Respiratory Rate 16 16 Blood Pressure 112/61 116/60 141/60 H Pulse Oximetry 96 96 96 Oxygen Delivery Method Room Air Room Air 12/25/22 15:46 12/25/22 16:00 12/25/22 16:30 Temperature Pulse Rate 55 L 57 L Respiratory Rate Blood Pressure 141/61 H Pulse Oximetry 95 96 Oxygen Delivery Method MDM - Dizziness Lab Data 12/25/22 13:55 12/25/22 13:55 Labs: Lab Results 12/25/22 12/25/22 12/25/22 Range/Units 13:55 13:55 13:55 WBC 8.4 (4.5-11.0) X10^3/uL RBC 4.26 (4.0-5.2) X10^6/uL Hgb 12.1 (12.0-16.0) g/dL Hct 36.9 (36-46) % MCV 86.5 (80-100) fL MCH 28.5 (26-34) PG MCHC 32.9 (30-36) % RDW 17.0 H (11.6-14.8) % Plt Count 211 (150-400) X10^3/uL Neut % (Auto) 60.3 (50-75) % Lymph % (Auto) 30.6 (25-40) % [place] % (Auto) 6.3 (3-14) % Eos % (Auto) 1.4 L (2-4) % Baso % (Auto) 1.4 (0-2) % Neut # (Auto) 5000 (2337-2804) /uL Lymph # (Auto) 2600 (2601-1357) /uL [place] # (Auto) 500 (0-900) /uL Eos # (Auto) 100 (0-450) /uL Baso # (Auto) 100 (0-100) /uL PT 12.2 (10.1-12.7) SECONDS INR 1.1 (0.9-1.3) APTT 38 H (26-36) SECONDS Sodium 139 (137-145) mmol/L Potassium 3.8 (3.4-5.1) mmol/L Chloride 98 (98-107) mmol/L Carbon Dioxide 33 H (22-32) mmol/L BUN 14 (7-17) mg/dL Creatinine 0.93 (0.52-1.04) mg/dL Estimated GFR > 60 (>60) mL/min BUN/Creatinine Ratio 15.1 (6-22) Glucose 105 H (70-100) mg/dL Calcium 9.2 (8.4-10.2) mg/dL Total Bilirubin 0.3 (0.2-1.3) mg/dL AST 27 (14-36) IU/L ALT 20 (<35) IU/L Alkaline Phosphatase 89 (38-126) U/L Total Protein 7.4 (6.3-8.2) g/dL Albumin 4.3 (3.5-5.0) g/dL Globulin 3.1 (1.7-4.1) g/dL Albumin/Globulin Ratio 1.4 (1.0-2.8) Blood Type Antibody Screen 12/25/22 Range/Units 13:55 WBC (4.5-11.0) X10^3/uL RBC (4.0-5.2) X10^6/uL Hgb (12.0-16.0) g/dL Hct (36-46) % MCV (80-100) fL MCH (26-34) PG MCHC (30-36) % RDW (11.6-14.8) % Plt Count (150-400) X10^3/uL Neut % (Auto) (50-75) % Lymph % (Auto) (25-40) % [place] % (Auto) (3-14) % Eos % (Auto) (2-4) % Baso % (Auto) (0-2) % Neut # (Auto) (6882-2235) /uL Lymph # (Auto) (6407-9025) /uL [place] # (Auto) (0-900) /uL Eos # (Auto) (0-450) /uL Baso # (Auto) (0-100) /uL PT (10.1-12.7) SECONDS INR (0.9-1.3) APTT (26-36) SECONDS Sodium (137-145) mmol/L Potassium (3.4-5.1) mmol/L Chloride (98-107) mmol/L Carbon Dioxide (22-32) mmol/L BUN (7-17) mg/dL Creatinine (0.52-1.04) mg/dL Estimated GFR (>60) mL/min BUN/Creatinine Ratio (6-22) Glucose (70-100) mg/dL Calcium (8.4-10.2) mg/dL Total Bilirubin (0.2-1.3) mg/dL AST (14-36) IU/L ALT (<35) IU/L Alkaline Phosphatase (38-126) U/L Total Protein (6.3-8.2) g/dL Albumin (3.5-5.0) g/dL Globulin (1.7-4.1) g/dL Albumin/Globulin Ratio (1.0-2.8) Blood Type O Positive Antibody Screen Negative Urine Dip Bedside Urine Glucose Negative Bedside Urine Bilirubin - Negative Bedside Urine Ketone - Negative Urine Specific [place] 1.025 Bedside Urine Occult Blood - Negative Bedside Urine pH 6.0 Bedside Urine Protein - Negative Bedside Urine Urobilinogen - Negative Bedside Urine Nitrite - Negative Bedside Urine Leukocytes - Negative Esterase ECG Data Interpretation: Sinus rhythm rate 61 IN interval 146 QRS [address] changes or T-wave inversions MDM Narrative Medical decision making narrative: Patient is a 57-year-old female who was hypotensive earlier today. She is not hypotensive here. She had 2 different readings. Blood work is overall reassuring blood pressure has improved. She is not having any volume loss she no pain he denies any increase in oxycodone. She overall appears well she is back to her normal state of health. No need for any further workup or admission. Discharge Plan Departure Patient Disposition: Home Clinical Impression: No problem, feared complaint unfounded Instructions: Orthostatic Hypotension Activity Restrictions/Additional Instructions: *You have been diagnosed with blood pressure is normal now *What to do: Blood work is reassuring. Her blood pressure is back to normal. Please check it regularly *Continue to take medications as directed *Follow up with your primary care provider in 2-3 days or call [phone] *Return to ER if you should have increasing dizziness lightheadedness persistently low blood pressure or any new, worsening or concerning symptoms Prescriptions: No Action (DME) lancets [BD Ultra Fine Lancets] 33 gauge misc See Rx Instructions .ROUTE .MEDSUPPLY Qty: 100 5RF Rx Instructions: Use to test blood glucose twice daily (DME) blood sugar diagnostic Strip See Rx Instructions .ROUTE .MEDSUPPLY Qty: 100 6RF Rx Instructions: check blood sugar twice a day Matrix brand or same as meter kit allopurinol 300 mg tablet 300 mg PO DAILY Qty: 90 3RF fluticasone propionate 50 mcg/actuation spray,suspension See Rx Instructions .ROUTE .COMPLEX Qty: 16 2RF Dose Instruction: use 2 spray into each nostril once daily Rx Instructions: use 2 spray into each nostril once daily lidocaine 5 % adhesive patch,medicated 1 patch topical DAILY Qty: 30 1RF Rx Instructions: leave on most painful area for up to 12 hrs chlorthalidone 25 mg tablet 25 mg PO DAILY Qty: 90 2RF sumatriptan succinate [Imitrex] 100 mg tablet See Rx Instructions PO .COMPLEX Qty: 14 2RF Rx Instructions: take 1 tab at onset of headache; if no relief, may repeat 1 tab after at least 2 hrs; max = 2 tabs/24 hrs PO paroxetine HCl 20 mg tablet See Rx Instructions .ROUTE .COMPLEX Qty: 90 1RF Dose Instruction: TAKE ONE TABLET BY MOUTH ONCE DAILY AT BEDTIME Rx Instructions: TAKE ONE TABLET BY MOUTH ONCE DAILY AT BEDTIME (DME) pen needle, diabetic [TRUEplus Pen Needle] 31 gauge x 1/4 needle See Rx Instructions .ROUTE .COMPLEX Qty: 100 3RF Dose Instruction: USE TO INJECT VICTOZA DAILY Rx Instructions: USE TO INJECT VICTOZA DAILY valsartan 80 mg tablet 80 mg PO DAILY Qty: 90 3RF potassium chloride 20 mEq tablet,ER particles/crystals 20 meq PO DAILY Qty: 90 3RF bupropion HCl 100 mg tablet 100 mg PO QID Qty: 360 3RF esomeprazole magnesium 40 mg capsule,delayed release(DR/EC) 40 mg PO DAILY Qty: 90 2RF oxycodone 10 mg tablet 10 mg PO TID PRN (Reason: pain) Qty: 90 0RF amlodipine 2.5 mg tablet 2.5 mg PO DAILY Qty: 90 1RF Rx Instructions: start taking 2.5 mg tablets prochlorperazine maleate [Compazine] 10 mg tablet 10 mg PO Q8H PRN (Reason: nausea and vomiting) Qty: 20 1RF ondansetron 8 mg tablet,disintegrating 8 mg PO PRN naloxone 4 mg/actuation spray,non-aerosol 1 spray intranasal Victoza 3-Sergio 0.6 mg/0.1 mL (18 mg/3 mL) pen injector 0.6 mg SUBCUT DAILY Qty: 9 2RF Rx Instructions: 0.6 mg once daily diazepam 10 mg tablet 10 mg PO BEDTIME PRN (Reason: sleep) Qty: 14 0RF pregabalin [Lyrica] 50 mg capsule 50 mg PO TID Qty: 90 2RF Referrals: Arnoldo Ribeiro, [Primary Care Provider] - Stand Alone Forms: Patient Portal/API
[2022-12-25 16:00] VITALS: PULSE 55; O2SAT 95
[2022-12-25 16:30] VITALS: PULSE 57; O2SAT 96
== END 2022-12-25 16:41 | disposition home or self-care (01) ==
PROVIDERS: Emergency Provider Emergency Medicine; Family Provider Family Medicine; PCP Family Medicine
DX: I95.9 Hypotension, unspecified (principal)
CPT/HCPCS: 36415; 80053; 81003; 85025; 85610; 85730; 86850; 86900; 86901; 93005; 99283

== ENCOUNTER 2023-03-04 18:47 | Emergency (ER) | payer OTHER, MEDICAID, SELFPAY ==
[2023-03-04 18:51] VITALS: BP 168/93; PULSE 82; RESP 16; TEMP 37; O2SAT 99
[2023-03-04 19:35] LABS: Alanine Aminotransferase 17 IU/L (<35); Albumin 4.4 g/dL (3.5-5.0); Albumin Globulin Ratio 1.4 (1.0-2.8); Alkaline Phosphatase 92 U/L (38-126); Aspartate Aminotransferase 29 IU/L (14-36); BUN Creatinine Ratio 19.5 (6-22); Bilirubin Total 0.4 mg/dL (0.2-1.3); Blood Urea Nitrogen 15 mg/dL (7-17); Calcium 9.6 mg/dL (8.4-10.2); Carbon Dioxide 29 mmol/L (22-32); Chloride 98 mmol/L (98-107); Estimated Glomerular Filt Rate > 60 mL/min (>60); Globulin 3.2 g/dL (1.7-4.1); Glucose 117 mg/dL (70-100); HEMOLYSIS < 15 (0-50); Lipase 296 U/L (23-300); Potassium 3.6 mmol/L (3.4-5.1); Sodium 136 mmol/L (137-145); Total Protein 7.6 g/dL (6.3-8.2)
[2023-03-04 19:40] LABS: Add Manual Diff / Slide Review NO; Basophils Absolute Auto 100 /uL (0-100); Basophils Percent Auto 0.7 % (0-2); Eosinophils Absolute Auto 100 /uL (0-450); Eosinophils Percent Auto 0.4 % (2-4); Hematocrit 38.8 % (36-46); Hemoglobin 12.6 g/dL (12.0-16.0); Lymphocytes Absolute Auto 2100 /uL (1100-4500); Lymphocytes Percent Auto 16.7 % (25-40); Mean Corpuscular HGB Conc 32.4 % (30-36); Mean Corpuscular Hemoglobin 29.4 PG (26-34); Mean Corpuscular Volume 90.5 fL (80-100); Monocytes Absolute Auto 800 /uL (0-900); Monocytes Percent Auto 6.4 % (3-14); Neutrophils Absolute Auto 9400 /uL (1500-7000); Neutrophils Percent Auto 75.8 % (50-75); Platelet Count 278 X10^3/uL (150-400); Red Blood Cell Count 4.29 X10^6/uL (4.0-5.2); Red Cell Distribution Width 16.2 % (11.6-14.8); White Blood Cell Count 12.4 X10^3/uL (4.5-11.0)
--- NOTE | 2023-03-04 21:04 | PC.NURSE ---
HER iv WAS D/C'D PATENT AND INTACT,DRESSING TO SITE AFTER.
== END 2023-03-04 21:03 | disposition left against medical advice (07) ==
PROVIDERS: Emergency Provider Emergency Medicine; Family Provider Family Medicine; PCP Family Medicine
DX: R00.0 Tachycardia, unspecified (principal)
CPT/HCPCS: 36415; 80053; 83690; 85025; 93005; 99283

== ENCOUNTER → 2023-03-05 12:04 | Outpatient (CLI) | payer OTHER, MEDICAID, SELFPAY | PROVIDERS: Family Provider Family Medicine; PCP Family Medicine; Visit Provider Registered Nurse | DX: R30.0 Dysuria (principal) | CPT/HCPCS: 81002; 87077; 87086; 87186 ==

== ENCOUNTER → 2023-03-16 17:16 | Outpatient (CLI) | payer OTHER, MEDICAID, SELFPAY | PROVIDERS: Family Provider Family Medicine; PCP Family Medicine; Visit Provider Physician Assistant | DX: R30.0 Dysuria (principal) | CPT/HCPCS: 87086 ==

== ENCOUNTER 2023-03-16 18:29 | Emergency (ER) | payer OTHER, MEDICAID, SELFPAY ==
[2023-03-16] VITALS (7 sets, daily range): BP systolic 132–147; BP diastolic 77–83; PULSE 73–111; RESP 19–33; TEMP 36.2; O2SAT 97–99; BMI 29.0
[2023-03-16] MEDS: SODIUM CHLORIDE 0.9% 1,000 ML 1000 ML IV (19:15)
[2023-03-16 19:20] LABS: Add Manual Diff / Slide Review NO; Basophils Absolute Auto 100 /uL (0-100); Basophils Percent Auto 0.8 % (0-2); Eosinophils Absolute Auto 0 /uL (0-450); Eosinophils Percent Auto 0.4 % (2-4); Hematocrit 40.3 % (36-46); Hemoglobin 13.3 g/dL (12.0-16.0); Lymphocytes Absolute Auto 2800 /uL (1100-4500); Lymphocytes Percent Auto 24.2 % (25-40); Mean Corpuscular Hemoglobin 29.8 PG (26-34); Mean Corpuscular Volume 90.2 fL (80-100); Monocytes Absolute Auto 900 /uL (0-900); Neutrophils Absolute Auto 7700 /uL (1500-7000); Neutrophils Percent Auto 66.6 % (50-75); Platelet Count 273 X10^3/uL (150-400); Red Blood Cell Count 4.46 X10^6/uL (4.0-5.2); Red Cell Distribution Width 15.7 % (11.6-14.8); White Blood Cell Count 11.6 X10^3/uL (4.5-11.0)
[2023-03-16] MEDS: ACETAMINOPHEN 325 MG TABLET 975 MG PO (19:28)
[2023-03-16] MEDS: OXYCODONE IR 5 MG TABLET 10 MG PO (19:28)
[2023-03-16] MEDS: PHENAZOPYRIDINE 100 MG TABLET 200 MG PO (19:28)
[2023-03-16] MEDS: CYCLOBENZAPRINE 10 MG TABLET PO (19:29)
[2023-03-16 19:32] LABS: Lactate (Lactic Acid) 1.3 mmol/L (0.7-2.1)
[2023-03-16 19:33] LABS: Alanine Aminotransferase 22 IU/L (<35); Albumin 4.5 g/dL (3.5-5.0); Albumin Globulin Ratio 1.5 (1.0-2.8); Alkaline Phosphatase 90 U/L (38-126); Aspartate Aminotransferase 31 IU/L (14-36); BUN Creatinine Ratio 23.8 (6-22); Bilirubin Total 0.5 mg/dL (0.2-1.3); Blood Urea Nitrogen 20 mg/dL (7-17); Calcium 9.6 mg/dL (8.4-10.2); Carbon Dioxide 27 mmol/L (22-32); Chloride 95 mmol/L (98-107); Estimated Glomerular Filt Rate > 60 mL/min (>60); Globulin 3.1 g/dL (1.7-4.1); Glucose 112 mg/dL (70-100); HEMOLYSIS < 15 (0-50); Potassium 3.5 mmol/L (3.4-5.1); Sodium 136 mmol/L (137-145); Total Protein 7.6 g/dL (6.3-8.2)
[2023-03-16 19:49] LABS: Procalcitonin 0.03 ng/mL (<0.5)
--- NOTE | 2023-03-16 20:56 | ED_ITS ---
HPI - Female Genitourinary General Chief complaint: Urogenital-Female Stated complaint: thinks UTI Time Seen by Provider: 03/16/23 18:57 Source: patient Mode of arrival: Family Vehicle Limitations: no limitations History of Present Illness HPI Narrative: This is a 58-year-old female with history of chronic back who gets epidural injections, she missed her last 1 because she was on oral antibiotics for UTI. Patient takes medication for hypertension, diabetes, obstructive sleep apnea, dyslipidemia, gout, migraines and has history of prior bariatric surgery. Patient states she had urinary symptoms with frequency urgency and took Macrobid which she completed on 03/10/2023. She states symptoms got better and then started to return. She states she is had frequency and dysuria. Sense of urgency. Fevers but felt generally unwell. She had some mild nausea today. No chest pain no shortness of breath no cold cough or congestion symptoms. No vomiting. Patient states she is had acute on chronic back pain but states she missed her last epidural injection because she had had recent antibiotics and they had to reschedule. She states she is unsure if the pain in her back is from her regular back issues or could be related to kidney infection. Patient states no diarrhea constipation, no black or bloody stools. Patient has not had any other new neurologic changes. She had a urine obtained at walk-in clinic both sent here for further evaluation. She had forgotten her home medications so was given her usual Tylenol, Flexeril and oxycodone dose. Patient did request a dose of Pyridium which she finds helpful. Related Data Home Medications Medication Instructions Recorded Confirmed naloxone 4 mg/actuation nasal spray 1 spray intranasal 11/06/22 03/05/23 Previous Rx's Medication Instructions Recorded lancets 33 gauge (BD Ultra Fine #100 ea 05/04/20 Lancets) blood sugar diagnostic #100 ea 05/24/20 prochlorperazine maleate 10 mg 10 mg PO Q8H PRN nausea and 08/03/20 tablet (Compazine) vomiting #20 tabs fluticasone propionate 50 See Rx Instructions .Route 09/01/21 mcg/actuation nasal .COMPLEX #16 grams spray,suspension sumatriptan succinate 100 mg See Rx Instructions PO .COMPLEX 02/28/22 tablet (Imitrex) #14 tabs paroxetine HCl 20 mg tablet See Rx Instructions .Route 08/10/22 .COMPLEX #90 tabs pregabalin 50 mg capsule (Lyrica) 50 mg PO TID #90 caps 10/15/22 valsartan 80 mg tablet 80 mg PO DAILY #90 tabs 10/30/22 bupropion HCl 100 mg tablet 100 mg PO QID #360 tabs 11/09/22 esomeprazole magnesium 40 mg 40 mg PO DAILY #90 caps 11/09/22 capsule,delayed release potassium chloride 20 mEq 20 meq PO DAILY #90 tabs 11/09/22 tablet,extended release(part/cryst) amlodipine 2.5 mg tablet 2.5 mg PO DAILY #90 tabs 12/25/22 allopurinol 300 mg tablet See Rx Instructions .Route 01/23/23 .COMPLEX #90 tabs chlorthalidone 25 mg tablet 25 mg PO DAILY #90 tabs 02/12/23 lidocaine 5 % topical patch 1 patch topical DAILY #30 ea 02/27/23 oxycodone 10 mg tablet 10 mg PO TID PRN pain #90 tabs 02/27/23 cyclobenzaprine 10 mg tablet 10 mg PO BEDTIME PRN muscle spasm 03/13/23 #60 tabs ciprofloxacin HCl 500 mg tablet 500 mg PO BID #20 tabs 03/16/23 phenazopyridine 200 mg tablet 200 mg PO TID PRN pain 6 doses #6 03/16/23 (Pyridium) tabs Allergies Allergy/AdvReac Type Severity Reaction Status Date / Time bee venom protein (honey bee) Allergy Intermediate severe Verified 03/05/23 12:11 edema silver Allergy Unknown Verified 03/05/23 12:11 [From Tegaderm AG Mesh] Penicillins Allergy Vomiting Verified 03/05/23 12:11 prednisone AdvReac Mild Agitated Verified 03/05/23 12:11 Review of Systems Review of Systems ROS Unobtainable: All systems reviewed & are unremarkable except as noted in HPI and below Patient History Medical History Anxiety Asthma Cataracts, bilateral Chronic back pain Chronic seasonal allergic rhinitis Deep vein thrombosis Depression Gastroparesis Gout Hypertension Ingrown right greater toenail Insomnia due to medical condition Knee pain Migraine aura without headache Nocturnal hypoxemia Obesity (BMI 30-39.9) Obstructive sleep apnea, adult Post traumatic stress disorder (PTSD) Prediabetes Preop general physical exam Radicular pain in left arm Radiculopathy, cervical region Radiculopathy, lumbosacral region Renal insufficiency Right shoulder pain Sacrococcygeal disorders, not elsewhere classified Scoliosis Spondylolysis Spondylolysis of cervical spine Urinary tract infection Vision disorder Vulvar abscess Surgical History Anesthesia Bariatric surgery status H/O cervical spine surgery (~2014) History of bladder surgery History of bladder suspension procedure (~1995) History of cholecystectomy History of neck surgery Plantar fasciitis Post-operative state Previous back surgery Previous section Family History Mother Diabetes mellitus Heart disease Hypertension alcohol intake frequency: holidays/special occasions only Substance Use Type: marijuana Exam Narrative Exam Narrative: GENERAL: Alert and oriented x three, to moderate distress. HEENT: Head normocephalic, atraumatic, EOMI, pupils reactive, face symmetric, moist mucous membranes NECK: Supple, full range of motion CARDIOVASCULAR: Regular rate and rhythm without murmurs, rubs or gallops. RESPIRATORY: Breath sounds equal bilaterally, no wheezes rales or rhonchi. ABDOMEN: Soft, nontender. Normoactive bowel sounds all 4 quadrants. No guar ding or rebound, rigidity, no mass : Mild bilateral CVA tenderness BACK: No cervical, thoracic or lumbar vertebral point tenderness. Patient has, decreased range of motion. Patient's gait is normal. Muscle strength is 5/5 in lower extremities, DTRs are 2/4 and lower extremities. Dorsalis pedis and tibialis pulses are 2+ and lower extremities. Sensation is intact in the lower extremities. EXTREMITIES: Normal range of motion, no clubbing or edema. Neurovascularly intact NEUROLOGICAL: Cranial nerves II through XII grossly intact. Moving all extremities SKIN: Warm, dry, no petechiae, no rashes or lesions. Initial Vital Signs Initial Vital Signs: Vital Signs Temperature 97.2 F L 03/16/23 18:40 Pulse Rate 111 H 03/16/23 18:40 Respiratory Rate 19 03/16/23 18:40 Blood Pressure 132/83 03/16/23 18:40 Pulse Oximetry 97 03/16/23 18:40 Oxygen Delivery Method Room Air 03/16/23 18:40 Course Orders Ordered: Discontinued Medications Acetaminophen (Acetaminophen 325 Mg Tablet) 975 mg PO NOW ONE Stop: 03/16/23 19:23 Last Admin: 03/16/23 19:28 Dose: 975 mg Documented By: Ciprofloxacin (Ciprofloxacin 250 Mg Tablet) 500 mg PO NOW ONE Stop: 03/16/23 21:10 Last Admin: 03/16/23 21:16 Dose: 500 mg Documented By: SB Cyclobenzaprine HCl (Cyclobenzaprine 10 Mg Tablet) 10 mg PO NOW ONE Stop: 03/16/23 19:23 Last Admin: 03/16/23 19:29 Dose: 10 mg Documented By: Sodium Chloride (Normal Saline 0.9%) 1,000 mls @ 1,000 mls/hr IV BOLUS ONE Stop: 03/16/23 19:58 Last Infusion: 03/16/23 20:17 Dose: 0 mls/hr Documented By: Admin: 03/16/23 19:15 Dose: 1,000 mls/hr Documented By: Ondansetron HCl (Ondansetron 4 Mg Odt Prepack) 1 bottle MISC SEEINSTR ONE Stop: 03/16/23 21:10 Last Admin: 03/16/23 21:16 Dose: 1 bottle Documented By: SB Oxycodone HCl (Oxycodone Ir 5 Mg Tablet) 10 mg PO NOW ONE Stop: 03/16/23 19:23 Last Admin: 03/16/23 19:28 Dose: 10 mg Documented By: Phenazopyridine HCl (Phenazopyridine 100 Mg Tablet) 200 mg PO NOW ONE Stop: 03/16/23 19:23 Last Admin: 03/16/23 19:28 Dose: 200 mg Documented By: Vital Signs Vital signs: Vital Signs - 8 hr 03/16/23 18:40 03/16/23 19:20 03/16/23 19:21 Temperature 97.2 F L Pulse Rate 111 H 89 84 Respiratory Rate 19 23 Blood Pressure 132/83 Pulse Oximetry 97 99 97 Oxygen Delivery Method Room Air 03/16/23 19:21 03/16/23 19:30 03/16/23 20:00 Temperature Pulse Rate 82 75 Respiratory Rate 33 H 19 Blood Pressure 142/79 H Pulse Oximetry 98 98 Oxygen Delivery Method 03/16/23 20:01 03/16/23 20:01 03/16/23 20:30 Temperature Pulse Rate 77 Respiratory Rate 19 Blood Pressure 144/77 H 147/80 H Pulse Oximetry 97 Oxygen Delivery Method 03/16/23 20:30 Temperature Pulse Rate 73 Respiratory Rate 19 Blood Pressure Pulse Oximetry 98 Oxygen Delivery Method Room Air MDM - Female Genitourinary Lab Data 03/16/23 19:10 03/16/23 19:10 Labs: Lab Results 03/16/23 03/16/23 03/16/23 Range/Units 19:10 19:10 19:10 WBC 11.6 H (4.5-11.0) X10^3/uL RBC 4.46 (4.0-5.2) X10^6/uL Hgb 13.3 (12.0-16.0) g/dL Hct 40.3 (36-46) % MCV 90.2 (80-100) fL MCH 29.8 (26-34) PG MCHC 33.0 (30-36) % RDW 15.7 H (11.6-14.8) % Plt Count 273 (150-400) X10^3/uL Neut % (Auto) 66.6 (50-75) % Lymph % (Auto) 24.2 L (25-40) % [place] % (Auto) 8.0 (3-14) % Eos % (Auto) 0.4 L (2-4) % Baso % (Auto) 0.8 (0-2) % Neut # (Auto) 7700 H (8338-0197) /uL Lymph # (Auto) 2800 (1438-5887) /uL [place] # (Auto) 900 (0-900) /uL Eos # (Auto) 0 (0-450) /uL Baso # (Auto) 100 (0-100) /uL Sodium 136 L (137-145) mmol/L Potassium 3.5 (3.4-5.1) mmol/L Chloride 95 L (98-107) mmol/L Carbon Dioxide 27 (22-32) mmol/L BUN 20 H (7-17) mg/dL Creatinine 0.84 (0.52-1.04) mg/dL Estimated GFR > 60 (>60) mL/min BUN/Creatinine Ratio 23.8 H (6-22) Glucose 112 H (70-100) mg/dL Lactate 1.3 (0.7-2.1) mmol/L Calcium 9.6 (8.4-10.2) mg/dL Total Bilirubin 0.5 (0.2-1.3) mg/dL AST 31 (14-36) IU/L ALT 22 (<35) IU/L Alkaline Phosphatase 90 (38-126) U/L Total Protein 7.6 (6.3-8.2) g/dL Albumin 4.5 (3.5-5.0) g/dL Globulin 3.1 (1.7-4.1) g/dL Albumin/Globulin Ratio 1.5 (1.0-2.8) Procalcitonin 0.03 (<0.5) ng/mL MDM Narrative Medical decision making narrative: 58-year-old female with urinary symptoms who has UA positive for leuks 3+, negative for nitrates. Does have urine culture pending. Patient had 822 cultu re which showed Citrobacter showed sensitivity to Macrobid at that time. Prior to that was from 2019 had E coli. Patient does have some flank pains was given course or pyelonephritis although she has chronic back pain and did miss her most recent epidural injection. She does not have any other systemic changes no fevers, her labs are overall reassuring no significant change to renal function, mild leukocytosis, glucose of 112- lactate, negative procalcitonin with normal LFTs. Discussed with patient will start her on ciprofloxacin twice daily for 10 days total, Pyridium and continue her other home medications as prescribed. Patient and I discussed return cautions. We discussed if she continues to have persistent symptoms despite appropriate treatment based on urine cultures would recommend follow up with Urology. Discharge Plan Departure Patient Disposition: Home Clinical Impression: UTI (urinary tract infection) Instructions: DI for Urinary Tract Infection (UTI) Activity Restrictions/Additional Instructions: Your urine today is suspicious for infection, take oral antibiotics until completed. Your urine has been sent for culture this takes 48-72 hours to result if there is resistance you would be contacted to change your antibiotic. Take Cipro 1 tablet every 12 hours times 10 days. You can take Zofran 1 tablet every 4 hours as needed for nausea. You may take Pyridium 1 tablet every 8 hours as needed for bladder spasm. Pres[place] to [facility] [place]. Please return for fevers, new or worsening abdominal back or flank pain, persistent vomiting, lightheadedness or passing out, difficulty inability urinate or other new or concerning changes. Prescriptions: New ciprofloxacin HCl 500 mg tablet 500 mg PO BID Qty: 20 0RF phenazopyridine [Pyridium] 200 mg tablet 200 mg PO TID PRN (Reason: pain) Qty: 6 0RF No Action (DME) lancets [BD Ultra Fine Lancets] 33 gauge misc See Rx Instructions .ROUTE .MEDSUPPLY Qty: 100 5RF Rx Instructions: Use to test blood glucose twice daily (DME) blood sugar diagnostic Strip See Rx Instructions .ROUTE .MEDSUPPLY Qty: 100 6RF Rx Instructions: check blood sugar twice a day Matrix brand or same as meter kit fluticasone propionate 50 mcg/actuation spray,suspension See Rx Instructions .ROUTE .COMPLEX Qty: 16 2RF Dose Instruction: use 2 spray into each nostril once daily Rx Instructions: use 2 spray into each nostril once daily sumatriptan succinate [Imitrex] 100 mg tablet See Rx Instructions PO .COMPLEX Qty: 14 2RF Rx Instructions: take 1 tab at onset of headache; if no relief, may repeat 1 tab after at least 2 hrs; max = 2 tabs/24 hrs PO paroxetine HCl 20 mg tablet See Rx Instructions .ROUTE .COMPLEX Qty: 90 1RF Dose Instruction: TAKE ONE TABLET BY MOUTH ONCE DAILY AT BEDTIME Rx Instructions: TAKE ONE TABLET BY MOUTH ONCE DAILY AT BEDTIME valsartan 80 mg tablet 80 mg PO DAILY Qty: 90 3RF potassium chloride 20 mEq tablet,ER particles/crystals 20 meq PO DAILY Qty: 90 3RF bupropion HCl 100 mg tablet 100 mg PO QID Qty: 360 3RF esomeprazole magnesium 40 mg capsule,delayed release(DR/EC) 40 mg PO DAILY Qty: 90 2RF amlodipine 2.5 mg tablet 2.5 mg PO DAILY Qty: 90 1RF Rx Instructions: start taking 2.5 mg tablets allopurinol 300 mg tablet See Rx Instructions .ROUTE .COMPLEX Qty: 90 1RF Dose Instruction: TAKE 1 TABLET BY MOUTH EVERY DAY Rx Instructions: TAKE 1 TABLET BY MOUTH EVERY DAY chlorthalidone 25 mg tablet 25 mg PO DAILY Qty: 90 2RF lidocaine 5 % adhesive patch,medicated 1 patch topical DAILY Qty: 30 1RF Rx Instructions: leave on most painful area for up to 12 hrs oxycodone 10 mg tablet 10 mg PO TID PRN (Reason: pain) Qty: 90 0RF cyclobenzaprine 10 mg tablet 10 mg PO BEDTIME PRN (Reason: muscle spasm) Qty: 60 1RF prochlorperazine maleate [Compazine] 10 mg tablet 10 mg PO Q8H PRN (Reason: nausea and vomiting) Qty: 20 1RF naloxone 4 mg/actuation spray,non-aerosol 1 spray intranasal pregabalin [Lyrica] 50 mg capsule 50 mg PO TID Qty: 90 2RF Referrals: Arnoldo Ribeiro DO [Primary Care Provider] - Stand Alone Forms: Patient Portal/API
[2023-03-16] MEDS: ONDANSETRON 4 MG ODT PREPACK 1 BOTTLE MISC (21:16)
[2023-03-16] MEDS: CIPROFLOXACIN 250 MG TABLET 500 MG PO (21:16)
== END 2023-03-16 21:26 | disposition home or self-care (01) ==
PROVIDERS: Emergency Provider Emergency Medicine; Family Provider Family Medicine; PCP Family Medicine
DX: N39.0 Urinary tract infection, site not specified (principal); R30.0 Dysuria
CPT/HCPCS: 36415; 80053; 81002; 83605; 84145; 85025; 87040; 87086; 99284

== ENCOUNTER → 2023-03-26 08:31 | Outpatient (CLI) | payer OTHER, MEDICAID, SELFPAY ==
[2023-03-26 09:11] LABS: Add Manual Diff / Slide Review NO; Basophils Absolute Auto 100 /uL (0-100); Basophils Percent Auto 1.1 % (0-2); Eosinophils Absolute Auto 300 /uL (0-450); Eosinophils Percent Auto 3.2 % (2-4); Hematocrit 39.4 % (36-46); Hemoglobin 13.3 g/dL (12.0-16.0); Lymphocytes Absolute Auto 2200 /uL (1100-4500); Lymphocytes Percent Auto 26.5 % (25-40); Mean Corpuscular HGB Conc 33.6 % (30-36); Mean Corpuscular Hemoglobin 30.3 PG (26-34); Monocytes Absolute Auto 600 /uL (0-900); Monocytes Percent Auto 6.6 % (3-14); Neutrophils Absolute Auto 5200 /uL (1500-7000); Neutrophils Percent Auto 62.6 % (50-75); Platelet Count 265 X10^3/uL (150-400); Red Blood Cell Count 4.38 X10^6/uL (4.0-5.2); Red Cell Distribution Width 15.5 % (11.6-14.8); White Blood Cell Count 8.4 X10^3/uL (4.5-11.0)
[2023-03-26 09:21] LABS: Hemoglobin A1C% w Est Avg Glu 5.6 % (4.0-6.0)
[2023-03-26 09:29] LABS: Alanine Aminotransferase 20 IU/L (<35); Albumin 4.1 g/dL (3.5-5.0); Albumin Globulin Ratio 1.5 (1.0-2.8); Alkaline Phosphatase 80 U/L (38-126); Aspartate Aminotransferase 28 IU/L (14-36); BUN Creatinine Ratio 18.6 (6-22); Bilirubin Total 0.6 mg/dL (0.2-1.3); Blood Urea Nitrogen 16 mg/dL (7-17); Calcium 9.4 mg/dL (8.4-10.2); Carbon Dioxide 32 mmol/L (22-32); Chloride 98 mmol/L (98-107); Cholesterol 215 mg/dL (140-199); Estimated Glomerular Filt Rate > 60 mL/min (>60); Globulin 2.8 g/dL (1.7-4.1); Glucose 145 mg/dL (70-100); HDL Cholesterol 70 mg/dL (40-60); HEMOLYSIS < 15 (0-50); LDL Cholesterol Calculated 126 mg/dL (<100); Potassium 3.5 mmol/L (3.4-5.1); Sodium 140 mmol/L (137-145); Total Protein 6.9 g/dL (6.3-8.2); Triglycerides 95 mg/dL (35-150)
[2023-03-26 09:33] LABS: HEMOLYSIS < 15 (0-50); Iron 35 ug/dL (37-170)
[2023-03-26 09:47] LABS: Percent Iron Saturation 11 % (15-50); Total Iron Binding Capacity 323 ug/dL (265-497); Transferrin 249 mg/dL (206-381)
[2023-03-26 10:08] LABS: TSH w/ Reflex to FT4 1.37 uIU/mL (0.47-4.68)
== END ==
PROVIDERS: Family Provider Family Medicine; PCP Family Medicine; Referring Provider Family Medicine; Visit Provider Family Medicine
DX: E11.9 Type 2 diabetes mellitus without complications (principal); E78.00 Pure hypercholesterolemia, unspecified; E78.5 Hyperlipidemia, unspecified; I10 Essential (primary) hypertension; M10.9 Gout, unspecified
CPT/HCPCS: 36415; 80053; 80061; 83036; 83540; 83550; 84443; 85025

== ENCOUNTER → 2023-04-04 12:34 | Outpatient (CLI) | payer OTHER, MEDICAID, SELFPAY ==
[2023-04-04 13:26] LABS: Appearance Urine UA CLEAR; Bilirubin Urine UA NEGATIVE (NEGATIVE); Color Urine UA YELLOW; Glucose Urine UA NEGATIVE (Negative); Ketones Urine UA TRACE (NEGATIVE); Leukocyte Esterase Urine UA NEGATIVE (NEGATIVE); Nitrite Urine UA NEGATIVE (Negative); Occult Blood Urine UA NEGATIVE (Negative); Protein Urine UA NEGATIVE (Negative); Specific Gravity Urine UA 1.025 (1.000-1.035); Urobilinogen Urine UA 0.2 E.U./dL (0.2)
[2023-04-04 13:33] LABS: Bacteria Urine None Seen; RBC Urine 0-1/HPF (0-5/HPF); WBC Urine 1-5/HPF (0-5/HPF); pH Urine UA 5.5 (4.5-8.0)
[2023-04-04 13:34] LABS: Culture Indicated Urine Cult Not Indicated; Squamous Epithelial Cell Urine 5-10 /HPF (0-5/HPF)
== END ==
PROVIDERS: Family Provider Family Medicine; PCP Family Medicine; Referring Provider Family Medicine; Visit Provider Family Medicine
DX: Z01.818 Encounter for other preprocedural examination (principal)
CPT/HCPCS: 81001

== ENCOUNTER 2023-04-10 07:24 | Outpatient (CLI) | payer OTHER, MEDICAID, SELFPAY ==
[2023-04-10] VITALS (10 sets, daily range): BP systolic 128–161; BP diastolic 71–87; PULSE 64–80; RESP 12–20; TEMP 36.4; O2SAT 98–99
--- NOTE | 2023-04-10 07:25 | DI.RAD.S_ITS ---
PROCEDURE: PAIN L INTERLAMINAR/CAUDAL INJ INDICATIONS: RADICULOPATHY COMPARISON: [facility], MR, MR LUMBAR SPINE WITH/WITHOUT CONTRAST, 10/14/2021, 13:20. FINDINGS: A caudally placed catheter is seen within the sacral canal. The position of the tip of the catheter was confirmed with injection of a small amount of iodinated contrast. IMPRESSION: Intraprocedural examination within normal limits. Dictated by: Dustin Garcia M.D. on 04/10/2023 at 17:08 Approved by: Dustin Garcia M.D. on 04/10/2023 at 17:09
[2023-04-10] MEDS: ONDANSETRON 4 MG/2 ML INJ IV (08:07)
[2023-04-10] MEDS: MIDAZOLAM 2 MG/2 ML VIAL IV (08:15)
[2023-04-10] MEDS: iopamidoL 15 ML VIAL 3 ML INJ (08:16)
[2023-04-10] MEDS: DEXAMETHASONE 10 MG/ML VIAL INJ (08:18)
--- NOTE | 2023-04-10 09:53 | P.PCN_ITS ---
Date/Time/Diagnoses Date of procedure: 04/10/23 Time of procedure: 08:00 Procedure Notes Physician: Levar Barrios Total Fluoroscopy time (seconds): 12 Total sedation minutes: 13 Procedure in detail & Post-procedure care: Caudal Epidural Steroid Injection Indications: Isabel is presenting for treatment of lumbar radiculopathy with low back and leg pain. Preoperative diagnosis: Lumbar radiculopathy Postoperative diagnosis: Same Focused Examination: Ax3 Mood and affect are normal Vital Signs: VSS ASA: 2 Consent: Following review of allergies and potential side effects/complications, including, but not necessarily limited to, infection, allergic reaction, local tissue breakdown, stroke, temporary or permanent nerve injury, paralysis, and possible , the patient indicated that they understood and agreed to proceed.? An informed consent document was signed by the patient, witnessed by a nurse and placed in the patient's chart.? Additionally, other treatment options including medications and physical therapy were reviewed with the patient. All questions were answered. Site was then marked. Anesthesia: After review of previous anesthetic history and IV conscious sedation, the patient was deemed safe to proceed with today's procedure with IV conscious sedation. IV sedation was accomplished with midazolam 2 mg administered by the RN after order by Dr. Barrios. Sedation was titrated to pat ient comfort during the course of the procedure. Patient remained responsive to all verbal commands. Position: Prone Monitoring: NIBP, Pulse oximetry, 3 lead EKG Needle used: 17 gauge Touhy with 19 gauge TheraCath Epidural Catheter Contrast: Isovue 300-M 2mL Injectate: Dexamethasone 10 mg with 1% lidocaine 2 mL and normal saline 2 mL Technique: The skin was prepped with chloraprep and then draped in a sterile fashion. Time out was performed as per protocol. Oxygen applied via NC. The entry point for entering/approaching the epidural space by a caudal approach through the sacral hiatus was identified. Skin and subcutaneous structures of the needle entry site was then infiltrated with 3 mL of lidocaine 1%. Under AP and lateral control, the needle was guided through the sacral hiatus to the S3 level. The catheter was then advanced to L5-S1 using intermittent fluoroscopy. Contrast was then injected and the spread was consistent with the epidural space. There was no evidence for intravascular or intrathecal uptake. After negative aspiration, the above-mentioned injectate was then slowly administered and the needle withdrawn. The patient expressed no unusual discomfort or paresthesias during needle positioning or injection. Band-Aids applied to injection sites. EBL: less than 1 ml Complications: None Post Procedure: Patient was taken to the recovery and monitored. The patient was provided a Pain Log to continue to record the patient's response to the target- specific procedure prior to the patient's follow-up visit with the referring physician. Patient was stable upon discharge. Detailed post procedure instructions were provided. Patient was asked to call in the event of worsening pain, fever, weakness, numbness or bladder or bowel incontinence.
== END 2023-04-10 08:48 | disposition home or self-care (01) ==
LOC: RAD 07:25
PROVIDERS: Family Provider Family Medicine; PCP Family Medicine; Referring Provider Anesthesiology; Visit Provider Anesthesiology
DX: M54.16 Radiculopathy, lumbar region (principal)
CPT/HCPCS: 62323; 99152; J1100; J2250; J2405

== ENCOUNTER → 2023-05-01 09:43 | Outpatient (CLI) | payer OTHER, MEDICAID, SELFPAY ==
--- NOTE | 2023-05-01 09:49 | DI.RAD.S_ITS ---
PROCEDURE: XR LUMBAR SPINE MIN 4V INDICATIONS: Low back pain TECHNIQUE: 5 views of the lumbar spine were acquired, including bilateral oblique views. COMPARISON: [facility], CR, XR LUMBAR SPINE 2-3V, 07/13/2022, 8:59. [facility], CR, XR LUMBAR SPINE 2-3V, 08/17/2019, 7:38. FINDINGS: Bones: 5 nonrib-bearing vertebrae are present. Levocurvature of the lumbar spine is similar to prior. Grade 1 retrolisthesis of L1 on L2 and L2 on L3. Alignment is overall unchanged. Postsurgical changes from L4-5 posterior spinal fixation on the left and L5-S1 posterior spinal fixation on the right. Anterior spinal fixation at L5-S1. Hardware appears intact without surrounding lucency or fracture. Redemonstration of degenerative changes of the lumbar spine, worse L1-L2. No vertebral body compression fractures. No suspicious bony lesions. Soft tissues: Overlying bowel gas pattern is normal. No suspicious soft tissue calcifications. Right upper quadrant surgical clips. Multiple surgical clips adjacent to the lower lumbar spine. Oblique images: No definite pars defects. Evaluation of the lower pars interarticularis are limited secondary to hardware. IMPRESSION: Similar appearance of multilevel degenerative changes of the lumbar spine status post lower lumbar spine fixation. Hardware appears intact without evidence of interval complication. Dictated by: Edgar Broderick M.D. on 05/01/2023 at 11:34 Approved by: Edgar Broderick M.D. on 05/01/2023 at 11:37
--- NOTE | 2023-05-01 09:49 | DI.RAD.S_ITS ---
PROCEDURE: XR HIP W PEL IF DONE WES MIN 4V INDICATIONS: Bilateral hip pain TECHNIQUE: AP pelvis with lateral view(s) of the bilateral hip(s). COMPARISON: None. FINDINGS: Bones: No fractures or dislocations. Mild degenerative changes of the bilateral hips with joint space narrowing and marginal spurring. Pelvic ring appears intact. No suspicious bony lesions. Incompletely evaluated lower lumbar spine hardware. Soft tissues: The visualized bowel gas pattern is normal. No suspicious soft tissue calcifications. IMPRESSION: Mild degenerative changes of the bilateral hip joints. Dictated by: Edgar Broderick M.D. on 05/01/2023 at 11:33 Approved by: Edgar Broderick M.D. on 05/01/2023 at 11:34
== END ==
PROVIDERS: Family Provider Family Medicine; PCP Family Medicine; Referring Provider Anesthesiology; Visit Provider Anesthesiology
DX: M25.551 Pain in right hip (principal); M25.552 Pain in left hip; M54.50 Low back pain, unspecified; Z98.1 Arthrodesis status; M43.06 Spondylolysis, lumbar region; M54.17 Radiculopathy, lumbosacral region; M54.41 Lumbago with sciatica, right side; G89.29 Other chronic pain; Z68.27 Body mass index [BMI] 27.0-27.9, adult
CPT/HCPCS: 72110; 73522; 99213

== ENCOUNTER → 2023-05-21 16:55 | Outpatient (CLI) | payer OTHER, MEDICAID, SELFPAY ==
--- NOTE | 2023-05-21 16:58 | DI.MRI.S_ITS ---
PROCEDURE: MR HIP RT WO CON INDICATIONS: Right hip pain s/p trauma TECHNIQUE: Noncontrast coronal T1 spin echo and STIR through the bony pelvis. Coronal and axial T2 fast spin echo with fat saturation, sagittal T1 spin echo, and oblique axial T2 fast spin echo with fat saturation through the hip. COMPARISON: [facility], CR, XR HIP W PEL IF DONE WES 3TO4V, 05/01/2023, 10:05. [facility], CR, XR LUMBAR SPINE MIN 4V, 05/01/2023, 10:05. FINDINGS: Image quality: Degraded by metallic artifact. Bones and joints: Metallic artifact within the lower lumbar spine. Mild periarticular osteophyte formation at the right hip joint. Bone marrow of the pelvic ring and proximal femurs show normal signal throughout. No intraosseous lesions or fractures. No avascular necrosis of the femoral heads. The visualized lower lumbar spine appears normally aligned. Tendons and ligaments: Partial-thickness tearing of the right gluteus medius and minimus tendons at the femoral insertion sites. The nearby proximal iliotibial band also appears intact. The iliopsoas tendon appears intact, without adjacent bursal fluid collections or evidence for impingement syndrome. Mild T2 signal elevation at the ischial origin of the hamstring tendon. The straight and reflected heads of the rectus femoris muscle origin appear intact, as well as the conjoint tendon. The ligamentum teres appears intact where visualized. Labrum and cartilage: Amorphous and linear high T2 signal intensity within the anterosuperior right hip labrum. Cartilage surface of the femoral head appears of normal thickness. The alpha angle of the femur is within normal limits at less than 55 degrees. Soft tissues: Visualized muscles demonstrate normal bulk and internal signal. Quadratus femoris muscle demonstrates no internal edema to suggest ischiofemoral impingement. The proximal sciatic neurovascular bundle appears normal adjacent to the hamstring tendons. No free pelvic fluid. Bladder wall thickness is normal. Genitourinary structures and bowel loops appear normal where visualized. IMPRESSION: 1. 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 2. Partial-thickness tearing of the right gluteus medius and minimus tendons. 3. Mild hamstring tendinopathy. Dictated by: Rodolfo Shipman M.D. on 05/22/2023 at 9:18 Approved by: Rodolfo Shipman M.D. on 05/22/2023 at 9:41
== END ==
PROVIDERS: Family Provider Family Medicine; PCP Family Medicine; Referring Provider Anesthesiology; Visit Provider Anesthesiology
DX: M16.11 Unilateral primary osteoarthritis, right hip (principal); S76.011A Strain of muscle, fascia and tendon of right hip, initial encounter; M25.551 Pain in right hip
CPT/HCPCS: 73721

== ENCOUNTER 2023-05-30 11:07 | Emergency (ER) | payer OTHER, MEDICAID, SELFPAY ==
[2023-05-30] VITALS (16 sets, daily range): BP systolic 116–181; BP diastolic 58–120; PULSE 57–84; RESP 16–18; TEMP 36.7–36.8; O2SAT 96–100; BMI 25.7
--- NOTE | 2023-05-30 11:49 | ED_ITS ---
HPI - Abdominal Pain <Marichuy Olmstead PA-C - Last Filed: 05/30/23 16:21> General Chief Complaint: Abdominal Pain Stated Complaint: stomach hurts really bad Time Seen by Provider: 05/30/23 11:24 Source: patient Mode of arrival: Ambulatory History of Present Illness HPI narrative: Patient is a 58-year-old female with a history of gastric bypass surgery (Gema-en-Y) in October of 2022 who presents with increasingly severe upper abdominal pain. She reports the pain has been present since the surgery but worsening over the past 3 weeks. Her GI doctor was supposed to order an ultrasound of her abdomen but did not, so this is currently scheduled for next week. The pain is a 10/10 today and accompanied by vomiting x1 and ongoing nausea. She is not able to more than 4 or 5 bites of food at a time and stools a small volume irregularly. She thinks she may be dehydrated because she has not been drinking much. She denies any blood in her urine or stool. She denies fever but endorses chills, which often turned into sweats, like hot flashes. She also has chronic low back pain and history of back surgery. Related Data Home Medications Medication Instructions Recorded Confirmed naloxone 4 mg/actuation nasal spray 1 spray intranasal 11/06/22 05/28/23 Previous Rx's Medication Instructions Recorded lancets 33 gauge (BD Ultra Fine #100 ea 05/04/20 Lancets) blood sugar diagnostic #100 ea 05/24/20 prochlorperazine maleate 10 mg 10 mg PO Q8H PRN nausea and 08/03/20 tablet (Compazine) vomiting #20 tabs fluticasone propionate 50 See Rx Instructions .Route 09/01/21 mcg/actuation nasal .COMPLEX #16 grams spray,suspension valsartan 80 mg tablet 80 mg PO DAILY #90 tabs 10/30/22 potassium chloride 20 mEq 20 meq PO DAILY #90 tabs 11/09/22 tablet,extended release(part/cryst) chlorthalidone 25 mg tablet 25 mg PO DAILY #90 tabs 02/12/23 lidocaine 5 % topical patch 1 patch topical DAILY #30 ea 02/27/23 cyclobenzaprine 10 mg tablet 10 mg PO BEDTIME PRN muscle spasm 03/13/23 #60 tabs bupropion HCl 300 mg 24 hr tablet, 300 mg PO QAM #90 tabs 03/26/23 extended release paroxetine HCl 10 mg tablet 10 mg PO ONCE PM #30 tabs 04/23/23 oxycodone 5 mg tablet 10 mg (2 x 5 mg) PO TID PRN pain 05/03/23 #150 tabs sumatriptan succinate 100 mg See Rx Instructions PO .COMPLEX 05/14/23 tablet (Imitrex) #14 tabs pantoprazole 40 mg tablet,delayed 40 mg PO BID #60 tabs 05/30/23 release Allergies Allergy/AdvReac Type Severity Reaction Status Date / Time bee venom protein (honey bee) Allergy Intermediate severe Verified 05/28/23 08:07 edema silver Allergy Unknown Verified 05/28/23 08:07 [From Tegaderm AG Mesh] Penicillins Allergy Vomiting Verified 05/28/23 08:07 prednisone AdvReac Mild Agitated Verified 05/28/23 08:07 Review of Systems <Marichuy Olmstead PA-C - Last Filed: 05/30/23 16:21> Review of Systems ROS Unobtainable: All systems reviewed & are unremarkable except as noted in HPI and below Patient History <Marichuy Olmstead PA-C - Last Filed: 05/30/23 16:21> Medical History Lumbar spondylosis Myofascial pain Failed back syndrome Low back pain Bilateral hip pain Right hip pain Right shoulder pain Sacrococcygeal disorders, not elsewhere classified Radiculopathy, cervical region Radiculopathy, lumbosacral region Radicular pain in left arm Spondylolysis Ingrown right greater toenail Spondylolysis of cervical spine Nocturnal hypoxemia Insomnia due to medical condition Chronic seasonal allergic rhinitis Obstructive sleep apnea, adult Obesity (BMI 30-39.9) Migraine aura without headache Urinary tract infection Renal insufficiency Preop general physical exam Vulvar abscess Gout Vision disorder Asthma Post traumatic stress disorder (PTSD) Depression Anxiety Knee pain Scoliosis Chronic back pain Cataracts, bilateral Gastroparesis Prediabetes Hypertension Deep vein thrombosis Surgical History Bariatric surgery status Post-operative state H/O cervical spine surgery (~2014) History of bladder suspension procedure (~1995) Anesthesia History of cholecystectomy Plantar fasciitis History of bladder surgery Previous section History of neck surgery Previous back surgery Family History Mother Diabetes mellitus Heart disease Hypertension Social History Smoking Status: Former smoker Tobacco: How many years used: 40 alcohol intake: current Smoking Status: Former smoker alcohol intake frequency: holidays/special occasions only Substance Use Type: marijuana Exam <Marichuy Olmstead PA-C - Last Filed: 05/30/23 16:21> Narrative Exam Narrative: GENERAL: 58 year old patient appears stated age. Well-developed patient, in severe distress. Groaning, teary. NEURO: AOx3. HEAD: Atraumatic. Normocephalic. EYES: Pupils equal round and reactive. Extraocular motions intact. No scleral icterus. No injection or drainage. ENT: Nose without bleeding or purulent drainage. Airway patent. NECK: Trachea midline. Non tender CARDIOVASCULAR: Regular rate and rhythm without murmurs, gallops, or rubs. RESPIRATORY: Clear to auscultation. Breath sounds equal bilaterally. No wheezes, rales, or rhonchi. GASTROINTESTINAL: Bilateral lower quadrants of the abdomen are soft and nontender, palpation of the right and left upper quadrants causes pain in the epigastrium. Epigastrium is very tender to palpation. EXTREMITIES: No edema or joint tenderness. SKIN: No rash or erythema of visible areas Initial Vital Signs Initial Vital Signs: Vital Signs Temperature 98.0 F 05/30/23 11:11 Pulse Rate 84 05/30/23 11:11 Respiratory Rate 18 05/30/23 11:11 Blood Pressure 166/82 H 05/30/23 11:11 Pulse Oximetry 100 05/30/23 11:11 Oxygen Delivery Method Room Air 05/30/23 11:11 <Jesus Moreno DO - Last Filed: 05/30/23 17:46> Initial Vital Signs Initial Vital Signs: Vital Signs Temperature 98.0 F 05/30/23 11:11 Pulse Rate 84 05/30/23 11:11 Respiratory Rate 18 05/30/23 11:11 Blood Pressure 166/82 H 05/30/23 11:11 Pulse Oximetry 100 05/30/23 11:11 Oxygen Delivery Method Room Air 05/30/23 11:11 Course <Marichuy Olmstead PA-C - Last Filed: 05/30/23 16:21> Orders Ordered: ED Orders 05/30/23 11:57 Complete Blood Count AUTO DIFF Stat Comprehensive Metabolic Panel Stat Lipase Stat 05/30/23 12:13 Ammonia (NH3) Stat 05/30/23 12:44 CT abdomen pelvis w con Stat 05/30/23 14:03 Urine Culture Stat Urine Microscopic Stat Discontinued Medications Acetaminophen (Acetaminophen 325 Mg Tablet) 650 mg PO NOW ONE Stop: 05/30/23 12:20 Last Admin: 05/30/23 12:30 Dose: 650 mg Documented By: ALPHONSE Hydromorphone HCl (Hydromorphone 0.5 Mg Inj) 0.5 mg IV NOW ONE Stop: 05/30/23 11:30 Last Admin: 05/30/23 12:05 Dose: 0.5 mg Documented By: ALPHONSE Hydromorphone HCl (Hydromorphone 0.5 Mg Inj) 0.5 mg IV NOW ONE Stop: 05/30/23 12:49 Last Admin: 05/30/23 12:54 Dose: 0.5 mg Documented By: ALPHONSE Sodium Chloride (Normal Saline 0.9%) 1,000 mls @ 1,000 mls/hr IV BOLUS ONE Stop: 05/30/23 12:28 Last Infusion: 05/30/23 14:47 Dose: Infused Documented By: Admin: 05/30/23 12:07 Dose: 1,000 mls/hr Documented By: ALPHONSE Ondansetron HCl (Ondansetron 4 Mg/2 Ml Inj) 4 mg IV NOW ONE Stop: 05/30/23 11:30 Last Admin: 05/30/23 12:05 Dose: 4 mg Documented By: ALPHONSE Consultations Consultation #1: [id number] Dr. Gray, general surgery: Agrees with discharge on 40 mg pantoprazole b.i.d. no NSAIDs, aspirin, other irritating foods. Follow up closely with primary surgeon. Vital Signs Vital signs: Vital Signs - 8 hr 05/30/23 11:11 05/30/23 11:36 05/30/23 11:40 Temperature 98.0 F Pulse Rate 84 Respiratory Rate 18 Blood Pressure 166/82 H 181/112 H 152/114 H Pulse Oximetry 100 Oxygen Delivery Method Room Air 05/30/23 11:53 05/30/23 11:56 05/30/23 11:58 Temperature Pulse Rate 78 Respiratory Rate 18 Blood Pressure 142/74 H 150/78 H 161/120 H Pulse Oximetry 98 Oxygen Delivery Method Room Air 05/30/23 12:01 05/30/23 12:08 05/30/23 12:30 Temperature Pulse Rate 57 L Respiratory Rate 16 Blood Pressure 138/98 H 150/68 H Pulse Oximetry 97 Oxygen Delivery Method Room Air 05/30/23 13:00 05/30/23 13:30 05/30/23 14:10 Temperature Pulse Rate 79 Respiratory Rate 17 16 16 Blood Pressure 130/66 133/58 L 143/71 H Pulse Oximetry 100 Oxygen Delivery Method Room Air 05/30/23 14:31 05/30/23 15:01 05/30/23 15:23 Temperature Pulse Rate Respiratory Rate 16 Blood Pressure 145/93 H 118/59 L Pulse Oximetry 96 Oxygen Delivery Method 05/30/23 16:01 Temperature 98.2 F Pulse Rate 78 Respiratory Rate 18 Blood Pressure 116/62 Pulse Oximetry 99 Oxygen Delivery Method Room Air <Jesus Moreno, - Last Filed: 05/30/23 17:46> Orders Ordered: ED Orders 05/30/23 11:57 Complete Blood Count AUTO DIFF Stat Comprehensive Metabolic Panel Stat Lipase Stat 05/30/23 12:13 Ammonia (NH3) Stat 05/30/23 12:44 CT abdomen pelvis w con Stat 05/30/23 14:03 Urine Culture Stat Urine Microscopic Stat Discontinued Medications Acetaminophen (Acetaminophen 325 Mg Tablet) 650 mg PO NOW ONE Stop: 05/30/23 12:20 Last Admin: 05/30/23 12:30 Dose: 650 mg Documented By: ALPHONSE Hydromorphone HCl (Hydromorphone 0.5 Mg Inj) 0.5 mg IV NOW ONE Stop: 05/30/23 11:30 Last Admin: 05/30/23 12:05 Dose: 0.5 mg Documented By: ALPHONSE Hydromorphone HCl (Hydromorphone 0.5 Mg Inj) 0.5 mg IV NOW ONE Stop: 05/30/23 12:49 Last Admin: 05/30/23 12:54 Dose: 0.5 mg Documented By: ALPHONSE Sodium Chloride (Normal Saline 0.9%) 1,000 mls @ 1,000 mls/hr IV BOLUS ONE Stop: 05/30/23 12:28 Last Infusion: 05/30/23 14:47 Dose: Infused Documented By: Admin: 05/30/23 12:07 Dose: 1,000 mls/hr Documented By: ALPHONSE Ondansetron HCl (Ondansetron 4 Mg/2 Ml Inj) 4 mg IV NOW ONE Stop: 05/30/23 11:30 Last Admin: 05/30/23 12:05 Dose: 4 mg Documented By: ALPHONSE Vital Signs Vital signs: Vital Signs - 8 hr 05/30/23 11:11 05/30/23 11:36 05/30/23 11:40 Temperature 98.0 F Pulse Rate 84 Respiratory Rate 18 Blood Pressure 166/82 H 181/112 H 152/114 H Pulse Oximetry 100 Oxygen Delivery Method Room Air 05/30/23 11:53 05/30/23 11:56 05/30/23 11:58 Temperature Pulse Rate 78 Respiratory Rate 18 Blood Pressure 142/74 H 150/78 H 161/120 H Pulse Oximetry 98 Oxygen Delivery Method Room Air 05/30/23 12:01 05/30/23 12:08 05/30/23 12:30 Temperature Pulse Rate 57 L Respiratory Rate 16 Blood Pressure 138/98 H 150/68 H Pulse Oximetry 97 Oxygen Delivery Method Room Air 05/30/23 13:00 05/30/23 13:30 05/30/23 14:10 Temperature Pulse Rate 79 Respiratory Rate 17 16 16 Blood Pressure 130/66 133/58 L 143/71 H Pulse Oximetry 100 Oxygen Delivery Method Room Air 05/30/23 14:31 05/30/23 15:01 05/30/23 15:23 Temperature Pulse Rate Respiratory Rate 16 Blood Pressure 145/93 H 118/59 L Pulse Oximetry 96 Oxygen Delivery Method 05/30/23 16:01 Temperature 98.2 F Pulse Rate 78 Respiratory Rate 18 Blood Pressure 116/62 Pulse Oximetry 99 Oxygen Delivery Method Room Air MDM - Abdominal Pain <Marichuy Olmstead PA-C - Last Filed: 05/30/23 16:21> Lab Data 05/30/23 11:57 05/30/23 11:57 Labs: Lab Results 05/30/23 05/30/23 05/30/23 Range/Units 11:57 12:13 14:03 WBC 7.8 (4.5-11.0) X10^3/uL RBC 4.07 (4.0-5.2) X10^6/uL Hgb 12.6 (12.0-16.0) g/dL Hct 37.6 (36-46) % MCV 92.2 (80-100) fL MCH 30.9 (26-34) PG MCHC 33.5 (30-36) % RDW 14.6 (11.6-14.8) % Plt Count 231 (150-400) X10^3/uL Neut % (Auto) 66.5 (50-75) % Lymph % (Auto) 26.3 (25-40) % [place] % (Auto) 5.6 (3-14) % Eos % (Auto) 0.7 L (2-4) % Baso % (Auto) 0.9 (0-2) % Neut # (Auto) 5200 (7065-6899) /uL Lymph # (Auto) 2000 (7849-3015) /uL [place] # (Auto) 400 (0-900) /uL Eos # (Auto) 100 (0-450) /uL Baso # (Auto) 100 (0-100) /uL Sodium 137 (137-145) mmol/L Potassium 3.7 (3.4-5.1) mmol/L Chloride 98 (98-107) mmol/L Carbon Dioxide 31 (22-32) mmol/L BUN 19 H (7-17) mg/dL Creatinine 0.77 (0.52-1.04) mg/dL Estimated GFR > 60 (>60) mL/min BUN/Creatinine Ratio 24.7 H (6-22) Glucose 112 H (70-100) mg/dL Calcium 10.1 (8.4-10.2) mg/dL Total Bilirubin 0.6 (0.2-1.3) mg/dL AST 34 (14-36) IU/L ALT 19 (<35) IU/L Alkaline Phosphatase 88 (38-126) U/L Ammonia < 9 L (9-30) umol/L Total Protein 7.7 (6.3-8.2) g/dL Albumin 4.5 (3.5-5.0) g/dL Globulin 3.2 (1.7-4.1) g/dL Albumin/Globulin Ratio 1.4 (1.0-2.8) Lipase 83 (23-300) U/L Urine RBC None seen (0-5/HPF) Urine WBC 1-5/hpf (0-5/HPF) Ur Squamous Epith Cells 0-1 /hpf (0-5/HPF) Urine Bacteria Few (2-10) H (None) Ur Culture Indicated? Specimen cultured Point of care testing: Urine Dip Bedside Urine Glucose Negative Bedside Urine Bilirubin - Negative Bedside Urine Ketone +/- 5 Urine Specific [place] 1.015 Bedside Urine Occult Blood - Negative Bedside Urine pH 6.0 Bedside Urine Protein - Negative Bedside Urine Urobilinogen - Negative Bedside Urine Nitrite - Negative Bedside Urine Leukocytes +/- [address] scan - abdomen/pelvis: My Impression: Unable to copy radiology read into chart due to technical but able to view on computer. Report states there is significant inflammation consistent with likely ulcer near stomach and likely gastritis. There is no abscess, perforation or free air. MDM Narrative Medical decision making narrative: Multiple etiologies for patient's symptoms considered including, but not limited to: Infection, leak, gastritis, ulcer, perforation from surgical site, UTI Labs without clinically significant abnormality no leukocytosis. Urine unremarkable but sent for culture. She was pain controlled with a total of 1 mg hydromorphone and she received Tylenol for headache and 1 L normal saline bolus. CT of the abdomen and pelvis with p.o. and IV contrast shows likely ulcer with significant inflammation and gastritis. Case reviewed with Dr. Moreno. Discussed briefly with Dr. Gray who agrees with the plan to discharge with 40 mg pantoprazole b.i.d. and no NSAIDs/aspirin. Follow up closely with her surgeon in [place]. Discussed findings and plan with the patient who is very appreciative of her care. She feels much better after her pain medications and IV fluids. We discussed dietary modifications. She should contact her surgeon regarding whether or not she needs to do the abdominal ultrasound next week and what other guidance he has. Patient's symptoms improved over duration of stay with above-stated therapies. Findings and discharge diagnosis discussed with patient/family followed by verbalization of understanding Return precautions discussed with patient/family whom verbalize understanding of diagnosis and plan <Jesus Moreno, DO - Last Filed: 05/30/23 17:46> Lab Data Labs: Lab Results 05/30/23 05/30/23 05/30/23 Range/Units 11:57 12:13 14:03 WBC 7.8 (4.5-11.0) X10^3/uL RBC 4.07 (4.0-5.2) X10^6/uL Hgb 12.6 (12.0-16.0) g/dL Hct 37.6 (36-46) % MCV 92.2 (80-100) fL MCH 30.9 (26-34) PG MCHC 33.5 (30-36) % RDW 14.6 (11.6-14.8) % Plt Count 231 (150-400) X10^3/uL Neut % (Auto) 66.5 (50-75) % Lymph % (Auto) 26.3 (25-40) % [place] % (Auto) 5.6 (3-14) % Eos % (Auto) 0.7 L (2-4) % Baso % (Auto) 0.9 (0-2) % Neut # (Auto) 5200 (6815-1138) /uL Lymph # (Auto) 2000 (1886-1397) /uL [place] # (Auto) 400 (0-900) /uL Eos # (Auto) 100 (0-450) /uL Baso # (Auto) 100 (0-100) /uL Sodium 137 (137-145) mmol/L Potassium 3.7 (3.4-5.1) mmol/L Chloride 98 (98-107) mmol/L Carbon Dioxide 31 (22-32) mmol/L BUN 19 H (7-17) mg/dL Creatinine 0.77 (0.52-1.04) mg/dL Estimated GFR > 60 (>60) mL/min BUN/Creatinine Ratio 24.7 H (6-22) Glucose 112 H (70-100) mg/dL Calcium 10.1 (8.4-10.2) mg/dL Total Bilirubin 0.6 (0.2-1.3) mg/dL AST 34 (14-36) IU/L ALT 19 (<35) IU/L Alkaline Phosphatase 88 (38-126) U/L Ammonia < 9 L (9-30) umol/L Total Protein 7.7 (6.3-8.2) g/dL Albumin 4.5 (3.5-5.0) g/dL Globulin 3.2 (1.7-4.1) g/dL Albumin/Globulin Ratio 1.4 (1.0-2.8) Lipase 83 (23-300) U/L Urine RBC None seen (0-5/HPF) Urine WBC 1-5/hpf (0-5/HPF) Ur Squamous Epith Cells 0-1 /hpf (0-5/HPF) Urine Bacteria Few (2-10) H (None) Ur Culture Indicated? Specimen cultured Point of care testing: Urine Dip Bedside Urine Glucose Negative Bedside Urine Bilirubin - Negative Bedside Urine Ketone +/- 5 Urine Specific [place] 1.015 Bedside Urine Occult Blood - Negative Bedside Urine pH 6.0 Bedside Urine Protein - Negative Bedside Urine Urobilinogen - Negative Bedside Urine Nitrite - Negative Bedside Urine Leukocytes +/- 15 Esterase Discharge Plan Departure Patient Disposition: Home Clinical Impression: Peptic ulcer Gastritis Qualifiers: Gastritis type: unspecified gastritis Chronicity: chronic Gastritis bleeding: w ithout bleeding Qualified Code(s): K29.50 - Unspecified chronic gastritis without bleeding Instructions: DI for Gastritis, DI for Peptic Ulcer Activity Restrictions/Additional Instructions: *You have been diagnosed with peptic ulcer and likely gastritis. It is very important that you do not take any medication like ibuprofen or aspirin, as this can cause increased irritation of your stomach. If you start vomiting blood or have blood in your stool, which sometimes can look like black sticky material, you should come to the emergency department. You should start taking pantoprazole 40 mg twice daily. You should stop taking the colchicine, which is used for gout prophylaxis, until you talk to your doctor. Although this medication is helpful for gout prophylaxis, it can sometimes cause irritation of the stomach lining. I would also avoid foods that are very acidic, including coffee, alcohol, juices. Please notify your surgeon that you were seen in the emergency department and clarify what he would like to do next. If you continue to have the stomach pain and it suddenly becomes much more severe or you develop a fever, you should return to the emergency department. *What to do: *Please continue to take your regular medications as directed. [x] New medication prescriptions sent to your pharmacy: [Skin more] [ ] New medication written as a paper prescription [ ] No new medications given *Please follow up with your primary care provider in 2-3 days, call for an appointment. Let them know you were seen in the Emergency Department and that we ask that you be seen in follow up. We will electronically transmit a record of today's note if your PCP is in our system *If you do not have a primary care provider please contact the [facility] Resource line at [phone]. They will ask some questions about your medical history and help get you set up with a doctor in the community. *Return to Emergency Department if you should have any new, worsening or concerning symptoms, such as [fever greater than 101 F, shaking chills, worsening pain, persistent vomiting or other concerning symptoms]. Prescriptions: New pantoprazole 40 mg tablet,delayed release (DR/EC) 40 mg PO BID Qty: 60 1RF Discontinued esomeprazole magnesium 40 mg capsule,delayed release(DR/EC) 40 mg PO DAILY Qty: 90 2RF allopurinol 300 mg tablet See Rx Instructions .ROUTE .COMPLEX Qty: 90 1RF Dose Instruction: TAKE 1 TABLET BY MOUTH EVERY DAY Rx Instructions: TAKE 1 TABLET BY MOUTH EVERY DAY No Action (DME) lancets [BD Ultra Fine Lancets] 33 gauge misc See Rx Instructions .ROUTE .MEDSUPPLY Qty: 100 5RF Rx Instructions: Use to test blood glucose twice daily (DME) blood sugar diagnostic Strip See Rx Instructions .ROUTE .MEDSUPPLY Qty: 100 6RF Rx Instructions: check blood sugar twice a day Matrix brand or same as meter kit fluticasone propionate 50 mcg/actuation spray,suspension See Rx Instructions .ROUTE .COMPLEX Qty: 16 2RF Dose Instruction: use 2 spray into each nostril once daily Rx Instructions: use 2 spray into each nostril once daily valsartan 80 mg tablet 80 mg PO DAILY Qty: 90 3RF potassium chloride 20 mEq tablet,ER particles/crystals 20 meq PO DAILY Qty: 90 3RF chlorthalidone 25 mg tablet 25 mg PO DAILY Qty: 90 2RF lidocaine 5 % adhesive patch,medicated 1 patch topical DAILY Qty: 30 1RF Rx Instructions: leave on most painful area for up to 12 hrs cyclobenzaprine 10 mg tablet 10 mg PO BEDTIME PRN (Reason: muscle spasm) Qty: 60 1RF paroxetine HCl 10 mg tablet 10 mg PO ONCE PM MDD 20 mg Qty: 30 0RF Rx Instructions: Take one tablet by mouth daily oxycodone 5 mg tablet 10 mg PO TID PRN (Reason: pain) Qty: 150 0RF Rx Instructions: 2 po q AM, 1 po early PM, 2 po qhs. Weaning plan please inform pt prochlorperazine maleate [Compazine] 10 mg tablet 10 mg PO Q8H PRN (Reason: nausea and vomiting) Qty: 20 1RF naloxone 4 mg/actuation spray,non-aerosol 1 spray intranasal bupropion HCl 300 mg tablet extended release 24 hr 300 mg PO QAM Qty: 90 3RF sumatriptan succinate [Imitrex] 100 mg tablet See Rx Instructions PO .COMPLEX Qty: 14 2RF Rx Instructions: take 1 tab at onset of headache; if no relief, may repeat 1 tab after at least 2 hrs; max = 2 tabs/24 hrs PO Referrals: Arnoldo Ribeiro DO [Primary Care Provider] - Stand Alone Forms: Patient Portal/API ED Sign-out <Jesus Moreno DO - Last Filed: 05/30/23 17:46> Cosign ED Attending Cosignature Attestation: Dr Moreno Co-Sign Statement: I was available for consultation during this patient's emergency department visit. This chart is signed by myself for administrative purposes only. I did not have direct contact with this patient during this visit. They were seen independently by the APC.
[2023-05-30] MEDS: ONDANSETRON 4 MG/2 ML INJ IV (12:05)
[2023-05-30] MEDS: HYDROMORPHONE 0.5 MG INJ IV ×2 (12:05→12:54)
[2023-05-30] MEDS: SODIUM CHLORIDE 0.9% 1,000 ML 1000 ML IV (12:07)
[2023-05-30 12:08] LABS: Add Manual Diff / Slide Review NO; Basophils Absolute Auto 100 /uL (0-100); Basophils Percent Auto 0.9 % (0-2); Eosinophils Absolute Auto 100 /uL (0-450); Eosinophils Percent Auto 0.7 % (2-4); Hematocrit 37.6 % (36-46); Hemoglobin 12.6 g/dL (12.0-16.0); Lymphocytes Absolute Auto 2000 /uL (1100-4500); Lymphocytes Percent Auto 26.3 % (25-40); Mean Corpuscular HGB Conc 33.5 % (30-36); Mean Corpuscular Hemoglobin 30.9 PG (26-34); Mean Corpuscular Volume 92.2 fL (80-100); Monocytes Absolute Auto 400 /uL (0-900); Monocytes Percent Auto 5.6 % (3-14); Neutrophils Absolute Auto 5200 /uL (1500-7000); Neutrophils Percent Auto 66.5 % (50-75); Platelet Count 231 X10^3/uL (150-400); Red Blood Cell Count 4.07 X10^6/uL (4.0-5.2); Red Cell Distribution Width 14.6 % (11.6-14.8); White Blood Cell Count 7.8 X10^3/uL (4.5-11.0)
[2023-05-30 12:16] LABS: Alanine Aminotransferase 19 IU/L (<35); Albumin 4.5 g/dL (3.5-5.0); Albumin Globulin Ratio 1.4 (1.0-2.8); Alkaline Phosphatase 88 U/L (38-126); Aspartate Aminotransferase 34 IU/L (14-36); BUN Creatinine Ratio 24.7 (6-22); Bilirubin Total 0.6 mg/dL (0.2-1.3); Blood Urea Nitrogen 19 mg/dL (7-17); Calcium 10.1 mg/dL (8.4-10.2); Carbon Dioxide 31 mmol/L (22-32); Chloride 98 mmol/L (98-107); Estimated Glomerular Filt Rate > 60 mL/min (>60); Globulin 3.2 g/dL (1.7-4.1); Glucose 112 mg/dL (70-100); HEMOLYSIS < 15 (0-50); Lipase 83 U/L (23-300); Potassium 3.7 mmol/L (3.4-5.1); Sodium 137 mmol/L (137-145); Total Protein 7.7 g/dL (6.3-8.2)
[2023-05-30 12:30] LABS: Ammonia (NH3) < 9 umol/L (9-30)
[2023-05-30] MEDS: ACETAMINOPHEN 325 MG TABLET 650 MG PO (12:30)
--- NOTE | 2023-05-30 12:44 | DI.CT.S_ITS ---
PROCEDURE: CT ABDOMEN PELVIS W CON INDICATIONS: epigastric pain s/p Gema-en-Y bypass November 04. TECHNIQUE: After the administration of oral and intravenous contrast, axial sections acquired from the lung bases to the pubic symphysis. Coronal and sagittal reformats were performed. For radiation dose reduction, the following was used: automated exposure control, adjustment of mA and/or kV according to patient size. COMPARISON: None. FINDINGS: Image quality: Excellent. Lung bases: Unremarkable. Heart: No significant findings. ABDOMEN: Liver: Unremarkable. Gallbladder: Surgically absent Biliary ducts: Unremarkable. Pancreas: Unremarkable. Spleen: Unremarkable. Adrenal Glands: Unremarkable. Kidneys and Ureters: Unremarkable. Stomach and Bowel: Remote Gema-en-Y procedure period in the efferent loop, immediately subjacent to the stomach, there is significant inflammatory change adjacent to the anastomosis with wall thickening and edema. Question potential ulcer. The subjacent stomach also appears somewhat edematous. Reference images 19-22 of axial series 2. Peritoneum: No abnormal intraperitoneal fluid. No free air. Ventral Wall: No hernias. Abdominal Nodes: No retroperitoneal or mesenteric adenopathy by size criteria. Vessels: Aorta and inferior vena cava are normal in size. PELVIS: Pelvic Organs: Unremarkable. Bladder: Unremarkable. Pelvic Nodes: No enlarged lymph nodes. Miscellaneous: No hernias are seen. Bones: Remote lower lumbar fusion surgery spanning from L4 through S1. No acute bony abnormalities. No compression fractures. No lytic or blastic bony lesions. IMPRESSION: Remote gastric bypass with Gema-en-Y procedure. Significant inflammatory change in the efferent loop immediately subjacent to the stomach, suggesting the possibility of ulcer disease in the efferent loop. Findings in the subjacent stomach suggest possible gastritis. Dictated by: Alejandro Starks M.D. on 05/30/2023 at 14:32 Approved by: Alejandro Starks M.D. on 05/30/2023 at 14:43
[2023-05-30 14:58] LABS: Bacteria Urine Few (2-10); Culture Indicated Urine Specimen Cultured; RBC Urine None Seen (0-5/HPF); Squamous Epithelial Cell Urine 0-1 /HPF (0-5/HPF); WBC Urine 1-5/HPF (0-5/HPF)
== END 2023-05-30 16:05 | disposition home or self-care (01) ==
PROVIDERS: Emergency Provider Physician Assistant; Family Provider Family Medicine; PCP Family Medicine
DX: K29.50 Unspecified chronic gastritis without bleeding (principal); K25.9 Gastric ulcer, unspecified as acute or chronic, without hemorrhage or perforation; R11.2 Nausea with vomiting, unspecified
CPT/HCPCS: 36415; 74177; 80053; 81003; 81015; 82140; 83690; 85025; 87086; 96361; 96374; 96375; 96376; 99284; J1170; J2405; Q9967

== ENCOUNTER → 2023-05-31 08:52 | Outpatient (CLI) | payer OTHER, MEDICAID, SELFPAY ==
[2023-05-31 09:33] LABS: Hemoglobin A1C% w Est Avg Glu 5.9 % (4.0-6.0)
[2023-05-31 10:46] LABS: Alanine Aminotransferase 17 IU/L (<35); Albumin 4.1 g/dL (3.5-5.0); Albumin Globulin Ratio 1.5 (1.0-2.8); Alkaline Phosphatase 80 U/L (38-126); Aspartate Aminotransferase 30 IU/L (14-36); BUN Creatinine Ratio 21.4 (6-22); Bilirubin Total 0.5 mg/dL (0.2-1.3); Blood Urea Nitrogen 15 mg/dL (7-17); Calcium 9.5 mg/dL (8.4-10.2); Carbon Dioxide 30 mmol/L (22-32); Chloride 101 mmol/L (98-107); Estimated Glomerular Filt Rate > 60 mL/min (>60); Globulin 2.8 g/dL (1.7-4.1); Glucose 109 mg/dL (70-100); HEMOLYSIS < 15 (0-50); Potassium 3.9 mmol/L (3.4-5.1); Sodium 138 mmol/L (137-145); Total Protein 6.9 g/dL (6.3-8.2)
== END ==
PROVIDERS: Family Provider Family Medicine; PCP Family Medicine; Referring Provider Family Medicine; Visit Provider Family Medicine
DX: M54.50 Low back pain, unspecified (principal); G47.30 Sleep apnea, unspecified; E11.9 Type 2 diabetes mellitus without complications
CPT/HCPCS: 36415; 80053; 83036

== ENCOUNTER → 2023-06-04 09:26 | Outpatient (CLI) | payer OTHER, MEDICAID, SELFPAY ==
--- NOTE | 2023-06-04 09:28 | DI.RAD.S_ITS ---
PROCEDURE: [place] UPPER GI SERIES INDICATIONS: EPIGASTRIC PAIN COMPARISON: [facility], , [place] UPPER GI W AIR, 09/06/2022, 15:18. FINDINGS: KUB: Cholecystectomy clips. Clips in the lower abdomen. Spine fixation hardware. ACDF. Gema-en-Y gastric bypass. No suspicious abdominal calcifications. Bony structures appear unremarkable. Esophagus: Esophageal mucosa is normal on air-contrast views. On single-contrast views, there is normal esophageal peristalsis. No strictures, extrinsic mass effects, or diverticula. No hiatal hernia or elicited gastroesophageal reflux. There is normal transit of a calibrated barium tablet through the esophagus. Stomach: A small gastric pouch. No mucosal masses or ulcers. Transit of contrast through the gastrojejunostomy. Duodenal folds are normal in thickness as well. Patient reports pain throughout the entire exam after ingestion of the barium. IMPRESSION: Status post Gema-en-Y gastric bypass. Rapid transit of barium through the gastrojejunostomy. Esophageal motility is within normal limits. No ulcer or stricture. No reflux. Of note the patient reports pain throughout the entire exam after the ingestion of barium. Dictated by: Mekhi Mastesr M.D. on 06/04/2023 at 11:31 Approved by: Mekhi Masters M.D. on 06/04/2023 at 11:35
--- NOTE | 2023-06-04 09:28 | DI.MG.S_ITS ---
BILATERAL DIGITAL SCREENING MAMMOGRAM 3D/2D WITH CAD: 06/04/2023 CLINICAL: Routine screening. Family history breast cancer. Comparison is made to exams dated: 08/05/2019 mammogram, 05/08/2018 mammogram, and 11/19/2016 mammogram - [facility]. There are scattered areas of fibroglandular density in both breasts (category b / 25%-50% glandular tissue). Current study was also evaluated with a Computer Aided Detection (CAD) system. There are biopsy clips in the left breast. No significant masses, calcifications, or other findings are seen in either breast. There has been no significant interval change. IMPRESSION: NEGATIVE There is no mammographic evidence of malignancy. A 1 year screening mammogram is recommended. Based on the Tyrer Cuzick model (a risk assessment model) the patient's lifetime risk is 6.8% and her 10 year risk is 2.6%. According to the ACR, ACS, and NCCN guidelines, an annual breast MRI exam along with mammogram is recommended if the patient's lifetime risk is 20% or greater. This exam was interpreted at Station ID: [id number]. NOTE: For mammograms, a report in lay terms will be sent to the patient. Approximately 15% of breast malignancies will not be visualized mammographically. In the management of a palpable breast mass, a negative mammogram must not discourage biopsy of a clinically suspicious lesion. Electronically Signed By: Yoni hdez/rafi:06/04/2023 12:43:39 letter sent: Normal Exam ACR BI-RADS Category 1: Negative [id number]
== END ==
PROVIDERS: Family Provider Family Medicine; PCP Family Medicine; Referring Provider Surgery; Visit Provider Surgery
DX: Z12.31 Encounter for screening mammogram for malignant neoplasm of breast (principal); R10.13 Epigastric pain; Z98.84 Bariatric surgery status; M79.18 Myalgia, other site; M47.816 Spondylosis without myelopathy or radiculopathy, lumbar region; M54.6 Pain in thoracic spine; G89.29 Other chronic pain; Z80.3 Family history of malignant neoplasm of breast
CPT/HCPCS: 20553; 74240; 76942; 77063; 77067; 99212

== ENCOUNTER 2023-06-23 20:51 | Emergency (ER) | payer OTHER, MEDICAID, SELFPAY ==
[2023-06-23 20:53] VITALS: BP 125/70; PULSE 85; RESP 20; TEMP 36.6; O2SAT 98; BMI 26.2
[2023-06-23 21:31] LABS: Appearance Urine UA CLEAR; Bilirubin Urine UA 1+ (NEGATIVE); Color Urine UA YELLOW; Glucose Urine UA NEGATIVE (Negative); Ketones Urine UA TRACE (NEGATIVE); Leukocyte Esterase Urine UA 2+ (NEGATIVE); Nitrite Urine UA POSITIVE (Negative); Occult Blood Urine UA 3+ (Negative); Protein Urine UA 3+ (Negative); Specific Gravity Urine UA >=1.030 (1.000-1.035)
[2023-06-23 21:36] LABS: pH Urine UA 6.5 (4.5-8.0)
[2023-06-23 21:39] LABS: Bacteria Urine Moderate (10-30); Culture Indicated Urine Specimen Cultured; Mucus Urine 1+ (Negative); RBC Urine 30-100/HPF (0-5/HPF); Squamous Epithelial Cell Urine 0-1 /HPF (0-5/HPF); WBC Urine 30-100/HPF (0-5/HPF)
[2023-06-23 21:42] VITALS: BP 115/75
[2023-06-23 21:43] VITALS: PULSE 78; O2SAT 96
[2023-06-23 22:11] VITALS: O2SAT 96
[2023-06-23 22:12] VITALS: BP 108/63; PULSE 71; O2SAT 97
[2023-06-23] MEDS: ACETAMINOPHEN 325 MG TABLET 650 MG PO (22:51)
[2023-06-23] MEDS: PHENAZOPYRIDINE 100 MG TABLET PO (22:51)
[2023-06-23] MEDS: TRIMETH/SULFA 160/800 (DS) TABLET 1 TAB PO (22:51)
--- NOTE | 2023-06-24 05:52 | ED.FEMALEGU ---
HPI - Female Genitourinary General Chief complaint: Urogenital-Female Stated complaint: UTI ? Time Seen by Provider: 06/23/23 22:09 Source: patient Mode of arrival: Ambulatory History of Present Illness HPI Narrative: 58-year-old female with no major comorbidities presenting with dysuria and frequency beginning today. She is also noted some hematuria this evening. She is not had fevers flank pain or vomiting. Patient reports previous urinary tract infections, I reviewed microbiology reports, typically urine cultures have been inconclusive, most recent urine culture that was diagnostic was Citrobacter sensitive to Bactrim. Related Data Home Medications Medication Instructions Recorded Confirmed naloxone 4 mg/actuation nasal spray 1 spray intranasal 11/06/22 06/18/23 allopurinol 300 mg tablet 300 mg PO DAILY 06/18/23 06/18/23 Previous Rx's Medication Instructions Recorded lancets 33 gauge (BD Ultra Fine #100 ea 05/04/20 Lancets) blood sugar diagnostic #100 ea 05/24/20 prochlorperazine maleate 10 mg 10 mg PO Q8H PRN nausea and 08/03/20 tablet (Compazine) vomiting #20 tabs fluticasone propionate 50 See Rx Instructions .Route 09/01/21 mcg/actuation nasal .COMPLEX #16 grams spray,suspension valsartan 80 mg tablet 80 mg PO DAILY #90 tabs 10/30/22 potassium chloride 20 mEq 20 meq PO DAILY #90 tabs 11/09/22 tablet,extended release(part/cryst) chlorthalidone 25 mg tablet 25 mg PO DAILY #90 tabs 02/12/23 lidocaine 5 % topical patch 1 patch topical DAILY #30 ea 02/27/23 bupropion HCl 300 mg 24 hr tablet, 300 mg PO QAM #90 tabs 03/26/23 extended release paroxetine HCl 10 mg tablet 10 mg PO ONCE PM #30 tabs 04/23/23 sumatriptan succinate 100 mg See Rx Instructions PO .COMPLEX 05/14/23 tablet (Imitrex) #14 tabs pantoprazole 40 mg tablet,delayed 40 mg PO BID #60 tabs 05/30/23 release cyclobenzaprine 10 mg tablet 10 mg PO BEDTIME PRN muscle spasm 06/22/23 #60 tabs oxycodone 5 mg tablet 10 mg (2 x 5 mg) PO TID PRN pain 06/22/23 #120 tabs sulfamethoxazole 800 1 tab PO BID #10 tabs 06/23/23 mg-trimethoprim 160 mg tablet (Bactrim DS) Allergies Allergy/AdvReac Type Severity Reaction Status Date / Time bee venom protein (honey bee) Allergy Intermediate severe Verified 06/18/23 07:51 edema silver Allergy Unknown Verified 06/18/23 07:51 [From Tegaderm AG Mesh] Penicillins Allergy Vomiting Verified 06/18/23 07:51 prednisone AdvReac Mild Agitated Verified 06/18/23 07:51 Patient History Medical History Thoracic back pain Lumbar spondylosis Myofascial pain Failed back syndrome Low back pain Bilateral hip pain Right hip pain Right shoulder pain Sacrococcygeal disorders, not elsewhere classified Radiculopathy, cervical region Radiculopathy, lumbosacral region Radicular pain in left arm Spondylolysis Ingrown right greater toenail Spondylolysis of cervical spine Nocturnal hypoxemia Insomnia due to medical condition Chronic seasonal allergic rhinitis Obstructive sleep apnea, adult Obesity (BMI 30-39.9) Migraine aura without headache Urinary tract infection Renal insufficiency Preop general physical exam Vulvar abscess Gout Vision disorder Asthma Post traumatic stress disorder (PTSD) Depression Anxiety Knee pain Scoliosis Chronic back pain Cataracts, bilateral Gastroparesis Prediabetes Hypertension Deep vein thrombosis Surgical History Bariatric surgery status Post-operative state H/O cervical spine surgery (~2014) History of bladder suspension procedure (~1995) Anesthesia History of cholecystectomy Plantar fasciitis History of bladder surgery Previous section History of neck surgery Previous back surgery Family History Mother Diabetes mellitus Heart disease Hypertension alcohol intake frequency: holidays/special occasions only Substance Use Type: marijuana Exam Initial Vital Signs Initial Vital Signs: Vital Signs Temperature 98 F 06/23/23 20:53 Pulse Rate 85 06/23/23 20:53 Respiratory Rate 20 06/23/23 20:53 Blood Pressure 125/70 06/23/23 20:53 Pulse Oximetry 98 06/23/23 20:53 Oxygen Delivery Method Room Air 06/23/23 20:53 Const General: No acute distress Resp Effort & Inspection: normal respiratory effort Auscultation: clear to auscultation bilaterally Cardio Rate: regular rate GI Palpation: soft and No tender (No CVAT) Back/Spine/Pelvis Thoracic/Lumbar Spine: thoracic and lumbar spine normal to inspection, thoraco-lumbar ROM normal and No paraspinal tenderness Skin General: no rashes or lesions noted Neuro General: patient alert, patient awake and patient oriented x3 Course Orders Ordered: ED Orders 06/23/23 20:57 Ictotest Urine Stat Urinalysis and Microscopic Stat Urine Culture Stat Discontinued Medications Acetaminophen (Acetaminophen 325 Mg Tablet) 650 mg PO NOW ONE Stop: 06/23/23 22:43 Last Admin: 06/23/23 22:51 Dose: 650 mg Documented By: BLANE Phenazopyridine HCl (Phenazopyridine 100 Mg Tablet) 100 mg PO NOW ONE Stop: 06/23/23 22:43 Last Admin: 06/23/23 22:51 Dose: 100 mg Documented By: BLANE Trimethoprim/Sulfamethoxazole (Trimeth/Sulfa 160/800 (Ds) Tablet) 1 tab PO NOW ONE Stop: 06/23/23 22:45 Last Admin: 06/23/23 22:51 Dose: 1 tab Documented By: BLANE Vital Signs Vital signs: Vital Signs - 8 hr 06/23/23 22:11 06/23/23 22:12 06/23/23 22:12 Pulse Rate 71 Blood Pressure 108/63 Pulse Oximetry 96 97 MDM - Female Genitourinary Medical Records Medical records narrative: I reviewed prior records including multiple urine cultures and notes associated with those culture Lab Data Lab results narrative: Urinalysis shows pyuria with bacteria there is some blood seen also. Given her lack of flank pain I considered but do not suspect ureteral stone Labs: Lab Results 06/23/23 Range/Units 20:57 Urine Color Yellow Urine Appearance Clear Urine pH 6.5 (4.5-8.0) Ur Specific [place] >=1.030 H (1.000-1.035) Urine Protein 3+ H (Negative) Urine Glucose (UA) Negative (Negative) g/dL Urine Ketones Trace H (NEGATIVE) Urine Occult Blood 3+ H (Negative) Urine Nitrate Positive H (Negative) Urine Bilirubin 1+ H (NEGATIVE) Ur Bilirubin Confirm TNP Urine Urobilinogen 1.0 (0.2) E.U./dL Ur Leukocyte Esterase 2+ H (NEGATIVE) Urine RBC 30-100/hpf H (0-5/HPF) Urine WBC 30-100/hpf H (0-5/HPF) Ur Squamous Epith Cells 0-1 /hpf (0-5/HPF) Urine Bacteria Moderate (10-30) H (None) Urine Mucus 1+ H (Negative) Ur Culture Indicated? Specimen cultured MDM Narrative Medical decision making narrative: 58-year-old female presenting with 1 day of dysuria. Urinalysis is consistent with infection. She does not have flank pain I considered pyelonephritis or ureteral stone neither 1 of these are likely given her lack of flank pain. She is nontoxic she is not febrile has no major comorbidities I think it is reasonable to treat her empirically without labs at this point. I started her on trimethoprim sulfa also did provide a dose of Pyridium in the emergency department. Discharge Plan Departure Patient Disposition: Home Clinical Impression: Cystitis Instructions: DI for Urinary Tract Infection (UTI) Prescriptions: New sulfamethoxazole-trimethoprim [Bactrim DS] 800-160 mg tablet 1 tab PO BID Qty: 10 0RF No Action (DME) lancets [BD Ultra Fine Lancets] 33 gauge misc See Rx Instructions .ROUTE .MEDSUPPLY Qty: 100 5RF Rx Instructions: Use to test blood glucose twice daily (DME) blood sugar diagnostic Strip See Rx Instructions .ROUTE .MEDSUPPLY Qty: 100 6RF Rx Instructions: check blood sugar twice a day Matrix brand or same as meter kit fluticasone propionate 50 mcg/actuation spray,suspension See Rx Instructions .ROUTE .COMPLEX Qty: 16 2RF Dose Instruction: use 2 spray into each nostril once daily Rx Instructions: use 2 spray into each nostril once daily valsartan 80 mg tablet 80 mg PO DAILY Qty: 90 3RF potassium chloride 20 mEq tablet,ER particles/crystals 20 meq PO DAILY Qty: 90 3RF chlorthalidone 25 mg tablet 25 mg PO DAILY Qty: 90 2RF lidocaine 5 % adhesive patch,medicated 1 patch topical DAILY Qty: 30 1RF Rx Instructions: leave on most painful area for up to 12 hrs paroxetine HCl 10 mg tablet 10 mg PO ONCE PM MDD 20 mg Qty: 30 0RF Rx Instructions: Take one tablet by mouth daily cyclobenzaprine 10 mg tablet 10 mg PO BEDTIME PRN (Reason: muscle spasm) Qty: 60 1RF oxycodone 5 mg tablet 10 mg PO TID PRN (Reason: pain) Qty: 120 0RF Rx Instructions: 1 po q AM, 1 po early PM, 2 po qhs. Weaning plan please inform pt prochlorperazine maleate [Compazine] 10 mg tablet 10 mg PO Q8H PRN (Reason: nausea and vomiting) Qty: 20 1RF naloxone 4 mg/actuation spray,non-aerosol 1 spray intranasal bupropion HCl 300 mg tablet extended release 24 hr 300 mg PO QAM Qty: 90 3RF sumatriptan succinate [Imitrex] 100 mg tablet See Rx Instructions PO .COMPLEX Qty: 14 2RF Rx Instructions: take 1 tab at onset of headache; if no relief, may repeat 1 tab after at least 2 hrs; max = 2 tabs/24 hrs PO pantoprazole 40 mg tablet,delayed release (DR/EC) 40 mg PO BID Qty: 60 1RF allopurinol 300 mg tablet 300 mg PO DAILY Referrals: Arnoldo Ribeiro DO [Primary Care Provider] - Stand Alone Forms: Patient Portal/API
== END 2023-06-23 22:57 | disposition home or self-care (01) ==
PROVIDERS: Emergency Provider Emergency Medicine; Family Provider Family Medicine; PCP Family Medicine
DX: N30.91 Cystitis, unspecified with hematuria (principal)
CPT/HCPCS: 81001; 87077; 87086; 87186; 99283

== ENCOUNTER 2023-07-17 12:53 | Outpatient (CLI) | payer OTHER, MEDICAID, SELFPAY ==
[2023-07-17] VITALS (9 sets, daily range): BP systolic 142–180; BP diastolic 75–101; PULSE 79–95; RESP 15–20; TEMP 36.4; O2SAT 96–98
--- NOTE | 2023-07-17 12:56 | DI.RAD.S_ITS ---
PROCEDURE: PAIN L/S FACET INJ/BLK 1ST WES INDICATIONS: Spondylosis without myelopathy COMPARISON: [facility], CR, XR LUMBAR SPINE MIN 4V, 05/01/2023, 10:05. FINDINGS: Fluoroscopic spot filming was performed to verify placement of spinal needles at the area of T12, L1 and L2 level(s), as labeled on the films. Appropriate location(s) of the needle tip(s) was confirmed by injection of iodinated contrast. IMPRESSION: Fluoroscopy for pain management. Dictated by: Arron Lopez M.D. on 07/17/2023 at 15:20 Approved by: Arron Lopez M.D. on 07/17/2023 at 15:32
[2023-07-17] MEDS: MIDAZOLAM 2 MG/2 ML VIAL IV (13:33)
[2023-07-17] MEDS: iopamidoL 15 ML VIAL 3 ML INJ (13:37)
[2023-07-17] MEDS: BUPIVACAINE 0.5% (PF) 10 ML VIAL 5 ML INJ (13:37)
--- NOTE | 2023-07-17 13:52 | P.PCN_ITS ---
Date/Time/Diagnoses Date of procedure: 07/17/23 Time of procedure: 13:30 Procedure Notes Physician: Levar Barrios Total Fluoroscopy time (seconds): 14 Total sedation minutes: 13 Procedure in detail & Post-procedure care: Bilateral L1-2 and L2-3 Lumbar Medial Branch Blocks Indications: Isabel is presenting for treatment of lumbar spondylosis with low back pain. Preoperative diagnosis: Lumbar spondylosis Postoperative diagnosis: Same Pre-procedure History: Patient demonstrates today moderate to severe non- radicular back pain without neurologic deficit aggravated by hyperextension yes Back pain greater than leg pain? yes Patient today has tenderness over the suspected joint(s) yes History of post-traumatic injury? no Hypertrophic arthropathy yes Back pain associated with suspected motion segment instability, hypermobility or pseudoarthrosis no Pre-testing pain score (VAS): 5/10 Focused Examination: Ax3 Mood and affect are normal Vital Signs: VSS ASA: 2 Consent: Following review of allergies and potential side effects/complications, including, but not necessarily limited to, infection, allergic reaction, local tissue breakdown, stroke, temporary or permanent nerve injury, paralysis, and possible , the patient indicated that they understood and agreed to proceed.? An informed consent document was signed by the patient, witnessed by a nurse and placed in the patient's chart.? Additionally, other treatment options including medications and physical therapy were reviewed with the patient. All questions were answered. Site was then marked. Anesthesia: After review of previous anesthetic history and IV conscious sedation, the patient was deemed safe to proceed with today's procedure with IV conscious sedation. IV sedation was accomplished with midazolam 2 mg administered by the RN after order by Dr. Barrios. Sedation was titrated to patient comfort during the course of the procedure. Patient remained responsive to all verbal commands. Position: Prone Monitoring: NIBP, Pulse oximetry, 3 lead EKG Needle used: 22 ga 3.5 inch spinal needle Contrast: None Injectate: None Procedure: The patient was brought into the procedure room and positioned into the prone position. Skin was prepped with a Chloraprep solution, allowed to air dry, and then draped in sterile fashion.? The right L1-2 and L2-3 facet joints were visually identified with fluoroscopy. Lidocaine 1% was used to anesthetize the skin over each target destination with a 25ga needle. A 22 ga, 3.5 inch spinal needle was advanced to the location of the medial branch at the junction of the superior articular process and the transverse process at L1,2,3 using intermittent fluoroscopy in the ipsilateral oblique view. The left L1-2 and L2-3 facet joints were visually identified with fluoroscopy. Lidocaine 1% was used to anesthetize the skin over each target destination with a 25ga needle. A 22 ga, 3.5 inch spinal needle was advanced to the location of the medial branch at the junction of the superior articular process and the transverse process at L1,2,3 using intermittent fluoroscopy in the ipsilateral oblique view. During positioning of the needles on the left, Isabel complained of severe back pain despite local anesthetic and requested to terminate the procedure. The needles were withdrawn and Band-Aids were applied for a dressing. There was no contrast or local anesthetic injected for the diagnostic portion of this procedure. Post Procedure: Patient was taken to the recovery and monitored. The patient was provided a Pain Log to continue to record the patient's response to the target- specific procedure prior to the patient's follow-up visit with the referring physician. Patient was stable upon discharge. Detailed post procedure instructions were provided. Patient was asked to call in the event of worsening pain, fever, weakness, numbness or bladder or bowel incontinence.
--- NOTE | 2023-07-17 13:55 | PC.NURSE ---
1346- procedure aborted per patients wishes, too painful, unable to hold still, kicking legs and arms around. Unsafe to continue with procedure. Patient assisted to sitting on side of procedure table reports that the right side pain is starting to subside but the left side is still very intense and radiates into the left buttocks/hip and down her leg. Patient taken to recovery room.
== END 2023-07-17 14:21 | disposition home or self-care (01) ==
LOC: RAD 12:53
PROVIDERS: Family Provider Family Medicine; PCP Family Medicine; Referring Provider Anesthesiology; Visit Provider Anesthesiology
DX: M47.816 Spondylosis without myelopathy or radiculopathy, lumbar region (principal)
CPT/HCPCS: 64493; 64494; 99152; J2250

== ENCOUNTER → 2023-08-18 13:26 | Outpatient (CLI) | payer OTHER, MEDICAID, SELFPAY ==
--- NOTE | 2023-08-18 | DI.MRI.S_ITS ---
PROCEDURE: MR CERVICAL SPINE WO CON INDICATIONS: Low back pain, Thoracic pain, Cervical pain TECHNIQUE: Noncontrast sagittal T1 spin echo and T2 fast spin echo, sagittal STIR, foraminal oblique sagittal T2 fast spin echo, and axial gradient echo or T2 fast spin echo through the cervical spine. COMPARISON: [facility], MR, MR CERVICAL SPINE WO CON, 08/25/2021, 11:55. FINDINGS: Image quality: Excellent. Alignment and Curvature: There is normal bony alignment. Bone Marrow: Postsurgical changes are seen from anterior fusion at C6-7 with associated metal artifact. There appears to be solid osseous fusion across the disc space. Marrow demonstrates normal overall signal. Spinal Cord: Visualized spinal cord has normal size and signal. No cerebellar tonsillar herniation. Paraspinous Soft Tissues: No paravertebral masses. Prevertebral soft tissues are normal in thickness. C2-C3: There is disc desiccation and mild posterior disc-osteophyte complex with bilateral uncovertebral joint and facet hypertrophy. Findings result in mild left neural foraminal narrowing without significant right neural foraminal narrowing or spinal canal stenosis. Findings are similar compared to the prior MRI from 08/25/2021. C3-C4: Disc desiccation is seen as well as bilateral uncovertebral joint and facet hypertrophy. Findings result in moderate bilateral neural foraminal narrowing, which appears similar when compared to the prior MRI. No significant spinal canal stenosis. C4-C5: Disc desiccation is seen with bilateral uncovertebral joint and facet hypertrophy. Findings result in moderate bilateral neural foraminal narrowing without significant spinal canal stenosis. Findings have not significantly changed when compared to the prior MRI. C5-C6: Disc desiccation is seen with mild posterior disc-osteophyte complex as well as bilateral uncovertebral joint and facet hypertrophy. Findings result in moderate right and mild left neural foraminal narrowing as well as mild narrowing of the central spinal canal, no significant change when compared to the MRI from 08/25/2021. C6-C7: Postsurgical changes from prior ACDF. No significant recurrent spinal canal stenosis or neural foraminal narrowing is seen. C7-T1: Disc desiccation is seen with bilateral uncovertebral joint and facet hypertrophy, which result in moderate left and mild right neural foraminal narrowing without significant spinal canal stenosis. IMPRESSION: 1. Postsurgical changes again seen from ACDF at C6-7. 2. Multilevel degenerative disc disease, uncovertebral joint hypertrophy, and facet hypertrophy as described in detail in the body of the report. Findings have not significant changed compared to the MRI from 08/25/2021. 3. No high-grade spinal canal stenosis or high-grade neural foraminal narrowing. Approved by: Yoni Avilez M.D. on 08/19/2023 at 10:47
--- NOTE | 2023-08-18 | DI.CT.S_ITS ---
PROCEDURE: CT LUMBAR SPINE WO CON INDICATIONS: Low back pain, Thoracic pain, Cervical pain TECHNIQUE: Noncontrast 3 mm thick sections acquired from the T12 level to the sacrum. Sagittal and coronal reformats were constructed. For radiation dose reduction, the following was used: automated exposure control. COMPARISON: [facility], CT, CT ABDOMEN PELVIS W CON, 05/30/2023, 13:56. [facility], MR, MR LUMBAR SPINE WO CON, 08/18/2023, 15:00. FINDINGS: Image quality: Diagnostic Bones: L4-S1 anterior and posterior fusion construct appears similar to prior. L2 endplate deformity again seen, probably a Schmorl's node. No acute appearing fracture or traumatic subluxation. Trace retrolisthesis of L1 on L2 also again seen. Overall [id number] spondylosis, particularly L1-L2. A likely disc bulge or protrusion is seen above the construct at L3-L4. These findings are better assessed on same-day MRI. Slight levoconvex spinal curvature Soft tissues: No paravertebral soft tissue collection. Partially visualized renal cysts. Atherosclerotic calcifications. Cholecystectomy clips. Colonic diverticula. Intra-abdominal structures are not well assessed on this study. IMPRESSION: Postsurgical findings without acute changes. [id number] spondylotic changes. Level by level assessment is better performed on same day MRI. Dictated by: Mario Huitron M.D. on 08/18/2023 at 15:54 Approved by: Mario Huitron M.D. on 08/18/2023 at 15:57
--- NOTE | 2023-08-18 14:49 | DI.MRI.S_ITS ---
PROCEDURE: MR THORACIC SPINE WO CON INDICATIONS: mid back pain TECHNIQUE: Noncontrast sagittal T1 spine echo and T2 fast spin echo, sagittal STIR, and T2 fast spin echo through the thoracic spine. COMPARISON: None. FINDINGS: Image quality: Excellent. Alignment and Curvature: There is normal bony alignment. Bone Marrow: Marrow is of normal overall signal. No acute vertebral body compression fractures. Postsurgical changes are partially included at the C6-7 level. Spinal Cord: Visualized spinal cord is normal in size and signal. Paraspinous Soft Tissues: No paravertebral masses. Miscellaneous: Mild multilevel disc desiccation and mild degenerative endplate changes. On axial images, central canal and foramina appear widely patent at all scanned levels. IMPRESSION: Mild multilevel degenerative disc disease. No high-grade spinal canal stenosis or high-grade neural foraminal narrowing is seen at any level. Approved by: Yoni Avilez M.D. on 08/19/2023 at 10:51
--- NOTE | 2023-08-18 15:00 | DI.MRI.S_ITS ---
____ PATIENT NAME: SARAY HARLEY : 1965 EXAM DATE: 08/18/2023 15:[address] TERESA HOOD D.O. CC: BALTA HONEYCUTT M.D. MODALITY: MR PATIENT TYPE: Out CONTRAST MEDIA: STATION ID: [id number] FLUORO TIME: PROCEDURE: MR THORACIC SPINE WO CON INDICATIONS: mid back pain TECHNIQUE: Noncontrast sagittal T1 spine echo and T2 fast spin echo, sagittal STIR, and T2 fast spin echo through the thoracic spine. COMPARISON: None. FINDINGS: Image quality: Excellent. Alignment and Curvature: There is normal bony alignment. Bone Marrow: Marrow is of normal overall signal. No acute vertebral body compression fractures. Postsurgical changes are partially included at the C6-7 level. Spinal Cord: Visualized spinal cord is normal in size and signal. Paraspinous Soft Tissues: No paravertebral masses. Miscellaneous: Mild multilevel disc desiccation and mild degenerative endplate changes. On axial images, central canal and foramina appear widely patent at all scanned levels. IMPRESSION: Mild multilevel degenerative disc disease. No high-grade spinal canal stenosis or high-grade neural foraminal narrowing is seen at any level. Approved by: Yoni Avilez M.D. on 08/19/2023 at 10:51
== END ==
PROVIDERS: Family Provider Family Medicine; PCP Family Medicine; Referring Provider Orthopaedic Surgery Orthopaedic Surgery of the Spine; Visit Provider Orthopaedic Surgery Orthopaedic Surgery of the Spine
DX: M47.812 Spondylosis without myelopathy or radiculopathy, cervical region (principal); M50.31 Other cervical disc degeneration, high cervical region; M51.34 Other intervertebral disc degeneration, thoracic region; M54.17 Radiculopathy, lumbosacral region; M47.816 Spondylosis without myelopathy or radiculopathy, lumbar region; M43.06 Spondylolysis, lumbar region; M54.50 Low back pain, unspecified; Z98.1 Arthrodesis status
CPT/HCPCS: 72131; 72141; 72146; 72148

== ENCOUNTER 2023-09-24 19:30 | Emergency (ER) | payer OTHER, MEDICAID, SELFPAY ==
[2023-09-24 19:51] VITALS: BP 155/90; PULSE 75; RESP 16; TEMP 36.9; O2SAT 98; BMI 24.9
--- NOTE | 2023-09-24 22:30 | PC.NURSE ---
Patient not seeing in lobby during multiple checks.
== END 2023-09-24 22:31 | disposition left against medical advice (07) ==
PROVIDERS: Emergency Provider Emergency Medicine; Family Provider Family Medicine; PCP Family Medicine
DX: S61.011A Laceration without foreign body of right thumb without damage to nail, initial encounter (principal)
CPT/HCPCS: 99281

== ENCOUNTER 2023-12-06 02:22 | Emergency (ER) | payer OTHER, MEDICAID, SELFPAY ==
[2023-12-06] VITALS (8 sets, daily range): BP systolic 118–138; BP diastolic 65–94; PULSE 82–103; RESP 12–22; TEMP 36.6; O2SAT 95–99; BMI 24.7
--- NOTE | 2023-12-06 02:30 | ED.GENADULT ---
HPI - General Adult General Chief complaint: Nausea/Vomiting/Diarrhea Stated complaint: N/V/D 6 days Time Seen by Provider: 12/06/23 02:22 Source: patient Mode of arrival: EMS Limitations: no limitations History of Present Illness HPI narrative: Patient is a 58-year-old female who is brought in by EMS for evaluation of abdominal pain and diarrhea for the past 6 days. She was also had a couple episodes of vomiting. The 1st episode was at the beginning of the diarrhea and the 2nd episode was this evening. No recent travel. No recent antibiotics. No fevers. She states that she has been able to drink water but has had multiple episodes of nonbloody diarrhea over the past 6 days. This evening it got to the point where she felt like she needed to have a bowel movement and also felt like she needed to throw up but was unable to do so. Related Data Home Medications Medication Instructions Recorded Confirmed naloxone 4 mg/actuation nasal spray 1 spray intranasal 11/06/22 10/28/23 duloxetine 30 mg capsule,delayed 30 mg PO DAILY 08/22/23 10/28/23 release Previous Rx's Medication Instructions Recorded lancets 33 gauge (BD Ultra Fine #100 ea 05/04/20 Lancets) blood sugar diagnostic #100 ea 05/24/20 prochlorperazine maleate 10 mg 10 mg PO Q8H PRN nausea and 08/03/20 tablet (Compazine) vomiting #20 tabs chlorthalidone 25 mg tablet 25 mg PO DAILY #90 tabs 02/12/23 bupropion HCl 300 mg 24 hr tablet, 300 mg PO QAM #90 tabs 03/26/23 extended release sumatriptan succinate 100 mg See Rx Instructions PO .COMPLEX 05/14/23 tablet (Imitrex) #14 tabs cyclobenzaprine 10 mg tablet 10 mg PO BEDTIME PRN muscle spasm 06/22/23 #60 tabs baclofen 5 mg tablet 5 mg PO TID #90 tabs 07/25/23 prednisone 20 mg tablet 20 mg PO DAILY #7 tabs 08/22/23 albuterol sulfate 90 mcg/actuation 2 puff inhalation Q6H PRN 08/23/23 aerosol inhaler shortness of breath or wheezing #8.5 grams fluticasone propionate 50 See Rx Instructions .Route 08/23/23 mcg/actuation nasal .COMPLEX #16 grams spray,suspension allopurinol 300 mg tablet 300 mg PO DAILY #90 tabs 10/15/23 pantoprazole 40 mg tablet,delayed 40 mg PO BID #60 tabs 10/15/23 release varenicline 0.5 mg (11)-1 mg (42) See Rx Instructions PO PER PKG DIR 10/28/23 tablets in a dose pack (Chantix #53 ea Starting Month Box) varenicline 1 mg tablet (Chantix 1 mg PO BID #60 tabs 10/28/23 Continuing Month Box) lidocaine 5 % topical patch 1 patch topical DAILY #30 ea 11/06/23 valsartan 80 mg tablet 80 mg PO DAILY #90 tabs 11/06/23 potassium chloride 20 mEq 20 meq PO DAILY #90 tabs 11/15/23 tablet,extended release(part/cryst) oxycodone 5 mg tablet 10 mg (2 x 5 mg) PO TID PRN pain 11/21/23 #150 tabs Allergies Allergy/AdvReac Type Severity Reaction Status Date / Time bee venom protein (honey bee) Allergy Intermediate severe Verified 12/06/23 02:40 edema prednisone AdvReac Mild Agitated Verified 12/06/23 02:40 silver AdvReac Unknown ITCHING Verified 12/06/23 02:40 [From Tegaderm AG Mesh] Penicillins AdvReac Vomiting Verified 12/06/23 02:40 Review of Systems Review of Systems Narrative: See HPI Patient History Medical History Internal hemorrhoids without complication Thoracic back pain Lumbar spondylosis Myofascial pain Failed back syndrome Low back pain Bilateral hip pain Right hip pain Right shoulder pain Sacrococcygeal disorders, not elsewhere classified Radiculopathy, cervical region Radiculopathy, lumbosacral region Radicular pain in left arm Spondylolysis Ingrown right greater toenail Spondylolysis of cervical spine Nocturnal hypoxemia Insomnia due to medical condition Chronic seasonal allergic rhinitis Obstructive sleep apnea, adult Obesity (BMI 30-39.9) Migraine aura without headache Urinary tract infection Renal insufficiency Preop general physical exam Vulvar abscess Gout Vision disorder Asthma Post traumatic stress disorder (PTSD) Depression Anxiety Knee pain Scoliosis Chronic back pain Cataracts, bilateral Gastroparesis Prediabetes Hypertension Deep vein thrombosis Surgical History Bariatric surgery status Post-operative state H/O cervical spine surgery (~2014) History of bladder suspension procedure (~1995) Anesthesia History of cholecystectomy Plantar fasciitis History of bladder surgery Previous section History of neck surgery Previous back surgery Family History Mother Diabetes mellitus Heart disease Hypertension Social History Smoking Status: Former smoker Tobacco: How many years used: 40 alcohol intake: current Smoking Status: Former smoker alcohol intake frequency: holidays/special occasions only Substance Use Type: marijuana Exam Initial Vital Signs Initial Vital Signs: Vital Signs Temperature 97.8 F 12/06/23 02:33 Pulse Rate 103 H 12/06/23 02:33 Respiratory Rate 20 12/06/23 02:33 Blood Pressure 118/65 12/06/23 02:33 Pulse Oximetry 96 12/06/23 02:33 Oxygen Delivery Method Room Air 12/06/23 02:33 HENMT Head: normal to inspection and normocephalic Resp Effort & Inspection: normal respiratory effort Auscultation: clear to auscultation bilaterally Cardio Rate: regular rate Rhythm: regular rhythm GI Inspection: normal to inspection and distended Palpation: soft, No firm, No guarding and tender Neuro General: patient alert and patient awake Extrem General: capillary refill normal Course Orders Ordered: ED Orders 12/06/23 02:29 Complete Blood Count AUTO DIFF Stat Comprehensive Metabolic Panel Stat Lactate (Lactic Acid) Stat Lipase Stat Procalcitonin Stat 12/06/23 02:33 CT abdomen pelvis w con Stat 12/06/23 03:25 Blood Culture Stat 12/06/23 03:34 GI Panel (Film Array) Stat Discontinued Medications Sodium Chloride (Normal Saline 0.9%) 1,000 mls @ 1,000 mls/hr IV BOLUS ONE Stop: 12/06/23 03:22 Last Infusion: 12/06/23 03:35 Dose: Infused Documented By: Admin: 12/06/23 02:31 Dose: 1,000 mls/hr Documented By: MISSY Sodium Chloride (Normal Saline 0.9%) 1,000 mls @ 1,000 mls/hr IV BOLUS ONE Stop: 12/06/23 04:52 Last Infusion: 12/06/23 05:23 Dose: Infused Documented By: Admin: 12/06/23 04:13 Dose: 1,000 mls/hr Documented By: DARBY Loperamide HCl (Loperamide 2 Mg Capsule) 4 mg PO NOW ONE Stop: 12/06/23 05:22 Ondansetron HCl (Ondansetron 4 Mg/2 Ml Inj) 4 mg IV NOW ONE Stop: 12/06/23 02:24 Last Admin: 12/06/23 02:32 Dose: 4 mg Documented By: MISSY Ondansetron HCl (Ondansetron 4 Mg Odt Prepack) 1 bottle MISC DIRECTED ONE Stop: 12/06/23 05:22 Vital Signs Vital signs: Vital Signs - 8 hr 12/06/23 02:33 12/06/23 02:36 12/06/23 03:00 Temperature 97.8 F Pulse Rate 103 H 88 94 H Respiratory Rate 20 12 22 Blood Pressure 118/65 Pulse Oximetry 96 99 99 Oxygen Delivery Method Room Air Room Air Room Air 12/06/23 03:33 12/06/23 03:33 12/06/23 04:00 Temperature Pulse Rate 102 H Respiratory Rate 19 Blood Pressure 121/94 H 133/77 Pulse Oximetry 97 Oxygen Delivery Method Room Air 12/06/23 04:00 12/06/23 04:30 12/06/23 04:30 Temperature Pulse Rate 93 H 92 H Respiratory Rate 20 22 Blood Pressure 138/76 Pulse Oximetry 96 97 Oxygen Delivery Method Room Air Room Air 12/06/23 05:00 12/06/23 05:00 Temperature Pulse Rate 83 Respiratory Rate 18 Blood Pressure 138/70 Pulse Oximetry 95 Oxygen Delivery Method Room Air Medical Decision Making Medical Records Medical records reviewed: Yes I reviewed the patient's medical records. Lab Data Lab results reviewed: Yes I reviewed the patient's lab results. 12/06/23 02:29 12/06/23 02:29 Labs: Lab Results 12/06/23 12/06/23 Range/Units 02:29 03:34 WBC 22.8 H (4.5-11.0) X10^3/uL RBC 4.66 (4.0-5.2) X10^6/uL Hgb 14.0 (12.0-16.0) g/dL Hct 43.1 (36-46) % MCV 92.6 (80-100) fL MCH 30.1 (26-34) PG MCHC 32.5 (30-36) % RDW 14.3 (11.6-14.8) % Plt Count 248 (150-400) X10^3/uL Neut % (Auto) 83.9 H (50-75) % Lymph % (Auto) 10.3 L (25-40) % [place] % (Auto) 4.7 (3-14) % Eos % (Auto) 0.5 L (2-4) % Baso % (Auto) 0.6 (0-2) % Neut # (Auto) 03686 H (8384-8566) /uL Lymph # (Auto) 2300 (8706-1417) /uL [place] # (Auto) 1100 H (0-900) /uL Eos # (Auto) 100 (0-450) /uL Baso # (Auto) 100 (0-100) /uL Sodium 141 (137-145) mmol/L Potassium 3.8 (3.4-5.1) mmol/L Chloride 110 H (98-107) mmol/L Carbon Dioxide 17 L (22-32) mmol/L BUN 18 H (7-17) mg/dL Creatinine 0.96 (0.52-1.04) mg/dL Estimated GFR > 60 (>60) mL/min BUN/Creatinine Ratio 18.8 (6-22) Glucose 163 H (70-100) mg/dL Lactate 1.3 (0.7-2.1) mmol/L Calcium 10.6 H (8.4-10.2) mg/dL Total Bilirubin 0.5 (0.2-1.3) mg/dL AST 32 (14-36) IU/L ALT 28 (<35) IU/L Alkaline Phosphatase 94 (38-126) U/L Total Protein 8.4 H (6.3-8.2) g/dL Albumin 5.1 H (3.5-5.0) g/dL Globulin 3.3 (1.7-4.1) g/dL Albumin/Globulin Ratio 1.5 (1.0-2.8) Lipase 306 H (23-300) U/L Procalcitonin 0.039 (<0.5) ng/mL Stl C. cayetanensis PCR Not detected (Not Detect) Stool Rotavirus (PCR) Not detected (Not Detect) Stool Adenovirus (PCR) Not detected (Not Detect) Stool Astrovirus (PCR) Not detected (Not Detect) Stool Cryptosporidium PCR Not detected (Not Detect) Stl E.coli Shiga Tox PCR Not detected (Not Detect) St Sh/Enteroin Ecoli PCR Not detected (Not Detect) Stl Enterotoxigenic E PCR Not detected (Not Detect) Stool EPEC (PCR) Not detected (Not Detect) Stl E. histolytica PCR Not detected (Not Detect) Stool Giardia Lamblia PCR Not detected (Not Detect) Stool Sapovirus (PCR) Not detected (Not Detect) Stl P. shigelloides PCR Not detected (Not Detect) St Y.enterocolitica PCR Not detected (Not Detect) Stool Vibrio (PCR) Not detected (Not Detect) Stl Vibrio cholerae PCR Not detected (Not Detect) Stl Enteroaggr Ecoli PCR Not detected (Not Detect) Stl Norovirus GI/GII PCR Not detected (Not Detect) Campylobacter (PCR) Not detected (Not Detect) C. difficile Tox (PCR) Not detected (Not Detect) Salmonella (PCR) Not detected (Not Detect) Point of Care Testing Glucose POC 186 Point of care testing: Point of Care Testing Glucose POC [address] scan - abdomen/pelvis: Radiologist's Impression: prior gastric bypass. Findings are suggestive of nonspecific enterocolitis. No convincing mechanical obstruction MDM Narrative Medical decision making narrative: She does have a significant leukocytosis however I suspect this is related to all of the diarrhea that she has been having recently and also the vomiting. CT scan shows enteritis which does respond to her presenting symptoms today. She was able to tolerate oral intake. No indication for surgical consultation. GI panel was negative. No indication for antibiotics. I suspect that she would benefit from an antidiarrheal medicine where she was given a 1st dose here in the ER. Will send home with nausea medication. Encouragement to increase fluid intake. She was given return precautions. She expressed understanding and agreement. Discharge Plan Departure Patient Disposition: Home Clinical Impression: Diarrhea Instructions: Diarrhea Activity Restrictions/Additional Instructions: Be sure that you continue to take all of your medications as directed. Use the nausea medication as needed and try to increase your fluid intake. I recommend a bland diet that you can advance as tolerated. I also recommend that you consider using a antidiarrhea medicine such as Imodium/loperamide. You can purchase this [id number]. Return to the emergency department for new symptoms. Prescriptions: No Action (DME) lancets [BD Ultra Fine Lancets] 33 gauge misc See Rx Instructions .ROUTE .MEDSUPPLY Qty: 100 5RF Rx Instructions: Use to test blood glucose twice daily (DME) blood sugar diagnostic Strip See Rx Instructions .ROUTE .MEDSUPPLY Qty: 100 6RF Rx Instructions: check blood sugar twice a day Matrix brand or same as meter kit chlorthalidone 25 mg tablet 25 mg PO DAILY Qty: 90 2RF cyclobenzaprine 10 mg tablet 10 mg PO BEDTIME PRN (Reason: muscle spasm) Qty: 60 1RF albuterol sulfate 90 mcg/actuation HFA aerosol inhaler 2 puff inhalation Q6H PRN (Reason: shortness of breath or wheezing) Qty: 8.5 2RF fluticasone propionate 50 mcg/actuation spray,suspension See Rx Instructions .ROUTE .COMPLEX Qty: 16 2RF Dose Instruction: use 2 spray into each nostril once daily Rx Instructions: use 2 spray into each nostril once daily allopurinol 300 mg tablet 300 mg PO DAILY Qty: 90 2RF pantoprazole 40 mg tablet,delayed release (DR/EC) 40 mg PO BID Qty: 60 1RF lidocaine 5 % adhesive patch,medicated 1 patch topical DAILY Qty: 30 1RF Rx Instructions: leave on most painful area for up to 12 hrs valsartan 80 mg tablet 80 mg PO DAILY Qty: 90 3RF potassium chloride 20 mEq tablet,ER particles/crystals 20 meq PO DAILY Qty: 90 3RF oxycodone 5 mg tablet 10 mg PO TID PRN (Reason: pain) Qty: 150 0RF Rx Instructions: 1-2 po tid prn pain. No more than 5 in 1 day. Must last 30 days prochlorperazine maleate [Compazine] 10 mg tablet 10 mg PO Q8H PRN (Reason: nausea and vomiting) Qty: 20 1RF naloxone 4 mg/actuation spray,non-aerosol 1 spray intranasal varenicline [Chantix Starting Month Box] 0.5 mg (11)- 1 mg (42) tablets,dose pack See Rx Instructions PO PER PKG DIR Qty: 53 0RF Rx Instructions: PO PER PKG DIR varenicline [Chantix Continuing Month Box] 1 mg tablet 1 mg PO BID Qty: 60 1RF bupropion HCl 300 mg tablet extended release 24 hr 300 mg PO QAM Qty: 90 3RF sumatriptan succinate [Imitrex] 100 mg tablet See Rx Instructions PO .COMPLEX Qty: 14 2RF Rx Instructions: take 1 tab at onset of headache; if no relief, may repeat 1 tab after at least 2 hrs; max = 2 tabs/24 hrs PO prednisone 20 mg tablet 20 mg PO DAILY Qty: 7 0RF duloxetine 30 mg capsule,delayed release(DR/EC) 30 mg PO DAILY baclofen 5 mg tablet 5 mg PO TID Qty: 90 1RF Referrals: Arnoldo Ribeiro, [Primary Care Provider] - Stand Alone Forms: Patient Portal/API
[2023-12-06] MEDS: SODIUM CHLORIDE 0.9% 1,000 ML 1000 ML IV ×2 (02:31→04:13)
[2023-12-06] MEDS: ONDANSETRON 4 MG/2 ML INJ IV (02:32)
--- NOTE | 2023-12-06 02:33 | DI.CT.S_ITS ---
PROCEDURE: CT ABDOMEN PELVIS W CON INDICATIONS: Gema-en-Y gastric bypass 1 year ago with abdominal pain TECHNIQUE: After the administration of intravenous contrast, axial sections acquired from the lung bases to the pubic symphysis. Coronal and sagittal reformats were performed. For radiation dose reduction, the following was used: automated exposure control, adjustment of mA and/or kV according to patient size. COMPARISON: [facility], CT, CT ABDOMEN PELVIS W CON, 05/30/2023, 13:56. FINDINGS: Image quality: Diagnostic. Lower Chest: No significant findings. ABDOMEN: Liver: No solid mass. Scattered subcentimeter hypoattenuating lesions, too small to characterize by CT but probably small cysts. Gallbladder: Absent. Biliary ducts: No biliary dilation. Pancreas: No ductal dilation. Spleen: Size is within normal limits. Adrenal Glands: No adrenal nodules. Kidneys and Ureters: No hydronephrosis. No solid mass. No complex renal cystic lesion which requires follow up. Stomach and Bowel: Prior gastric bypass. Mild wall thickening of the distal small bowel and colon. Fluid within the large bowel. Colonic diverticulosis without evidence of diverticulitis. Peritoneum: No abnormal intraperitoneal fluid. No free air. Ventral Wall: No significant ventral hernia. Abdominal Nodes: No retroperitoneal or mesenteric adenopathy by size criteria. Vessels: Aorta and inferior vena cava are normal in size. PELVIS: Pelvic Organs: Unremarkable. Bladder: No bladder wall thickening, accounting for underdistention. Pelvic Nodes: No enlarged lymph nodes. Miscellaneous: No inguinal hernias are seen. Bones: No aggressive osseous abnormality. Surgical fusion the lower lumbar spine. Stable vertebral body height loss L2. IMPRESSION: Prior Gema-en-Y gastric bypass, without obstruction. Suspected enterocolitis and diarrheal illness. Agree with preliminary report. Dictated by: Monster Sutton M.D. on 12/06/2023 at 8:40 Approved by: Monster Sutton M.D. on 12/06/2023 at 8:50
[2023-12-06 02:41] LABS: Add Manual Diff / Slide Review NO; Basophils Absolute Auto 100 /uL (0-100); Basophils Percent Auto 0.6 % (0-2); Eosinophils Absolute Auto 100 /uL (0-450); Eosinophils Percent Auto 0.5 % (2-4); Hematocrit 43.1 % (36-46); Lymphocytes Absolute Auto 2300 /uL (1100-4500); Lymphocytes Percent Auto 10.3 % (25-40); Mean Corpuscular HGB Conc 32.5 % (30-36); Mean Corpuscular Hemoglobin 30.1 PG (26-34); Mean Corpuscular Volume 92.6 fL (80-100); Monocytes Absolute Auto 1100 /uL (0-900); Monocytes Percent Auto 4.7 % (3-14); Neutrophils Absolute Auto 19100 /uL (1500-7000); Neutrophils Percent Auto 83.9 % (50-75); Platelet Count 248 X10^3/uL (150-400); Red Blood Cell Count 4.66 X10^6/uL (4.0-5.2); Red Cell Distribution Width 14.3 % (11.6-14.8); White Blood Cell Count 22.8 X10^3/uL (4.5-11.0)
[2023-12-06 02:53] LABS: Alanine Aminotransferase 28 IU/L (<35); Albumin 5.1 g/dL (3.5-5.0); Albumin Globulin Ratio 1.5 (1.0-2.8); Alkaline Phosphatase 94 U/L (38-126); Aspartate Aminotransferase 32 IU/L (14-36); BUN Creatinine Ratio 18.8 (6-22); Bilirubin Total 0.5 mg/dL (0.2-1.3); Blood Urea Nitrogen 18 mg/dL (7-17); Calcium 10.6 mg/dL (8.4-10.2); Carbon Dioxide 17 mmol/L (22-32); Chloride 110 mmol/L (98-107); Estimated Glomerular Filt Rate > 60 mL/min (>60); Globulin 3.3 g/dL (1.7-4.1); Glucose 163 mg/dL (70-100); HEMOLYSIS 24 (0-50); Lipase 306 U/L (23-300); Potassium 3.8 mmol/L (3.4-5.1); Sodium 141 mmol/L (137-145); Total Protein 8.4 g/dL (6.3-8.2)
[2023-12-06 03:03] LABS: Lactate (Lactic Acid) 1.3 mmol/L (0.7-2.1)
[2023-12-06 03:21] LABS: Procalcitonin 0.039 ng/mL (<0.5)
[2023-12-06 05:00] LABS: Adenovirus F 40/41 Not Detected (Not Detect); Astrovirus Not Detected (Not Detect); Campylobacter Not Detected (Not Detect); Clostridium difficile toxin AB Not Detected (Not Detect); Cryptosporidium Not Detected (Not Detect); Cyclospora cayetanensis Not Detected (Not Detect); Entamoeba histolytica Not Detected (Not Detect); Enteroaggregative E.coli Not Detected (Not Detect); Enteropathogenic E.coli Not Detected (Not Detect); Enterotoxigenic E.coli It/st Not Detected (Not Detect); Giardia lamblia Not Detected (Not Detect); Norovirus GI/GII Not Detected (Not Detect); Plesiomonsa shigelloides Not Detected (Not Detect); Rotavirus A Not Detected (Not Detect); Salmonella Not Detected (Not Detect); Sapovirus Not Detected (Not Detect); Shiga-like toxin-prod E.coli Not Detected (Not Detect); Shigella/Enteroinvasive E.coli Not Detected (Not Detect); Vibrio Not Detected (Not Detect); Vibrio cholerae Not Detected (Not Detect); Yersinia enterocolitica Not Detected (Not Detect)
[2023-12-06] MEDS: ONDANSETRON 4 MG ODT PREPACK 1 BOTTLE MISC (05:29)
[2023-12-06] MEDS: LOPERAMIDE 2 MG CAPSULE 4 MG PO (05:31)
== END 2023-12-06 06:17 | disposition home or self-care (01) ==
PROVIDERS: Emergency Provider Emergency Medicine; Family Provider Family Medicine; PCP Family Medicine
DX: R19.7 Diarrhea, unspecified (principal); R10.9 Unspecified abdominal pain
CPT/HCPCS: 36415; 74177; 80053; 83605; 83690; 84145; 85025; 87040; 87507; 96374; 99284; J2405; Q9967

== ENCOUNTER → 2024-03-18 10:57 | Outpatient (CLI) | payer OTHER, MEDICAID, SELFPAY ==
--- NOTE | 2024-04-09 11:16 | DIAB.INIT ---
Initial Diabetes Education Assessment Name: Isabel Gutierrez Date: 03/18/24 Time: -1963j Dx: Type II Diabetes Provider: Quintin Hall presents today with caregiver. Referred for T2DM with hypoglycemia. Reports home BG of 30-60mg/dl with symptoms of dizziness, confusion, nausea, and shakiness. Caregiver will help her at times with juice when she is particularly struggling with hypo. PMH of annabel en y gastric bypass sx. Endorses reduced PO when pain is up. Reports extensive pain in back, shoulders, and hands. Endorses EMS visit hx for lows. Interested in CGM Self-Monitoring Blood Glucose: Checks when symptoms of low. Diabetes Medications: none Pertinent Labs: HgA1c: 5.9% 05/2023 Past Medical History: (Last Reviewed 02/24/24 @ 16:24 by Arnoldo Ribeiro DO) Abdominal pannus Anxiety 10 years Asthma Bilateral hip pain Cataracts, bilateral 2 years Chronic back pain 20+ years Chronic seasonal allergic rhinitis Deep vein thrombosis Depression 20 years Failed back syndrome Gastroparesis 2 years Gout Hypertension Hypoglycemia Ingrown right greater toenail Insomnia due to medical condition Internal hemorrhoids without complication Knee pain 7 years Low back pain Lumbar spondylosis Migraine aura without headache Myofascial pain Nocturnal hypoxemia Obesity (BMI 30-39.9) Obstructive sleep apnea, adult Post traumatic stress disorder (PTSD) 3-4 years Prediabetes Preop general physical exam Radicular pain in left arm Radiculopathy, cervical region Radiculopathy, lumbosacral region Renal insufficiency Right hip pain Right shoulder pain Sacrococcygeal disorders, not elsewhere classified Scoliosis 1 year Spondylolysis Spondylolysis of cervical spine Thoracic back pain Urinary tract infection Vision disorder Vulvar abscess Intervention: This participant was very receptive. Provided appropriate educational handouts. Discussed the following topics: Completed intake assessment. Discussed barriers to care. Review of Rule of 15 for lows Review of s/s of lows CGM Sample Reviewed CGM use and equipment Discussed when to check blood sugars using finger stick Reviewed high and low blood sugar signs/symptoms and treatment options Provided education for self-administration of CGM placement Educated patient on alarm settings Discussed how to remove and dispose of equipment Created SMART goals for patient self-care and success. Goals: Wear CGM x 10 days Practice Rule of 15 for lows Follow-up: RDN [facility] follow-up in 2-3 weeks Janay Chavira RDN, [facility] Certified Diabetes Care and Advanced Analytics Associate P: [phone] Thank you for this referral
== END ==
PROVIDERS: PCP Family Medicine; Referring Provider Family Medicine
DX: E11.649 Type 2 diabetes mellitus with hypoglycemia without coma (principal); Z71.3 Dietary counseling and surveillance; Z98.84 Bariatric surgery status
CPT/HCPCS: G0108

== ENCOUNTER → 2024-04-08 10:33 | Outpatient (CLI) | payer OTHER, MEDICAID, SELFPAY ==
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
== END ==
PROVIDERS: PCP Family Medicine; Referring Provider Family Medicine
DX: E11.649 Type 2 diabetes mellitus with hypoglycemia without coma (principal); Z71.3 Dietary counseling and surveillance
CPT/HCPCS: 97802

== ENCOUNTER 2024-04-19 09:29 | Emergency (ER) | payer OTHER, MEDICAID, SELFPAY ==
[2024-04-19] VITALS (19 sets, daily range): BP systolic 140–194; BP diastolic 82–116; PULSE 58–92; RESP 16–20; TEMP 36.8–37.1; O2SAT 93–98; BMI 25.9
--- NOTE | 2024-04-19 09:50 | EKG_ITS ---
[place] [id number] [place] [id number] Test Date: 2024-04-19 Pat Name: Isabel Gutierrez Department: [facility] Room: Gender: Female Histologist Technologist: FERNANDO : 1965 Requested By: Order Number: [id number] Reading MD: Jose Matias MD Measurements Intervals Comfort Rate: 86 P: 78 DE: 140 QRS: 65 QRSD: 78 T: 75 QT: 356 QTc: 426 Interpretive Statements Normal sinus rhythm Electronically Signed On 04-19-2024 12:43:27 PDT by Jose Matias MD
[2024-04-19] MEDS: ONDANSETRON 4 MG/2 ML INJ IV ×2 (11:05→15:23)
[2024-04-19 11:11] LABS: Add Manual Diff / Slide Review NO; Basophils Absolute Auto 100 /uL (0-100); Basophils Percent Auto 0.8 % (0-2); Eosinophils Absolute Auto 0 /uL (0-450); Eosinophils Percent Auto 0.3 % (2-4); Hematocrit 38.4 % (36-46); Hemoglobin 12.9 g/dL (12.0-16.0); Lymphocytes Absolute Auto 1300 /uL (1100-4500); Lymphocytes Percent Auto 18.8 % (25-40); Mean Corpuscular HGB Conc 33.5 % (30-36); Mean Corpuscular Hemoglobin 30.9 PG (26-34); Mean Corpuscular Volume 92.3 fL (80-100); Monocytes Absolute Auto 400 /uL (0-900); Monocytes Percent Auto 6.1 % (3-14); Neutrophils Absolute Auto 5200 /uL (1500-7000); Platelet Count 198 X10^3/uL (150-400); Red Blood Cell Count 4.16 X10^6/uL (4.0-5.2); Red Cell Distribution Width 13.7 % (11.6-14.8)
[2024-04-19 11:22] LABS: Alanine Aminotransferase 20 IU/L (<35); Albumin 4.4 g/dL (3.5-5.0); Albumin Globulin Ratio 1.6 (1.0-2.8); Alkaline Phosphatase 58 U/L (38-126); Aspartate Aminotransferase 35 IU/L (14-36); BUN Creatinine Ratio 20.6 (6-22); Bilirubin Total 0.6 mg/dL (0.2-1.3); Blood Urea Nitrogen 14 mg/dL (7-17); Calcium 9.3 mg/dL (8.4-10.2); Carbon Dioxide 29 mmol/L (22-32); Chloride 102 mmol/L (98-107); Estimated Glomerular Filt Rate > 60 mL/min (>60); Globulin 2.8 g/dL (1.7-4.1); Glucose 118 mg/dL (80-110); HEMOLYSIS 44 (0-50); Lipase 193 U/L (23-300); Potassium 4.2 mmol/L (3.4-5.1); Sodium 137 mmol/L (137-145); Total Protein 7.2 g/dL (6.3-8.2)
--- NOTE | 2024-04-19 12:03 | ED.ABDPAIN ---
HPI - Abdominal Pain General Chief Complaint: Abdominal Pain Stated Complaint: Hurts to breathe Time Seen by Provider: 04/19/24 11:41 Source: patient Mode of arrival: Family Vehicle History of Present Illness HPI narrative: Patient is a 59-year-old female history of Annabel-en-Y surgery presenting today with ongoing abdominal pain for the last 2 days. She reports decreased appetite and intake. She is passing gas very little she has not had any bowel movements. No fever or chills. She wants to throw up but she can not. Feeling very nauseous. Related Data Home Medications Medication Instructions Recorded Confirmed naloxone 4 mg/actuation nasal spray 1 spray intranasal 11/06/22 02/24/24 duloxetine 40 mg capsule,delayed 40 mg PO BID 12/30/23 02/24/24 release Previous Rx's Medication Instructions Recorded lancets 33 gauge (BD Ultra Fine #100 ea 05/04/20 Lancets) chlorthalidone 25 mg tablet 25 mg PO DAILY #90 tabs 02/12/23 sumatriptan succinate 100 mg See Rx Instructions PO .COMPLEX 05/14/23 tablet (Imitrex) #14 tabs baclofen 5 mg tablet 5 mg PO TID #90 tabs 07/25/23 albuterol sulfate 90 mcg/actuation 2 puff inhalation Q6H PRN 08/23/23 aerosol inhaler shortness of breath or wheezing #8.5 grams fluticasone propionate 50 See Rx Instructions .Route 08/23/23 mcg/actuation nasal .COMPLEX #16 grams spray,suspension allopurinol 300 mg tablet 300 mg PO DAILY #90 tabs 10/15/23 lidocaine 5 % topical patch 1 patch topical DAILY #30 ea 11/06/23 valsartan 80 mg tablet 80 mg PO DAILY #90 tabs 11/06/23 potassium chloride 20 mEq 20 meq PO DAILY #90 tabs 11/15/23 tablet,extended release(part/cryst) bupropion HCl 300 mg 24 hr tablet, 300 mg PO QAM #90 tabs 12/30/23 extended release cyclobenzaprine 10 mg tablet 10 mg PO BEDTIME PRN muscle spasm 12/30/23 #60 tabs varenicline 1 mg tablet (Chantix 1 mg PO BID #60 tabs 02/07/24 Continuing Month Box) pantoprazole 40 mg tablet,delayed 40 mg PO BID #60 tabs 02/21/24 release oxycodone 5 mg tablet 10 mg (2 x 5 mg) PO TID PRN pain 03/28/24 #120 tabs Blood Glucose Test (blood sugar #50 ea 04/01/24 diagnostic) ciprofloxacin HCl 500 mg tablet 500 mg PO BID #14 tabs 04/19/24 (Cipro) hydrocodone 5 mg-acetaminophen 325 1 tab PO Q6H PRN pain #14 tabs 04/19/24 mg tablet metronidazole 500 mg tablet 500 mg PO Q8H 7 days #21 tabs 04/19/24 ondansetron 4 mg disintegrating 4 mg PO Q8H PRN nausea and 04/19/24 tablet vomiting #10 tabs Allergies Allergy/AdvReac Type Severity Reaction Status Date / Time bee venom protein (honey bee) Allergy Intermediate severe Verified 04/19/24 09:49 edema prednisone AdvReac Mild Agitated Verified 04/19/24 09:49 silver AdvReac Unknown ITCHING Verified 04/19/24 09:49 [From Tegaderm AG Mesh] Penicillins AdvReac Vomiting Verified 04/19/24 09:49 Patient History Medical History Hypoglycemia Abdominal pannus Internal hemorrhoids without complication Thoracic back pain Lumbar spondylosis Myofascial pain Failed back syndrome Low back pain Bilateral hip pain Right hip pain Right shoulder pain Sacrococcygeal disorders, not elsewhere classified Radiculopathy, cervical region Radiculopathy, lumbosacral region Radicular pain in left arm Spondylolysis Ingrown right greater toenail Spondylolysis of cervical spine Nocturnal hypoxemia Insomnia due to medical condition Chronic seasonal allergic rhinitis Obstructive sleep apnea, adult Obesity (BMI 30-39.9) Migraine aura without headache Urinary tract infection Renal insufficiency Preop general physical exam Vulvar abscess Gout Vision disorder Asthma Post traumatic stress disorder (PTSD) Depression Anxiety Knee pain Scoliosis Chronic back pain Cataracts, bilateral Gastroparesis Prediabetes Hypertension Deep vein thrombosis Surgical History Bariatric surgery status Post-operative state H/O cervical spine surgery (~2014) History of bladder suspension procedure (~1995) Anesthesia History of cholecystectomy Plantar fasciitis History of bladder surgery Previous section History of neck surgery Previous back surgery Family History Mother Diabetes mellitus Heart disease Hypertension Social History Smoking Status: Former smoker Tobacco: How many years used: 40 alcohol intake: current Smoking Status: Former smoker tobacco type: cigarettes alcohol intake frequency: 0-2 drinks per day Substance Use Type: marijuana Exam Initial Vital Signs Initial Vital Signs: Vital Signs Temperature 98.8 F 04/19/24 09:42 Pulse Rate 92 H 04/19/24 09:42 Respiratory Rate 16 04/19/24 09:42 Blood Pressure 194/116 H 04/19/24 09:42 Pulse Oximetry 97 04/19/24 09:42 Oxygen Delivery Method Room Air 04/19/24 09:42 GENERAL: Alert 59-year-old female appears to not feel well and in no acute distress. HEENT: Head atraumatic,EOMI, pupils reactive, face symmetric, moist mucous membranes CARDIOVASCULAR: Regular rate and rhythm without murmurs, rubs or gallops. RESPIRATORY: Breath sounds equal bilaterally, no wheezes rales or rhonchi. ABDOMEN: Soft, tender epigastric and mid abdominal region no significant distention decreased bowel sounds EXTREMITIES: Normal range of motion, no clubbing or edema. Neurovascularly intact NEUROLOGICAL: Alert and oriented x4.Normal gait and speech. SKIN: Warm, dry, no laceration, no petechiae, no rashes or lesions. Course Orders Ordered: ED Orders 04/19/24 11:00 Complete Blood Count AUTO DIFF Stat Comprehensive Metabolic Panel Stat Lipase Stat 04/19/24 12:04 CT abdomen pelvis w con Stat 04/19/24 12:15 Lactate (Lactic Acid) Stat 04/19/24 13:54 Ictotest Urine Stat Urine Microscopic Stat Discontinued Medications Acetaminophen (Acetaminophen 325 Mg Tablet) 650 mg PO NOW ONE Stop: 04/19/24 12:05 Last Admin: 04/19/24 12:20 Dose: 650 mg Documented By: ALPHONSE Ciprofloxacin (Ciprofloxacin 250 Mg Tablet) 500 mg PO NOW ONE Stop: 04/19/24 15:06 Last Admin: 04/19/24 15:15 Dose: 500 mg Documented By: ALPHONSE Hydromorphone HCl (Hydromorphone 1 Mg Inj) 0.5 mg IV NOW ONE Stop: 04/19/24 12:05 Last Admin: 04/19/24 12:20 Dose: 0.5 mg Documented By: ALPHONSE Hydromorphone HCl (Hydromorphone 1 Mg Inj) 1 mg IV NOW ONE Stop: 04/19/24 13:32 Last Admin: 04/19/24 13:45 Dose: 1 mg Documented By: ALPHONSE Metronidazole (Metronidazole 500 Mg Tablet) 500 mg PO NOW ONE Stop: 04/19/24 15:06 Last Admin: 04/19/24 15:15 Dose: 500 mg Documented By: ALPHONSE Ondansetron HCl (Ondansetron 4 Mg/2 Ml Inj) 4 mg IV NOW PRN PRN Reason: Nausea And Vomiting Last Admin: 04/19/24 11:05 Dose: 4 mg Documented By: ALPHONSE Ondansetron HCl (Ondansetron 4 Mg Odt) 4 mg PO NOW PRN PRN Reason: Nausea And Vomiting Last Admin: 04/19/24 13:50 Dose: 4 mg Documented By: ALPHONSE Ondansetron HCl (Ondansetron 4 Mg/2 Ml Inj) 4 mg IV NOW ONE Stop: 04/19/24 15:20 Last Admin: 04/19/24 15:23 Dose: 4 mg Documented By: ALPHONSE Vital Signs Vital signs: Vital Signs - 8 hr 04/19/24 12:00 04/19/24 12:15 04/19/24 12:18 Temperature Pulse Rate 85 58 L 90 Respiratory Rate Blood Pressure Pulse Oximetry 97 96 97 Oxygen Delivery Method 04/19/24 12:18 04/19/24 12:32 04/19/24 12:32 Temperature Pulse Rate 75 Respiratory Rate Blood Pressure 140/107 H 181/84 H Pulse Oximetry 97 Oxygen Delivery Method 04/19/24 12:45 04/19/24 13:00 04/19/24 13:00 Temperature Pulse Rate 64 70 Respiratory Rate Blood Pressure 182/93 H Pulse Oximetry 95 96 Oxygen Delivery Method 04/19/24 13:15 04/19/24 13:30 04/19/24 13:30 Temperature Pulse Rate 63 60 Respiratory Rate Blood Pressure 190/92 H Pulse Oximetry 94 95 Oxygen Delivery Method 04/19/24 13:45 04/19/24 14:18 04/19/24 14:18 Temperature Pulse Rate 82 76 Respiratory Rate 20 Blood Pressure 168/85 H 168/85 H Pulse Oximetry 97 93 Oxygen Delivery Method Room Air 04/19/24 14:30 04/19/24 15:00 04/19/24 15:20 Temperature 98.2 F Pulse Rate 64 80 85 Respiratory Rate 18 Blood Pressure 165/101 H Pulse Oximetry 94 94 98 Oxygen Delivery Method Room Air MDM - Abdominal Pain Lab Data 04/19/24 11:00 04/19/24 11:00 Labs: Lab Results 04/19/24 04/19/24 04/19/24 Range/Units 11:00 12:15 13:54 WBC 7.0 (4.5-11.0) X10^3/uL RBC 4.16 (4.0-5.2) X10^6/uL Hgb 12.9 (12.0-16.0) g/dL Hct 38.4 (36-46) % MCV 92.3 (80-100) fL MCH 30.9 (26-34) PG MCHC 33.5 (30-36) % RDW 13.7 (11.6-14.8) % Plt Count 198 (150-400) X10^3/uL Neut % (Auto) 74.0 (50-75) % Lymph % (Auto) 18.8 L (25-40) % [place] % (Auto) 6.1 (3-14) % Eos % (Auto) 0.3 L (2-4) % Baso % (Auto) 0.8 (0-2) % Neut # (Auto) 5200 (0051-0893) /uL Lymph # (Auto) 1300 (1173-7993) /uL [place] # (Auto) 400 (0-900) /uL Eos # (Auto) 0 (0-450) /uL Baso # (Auto) 100 (0-100) /uL Sodium 137 (137-145) mmol/L Potassium 4.2 (3.4-5.1) mmol/L Chloride 102 (98-107) mmol/L Carbon Dioxide 29 (22-32) mmol/L BUN 14 (7-17) mg/dL Creatinine 0.68 (0.52-1.04) mg/dL Estimated GFR > 60 (>60) mL/min BUN/Creatinine Ratio 20.6 (6-22) Glucose 118 H (80-110) mg/dL Lactate 0.6 L (0.7-2.1) mmol/L Calcium 9.3 (8.4-10.2) mg/dL Total Bilirubin 0.6 (0.2-1.3) mg/dL AST 35 (14-36) IU/L ALT 20 (<35) IU/L Alkaline Phosphatase 58 (38-126) U/L Total Protein 7.2 (6.3-8.2) g/dL Albumin 4.4 (3.5-5.0) g/dL Globulin 2.8 (1.7-4.1) g/dL Albumin/Globulin Ratio 1.6 (1.0-2.8) Lipase 193 (23-300) U/L Ur Bilirubin Confirm Negative (Negative) Urine RBC None seen (0-5/HPF) Urine WBC None seen (0-5/HPF) Ur Squamous Epith Cells 0-1 /hpf (0-5/HPF) Amorphous Sediment 1+ Urine Bacteria None seen (None) Ur Culture Indicated? Cult not indicated Vol Urine Centrifuged 10ml (spun) Point of care testing: Urine Dip Bedside Urine Glucose Negative Bedside Urine Bilirubin + 1 Bedside Urine Ketone ++ 40 Urine Specific [place] 1.010 Bedside Urine Occult Blood - Negative Bedside Urine pH 6.5 Bedside Urine Protein +/- 15 Bedside Urine Urobilinogen - Negative Bedside Urine Nitrite - Negative Bedside Urine Leukocytes - Negative Esterase Imaging Data CT scan - abdomen/pelvis: Radiologist's Impression: PROCEDURE: CT ABDOMEN PELVIS W CON INDICATIONS: pain post annabel-en y 1 YEAR AGO TECHNIQUE: After the administration of intravenous contrast, axial sections acquired from the lung bases to the pubic symphysis. Coronal and sagittal reformats were performed. For radiation dose reduction, the following was used: automated exposure control, adjustment of mA and/or kV according to patient size. COMPARISON: [facility], CT, CT ABDOMEN PELVIS W CON, 12/06/2023, 3:01. FINDINGS: Lower thorax: The lung bases are clear. Heart size normal. No hiatal hernia. Liver: Normal in size and attenuation. No contour deformity present. Small subcentimeter hypodensity in the right hepatic lobe of the, likely cysts Biliary system: Cholecystectomy Pancreas: Unremarkable without mass or inflammation evident. Spleen: Normal in size and density. Adrenals: Normal morphology and density. Reproductive system: Unremarkable as visualized. Urinary system: Normal renal size and attenuation. 3.3 cm right renal cortical cyst. No hydronephrosis bilaterally. No renal calculi, hydronephrosis, or solid mass present. Urinary bladder unremarkable. Gastrointestinal system: Prior gastric surgery. At the gastric-jejunal anastomotic site, there is wall thickening and perienteric inflammatory change adjacent to the proximal jejunal limb reflecting focal enteritis. No abscess. Multiple diverticula arise from the sigmoid colon without evidence of diverticulitis. Moderate fecal debris throughout the colon Appendix: No findings to suggest acute appendicitis. Peritoneal spaces: No mesenteric or retroperitoneal adenopathy. No free air. No free fluid. Vasculature: The IVC, aorta and iliac vasculature are unremarkable. Abdominal wall: Abdominal wall intact without evidence of ventral or inguinal hernias. Musculoskeletal: Lower lumbar spine instrumented fusion with posterior decompression at L5 IMPRESSION: Focal enteritis associated with the efferent limb of a Annabel-en-Y gastric bypass, new from the prior exam. Anastomosis intact, and no abscess or bowel obstruction present. Additional chronic findings as above Approved by: Osmany Jones M.D. on 04/19/2024 at 12:36 ECG Data Attestation: I personally reviewed and interpreted this ECG as follows: Prior ECG tracings: available for review Interpretation: Normal sinus rhythm rate 86 TN interval 140 QRS [address] changes MDM Narrative Medical decision making narrative: MDM CC: Abdominal pain Complicating co-morbidities: Annabel-en-Y Medical records reviewed: Previous ED visits Differential considered: Obstruction perforation diverticulitis Exam documented above, pertinent findings include: Quite tender epigastric region and abdominal region no distention Lab Test results independently reviewed as above. Pertinent findings: WBC 7.0, CMP: Electrolytes stable creatinine 0.6 glucose 118 Lactate 0.6 Independently reviewed EKG as above Imaging studies independently reviewed: CT shows enteritis of the jejunum with out diverticulitis or abscess this is new from previous CT Consultations: none Treatments: Cipro Flagyl in the ED, Dilaudid, Tylenol Re-evaluations: Patient's pain is better after Dilaudid but eventually does need some more. She is finally able to get some sleep. Discussion: Patient is 59-year-old female presenting today with significant abdominal pain history of by. She reports over last couple weeks she has had pain off and on but it does not usually last this long. She also reports that her glucose has been up and down she has had some hypoglycemic episodes she has not currently on insulin or diabetic medication. Denies any fevers. Blood work is overall reassuring she has a normal lactate and no leukocytosis. Discussed with her use of antibiotics. Without fever or leukocytosis or elevated lactate low suspicion for bacterial cause however since she has been having issues ongoing for couple of weeks discussed with her trying which he is agreeable to. We will also give her pain medication and nausea medication. She is feeling significantly better after Dilaudid. Discharge Plan Departure Patient Disposition: Home Clinical Impression: Enteritis Instructions: DI for Colitis Activity Restrictions/Additional Instructions: *You have been diagnosed with colitis *What to do: At this time your blood work is overall reassuring. You do have some inflammation of your colon. Antibiotics may or may not help. I would do gut rest with clear liquids. Please drink sports drink of your choice Pedialyte Gatorade electrolyte powder May increase diet and food as tolerated *Continue to take medications as directed Cipro 500 mg twice a day for 7 days Flagyl 500 mg 3 times a day for 7 days [place] 1 tablet every 4-6 hours if needed for severe pain Zofran 4 mg every 8 hours if needed for nausea vomiting *Follow up with your primary care provider in 2-3 days or call [phone] *Return to ER if you should have increasing abdominal pain persistent nausea fever or any new, worsening or concerning symptoms CONTROLLED SUBSTANCE DISCHARGE (Narcotoic/benzodiazepine/Flexeril/Phenergan) 1. You have been prescribed narcotic medications, it does have acetaminophen/Tylenol/paracetamol in it, DO NOT TAKE MORE THAN 4,00mg in 24 hours of Tylenol. TRAMADOL DOES NOT CONTAIN TYLENOL 2. Please understand that we cannot provide further refills of narcotics, benzodiazepines or controlled substances through the ED and her pain management will need to be through your provider. 3. While on these medications you cannot drive or operate heavy machinery. 4. You cannot sign legal documents or perform any duties such as this. 5. As long as you're taking opiate pain medications he should also be taking a stool softener such as Colace, Dulcolax, MiraLAX or prune juice, to help avoid constipation. Prescriptions: New hydrocodone-acetaminophen 5-325 mg tablet 1 tab PO Q6H PRN (Reason: pain) Qty: 14 0RF metronidazole 500 mg tablet 500 mg PO Q8H 7 Days Qty: 21 0RF ciprofloxacin HCl [Cipro] 500 mg tablet 500 mg PO BID Qty: 14 0RF ondansetron 4 mg tablet,disintegrating 4 mg PO Q8H PRN (Reason: nausea and vomiting) Qty: 10 0RF No Action (DME) lancets [BD Ultra Fine Lancets] 33 gauge misc See Rx Instructions .ROUTE .MEDSUPPLY Qty: 100 5RF Rx Instructions: Use to test blood glucose twice daily chlorthalidone 25 mg tablet 25 mg PO DAILY Qty: 90 2RF albuterol sulfate 90 mcg/actuation HFA aerosol inhaler 2 puff inhalation Q6H PRN (Reason: shortness of breath or wheezing) Qty: 8.5 2RF fluticasone propionate 50 mcg/actuation spray,suspension See Rx Instructions .ROUTE .COMPLEX Qty: 16 2RF Dose Instruction: use 2 spray into each nostril once daily Rx Instructions: use 2 spray into each nostril once daily allopurinol 300 mg tablet 300 mg PO DAILY Qty: 90 2RF lidocaine 5 % adhesive patch,medicated 1 patch topical DAILY Qty: 30 1RF Rx Instructions: leave on most painful area for up to 12 hrs valsartan 80 mg tablet 80 mg PO DAILY Qty: 90 3RF potassium chloride 20 mEq tablet,ER particles/crystals 20 meq PO DAILY Qty: 90 3RF varenicline [Chantix Continuing Month Box] 1 mg tablet 1 mg PO BID Qty: 60 1RF pantoprazole 40 mg tablet,delayed release (DR/EC) 40 mg PO BID Qty: 60 1RF oxycodone 5 mg tablet 10 mg PO TID PRN (Reason: pain) Qty: 120 0RF Rx Instructions: 1-2 po tid prn pain. No more than 5 in 1 day. Must last 30 days (DME) Blood Glucose Test Strip See Rx Instructions .ROUTE .MEDSUPPLY Qty: 50 0RF Rx Instructions: As directed naloxone 4 mg/actuation spray,non-aerosol 1 spray intranasal sumatriptan succinate [Imitrex] 100 mg tablet See Rx Instructions PO .COMPLEX Qty: 14 2RF Rx Instructions: take 1 tab at onset of headache; if no relief, may repeat 1 tab after at least 2 hrs; max = 2 tabs/24 hrs PO duloxetine 40 mg capsule,delayed release(DR/EC) 40 mg PO BID bupropion HCl 300 mg tablet extended release 24 hr 300 mg PO QAM Qty: 90 3RF cyclobenzaprine 10 mg tablet 10 mg PO BEDTIME PRN (Reason: muscle spasm) Qty: 60 1RF baclofen 5 mg tablet 5 mg PO TID Qty: 90 1RF Referrals: Arnoldo Ribeiro DO [Primary Care Provider] - Stand Alone Forms: Patient Portal/API
[2024-04-19] MEDS: ACETAMINOPHEN 325 MG TABLET 650 MG PO (12:20)
[2024-04-19] MEDS: HYDROMORPHONE 1 MG INJ 0.5 MG IV (12:20)
[2024-04-19 12:33] LABS: Lactate (Lactic Acid) 0.6 mmol/L (0.7-2.1)
[2024-04-19] MEDS: HYDROMORPHONE 1 MG INJ IV (13:45)
[2024-04-19] MEDS: ONDANSETRON 4 MG ODT PO (13:50)
[2024-04-19 14:22] LABS: Ictotest Urine Negative (Negative)
[2024-04-19 14:30] LABS: Amorphous Sediment Urine 1+; Bacteria Urine None Seen; Culture Indicated Urine Cult Not Indicated; RBC Urine None Seen (0-5/HPF); Squamous Epithelial Cell Urine 0-1 /HPF (0-5/HPF); Urine Volume 10mL (spun); WBC Urine None Seen (0-5/HPF)
[2024-04-19] MEDS: CIPROFLOXACIN 250 MG TABLET 500 MG PO (15:15)
[2024-04-19] MEDS: metroNIDAZOLE 500 MG TABLET PO (15:15)
== END 2024-04-19 15:38 | disposition home or self-care (01) ==
PROVIDERS: Emergency Provider Emergency Medicine; PCP Family Medicine
DX: K52.9 Noninfective gastroenteritis and colitis, unspecified (principal); R11.0 Nausea
CPT/HCPCS: 36415; 74177; 80053; 81003; 81015; 83605; 83690; 85025; 93005; 93010; 96374; 96375; 96376; 99284; J1171; J2405

== ENCOUNTER → 2024-04-22 11:43 | Outpatient (CLI) | payer OTHER, MEDICAID, SELFPAY ==
[2024-04-22 13:39] LABS: Alanine Aminotransferase 20 IU/L (<35); Albumin 4.3 g/dL (3.5-5.0); Albumin Globulin Ratio 1.6 (1.0-2.8); Alkaline Phosphatase 80 U/L (38-126); Aspartate Aminotransferase 31 IU/L (14-36); BUN Creatinine Ratio 21.3 (6-22); Bilirubin Total 0.3 mg/dL (0.2-1.3); Blood Urea Nitrogen 20 mg/dL (7-17); Carbon Dioxide 28 mmol/L (22-32); Chloride 96 mmol/L (98-107); Estimated Glomerular Filt Rate > 60 mL/min (>60); Globulin 2.7 g/dL (1.7-4.1); Glucose 151 mg/dL (80-110); HEMOLYSIS < 15 (0-50); Potassium 4.1 mmol/L (3.4-5.1); Sodium 132 mmol/L (137-145)
[2024-04-22 13:45] LABS: Creatinine Urine Random 255.49 mg/dL
[2024-04-22 15:53] LABS: Hemoglobin A1C% w Est Avg Glu 5.2 % (4.0-6.0)
[2024-04-22 21:26] LABS: Microalbumin Urine Random 5.5 mg/dL (0-1.6)
== END ==
PROVIDERS: PCP Family Medicine; Referring Provider Family Medicine; Visit Provider Family Medicine
DX: E11.9 Type 2 diabetes mellitus without complications (principal); I10 Essential (primary) hypertension
CPT/HCPCS: 36415; 80053; 82043; 82570; 83036

== ENCOUNTER → 2024-04-30 12:52 | Outpatient (CLI) | payer OTHER, MEDICAID, SELFPAY ==
--- NOTE | 2024-05-20 17:21 | DIAB.MNTFU ---
Follow-up Diabetes Medical Nutrition Therapy Assessment Name: Isabel Gutierrez Date: 04/30/24 Time: 1-130p Dx: Type II Diabetes Provider: Quintin Hall presents today for DM visit. Referred for T2DM with hypoglycemia. States she is having a hard time eating regularly when she does not feel hungry. States she tried protein shakes. Reports she cannot eat too much raw veggies due to gastroparesis diagnosis, which this RD agrees. Eating was reduced recently due to illness. Now able to eat 3x per day, but only one meal and two snacks. This is concerning given her h/o hypoglycemia. Overall mostly choosing protein and veggies at meals. Often pairing CHO and protein per report. RD will f/u with provider office about CGM acquisition. Anthropometrics: Ht: 64Wt: 155# Physical Activity: Walks with dog daily. Interested in going back to swimming at [employer]. Self-Monitoring Blood Glucose: Finished CGM trial. Needs personal CGM. Hoping will have insurance coverage. Reports dizziness with 40 mg/dl and used glucose gummies to bring up to 70mg/dl and then pro and crackers, which is consistent with rec on RUle of 15 for lows. Previously wore CGM. Reports indicated BG measures under 70mg/dl most days, and 3 occurrences under 55mg/dl over the 10 day CGM. TIR: 0% very high 1% high 90% in range 9% low (under 70mg/dl) <1% very low (under 54mg/dl) av mg/dl GMI: 5.5% varation: 25.7% std dev: 24 mg/dl Diabetes Medications: none Pertinent Labs: HgA1c: 5.9% 05/2023 Past Medical History: (Last Reviewed 02/24/24 @ 16:24 by Arnoldo Ribeiro DO) Abdominal pannus Anxiety 10 years Asthma Bilateral hip pain Cataracts, bilateral 2 years Chronic back pain 20+ years Chronic seasonal allergic rhinitis Deep vein thrombosis Depression 20 years Failed back syndrome Gastroparesis 2 years Gout Hypertension Hypoglycemia Ingrown right greater toenail Insomnia due to medical condition Internal hemorrhoids without complication Knee pain 7 years Low back pain Lumbar spondylosis Migraine aura without headache Myofascial pain Nocturnal hypoxemia Obesity (BMI 30-39.9) Obstructive sleep apnea, adult Post traumatic stress disorder (PTSD) 3-4 years Prediabetes Preop general physical exam Radicular pain in left arm Radiculopathy, cervical region Radiculopathy, lumbosacral region Renal insufficiency Right hip pain Right shoulder pain Sacrococcygeal disorders, not elsewhere classified Scoliosis 1 year Spondylolysis Spondylolysis of cervical spine Thoracic back pain Urinary tract infection Vision disorder Vulvar abscess Nutrition Rx: REE: 1264kcals 1264 x 1.1 AF: 1390kcals Carbohydrates: 139g/day Meal:30-45g Snack:15-30g Protein: 1.1-1.5g/kg 77-105g/d Nutrition Diagnosis: - Predicted inadequate energy intake r/t illness reducing appetite aeb pt report and recent BG reported at 40 mg/dl- new - Physical inactivity r/t limited by pain aeb pt report- improved/in progress Intervention: This participant was very receptive. Provided appropriate educational handouts. Discussed the following topics: Troubleshooting personal CGm acquisition Importance of eating consistently, even with liquid prn Congratulated her on managing lows appropriately sick day management Created SMART goals for patient self-care and success. Goals: Practice Rule of 15 for lows - met Go back to [employer]- not met Eat q 3-4 hours- in progress Choose beverages with kcals when unable to eat- new Call insurance about CGM- new Follow-up: MIRA TAO follow-up in 3-[address] coordinate with provider office about CGM process-- as of this visit. Janay Chavira RDN, DINH Certified Diabetes Care and [place] Patroller P: [phone] Thank you for this referral
== END ==
LOC: DIET 12:52
PROVIDERS: PCP Family Medicine; Referring Provider Family Medicine
DX: E11.649 Type 2 diabetes mellitus with hypoglycemia without coma (principal); E11.43 Type 2 diabetes mellitus with diabetic autonomic (poly)neuropathy; K31.84 Gastroparesis; Z71.3 Dietary counseling and surveillance
CPT/HCPCS: 97803

== ENCOUNTER → 2024-05-04 14:15 | Outpatient (CLI) | payer OTHER, MEDICAID, SELFPAY ==
[2024-05-04 16:27] LABS: Alanine Aminotransferase 21 IU/L (<35); Albumin 3.9 g/dL (3.5-5.0); Albumin Globulin Ratio 1.7 (1.0-2.8); Alkaline Phosphatase 59 U/L (38-126); Aspartate Aminotransferase 32 IU/L (14-36); BUN Creatinine Ratio 22.1 (6-22); Bilirubin Total 0.4 mg/dL (0.2-1.3); Blood Urea Nitrogen 15 mg/dL (7-17); Calcium 9.3 mg/dL (8.4-10.2); Carbon Dioxide 30 mmol/L (22-32); Chloride 103 mmol/L (98-107); Estimated Glomerular Filt Rate > 60 mL/min (>60); Globulin 2.3 g/dL (1.7-4.1); Glucose 100 mg/dL (80-110); HEMOLYSIS < 15 (0-50); Potassium 4.3 mmol/L (3.4-5.1); Sodium 138 mmol/L (137-145); Total Protein 6.2 g/dL (6.3-8.2)
[2024-05-04 16:45] LABS: TSH w/ Reflex to FT4 0.13 uIU/mL (0.47-4.68)
[2024-05-04 16:56] LABS: Cortisol Random 2.83 ug/dL
[2024-05-04 16:58] LABS: Hemoglobin A1C% w Est Avg Glu 5.6 % (4.0-6.0)
== END ==
PROVIDERS: PCP Family Medicine; Referring Provider Family Medicine; Visit Provider Family Medicine
DX: E16.2 Hypoglycemia, unspecified (principal); Z98.84 Bariatric surgery status
CPT/HCPCS: 80053; 82533; 83036; 83525; 84439; 84443; 84681

== ENCOUNTER → 2024-05-11 11:54 | Outpatient (CLI) | payer OTHER, MEDICAID, SELFPAY ==
[2024-05-11 13:13] LABS: COVID-19 CEPHEID 4-PLEX PCR Negative (Negative); Influenza A - CEPHEID Flu A NEGATIVE (NEGATIVE); Influenza B - CEPHEID Flu B NEGATIVE (NEGATIVE); Respiratory Syncytial Virus Negative (Negative)
== END ==
PROVIDERS: PCP Family Medicine; Visit Provider Physician Assistant Medical
DX: R05.1 Acute cough (principal); J06.9 Acute upper respiratory infection, unspecified
CPT/HCPCS: 87635; 87400 ×2; 87420; 0241U

== ENCOUNTER 2024-10-12 13:17 | Emergency (ER) | payer OTHER, SELFPAY ==
[2024-10-12] VITALS (15 sets, daily range): BP systolic 155–191; BP diastolic 83–95; PULSE 63–98; RESP 16–22; TEMP 36.6; O2SAT 94–99; BMI 28.1
--- NOTE | 2024-10-12 13:37 | EKG_ITS ---
[address] [address] Test Date: 2024-10-12 Pat Name: Isabel Gutierrez Department: Room: Gender: Female Jalousie Installer: NAFISA : 1965 Requested By: Order Number: [id number] Reading MD: Alvaro Menard Measurements Intervals Excel Rate: 78 P: 74 ME: 152 QRS: 57 QRSD: 76 T: 83 QT: 360 QTc: 410 Interpretive Statements Sinus rhythm with marked sinus arrhythmia Nonspecific ST and T wave abnormality Electronically Signed On 10-12-2024 15:51:21 PDT by Alvaro Menard
[2024-10-12] MEDS: ONDANSETRON 4 MG/2 ML INJ IV ×2 (13:58→16:27)
--- NOTE | 2024-10-12 13:58 | PC.NURSE ---
Pt states that she has run out of Zofran and has been feeling sick for the last four days. Dry heaving. Administered PRN Zofran IV. Pt resting in [place]. Warm blanket provided.
[2024-10-12 14:09] LABS: Creatine Kinase 172 U/L (30-135)
[2024-10-12 14:10] LABS: Add Manual Diff / Slide Review NO; Alanine Aminotransferase 21 IU/L (<35); Albumin Globulin Ratio 1.5 (1.0-2.8); Alkaline Phosphatase 94 U/L (38-126); Aspartate Aminotransferase 36 IU/L (14-36); BUN Creatinine Ratio 14.8 (6-22); Basophils Absolute Auto 100 /uL (0-100); Basophils Percent Auto 0.7 % (0-2); Bilirubin Total 0.7 mg/dL (0.2-1.3); Blood Urea Nitrogen 12 mg/dL (7-17); Carbon Dioxide 27 mmol/L (22-32); Chloride 101 mmol/L (98-107); Eosinophils Absolute Auto 0 /uL (0-450); Eosinophils Percent Auto 0.2 % (2-4); Estimated Glomerular Filt Rate > 60 mL/min (>60); Globulin 3.3 g/dL (1.7-4.1); Glucose 126 mg/dL (80-110); HEMOLYSIS < 15 (0-50); Hematocrit 40.2 % (36-46); Hemoglobin 13.3 g/dL (12.0-16.0); Lipase 129 U/L (23-300); Lymphocytes Absolute Auto 1500 /uL (1100-4500); Lymphocytes Percent Auto 18.3 % (25-40); Mean Corpuscular HGB Conc 33.1 % (30-36); Mean Corpuscular Hemoglobin 30.6 PG (26-34); Mean Corpuscular Volume 92.6 fL (80-100); Monocytes Absolute Auto 500 /uL (0-900); Monocytes Percent Auto 5.7 % (3-14); Neutrophils Absolute Auto 6100 /uL (1500-7000); Neutrophils Percent Auto 75.1 % (50-75); Platelet Count 232 X10^3/uL (150-400); Potassium 3.8 mmol/L (3.4-5.1); Red Blood Cell Count 4.34 X10^6/uL (4.0-5.2); Sodium 139 mmol/L (137-145); Total Protein 8.3 g/dL (6.3-8.2); White Blood Cell Count 8.2 X10^3/uL (4.5-11.0)
[2024-10-12 14:22] LABS: Troponin I < 0.012 ng/mL (0.01-0.034)
--- NOTE | 2024-10-12 15:26 | ED.ABDPAIN ---
HPI - Abdominal Pain General Chief Complaint: Abdominal Pain Stated Complaint: abd px Time Seen by Provider: 10/12/24 13:42 Source: patient, RN notes reviewed and old records reviewed Mode of arrival: Ambulatory Limitations: no limitations History of Present Illness HPI narrative: 59-year-old female with history of hypertension, back pain, dyslipidemia, ANGELA, diet-controlled diabetes, Gema-en-Y surgery around 2022 presents with complaint of abdominal pain reports gastroparesis flare. Patient states she was had what feels like her gastroparesis flare for the past 4 days. She was states he was episodes are intermittent usually she takes Zofran at home and they resolve but it has been present for days. She describes it as mid epigastric but does radiate down words. Denies fevers or chills. She has had nausea. She states he is not able to vomit secondary to a prior Gema-en-Y surgery. She states she was had 1 very small bowel movement in the last 2 or 3 days. Described as small solid stool with out any bright red blood or black. Describes as episodic and spasmodic. Describes her abdomen is being distended. Denies any urinary symptoms. States she has a much to eat or drink. Presents today because she could not find her antinausea medication she thinks she may have used them up. She was really takes ondansetron. States home medications include valsartan, bupropion, duloxetine, potassium supplementation she takes oral narcotics for chronic pain. Notes she was had multiple back surgeries after falling out of [place] she was much younger. She has had cholecystectomy, she was had uterine ablation as well as cervical and lumbar back surgery. Describes allergy to penicillin. No tobacco, rare alcohol, no recreational drugs other than occasional THC. Primary care is Dr. Ribeiro. Related Data Home Medications Medication Instructions Recorded Confirmed naloxone 4 mg/actuation nasal spray 1 spray intranasal 11/06/22 08/04/24 duloxetine 40 mg capsule,delayed 40 mg PO BID 12/30/23 08/04/24 release Previous Rx's Medication Instructions Recorded lancets 33 gauge (BD Ultra Fine #100 ea 05/04/20 Lancets) chlorthalidone 25 mg tablet 25 mg PO DAILY #90 tabs 02/12/23 albuterol sulfate 90 mcg/actuation 2 puff inhalation Q6H PRN 08/23/23 aerosol inhaler shortness of breath or wheezing #8.5 grams fluticasone propionate 50 See Rx Instructions .Route 08/23/23 mcg/actuation nasal .COMPLEX #16 grams spray,suspension valsartan 80 mg tablet 80 mg PO DAILY #90 tabs 11/06/23 potassium chloride 20 mEq 20 meq PO DAILY #90 tabs 11/15/23 tablet,extended release(part/cryst) bupropion HCl 300 mg 24 hr tablet, 300 mg PO QAM #90 tabs 12/30/23 extended release ondansetron 4 mg disintegrating 4 mg PO Q8H PRN nausea and 04/19/24 tablet vomiting #10 tabs glucagon HCl 1 mg solution for 1 mg SUBCUT Q20M PRN hypoglycemia 05/04/24 injection (Glucagon (HCl) #1 ea Emergency Kit) cyclobenzaprine 10 mg tablet 10 mg PO BEDTIME PRN muscle spasm 06/25/24 #60 tabs Blood Glucose Test (blood sugar #100 ea 08/04/24 diagnostic) estradiol 0.01% (0.1 mg/gram) 0.25 appful vaginal BEDTIME #42.5 08/04/24 vaginal cream grams allopurinol 300 mg tablet 300 mg PO DAILY #90 tabs 08/06/24 blood-glucose sensor (Dexcom G7 #3 ea 08/10/24 Sensor device) blood-glucose meter,continuous #1 ea 09/07/24 (Dexcom G7 Qualitative Field Project Manager) lidocaine 5 % topical patch 1 patch topical DAILY #30 ea 09/23/24 sumatriptan succinate 100 mg See Rx Instructions PO .COMPLEX 09/25/24 tablet (Imitrex) #14 tabs oxycodone 5 mg tablet 10 mg (2 x 5 mg) PO TID PRN pain 09/29/24 #120 tabs lidocaine HCl 2 % mucosal solution 5 ml mucous membrane QID PRN pain 10/12/24 (Lidocaine Viscous) #100 mL Allergies Allergy/AdvReac Type Severity Reaction Status Date / Time bee venom protein (honey bee) Allergy Intermediate severe Verified 08/04/24 12:03 edema prednisone AdvReac Mild Agitated Verified 08/04/24 12:03 silver AdvReac Unknown ITCHING Verified 08/04/24 12:03 [From Tegaderm AG Mesh] Penicillins AdvReac Vomiting Verified 08/04/24 12:03 Review of Systems Review of Systems ROS Unobtainable: All systems reviewed & are unremarkable except as noted in HPI and below Patient History Medical History Hypoglycemia Abdominal pannus Internal hemorrhoids without complication Thoracic back pain Lumbar spondylosis Myofascial pain Failed back syndrome Low back pain Bilateral hip pain Right hip pain Right shoulder pain Sacrococcygeal disorders, not elsewhere classified Radiculopathy, cervical region Radiculopathy, lumbosacral region Radicular pain in left arm Spondylolysis Ingrown right greater toenail Spondylolysis of cervical spine Nocturnal hypoxemia Insomnia due to medical condition Chronic seasonal allergic rhinitis Obstructive sleep apnea, adult Obesity (BMI 30-39.9) Migraine aura without headache Urinary tract infection Renal insufficiency Preop general physical exam Vulvar abscess Gout Vision disorder Asthma Post traumatic stress disorder (PTSD) Depression Anxiety Knee pain Scoliosis Chronic back pain Cataracts, bilateral Gastroparesis Prediabetes Hypertension Deep vein thrombosis Surgical History Bariatric surgery status Post-operative state H/O cervical spine surgery (~2014) History of bladder suspension procedure (~1995) Anesthesia History of cholecystectomy Plantar fasciitis History of bladder surgery Previous section History of neck surgery Previous back surgery Family History Mother Diabetes mellitus Heart disease Hypertension Social History Smoking Status: Former smoker Tobacco: How many years used: 40 alcohol intake: current Smoking Status: Former smoker tobacco type: cigarettes alcohol intake frequency: 0-2 drinks per day Exam Narrative Exam Narrative: GENERAL: Alert and oriented x three, moderate HEENT: Head normocephalic, atraumatic, EOMI, pupils reactive, face symmetric, moist mucous membranes NECK: Supple, full range of motion CARDIOVASCULAR: Regular rate and rhythm without murmurs, rubs or gallops. RESPIRATORY: Breath sounds equal bilaterally, no wheezes rales or rhonchi. ABDOMEN: Soft, generalized tenderness, mildly distended. Normoactive bowel sounds all 4 quadrants. No guarding or rebound, rigidity, no mass : No CVA tenderness EXTREMITIES: Normal range of motion, no clubbing or edema. Neurovascularly intact NEUROLOGICAL: Cranial nerves II through XII grossly intact. Moving all extremities SKIN: Warm, dry, no petechiae, no rashes or lesions. Initial Vital Signs Initial Vital Signs: Vital Signs Temperature 97.9 F 10/12/24 13:23 Pulse Rate 94 H 10/12/24 13:23 Respiratory Rate 22 10/12/24 13:23 Blood Pressure 155/92 H 10/12/24 13:23 Pulse Oximetry 99 10/12/24 13:23 Oxygen Delivery Method Room Air 10/12/24 13:23 Course Orders Ordered: Discontinued Medications Al Hydrox/Mg Hydrox/Simethicone 20 ml/ Lidocaine HCl 15 ml 0 ml PO NOW ONE Stop: 10/12/24 17:03 Last Admin: 10/12/24 17:19 Dose: 40 ml Documented By: Sodium Chloride (Normal Saline 0.9%) 1,000 mls @ 1,000 mls/hr IV BOLUS ONE Stop: 10/12/24 16:48 Last Infusion: 10/12/24 17:23 Dose: Infused Documented By: Admin: 10/12/24 16:07 Dose: 1,000 mls/hr Documented By: Morphine Sulfate (Morphine 4 Mg/Ml Inj) 4 mg IV NOW ONE Stop: 10/12/24 15:50 Last Admin: 10/12/24 16:07 Dose: 4 mg Documented By: Ondansetron HCl (Ondansetron 4 Mg/2 Ml Inj) 4 mg IV NOW PRN PRN Reason: Nausea And Vomiting Last Admin: 10/12/24 13:58 Dose: 4 mg Documented By: Ondansetron HCl (Ondansetron 4 Mg Odt) 4 mg PO NOW PRN PRN Reason: Nausea And Vomiting Ondansetron HCl (Ondansetron 4 Mg/2 Ml Inj) 4 mg IV NOW ONE Stop: 10/12/24 16:26 Last Admin: 10/12/24 16:27 Dose: 4 mg Documented By: Pantoprazole Sodium (Pantoprazole 40 Mg Vial) 40 mg IV NOW ONE Stop: 10/12/24 17:02 Last Admin: 10/12/24 17:08 Dose: 40 mg Documented By: Vital Signs Vital signs: Vital Signs - 8 hr 10/12/24 13:23 10/12/24 13:39 10/12/24 13:41 Temperature 97.9 F Pulse Rate 94 H 88 Respiratory Rate 22 Blood Pressure 155/92 H 191/95 H Pulse Oximetry 99 95 Oxygen Delivery Method Room Air 10/12/24 13:41 10/12/24 14:00 10/12/24 14:01 Temperature Pulse Rate 98 H 73 Respiratory Rate 16 Blood Pressure 169/95 H Pulse Oximetry 96 95 Oxygen Delivery Method Room Air 10/12/24 14:01 10/12/24 14:30 10/12/24 14:30 Temperature Pulse Rate 74 73 Respiratory Rate Blood Pressure 155/84 H Pulse Oximetry 97 95 Oxygen Delivery Method 10/12/24 15:00 10/12/24 15:30 10/12/24 16:06 Temperature Pulse Rate 63 68 Respiratory Rate Blood Pressure Pulse Oximetry 94 94 97 Oxygen Delivery Method 10/12/24 16:10 10/12/24 16:10 Temperature Pulse Rate 81 Respiratory Rate Blood Pressure 182/94 H Pulse Oximetry 98 Oxygen Delivery Method Room Air MDM - Abdominal Pain Lab Data 10/12/24 13:50 10/12/24 13:50 Labs: Lab Results 10/12/24 10/12/24 Range/Units 13:50 16:38 WBC 8.2 (4.5-11.0) X10^3/uL RBC 4.34 (4.0-5.2) X10^6/uL Hgb 13.3 (12.0-16.0) g/dL Hct 40.2 (36-46) % MCV 92.6 (80-100) fL MCH 30.6 (26-34) PG MCHC 33.1 (30-36) % RDW 14.0 (11.6-14.8) % Plt Count 232 (150-400) X10^3/uL Neut % (Auto) 75.1 H (50-75) % Lymph % (Auto) 18.3 L (25-40) % [place] % (Auto) 5.7 (3-14) % Eos % (Auto) 0.2 L (2-4) % Baso % (Auto) 0.7 (0-2) % Neut # (Auto) 6100 (4240-7644) /uL Lymph # (Auto) 1500 (6922-7283) /uL [place] # (Auto) 500 (0-900) /uL Eos # (Auto) 0 (0-450) /uL Baso # (Auto) 100 (0-100) /uL Sodium 139 (137-145) mmol/L Potassium 3.8 (3.4-5.1) mmol/L Chloride 101 (98-107) mmol/L Carbon Dioxide 27 (22-32) mmol/L BUN 12 (7-17) mg/dL Creatinine 0.81 (0.52-1.04) mg/dL Estimated GFR > 60 (>60) mL/min BUN/Creatinine Ratio 14.8 (6-22) Glucose 126 H (80-110) mg/dL Calcium 10.0 (8.4-10.2) mg/dL Total Bilirubin 0.7 (0.2-1.3) mg/dL AST 36 (14-36) IU/L ALT 21 (<35) IU/L Alkaline Phosphatase 94 (38-126) U/L Total Creatine Kinase 172 H (30-135) U/L Troponin I < 0.012 (0.01-0.034) ng/mL Total Protein 8.3 H (6.3-8.2) g/dL Albumin 5.0 (3.5-5.0) g/dL Globulin 3.3 (1.7-4.1) g/dL Albumin/Globulin Ratio 1.5 (1.0-2.8) Lipase 129 (23-300) U/L Urine Color Yellow Urine Appearance Clear Urine pH 6.5 (4.5-8.0) Ur Specific [place] 1.015 (1.000-1.035) Urine Protein Negative (Negative) Urine Glucose (UA) Negative (Negative) g/dL Urine Ketones 2+ H (NEGATIVE) Urine Occult Blood Negative (Negative) Urine Nitrate Negative (Negative) Urine Bilirubin 1+ H (NEGATIVE) Ur Bilirubin Confirm Negative (Negative) Urine Urobilinogen 1.0 (0.2) E.U./dL Ur Leukocyte Esterase Negative (NEGATIVE) Urine RBC None seen (0-5/HPF) Urine WBC None seen (0-5/HPF) Ur Squamous Epith Cells 0-1 /hpf (0-5/HPF) Urine Bacteria None seen (None) Urine Yeast 10-30/hpf H (None) Ur Culture Indicated? Cult not indicated Vol Urine Centrifuged 10ml (spun) Point of care testing: Urine Dip Bedside Urine Glucose Negative Bedside Urine Bilirubin - Negative Bedside Urine Ketone ++ 40 Urine Specific [place] 1.010 Bedside Urine Occult Blood - Negative Bedside Urine pH 6.0 Bedside Urine Protein - Negative Bedside Urine Urobilinogen +/- 1mg Bedside Urine Nitrite - Negative Bedside Urine Leukocytes - Negative Esterase ECG Data Attestation: I personally reviewed and interpreted this ECG as follows: Prior ECG tracings: available for review Interpretation: Sinus rhythm with a marked sinus arrhythmia rate of 78 TX 152 QRS is [address] depression 2 3 and AVF. I lateral leads 4 and 5. No elevation. Patient has prior from 04/19/2024 as well as other priors do not show quite as much ST depression but new appear overall similar. MDM Narrative Medical decision making narrative: Labs show normal white count hemoglobin and platelets. Electrolytes are appropriate BUN and creatinine of 0.81 glucose is 126 total CK is 172 troponins less than 0.012. Lipase is 129. Point of care urine shows ketones, no nitrates, no leuks. CT abdomen pelvis stable subcentimeter hypodense lesions segment 7, prior gastric bypass wall thickening and fat stranding along the gastrojejunostomy anastomosis focal outpouching of the lateral surface of the jejunum with poorly enhancing wall within this region no free fluid or free air. Findings suggest an ulcer consider GI referral for endoscopic evaluation. No evidence of perforation at this time. Patient had fluids, antiemetics and pain medication, protonix. On recheck patient has some improvement but still discomfort. We will give a dose of Protonix. She has not had an EGD or scope and at least 2 years. She was on a PPI she was not sure the exact name was taking it twice daily but decreased herself to once daily. Patient is not familiar with carafate does not think she has ever been on anything like that before. Spoke with general surgery Dr. Ritter @ 4600 he reviewed patient's imaging recommends to increase PPI back to twice daily with outpatient follow up for EGD notes because of her gastric bypass could be potentially done here but if patient needs revisions or interventions would not be able to help the patient so I would recommend that if she was able to return or bariatric surgeon. Discussed with patient she was actually appointment set up by zoom but she will reach out. We will give local contact as well. Patient we will increase her PPI to twice daily. Discharge Plan Departure Patient Disposition: Home Clinical Impression: Jejunal ulcer Activity Restrictions/Additional Instructions: Your imaging shows an area of wall thickening and fat stranding along the gastrojejunostomy anastomosis there is also a focal outpouching of the lateral service or the jejunum with poorly enhancing wall within this region suggesting an ulcer. I spoke with General surgery on-call today they recommend follow up for EGD or scope preferably with your bariatric service as if you do require any interventions our general surgeons are not able to assist. Context given for local General surgery as well. A copy of your images is included on the disk provided. I do ask that you increase your PPI from once daily to twice daily. You can take Maalox with the lidocaine prescribed. Can only use this 4 times daily. Prescription sent to [facility] in [place]. Please return for fevers, new or worsening abdominal back or flank pain, vomiting, black or bloody stools or other new or concerning changes. Prescriptions: New lidocaine HCl [Lidocaine Viscous] 2 % solution 5 ml mucous membrane QID PRN (Reason: pain) Qty: 100 0RF No Action (DME) lancets [BD Ultra Fine Lancets] 33 gauge misc See Rx Instructions .ROUTE .MEDSUPPLY Qty: 100 5RF Rx Instructions: Use to test blood glucose twice daily chlorthalidone 25 mg tablet 25 mg PO DAILY Qty: 90 2RF albuterol sulfate 90 mcg/actuation HFA aerosol inhaler 2 puff inhalation Q6H PRN (Reason: shortness of breath or wheezing) Qty: 8.5 2RF fluticasone propionate 50 mcg/actuation spray,suspension See Rx Instructions .ROUTE .COMPLEX Qty: 16 2RF Dose Instruction: use 2 spray into each nostril once daily Rx Instructions: use 2 spray into each nostril once daily valsartan 80 mg tablet 80 mg PO DAILY Qty: 90 3RF potassium chloride 20 mEq tablet,ER particles/crystals 20 meq PO DAILY Qty: 90 3RF cyclobenzaprine 10 mg tablet 10 mg PO BEDTIME PRN (Reason: muscle spasm) Qty: 60 1RF (DME) Blood Glucose Test Strip See Rx Instructions .ROUTE .MEDSUPPLY Qty: 100 3RF Rx Instructions: use to test blood sugars BID allopurinol 300 mg tablet 300 mg PO DAILY Qty: 90 3RF (DME) [employer] [place] [employer] G7 Sensor Device See Rx Instructions .ROUTE .COMPLEX Qty: 3 2RF Dose Instruction: USE TO CONTINUOUSLY CHECK BLOOD SUGARS Rx Instructions: USE TO CONTINUOUSLY CHECK BLOOD SUGARS (DME) Dexcom G7 Qualitative Field Project Manager Misc See Rx Instructions .Route Qty: 1 3RF Rx Instructions: use to continuously check blood sugars lidocaine 5 % adhesive patch,medicated 1 patch topical DAILY Qty: 30 2RF Rx Instructions: leave on most painful area for up to 12 hrs sumatriptan succinate [Imitrex] 100 mg tablet See Rx Instructions PO .COMPLEX Qty: 14 2RF Rx Instructions: take 1 tab at onset of headache; if no relief, may repeat 1 tab after at least 2 hrs; max = 2 tabs/24 hrs PO oxycodone 5 mg tablet 10 mg PO TID PRN (Reason: pain) Qty: 120 0RF Rx Instructions: 1-2 po tid prn pain. No more than 4 in 1 day. Must last 30 days naloxone 4 mg/actuation spray,non-aerosol 1 spray intranasal estradiol 0.01 % (0.1 mg/gram) cream 0.25 appful vaginal BEDTIME Qty: 42.5 3RF Rx Instructions: Apply 0.25 appful (small amount) to fingertip inside vaginal opening and inside labia nightly x 2 weeks, then twice weekly thereafter duloxetine 40 mg capsule,delayed release(DR/EC) 40 mg PO BID bupropion HCl 300 mg tablet extended release 24 hr 300 mg PO QAM Qty: 90 3RF glucagon HCl [Glucagon (HCl) Emergency Kit] 1 mg recon soln 1 mg SUBCUT Q20M PRN (Reason: hypoglycemia) Qty: 1 2RF Rx Instructions: until target blood sugar attained ondansetron 4 mg tablet,disintegrating 4 mg PO Q8H PRN (Reason: nausea and vomiting) Qty: 10 0RF Referrals: Arnoldo Ribeiro, [Primary Care Provider] - Stand Alone Forms: Patient Portal/API/Survey
--- NOTE | 2024-10-12 15:49 | DI.CT.S_ITS ---
PROCEDURE: CT ABDOMEN PELVIS W CON INDICATIONS: gastroparesis episode x 4 days, hx Gema-en-Y, no BM TECHNIQUE: After the administration of intravenous contrast, axial sections acquired from the lung bases to the pubic symphysis. Coronal and sagittal reformats were performed. For radiation dose reduction, the following was used: automated exposure control, adjustment of mA and/or kV according to patient size. COMPARISON: [facility], CT, CT ABDOMEN PELVIS W CON, 04/19/2024, 12:14. FINDINGS: Image quality: Diagnostic. Lower Chest: No significant findings. ABDOMEN: Liver: No solid mass. Stable subcentimeter hypoattenuating lesion in segment 7. Gallbladder: Absent. Biliary ducts: No biliary dilation. Pancreas: No ductal dilation. Spleen: Size is within normal limits. Adrenal Glands: No adrenal nodules. Kidneys and Ureters: No hydronephrosis. No solid mass. No complex renal cystic lesion which requires follow up. Stomach and Bowel: Prior gastric bypass. There is wall thickening and fat stranding along the gastrojejunostomy anastomosis. There is a focal outpouching of the lateral surface of the jejunum, with poorly enhancing wall within this region (series 2, image 32). Colonic diverticulosis without evidence of diverticulitis. Peritoneum: No abnormal intraperitoneal fluid. No free air. Ventral Wall: No significant ventral hernia. Abdominal Nodes: No retroperitoneal or mesenteric adenopathy by size criteria. Vessels: Aorta and inferior vena cava are normal in size. PELVIS: Pelvic Organs: Unremarkable. Bladder: No bladder wall thickening, accounting for underdistention. Pelvic Nodes: No enlarged lymph nodes. Miscellaneous: No inguinal hernias are seen. Bones: No aggressive osseous abnormality. Degenerative disc disease of the lumbar spine. Surgical fusion of the lumbosacral spine. IMPRESSION: Prior gastric bypass. There is wall thickening and fat stranding along the gastrojejunostomy anastomosis. There is a focal outpouching of the lateral surface of the jejunum, with poorly enhancing wall within this region (series 2, image 32). Findings suggest an ulcer. Consider GI referral for endoscopic evaluation . No evidence of perforation at this time. Dictated by: Monster Sutton M.D. on 10/12/2024 at 16:21 Approved by: Monster Sutton M.D. on 10/12/2024 at 16:25
[2024-10-12] MEDS: MORPHINE 4 MG/ML INJ IV (16:07)
[2024-10-12] MEDS: SODIUM CHLORIDE 0.9% 1,000 ML 1000 ML IV (16:07)
--- NOTE | 2024-10-12 16:18 | PC.NURSE ---
PT remains nauseated. ok for additional dosing of Zofran.
[2024-10-12 16:54] LABS: Appearance Urine UA CLEAR; Bilirubin Urine UA 1+ (NEGATIVE); Color Urine UA YELLOW; Glucose Urine UA NEGATIVE (Negative); Ketones Urine UA 2+ (NEGATIVE); Leukocyte Esterase Urine UA NEGATIVE (NEGATIVE); Nitrite Urine UA NEGATIVE (Negative); Occult Blood Urine UA NEGATIVE (Negative); Protein Urine UA NEGATIVE (Negative); Specific Gravity Urine UA 1.015 (1.000-1.035)
[2024-10-12 16:57] LABS: pH Urine UA 6.5 (4.5-8.0)
[2024-10-12 17:05] LABS: Bacteria Urine None Seen; Ictotest Urine Negative (Negative); RBC Urine None Seen (0-5/HPF); Squamous Epithelial Cell Urine 0-1 /HPF (0-5/HPF); Urine Volume 10mL (spun); WBC Urine None Seen (0-5/HPF)
[2024-10-12 17:06] LABS: Culture Indicated Urine Cult Not Indicated
[2024-10-12] MEDS: PANTOPRAZOLE 40 MG VIAL IV (17:08)
[2024-10-12] MEDS: MAG HYDROX/ALUMINUM/SIMETH SUS 20 ML, LIDOCAINE VISCOUS 2% 15 ML PO (17:19)
== END 2024-10-12 17:51 | disposition home or self-care (01) ==
PROVIDERS: Emergency Provider Emergency Medicine; PCP Family Medicine
DX: K28.9 Gastrojejunal ulcer, unspecified as acute or chronic, without hemorrhage or perforation (principal)
CPT/HCPCS: 36415; 74177; 80053; 81001; 81003; 82550; 83690; 84484; 85025; 93005; 96361; 96374; 96375; 96376; 99284; J2270; J2405; J2470; Q9967

== ENCOUNTER 2024-12-28 16:31 | Emergency (ER) | payer OTHER, SELFPAY ==
[2024-12-28 16:37] VITALS: BP 141/103; PULSE 99; RESP 18; TEMP 36.6; O2SAT 98; BMI 27.4
[2024-12-28] MEDS: ONDANSETRON 4 MG/2 ML INJ IV (16:54)
[2024-12-28 17:04] LABS: Add Manual Diff / Slide Review YES; Hematocrit 39.8 % (36-46); Mean Corpuscular HGB Conc 32.7 % (30-36); Mean Corpuscular Hemoglobin 30.4 PG (26-34); Mean Corpuscular Volume 93.1 fL (80-100); Platelet Count 235 X10^3/uL (150-400); Red Blood Cell Count 4.28 X10^6/uL (4.0-5.2); Red Cell Distribution Width 14.6 % (11.6-14.8); White Blood Cell Count 8.1 X10^3/uL (4.5-11.0)
[2024-12-28 17:14] LABS: Alanine Aminotransferase 26 IU/L (<35); Albumin 4.8 g/dL (3.5-5.0); Albumin Globulin Ratio 1.5 (1.0-2.8); Alkaline Phosphatase 78 U/L (38-126); Aspartate Aminotransferase 37 IU/L (14-36); Bilirubin Total 0.6 mg/dL (0.2-1.3); Blood Urea Nitrogen 13 mg/dL (7-17); Calcium 9.6 mg/dL (8.4-10.2); Carbon Dioxide 32 mmol/L (22-32); Chloride 98 mmol/L (98-107); Estimated Glomerular Filt Rate > 60 mL/min (>60); Globulin 3.2 g/dL (1.7-4.1); Glucose 125 mg/dL (70-99); HEMOLYSIS < 15 (0-50); Lipase 318 U/L (23-300); Potassium 4.5 mmol/L (3.4-5.1); Sodium 137 mmol/L (137-145)
[2024-12-28 17:18] LABS: Neutrophils Absolute Manual 5265 /uL (3000-5900); RBC Morphology Normal Morphology; Total Cells Counted 100
[2024-12-28 17:19] LABS: Smudge Cells 2+
== END 2024-12-28 20:29 | disposition left against medical advice (07) ==
PROVIDERS: Student in an Organized Health Care Education/Training Program; Emergency Provider Emergency Medicine; PCP Family Medicine
DX: R10.9 Unspecified abdominal pain (principal)
CPT/HCPCS: 80053; 83690; 85007; 85025; 99283; J2405

== ENCOUNTER → 2025-01-05 11:21 | Outpatient (CLI) | payer OTHER, SELFPAY ==
[2025-01-05 12:24] LABS: Hemoglobin A1C% w Est Avg Glu 5.2 % (4.0-6.0)
[2025-01-05 12:30] LABS: Add Manual Diff / Slide Review NO; Basophils Absolute Auto 0 /uL (0-100); Basophils Percent Auto 0.6 % (0-2); Eosinophils Absolute Auto 100 /uL (0-450); Eosinophils Percent Auto 1.9 % (2-4); Hematocrit 36.7 % (36-46); Hemoglobin 12.4 g/dL (12.0-16.0); Lymphocytes Absolute Auto 2100 /uL (1100-4500); Lymphocytes Percent Auto 37.3 % (25-40); Mean Corpuscular HGB Conc 33.7 % (30-36); Monocytes Absolute Auto 300 /uL (0-900); Neutrophils Absolute Auto 3100 /uL (1500-7000); Neutrophils Percent Auto 55.2 % (50-75); Platelet Count 242 X10^3/uL (150-400); Red Blood Cell Count 3.99 X10^6/uL (4.0-5.2); Red Cell Distribution Width 14.6 % (11.6-14.8); White Blood Cell Count 5.7 X10^3/uL (4.5-11.0)
[2025-01-05 12:39] LABS: Iron 54 ug/dL (37-170)
[2025-01-05 12:42] LABS: Alanine Aminotransferase 31 IU/L (<35); Albumin 4.4 g/dL (3.5-5.0); Albumin Globulin Ratio 1.5 (1.0-2.8); Alkaline Phosphatase 68 U/L (38-126); Aspartate Aminotransferase 49 IU/L (14-36); BUN Creatinine Ratio 19.4 (6-22); Bilirubin Total 0.4 mg/dL (0.2-1.3); Blood Urea Nitrogen 14 mg/dL (7-17); Calcium 9.2 mg/dL (8.4-10.2); Carbon Dioxide 28 mmol/L (22-32); Chloride 104 mmol/L (98-107); Estimated Glomerular Filt Rate > 60 mL/min (>60); Globulin 2.9 g/dL (1.7-4.1); Glucose 109 mg/dL (70-99); HEMOLYSIS < 15 (0-50); Potassium 4.4 mmol/L (3.4-5.1); Sodium 138 mmol/L (137-145); Total Protein 7.3 g/dL (6.3-8.2)
[2025-01-05 13:30] LABS: Vitamin B12 597 pg/mL (239-931)
== END ==
PROVIDERS: PCP Family Medicine; Referring Provider Family Medicine; Visit Provider Family Medicine
DX: K28.9 Gastrojejunal ulcer, unspecified as acute or chronic, without hemorrhage or perforation (principal); Z98.84 Bariatric surgery status; I10 Essential (primary) hypertension; R80.9 Proteinuria, unspecified; E16.2 Hypoglycemia, unspecified
CPT/HCPCS: 36415; 80053; 82607; 83036; 83540; 85025

== ENCOUNTER → 2025-06-01 11:07 | Outpatient (CLI) | payer OTHER, SELFPAY ==
[2025-06-01 12:01] LABS: Add Manual Diff / Slide Review NO; Hematocrit 35.0 % (36-46); Hemoglobin 11.5 g/dL (12.0-16.0); Lymphocytes Absolute Auto 2600 /uL (1100-4500); Mean Corpuscular HGB Conc 32.8 % (30-36); Mean Corpuscular Hemoglobin 29.4 PG (26-34); Mean Corpuscular Volume 89.7 fL (80-100); Platelet Count 204 X10^3/uL (150-400)
[2025-06-01 12:26] LABS: Alanine Aminotransferase 23 IU/L (<35); Albumin 4.6 g/dL (3.5-5.0); Albumin Globulin Ratio 1.8 (1.0-2.8); Alkaline Phosphatase 79 U/L (38-126); Blood Urea Nitrogen 19 mg/dL (7-17); Calcium 9.7 mg/dL (8.4-10.2); Carbon Dioxide 29 mmol/L (22-32); Chloride 102 mmol/L (98-107); Estimated Glomerular Filt Rate > 60 mL/min (>60); Globulin 2.5 g/dL (1.7-4.1); Glucose 107 mg/dL (70-99); HEMOLYSIS < 15 (0-50); Hemoglobin A1C% w Est Avg Glu 5.5 % (4.0-6.0); Potassium 4.4 mmol/L (3.4-5.1); Sodium 139 mmol/L (137-145); Total Protein 7.1 g/dL (6.3-8.2)
[2025-06-01 12:44] LABS: Free T4, Direct Thyroxine 1.12 ng/dL (0.78-2.19)
[2025-06-01 12:58] LABS: Thyroid Stimulating Hormone 2.20 uIU/mL (0.47-4.68)
--- NOTE | 2025-06-01 14:01 | DI.RAD.S_ITS ---
PROCEDURE: XR CERVICAL SPINE 2V OR 3V INDICATIONS: Worsening neck pain TECHNIQUE: 3 view(s) of the cervical spine were acquired. COMPARISON: [facility], CR, XR CERVICAL SPINE 2V OR 3V, 04/11/2021, 12:11. FINDINGS: Bones: No fractures or dislocations to the C6 level. The lateral masses of C1 appear intact on the odontoid view. No suspicious bony lesions. ACDF of C6-7. Mild to moderate, multilevel degenerative disc disease and diffuse facet arthrosis. Soft tissues: No prevertebral soft tissue swelling. IMPRESSION: ACDF of C6-7, without hardware complication. Mild to moderate, multilevel degenerative disc disease and diffuse facet arthrosis. Facet arthrosis has progressed from prior. Dictated by: Monster Sutton M.D. on 06/02/2025 at 12:19 Approved by: Monster Sutton M.D. on 06/02/2025 at 12:23
--- NOTE | 2025-06-01 14:01 | DI.RAD.S_ITS ---
PROCEDURE: XR LUMBAR SPINE 2-3V INDICATIONS: Worsening lower back pain TECHNIQUE: 3 views of the lumbar spine were acquired. COMPARISON: [facility], CR, XR LUMBAR SPINE MIN 4V, 05/01/2023, 10:05. [facility], CR, XR LUMBAR SPINE 2-3V, 07/13/2022, 8:59. FINDINGS: Surgical change: Posterior surgical fusion of L4-5 on the left. Posterior surgical fusion of L5-S1 on the right. ACDF of L5-S1. Bones: Grade 1 anterolisthesis L3 on L4, stable. Slight leftward curvature of the lumbar spine. Stable mild anterior wedging of the L2 vertebral body. Moderate disc height loss at L1-2, L2-3, L3-4. Soft tissues: Overlying bowel gas pattern is normal. No suspicious soft tissue calcifications. IMPRESSION: Surgical changes of the lower spine, without hardware complication. Stable degenerative changes at L1 through L4. Dictated by: Monster Sutton M.D. on 06/02/2025 at 12:17 Approved by: Monster Sutton M.D. on 06/02/2025 at 12:19
== END ==
PROVIDERS: PCP Family Medicine; Referring Provider Family Medicine; Visit Provider Family Medicine
DX: I10 Essential (primary) hypertension (principal); E78.00 Pure hypercholesterolemia, unspecified; M15.9 Polyosteoarthritis, unspecified; E66.9 Obesity, unspecified; M54.12 Radiculopathy, cervical region; F50.9 Eating disorder, unspecified; M54.17 Radiculopathy, lumbosacral region; E11.649 Type 2 diabetes mellitus with hypoglycemia without coma
CPT/HCPCS: 36415; 72040; 72100; 80053; 83036; 84439; 84443; 85025

== ENCOUNTER → 2025-06-03 10:03 | Outpatient (CLI) | payer OTHER, SELFPAY ==
--- NOTE | 2025-06-03 10:04 | DI.RAD.S_ITS ---
PROCEDURE: XR DEXA AXIAL SKELETON INDICATIONS: screening COMPARISON: None. FINDINGS: Left Femoral Neck: Bone mineral density 0.71 g/cm2, T score -1.3. Left Hip: Bone mineral density 0.93 g/cm2, T score -0.1 Left Forearm: Bone mineral density 0.62 g/cm2, T score -1.3,. Fracture Risk Calculation (when applicable): Major osteoporotic fracture: 20% Hip fracture 1.9% (T score greater or equal to -1.0 to: NORMAL) (T score from -1.1 to -2.4: OSTEOPENIA) (T score less than or equal to -2.5: OSTEOPOROSIS) IMPRESSION: Osteopenia Follow-up guidelines as follows: Osteoporosis: Consider a repeat DEXA and Vertebral Fracture Assessment (VFA) exam in 2 years or sooner if medically necessary, to reassess this patient's status. Osteopenia: Consider a repeat DEXA in 2-3 years to reassess this patient's status, or if there is a new clinical indication. Normal: Consider a repeat DEXA in 5 years or sooner, or if there is a new clinical indication. All treatment decisions require clinical judgment and consideration of individual patient factors, including patient preferences, comorbidities, previous drug use, risk factors not captured in the FRAX model (e.g., frailty, falls, vitamin D deficiency, increased bone turnover, interval significant decline in bone density ) and possible under- or over-estimation of fracture risk by FRAX. In addition, the NOF Guide recommends that FDA-approved medical therapies be considered in postmenopausal women and men age >= 50 years with a: * Hip or vertebral (clinical or morphometric) fracture * T-score of <=-2.5 at the spine or hip * Ten-year fracture probability by FRAX of >= 3% for hip fracture or >=20% for major osteoporotic fracture. Dictated by: Mario Huitron M.D. on 06/05/2025 at 13:12 Approved by: Mario Huitron M.D. on 06/05/2025 at 13:13
== END ==
LOC: RAD 10:04
PROVIDERS: PCP Family Medicine; Referring Provider Family Medicine; Visit Provider Family Medicine
DX: M85.89 Other specified disorders of bone density and structure, multiple sites (principal); M51.360 Other intervertebral disc degeneration, lumbar region with discogenic back pain only; M43.02 Spondylolysis, cervical region
CPT/HCPCS: 77080